=== PATIENT | female | born 1965 | race Caucasian/White ===

== ENCOUNTER 2020-10-11 14:00 | Outpatient (CLI) | payer OTHER, SELFPAY ==
--- NOTE | 2020-10-11 14:35 | ECG_ITS ---
Measurements Intervals [place] Rate: 62 P: 48 DE: 145 QRS: 14 QRSD: 83 T: 34 QT: 381 QTc: 388 Interpretive Statements SINUS RHYTHM NORMAL ECG Electronically Signed On 10-12-2020 7:48:35 SEMICONDUCTOR DEVELOPMENT TECHNICIAN by Rafy Wong D.O.
[2020-10-11 14:42] LABS: Add Urine Microscopic? NO; Appearance Urine Clear (Clear); Basophils Absolute Auto 0.08 K/mm3 (0.00-0.10); Basophils Percent Auto 1.4 % (0.0-1.0); Bilirubin Urine Negative (Negative); Blood Urine Negative (Negative); Color Urine Yellow (Yellow); Eosinophils Absolute Auto 0.09 K/mm3 (0.02-0.50); Eosinophils Percent Auto 1.6 % (1.0-6.0); Glucose Urine UA Negative (Negative); Hematocrit 35.3 % (35.0-49.0); Hemoglobin 11.2 g/dL (12.0-15.0); Immature Granulocyte Absolute 0.02 K/mm3 (0.00-0.00); Immature Granulocyte Percent A 0.4 % (0.0-0.0); Ketones Urine Negative (Negative); Leukocyte Esterase Ur Negative (Negative); Lymphocytes Absolute Auto 1.63 K/mm3 (1.10-4.50); Lymphocytes Percent Auto 28.8 % (18.0-42.0); Mean Corpuscular HGB Conc 31.7 g/dL (32.0-36.0); Mean Corpuscular Hemoglobin 29.6 pg (27.0-31.0); Mean Corpuscular Volume 93.1 fL (78.0-102.0); Mean Platelet Volume 9.9 fl (9.2-11.8); Monocytes Absolute Auto 0.34 K/mm3 (0.10-0.90); Neutrophils Absolute Auto 3.5 K/mm3 (1.7-7.2); Neutrophils Percent Auto 61.8 % (50.0-70.0); Nitrate Urine Negative (Negative); Platelet Count Result 306 K/mm3 (150-420); Protein Urine Negative (Negative); Red Blood Count 3.79 M/mm3 (4.20-5.40); Red Cell Distribution Width 13.7 % (11.6-14.4); Specific Grav Ur 1.025 (1.010-1.020); Urobilinogen Urine 0.2 mg/dL (0.2-1.0); White Blood Count 5.7 K/mm3 (4.8-10.8); pH Urine 6.5 (5.0-8.0)
[2020-10-11 14:45] LABS: Anion Gap 9 mmol/L (8-16); Blood Urea Nitrogen 19 mg/dL (7-18); Calcium 8.9 mg/dL (8.5-10.1); Carbon Dioxide 28 mmol/L (21-32); Chloride 104 mmol/L (98-108); Estimated Glomerular Filt Rate 56; Glucose 115 mg/dL (70-99); Osmolality Calculated 295 mOsm/kg (285-295); Potassium 5.3 mmol/L (3.5-5.1); Sodium 141 mmol/L (136-145)
[2020-10-12 19:34] LABS: SARS-CoV-2 RNA PCR Negative
== END 2020-10-11 14:01 | disposition home or self-care (01) ==
LOC: CHSLAB 14:08
PROVIDERS: PCP Emergency Medicine
DX: Z01.818 Encounter for other preprocedural examination (principal); R35.0 Frequency of micturition; Z20.822 Contact with and (suspected) exposure to COVID-19
CPT/HCPCS: 36415; 80048; 81003; 85025; 87077; 87086; 87088; 93005; C9803; U0003; U0005

== ENCOUNTER 2020-11-03 13:57 | Outpatient (CLI) | payer OTHER, SELFPAY ==
--- NOTE | ~2020-11-03 | CT_ITS ---
EXAMINATION: CT abdomen pelvis w con DATE: 11/03/2020 14:27 INDICATION: Abnormal weight loss of 30 pounds in 1 month. There is esophagus. Incontinence stimulator device present. TECHNIQUE: Computed tomography (CT) of the abdomen and pelvis was performed with 100 cc Omnipaque 350 intravenous contrast. The dose-length product was 316.09 mGy-cm. Automated exposure control and iter ative reconstruction technique were employed. COMPARISON: CT dated 03/03/2017 FINDINGS: Lung bases are unremarkable. Heart size is normal. No significant pleural or pericardial ef fusion. Mild atherosclerosis without aneurysm. No lymphadenopathy. There is hepatomegaly. Nonobstruct seth bowel gas pattern. No free air or free fluid. The spleen, pancreas, adrenal glands and kidneys ar e unremarkable. Gallbladder is present. There is a neurostimulator device implanted in the right flan k extending into the right pelvis. Surgical clips present in the mid abdomen. There is disc narrowing at L5-S1. No acute osseous abnormality. IMPRESSION: 1. No acute abdominal abnormality. No findings to account for weight loss. 2: Hepatomegaly. Reviewed, dictated and finalized at location A. [facility] SPECIALIST
== END 2020-11-03 13:58 | disposition home or self-care (01) ==
PROVIDERS: PCP Emergency Medicine; Visit Provider Internal Medicine Gastroenterology
DX: R63.4 Abnormal weight loss (principal); R16.0 Hepatomegaly, not elsewhere classified
CPT/HCPCS: 74177; Q9967

== ENCOUNTER 2020-12-28 18:29 | Emergency (ER) | payer OTHER, SELFPAY ==
--- NOTE | ~2020-12-28 | XR_ITS ---
EXAMINATION: XR hip LT 2V w AP pelvis DATE: 12/28/2020 19:28 INDICATION: Left hip pain. TECHNIQUE: An anteroposterior view of the pelvis and 2 views of left hip were obtained. COMPARISON: None. FINDINGS: There is a comminuted fractures of left femoral neck. The main distal fracture fragment dem onstrates impaction, 10 mm medial displacement, and 20 degrees valgus angulation. The hip joint space s are normal. There is an electrode in right S3 neural foramen. Surgical clips overlie the pelvis. IMPRESSION: 1. Comminuted fracture of left femoral neck. Reviewed, dictated and finalized at location A.
--- NOTE | 2020-12-28 19:07 | ED.LOWEXIN ---
HPI - Extremity Injury (Lower) General Chief Complaint: Extremity Problem,Nontraumatic Stated Complaint: left hip pain Source: patient and RN notes reviewed Mode of arrival: wheelchair Limitations: no limitations History of Present Illness HPI Narrative: patient has had hip pain for the last 2 weeks. Says that she fell on some rocks 10-14 days ago and is unable to bear weight now. complaint: hip injury Onset (ago): day(s) (10) Type of Injury: blunt Place: home Severity: severe Relieving factors: nothing Exacerbating factors: weight bearing, movement and palpation Context: fall Associated symptoms: unable to bear weight Other symptoms: none Related Data Home Medications Medication Instructions Recorded Confirmed albuterol sulfate 2.5 mg/0.5 mL 2.5 mg INHALATION Q20M PRN 10/04/19 12/28/20 solution for nebulization albuterol sulfate 90 mcg/actuation 1 inhalation INHALATION Q4H PRN 10/04/19 12/28/20 aerosol inhaler alendronate 70 mg tablet 70 mg PO WEEKLY 10/04/19 12/28/20 clonazepam 1 mg tablet 1 mg PO DAILY 10/04/19 12/28/20 ergocalciferol (vitamin D2) 1,250 1,250 mcg PO WEEKLY 10/04/19 12/28/20 mcg (50,000 unit) capsule fluoxetine 40 mg capsule 40 mg PO DAILY 10/04/19 12/28/20 fluticasone 113 mcg-salmeterol 14 1 puff INHALATION BID 10/04/19 12/28/20 mcg/actuation breath activated powdr hydrocodone 10 mg-acetaminophen 1 tablet PO Q8H PRN 10/04/19 12/28/20 325 mg tablet simvastatin 20 mg tablet 20 mg PO DAILY 10/04/19 12/28/20 umeclidinium 62.5 mcg/actuation 1 inhalation INHALATION DAILY 10/04/19 12/28/20 blister powder for inhalation lamotrigine 100 mg PO DAILY 12/28/20 12/28/20 lisinopril 20 mg PO DAILY 12/28/20 12/28/20 Allergies Allergy/AdvReac Type Severity Reaction Status Date / Time aspirin Allergy Mild Unknown Verified 10/29/20 14:57 ciprofloxacin Allergy Unknown Unknown Verified 10/29/20 14:57 BEE STINGS Allergy Intermediate SWELLING Uncoded 10/29/20 14:57 Review of Systems Review of Systems: All systems reviewed & are unremarkable except as noted in HPI and below PMFSH Past Medical History Medical History Anemia Arthritis Asthma CAD in [place] artery Chronic obstructive pulmonary disease Colon polyp Cubital tunnel syndrome on left [place] (dyspnea on exertion) Dyslipidemia Elevated lipids Essential hypertension GERD (gastroesophageal reflux disease) Heart murmur Tobacco abuse Weight loss Surgical History Surgical History History of appendectomy History of foot surgery History of hysterectomy History of knee surgery History of shoulder surgery Family History Family History Father Family history of lung cancer Sibling Family history of mental disorder Mother Hypertension Family history of elevated blood lipids Other Diabetes mellitus Social History Social History Smoking packs per day: 1 Smoking cigarettes per day: 20.0 Years smoked: 30 Smoking pack-years: 30.00 Smoking status: Current every day smoker Tobacco type: cigarettes Alcohol intake: never Substance use: never Substance use type: does not use Gender identity (if verbalized by the patient): Female Spiritual care concerns: No Exam Const: Nutritional Appearance: well nourished and thin Orientation/consciousness: patient oriented x3 HENMT: Head: normal to inspection Ears: external ears normal Face and sinus: normal facial exam Mouth: Yes moist mucous membranes Eyes: General: appearance normal, both eyes and all related structures Conjunctivae: conjunctivae normal Pupils: Equal, round and reactive pupils present EOM: EOMs intact bilaterally Neck: Neck: normal visual inspection Resp: Effort & Inspection: normal respiratory effort Auscultation: clear to auscult
[2020-12-28 19:18] VITALS: BP 106/65; PULSE 74; RESP 20; TEMP 36.9; O2SAT 96
[2020-12-28] MEDS: HYDROmorphone HCL INJ (*CRX) 2 MG/ML VIAL 1 MG IV PUSH ×2 (19:40→20:55)
--- NOTE | 2020-12-28 19:46 | PC.NURSE ---
Call placed to [facility] pt. requests transfer for ortho care and surgery at [place]. Spoke woo Jones supv. will await callback from
[2020-12-28 19:47] LABS: Basophils Absolute Auto 0.07 K/mm3 (0.00-0.10); Basophils Percent Auto 0.9 % (0.0-1.0); Eosinophils Percent Auto 2.7 % (1.0-6.0); Hematocrit 34.4 % (35.0-49.0); Immature Granulocyte Absolute 0.01 K/mm3 (0.00-0.00); Immature Granulocyte Percent A 0.1 % (0.0-0.0); Lymphocytes Absolute Auto 3.47 K/mm3 (1.10-4.50); Lymphocytes Percent Auto 46.1 % (18.0-42.0); Mean Corpuscular Hemoglobin 29.4 pg (27.0-31.0); Mean Platelet Volume 9.4 fl (9.2-11.8); Neutrophils Absolute Auto 3.2 K/mm3 (1.7-7.2); Neutrophils Percent Auto 42.2 % (50.0-70.0); Platelet Count Result 366 K/mm3 (150-420); Red Blood Count 3.74 M/mm3 (4.20-5.40); Red Cell Distribution Width 13.8 % (11.6-14.4); White Blood Count 7.5 K/mm3 (4.8-10.8)
[2020-12-28 20:00] LABS: Partial Thromboplastin Time 28.5 SEC (23.90-30.70); Prothrombin Time 10.4 Seconds (9.50-12.10)
[2020-12-28 20:01] LABS: Alanine Aminotransferase 21 U/L (14-59); Albumin Level 3.8 g/dL (3.4-5.0); Alkaline Phosphatase 111 U/L (46-116); Anion Gap 7 mmol/L (8-16); Aspartate Amino Transferase 14 U/L (15-37); Bilirubin,Total 0.3 mg/dL (0.00-1.00); Blood Urea Nitrogen 20 mg/dL (7-18); Calcium 9.3 mg/dL (8.5-10.1); Carbon Dioxide 29 mmol/L (21-32); Chloride 100 mmol/L (98-108); Estimated CRCL calculation 58 ml/min; Estimated Glomerular Filt Rate > 60; Glucose 75 mg/dL (70-99); Osmolality Calculated 283 mOsm/kg (285-295); Potassium 4.2 mmol/L (3.5-5.1); Sodium 136 mmol/L (136-145); Total Protein 7.4 g/dL (6.4-8.2)
[2020-12-28 21:00] VITALS: BP 117/50; PULSE 68; RESP 18; O2SAT 98
[2020-12-28 21:49] VITALS: BP 120/64; PULSE 68; RESP 20; TEMP 37.2; O2SAT 96
[2020-12-28] MEDS: ALBUTEROL SULFATE (*SP) INHALER 2 PUFF INHALATION (21:59)
== END 2020-12-28 22:25 | disposition short-term general hospital (02) ==
PROVIDERS: Emergency Provider Emergency Medicine; PCP Emergency Medicine
DX: S72.002A Fracture of unspecified part of neck of left femur, initial encounter for closed fracture (principal); W19.XXXA Unspecified fall, initial encounter
CPT/HCPCS: 36415; 73502; 80053; 85025; 85610; 85730; 96374; 96376; 99285; A9270; J1170

== ENCOUNTER 2020-12-28 23:41 | Inpatient (IN) | payer OTHER, SELFPAY ==
--- NOTE | ~2020-12-28 | CT_ITS ---
EXAMINATION: CT hip LT wo con DATE: 12/29/2020 13:23 INDICATION: Left hip fracture. Preoperative evaluation. TECHNIQUE: High resolution computed tomography (CT) of the left hip was performed without intravenous contrast. Additional sagittal and coronal reconstructions were performed. Automated exposure control and iterative reconstruction technique were employed. The dose-length product was 254.38 mGy-cm. COMPARISON: None FINDINGS: Mildly comminuted fractures of the proximal left femur. This includes a subcapital fracture which is impacted with approximately 25 degrees valgus angulation. There is an additional nondisplaced fractur e plane extending caudally along the inferomedial cortex of the femoral neck to the cephalad margin o f the lesser trochanter which is not directly involved by the fracture. No other fractures identified . Left femoral head remains normally centered in the left acetabulum but is rotated as with adduction . Mild left hip osteoarthritis with mild nonuniform joint space narrowing. There is a 1.9 x 1.3 cm re gion of mild subarticular cystic change with underlying linear sclerosis at the anterosuperior aspect of the left femoral head suspicious for osteonecrosis. No left hip joint effusion. Mild left sacroil iac osteoarthritis. Moderate disc height loss at L5-S1. Disc bulges at L4-5 and L5-S1. Mild lower lum bar facet osteoarthritis. There are few sigmoid diverticula without adjacent inflammatory change to s uggest diverticulitis. Visualized bladder is normal. No free fluid in the pelvis. No pathologically e nlarged left pelvic or inguinal lymphadenopathy. IMPRESSION: 1. Mildly comminuted fractures of the left femoral neck with impaction and 25 degrees valgus angulati on at the main subcapital fracture plane. 2. 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 Reviewed, dictated and finalized at location A. IMPRESSION: 1. Mildly comminuted fractures of the left femoral neck with impaction and 25 d egrees valgus angulation at the main subcapital fracture plane. 2. Osteonecrosis underlying a small region of the anterosuperior left femoral h ead.
--- NOTE | ~2020-12-28 | XR_ITS ---
EXAMINATION: XR chest 1V portable INDICATION: Pain after fall TECHNIQUE: Portable AP chest at 0602 hours COMPARISON: 07/08/2017 FINDINGS: The lungs are free of acute opacities. There is no pleural effusion or pneumothorax. The ca rdiomediastinal silhouette is normal. IMPRESSION: 1. No acute cardiopulmonary abnormality. Reviewed, dictated and finalized at location A.
--- NOTE | ~2020-12-28 | XR_ITS ---
EXAMINATION: XR hip LT min 2V DATE: 12/30/2020 18:57 INDICATION: Left hip bipolar hemiarthroplasty. Postop. TECHNIQUE: 2 views of left hip were obtained. COMPARISON: Left hip radiographs 12/28/2020 FINDINGS: There is a bipolar left hip hemiarthroplasty in near-anatomic alignment. There is a cable a round the proximal femur. No acute fracture. An electrode overlies the sacrum. There are skin toan lateral to the left hip. IMPRESSION: 1. Bipolar left hip hemiarthroplasty in near-anatomic alignment. Reviewed, dictated and finalized at location A.
--- NOTE | 2020-12-28 23:17 | ADMGEN ---
This patient, Bessy Zavala, was admitted to Medical Room 247-. Patient/family oriented to hospital policies and general routines including ID bracelet, bed and alarms, visiting hours, pain management, procedures, bathroom and other care routines, personal items, smoking policy, room service/diet, and visiting hours. Information on how to activate the Rapid Response Team has been discussed. Patient/Family are encouraged to report perceived risks to care and to ask questions if they do not understand what they are told or what they should do.
[2020-12-28 23:18] VITALS: BP 107/42; PULSE 87; RESP 18; TEMP 36.9; O2SAT 96
[2020-12-28 23:48] VITALS: BMI 20.4
[2020-12-29] VITALS (8 sets, daily range): BP systolic 105–120; BP diastolic 47–60; PULSE 68–107; RESP 16–20; TEMP 36.2–36.5; O2SAT 94–97
--- NOTE | 2020-12-29 00:28 | ECG_ITS ---
Measurements Intervals [place] Rate: 78 P: 76 ID: 150 QRS: 48 QRSD: 83 T: 70 QT: 360 QTc: 411 Interpretive Statements SINUS RHYTHM BASELINE ARTIFACT- II, III, AVR, AVL, AVF NORMAL ECG Electronically Signed On 12-29-2020 7:14:47 CDT by Rafy Wong D.O.
[2020-12-29] MEDS: SODIUM CHLORIDE 0.9% IV 1,000 ML 100 ML IV CONT ×3 (00:57→23:26)
[2020-12-29] MEDS: MORPHINE SULFATE (*CRX) 2 MG/ML INJ IV PUSH (01:00)
[2020-12-29] MEDS: HYDROmorphone HCL INJ (*CRX) 1 MG/ML SYR IV PUSH ×6 (03:11→21:19)
--- NOTE | 2020-12-29 05:36 | PM.IMHP ---
H&P: HPI History of Present Illness Date/Time: 12/29/20 04:40 Chief Complaint: Left hip pain Narrative: 55-year-old female with past medical history of COPD, chronic tobacco use, hypertension, bipolar disorder, chronic pain and osteoporosis who presented to [facility] via private vehicle due to hip pain. The patient reports that she decided to go outside and try to exercise and get healthy like her doctor had always told her. On the 1st day that she when out to exercise she was walking down the side of the road and slipped on some gravel in fell. She was immediately unable to bear weight due to severe pain. She reports that her pain is a 12/10 at all times. She proceeded to call her son and rosa and they helped her back to the house with them supporting most of her weight. Since that time she has been crawling around the house to gets the bathroom or having her son and rosa pick her up. She reports that the pain is in her left groin. Her pain is worse with any movement of the extremity. She reports that the narcotics that she takes at home were not helping much at all. She reports that she is in pain all the time and she thought that she would just eventually get over this pain like she gets over her regular pain. She reports that she did not have any lightheadedness, dizziness, chest pain or increased shortness of breath from baseline. She is chronically short of breath to to her COPD. She still smokes a pack of cigarettes per day. She is interested in quitting smoking but has failed attempts to quit multiple times. She does not want a nicotine patch at this time. She denies any chest pain, palpitations, lower extremity swelling or orthopnea. Her external records stated that she had a history of coronary artery disease but she adamantly denies this. She has had history of significant weight loss that occurred before August. Her weight has otherwise been stable. She was evaluated by gastroenterology and had a CT scan of the abdomen pelvis as outpatient that demonstrated hepatomegaly. Patient did not follow-up with her recommended EGD and colonoscopy. She denies any history of any alcohol use. Review of Systems Review of Systems: Narrative: 12 systems were reviewed with pertinent positives and negatives per HPI. Except as documented in the HPI, all other systems were reviewed and are negative. [facility] Past Medical History Medical History (Updated 12/29/20 @ 06:00 by Maggie Martinez DO) Anemia Arthritis Chronic obstructive pulmonary disease Cubital tunnel syndrome on left Dyslipidemia Elevated lipids Essential hypertension GERD (gastroesophageal reflux disease) Heart murmur Since Hepatomegaly Tobacco abuse Weight loss The patient was evaluated by Dr. Maguire who recommended the patient have EGD and colonoscopy she has not followed up. Her CT scan performed at that time demonstrated hepatomegaly Surgical History Surgical History (Updated 12/29/20 @ 06:13 by Maggie Martinez DO) History of appendectomy History of carpal tunnel release Left History of colonoscopy with polypectomy (~2013) History of esophagogastroduodenoscopy (EGD) (~2016) History of foot surgery Repair of tendons and ligaments of left ankle after severe laceration History of hysterectomy Without oophorectomy at age 36 performed due to endometriosis and dysfunctional uterine bleeding History of knee surgery Open meniscus repair left knee History of shoulder surgery S/P cubital tunnel release Left S/P implantation of urinary electronic stimulator device (~2016) With battery exchange 2020 Family History Family History (Updated 12/29/20 @ 06:13 by Maggie Martinez DO) Father Lung cancer Sibling Psychiatric illness Mother Hypertension Hyperlipidemia Other Diabetes mellitus Social History Social History (Updated 12/29/20 @ 06:14 by Maggie Martinez DO) Social History: She lives at home with her fiance and her adult so
[2020-12-29] MEDS: clonazePAM (*CRX) 0.5 MG TABLET 1 MG PO (08:37)
[2020-12-29] MEDS: lamoTRIgine 100 MG TABLET PO (08:38)
[2020-12-29] MEDS: UMECLIDINIUM BROMIDE 62.5 MCG ELLIPTA 1 PUFF INHALATION (08:38)
[2020-12-29] MEDS: SIMVASTATIN 20 MG TABLET PO (08:38)
[2020-12-29] MEDS: FLUoxetine HCL 20 MG CAPSULE 40 MG PO (08:38)
--- NOTE | 2020-12-29 11:47 | PM.CNOR ---
Assessment and Plan Assessment and plan (1) Displaced fracture of left femoral neck: Code(s): S72.002A - Fracture of unspecified part of neck of left femur, initial encounter for closed fracture Status: Acute Assessment and Plan: 55-year-old female with a displaced left femoral neck fracture. This is a very subcapital fracture which is not amenable to ORIF. Plan on bipolar hip replacement tomorrow pending medical evaluation. Risks and potential complications were discussed in detail and questions answered. Thank you for the consultation. History of Present Illness HPI Consult date: 12/29/20 Consult reason: fracture Chief complaint: L. Hip Fx. Narrative: 55-year-old female who about a week and half ago had a fall while walking. She had progressive pain in her left hip. She was seen in the emergency room in [place] yesterday where a displaced subcapital femoral neck fracture was identified. She was transferred to [facility] for further evaluation and management of this issue. No other injuries with this occurrence. Review of Systems Constitutional: Constitutional: Denies chills and Denies fever(s) Eyes: Eyes: Reports no additional eye complaints ENT: Reports system reviewed and no additional complaints, except as documented Cardiovascular: Cardiovascular: Denies chest pain and Denies dyspnea on exertion Respiratory: Respiratory: Reports no additional respiratory complaints and Denies dyspnea on exertion Gastrointestinal: Gastrointestinal: Denies abdominal pain and Denies bloating PMFSH Past Medical History Medical History (Updated 12/29/20 @ 11:54 by Albert Oneill MD) Anemia Arthritis Chronic obstructive pulmonary disease Cubital tunnel syndrome on left Displaced fracture of left femoral neck [place] type 4 subcapital femoral neck fracture Dyslipidemia Elevated lipids Essential hypertension GERD (gastroesophageal reflux disease) Heart murmur Since Hepatomegaly Tobacco abuse Weight loss The patient was evaluated by Dr. Maguire who recommended the patient have EGD and colonoscopy she has not followed up. Her CT scan performed at that time demonstrated hepatomegaly Surgical History Surgical History History of appendectomy History of carpal tunnel release Left History of colonoscopy with polypectomy (~2013) History of esophagogastroduodenoscopy (EGD) (~2017) History of foot surgery Repair of tendons and ligaments of left ankle after severe laceration History of hysterectomy Without oophorectomy at age 36 performed due to endometriosis and dysfunctional uterine bleeding History of knee surgery Open meniscus repair left knee History of shoulder surgery S/P cubital tunnel release Left S/P implantation of urinary electronic stimulator device (~2016) With battery exchange 2020 Family History Family History Father Lung cancer Sibling Psychiatric illness Mother Hypertension Hyperlipidemia Other Diabetes mellitus Social History Social History Social History: She lives at home with her fiance and her adult son. She only has the 1 son. She has smoked between 1-2 packs of cigarettes per day since she was in her teens. She continues to smoke 1 pack of cigarettes per day. She denies any alcohol use or illicit substance use. 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 Primary care physician: Dr. Eb Gomez Code status: Full code Smoking packs per day: 1 Smoking cigarettes per day: 20.0 Years smoked: 40 Smoking pack-years: 40.00 Smoking status: Current every day smoker Tobacco type: cigarettes Alcohol intake: never Substance use: never Gender identity (if verbalized by the patient): Female Spiritual care concerns: No
--- NOTE | 2020-12-29 13:21 | PM.IMPN ---
Progress Note: A&P Assessment and Plan (1) Comminuted fracture of hip: Onset Date: ~12/19/20 Qualifiers: Encounter type: initial encounter Fracture type: closed Laterality: left Qualified Code(s): S72.092A - Other fracture of head and neck of left femur, initial encounter for closed fracture Code(s): S72.099A - Other fracture of head and neck of unspecified femur, initial encounter for closed fracture Status: Deleted Assessment and Plan: 12/29/20 13:21 Status post fall and fracture of the left hip and it was getting progressively to bear weight on her left foot patient presented emergency depart is [facility] and x-ray of the left hip showed commuted fracture patient was seen by orthopedic surgeon and evaluate the patient images the patient will require bipolar hip replacement rather than ORIF, will keep the patient NPO tonight and patient have surgery tomorrow and further recommendation to follow. (2) Chronic obstructive pulmonary disease: Qualifiers: COPD type: unspecified COPD Qualified Code(s): J44.9 - Chronic obstructive pulmonary disease, unspecified Code(s): J44.9 - Chronic obstructive pulmonary disease, unspecified Status: Acute Assessment and Plan: Patient is clinically stable will continue home regimen and monitor (3) Tobacco abuse: Code(s): Z72.0 - Tobacco use Status: Acute Assessment and Plan: Dr. Martinez consuled patient regarding quitting smoking Additional Plan Patient has a comminuted fracture of the left femoral neck. Dr. Oneill was consulted from the outside ER. The patient is NPO for anticipated surgery. The patient is moderate risk for pulmonary complications due to her chronic tobacco use and COPD. She is wheezing but currently denies any increased shortness of breath from baseline. She has not had any recent cough or evidence of infection and her chest x-ray only shows chronic changes. The patient's COPD is stable. Will provide pre and post op scheduled nebulizer treatments to optimize lung function and recommend incentive spirometer. A nicotine patch or nicotine gum was offered to the patient but she refused. 5 minutes was spent in smoking cessation education. Subjective Date/time seen: 12/29/20 13:21 Status post fall and fracture of the left hip and it was getting progressively to bear weight on her left foot patient presented emergency depart is [facility] and x-ray of the left hip showed commuted fracture patient was seen by orthopedic surgeon and evaluate the patient images the patient will require bipolar hip replacement rather than ORIF, will keep the patient NPO tonight and patient have surgery tomorrow and further recommendation to follow. Review of Systems Review of Systems: All systems reviewed & are unremarkable except as noted in HPI and below Exam Narrative: Exam Narrative: Patient is comfortable, NAD HEENT: eyes are clear and none icteric LUNGS:CTA HEART: RR S1S2 ABD: BS+, Soft and nontender Lower extremities: Left lower extremity external rotation SKIN: nonjaundiced Neuro: grossly intact. Objective Data Vital Signs Vital Signs: Vital Signs - 24 hr 12/28/20 23:18 12/29/20 04:47 12/29/20 08:44 Temperature 98.4 F 97.3 F L Pulse Rate 87 78 68 Respiratory Rate 18 16 Blood Pressure 107/42 L 117/47 L 105/60 Pulse Oximetry 96 95 94 Intake/Output Intake/Output: Intake & Output 12/26/20 12/27/20 12/28/20 12/29/20 23:59 23:59 23:59 23:59 Intake Total 1120 Output Total 700 Balance 420 Meds/Results Medications: Active Medications Generic Name Dose Route Start Last Admin Trade Name Freq PRN Reason Stop Dose Admin Hydrocodone Bitart/Acetaminophen 1 tab 12/29/20 00:28 Hydrocodone/Acetaminophen (*Crx) 10-325 Mg Tablet PO Q6H PRN Pain 4-6 Albuterol 2.5 mg 12/29/20 00:28 Albuterol Sulfate Neb 2.5 Mg/0.5 Ml Inh INHALATION
[2020-12-29] MEDS: ALBUTEROL SULFATE NEB 2.5 MG/0.5 ML INH 5 MG INHALATION ×2 (14:39→21:46)
[2020-12-29] MEDS: IPRATROPIUM BR 0.02% INH SOLN 0.5 MG/2.5 ML VIAL INHALATION ×2 (14:39→21:46)
--- NOTE | 2020-12-29 16:33 | WPDANESEPP ---
Anes - Eval Pre Procedure Procedure: Operation Date: 12/30/20 15:00 Proposed Procedures p Left Bipolar Hip Replacement - Albert Oneill MD Date/Time: 12/29/20 16:33 Pre Op Diagnosis: L. Hip Fx. Patient Data Age: 55 Gender: F Height: 5 ft 8 in Weight: 61 kg Last Vital Signs Temp 97.2 F L 12/29/20 14:00 Pulse 107 H 12/29/20 14:47 Resp 18 12/29/20 14:47 BP 120/59 L 12/29/20 14:00 Pulse Ox 97 12/29/20 14:00 Allergies Allergy/AdvReac Type Severity Reaction Status Date / Time aspirin Allergy Mild Unknown Verified 12/28/20 23:45 ciprofloxacin Allergy Unknown Unknown Verified 12/28/20 23:45 BEE STINGS Allergy Intermediate SWELLING Uncoded 12/28/20 23:45 Home Medications Medication Instructions Recorded Confirmed Type albuterol sulfate 2.5 mg/0.5 mL 2.5 mg INHALATION Q20M PRN 10/04/19 12/28/20 History solution for nebulization albuterol sulfate 90 mcg/actuation 1 inhalation INHALATION Q4H PRN 10/04/19 12/28/20 History aerosol inhaler alendronate 70 mg tablet 70 mg PO WEEKLY 10/04/19 12/28/20 History clonazepam 1 mg tablet 1 mg PO DAILY 10/04/19 12/28/20 History ergocalciferol (vitamin D2) 1,250 1,250 mcg PO WEEKLY 10/04/19 12/28/20 History mcg (50,000 unit) capsule fluoxetine 40 mg capsule 40 mg PO DAILY 10/04/19 12/28/20 History fluticasone 113 mcg-salmeterol 14 1 puff INHALATION BID 10/04/19 12/28/20 History mcg/actuation breath activated powdr hydrocodone 10 mg-acetaminophen 1 tablet PO Q8H PRN 10/04/19 12/28/20 History 325 mg tablet simvastatin 20 mg tablet 20 mg PO DAILY 10/04/19 12/28/20 History umeclidinium 62.5 mcg/actuation 1 inhalation INHALATION DAILY 10/04/19 12/28/20 History blister powder for inhalation lamotrigine 100 mg PO DAILY 12/28/20 12/28/20 History lisinopril 20 mg PO DAILY 12/28/20 12/28/20 History Patient hx anesthesia problems: none Family hx anesthesia problems: none PMFSH Past Medical History Medical History Anemia Arthritis Chronic obstructive pulmonary disease Cubital tunnel syndrome on left Displaced fracture of left femoral neck Garden type 4 subcapital femoral neck fracture Dyslipidemia Elevated lipids Essential hypertension GERD (gastroesophageal reflux disease) Heart murmur Since Hepatomegaly Tobacco abuse Weight loss The patient was evaluated by Dr. Maguire who recommended the patient have EGD and colonoscopy she has not followed up. Her CT scan performed at that time demonstrated hepatomegaly Surgical History Surgical History History of appendectomy History of carpal tunnel release Left History of colonoscopy with polypectomy (~2013) History of esophagogastroduodenoscopy (EGD) (~2016) History of foot surgery Repair of tendons and ligaments of left ankle after severe laceration History of hysterectomy Without oophorectomy at age 36 performed due to endometriosis and dysfunctional uterine bleeding History of knee surgery Open meniscus repair left knee History of shoulder surgery S/P cubital tunnel release Left S/P implantation of urinary electronic stimulator device (~2016) With battery exchange 2020 Family History Family History Father Lung cancer Sibling Psychiatric illness Mother Hypertension Hyperlipidemia Other Diabetes mellitus Social History Social History Social History: She lives at home with her fiance and her adult son. She only has the 1 son. She has smoked between 1-2 packs of cigarettes per day since she was in her teens. She continues to smoke 1 pack of cigarettes per day. She denies any alcohol use or illicit substance use. 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 Primary care physician: Dr. Lucas
[2020-12-30] VITALS (19 sets, daily range): BP systolic 113–143; BP diastolic 49–83; PULSE 16–100; RESP 10–95; TEMP 36.2–36.7; O2SAT 94–100
[2020-12-30] MEDS: HYDROmorphone HCL INJ (*CRX) 1 MG/ML SYR IV PUSH ×6 (00:23→20:34)
[2020-12-30] MEDS: ALBUTEROL SULFATE NEB 2.5 MG/0.5 ML INH 5 MG INHALATION ×4 (02:47→20:45)
[2020-12-30] MEDS: IPRATROPIUM BR 0.02% INH SOLN 0.5 MG/2.5 ML VIAL INHALATION ×4 (02:47→20:45)
[2020-12-30 05:18] LABS: Hematocrit 30.1 % (37.0-47.0); Hemoglobin 9.8 g/dL (12.0-15.0); Mean Corpuscular HGB Conc 32.6 g/dl (32-36); Mean Corpuscular Hemoglobin 28.9 pg (26-34); Mean Corpuscular Volume 88.8 fl (80-100); Mean Platelet Volume 9.5 fl (7.4-10.4); Platelet Count Result 300 k/mm3 (150-375); Red Blood Count 3.39 M/mm3 (4.2-5.4); Red Cell Distribution Width 13.6 % (11.5-14.5); White Blood Count 7.6 K/mm3 (4.5-10.0)
[2020-12-30 05:45] LABS: Anion Gap 2 mmol/L (8-16); Blood Urea Nitrogen 15 mg/dL (7-17); Calcium 8.8 mg/dL (8.4-10.2); Carbon Dioxide 28 mmol/L (22-30); Chloride 109 mmol/L (98-107); Estimated CRCL calculation 74 ml/min; Estimated Glomerular Filt Rate > 60; Glucose 94 mg/dL (65-105); Potassium 3.9 mmol/L (3.4-5.0); Sodium 139 mmol/L (137-145)
[2020-12-30] MEDS: FLUoxetine HCL 20 MG CAPSULE 40 MG PO (09:25)
[2020-12-30] MEDS: clonazePAM (*CRX) 0.5 MG TABLET 1 MG PO (09:25)
[2020-12-30] MEDS: lamoTRIgine 100 MG TABLET PO (09:25)
[2020-12-30] MEDS: SIMVASTATIN 20 MG TABLET PO (09:25)
[2020-12-30] MEDS: SODIUM CHLORIDE 0.9% IV 1,000 ML 100 ML IV CONT (10:40)
--- NOTE | 2020-12-30 13:40 | PC.NURSE ---
To OR per bed, IV intact. Report given to GEE Cortes.
[2020-12-30] MEDS: LACTATED RINGERS 1,000 ML 30 ML IV CONT ×2 (14:00→18:37)
--- NOTE | 2020-12-30 15:29 | WPDHPUPDATE1 ---
History and Physical Update Update Date/Time: 12/30/20 15:29 History and Physical has been reviewed, including an updated exam of the patient. There are NO changes in the patient's condition. Risks, benefits, and alternatives have been discussed and questions answered. Patient agrees to proceed with procedure.
[2020-12-30] MEDS: ceFAZolin 2 GM/D5W 50 ML 2 GM/50 ML BAG IVPB ×2 (15:34→23:54)
--- NOTE | 2020-12-30 16:19 | WPDANESEFPP ---
Anes - Eval Final PreProcedure Day of Procedure 12/30/20 16:19 Patient weight: normal Heart: regular rate and rhythm Lungs: clear to auscultation and normal air movement Airway: Mallampati scale class II Neurological: alert and oriented Last oral intake: >/= 8 hours ASA classification: III Emergent: no Anesthetic plan: proceed Anesthesia type and monitoring: general ETT and standard monitoring Informed Consent: The patient's anesthetic plan and its attendant risks and benefits were discussed with the patient/family/POA. Questions were solicited and answers provided to the satisfaction of the patient/family/POA.
[2020-12-30] MEDS: TRANEXAMIC ACID 1,000 MG/10 ML AMPUL 1000 MG TOPICAL (16:23)
[2020-12-30] MEDS: BUPIVACAINE/EPINEPHRINE 0.25% 50 ML VIAL 40 ML INFILTRATE (16:24)
[2020-12-30] MEDS: GENTAMICIN BONE CEMENT REFOBACIN 1 EACH TOPICAL (17:32)
--- NOTE | 2020-12-30 17:32 | PM.IMPN ---
Progress Note: A&P Assessment and Plan (1) Displaced fracture of left femoral neck: Code(s): S72.002A - Fracture of unspecified part of neck of left femur, initial encounter for closed fracture Status: Acute (2) Tobacco abuse: Code(s): Z72.0 - Tobacco use Status: Acute Assessment and Plan: Dr. Martinez consuled patient regarding quitting smoking (3) Chronic obstructive pulmonary disease: Qualifiers: COPD type: unspecified COPD Qualified Code(s): J44.9 - Chronic obstructive pulmonary disease, unspecified Code(s): J44.9 - Chronic obstructive pulmonary disease, unspecified Status: Acute Assessment and Plan: Patient is clinically stable will continue home regimen and monitor (4) GERD (gastroesophageal reflux disease): Code(s): K21.9 - Gastro-esophageal reflux disease without esophagitis Status: Acute Additional Plan 12/28/20 Patient has a comminuted fracture of the left femoral neck. Dr. Oneill was consulted from the outside ER. The patient is NPO for anticipated surgery. The patient is moderate risk for pulmonary complications due to her chronic tobacco use and COPD. She is wheezing but currently denies any increased shortness of breath from baseline. She has not had any recent cough or evidence of infection and her chest x-ray only shows chronic changes. The patient's COPD is stable. Will provide pre and post op scheduled nebulizer treatments to optimize lung function and recommend incentive spirometer. A nicotine patch or nicotine gum was offered to the patient but she refused. 5 minutes was spent in smoking cessation education. 12/29/20 Status post fall and fracture of the left hip and it was getting progressively to bear weight on her left foot patient presented emergency depart is [facility] and x-ray of the left hip showed commuted fracture patient was seen by orthopedic surgeon and evaluate the patient images the patient will require bipolar hip replacement rather than ORIF, will keep the patient NPO tonight and patient have surgery tomorrow and further recommendation to follow. 12/30/20 s/p p Left Bipolar Hip Replacement POD 0 seen in pacu doing ok, transfer to med surg, pain managment, post op VTEP per othro. cont current care Time Spent With Patient Time with patient: 15 - 25 minutes Subjective Date/time seen: 12/30/20 17:32 Patient seen in PACU reports that she is in hell, jokingly, she is oriented reports that she feels muscle spasm has been received given Ativan Exam Narrative: Exam Narrative: GEN: NAD HEENT: eyes are clear and none icteric, L periorbital eye lid piercing LUNGS:CTA HEART: S1S2 RRR ABD: BS+, Soft and nontender Lower extremities: LLE w lateral surgical dressing clean and dry SKIN: nonjaundiced Neuro: grossly intact. Objective Data Vital Signs Vital Signs: Vital Signs - 24 hr 12/29/20 21:48 12/29/20 21:56 12/29/20 22:00 Temperature 97.7 F Pulse Rate 101 H 103 H 87 Respiratory Rate 20 18 18 Blood Pressure 110/60 Pulse Oximetry 97 12/30/20 02:48 12/30/20 02:55 12/30/20 06:00 Temperature 97.8 F Pulse Rate 96 100 72 Respiratory Rate 18 18 16 Blood Pressure 126/60 Pulse Oximetry 97 12/30/20 08:53 12/30/20 09:01 12/30/20 13:22 Temperature Pulse Rate 66 69 76 Respiratory Rate 16 18 18 Blood Pressure Pulse Oximetry 12/30/20 13:28 12/30/20 13:59 Temperature 97.5 F L Pulse Rate 79 67 Respiratory Rate 18 20 Blood Pressure 113/49 L Pulse Oximetry 98 Intake/Output Intake/Output: Intake & Output 12/27/20 12/28/20 12/29/20 12/30/20 23:59 23:59 23:59 23:59 Intake Total 2770 1250 Output Total 1550 1200 Balance 1220 50 Meds/Results Medications: Active Medications Generic Name Dose Route Start Last Admin Trade Name Freq PRN Reason Stop Dose Admin Hydrocodone Bitart/Acetaminophen 1 tab 12/29/20 00:28 Hydrocodone/Acetaminophen (*Crx) 10325
[2020-12-30] MEDS: ceFAZolin SODIUM 1 GM VIAL IV PUSH (17:52)
--- NOTE | 2020-12-30 18:34 | PM.PROC ---
Procedure Note - Detailed Date of procedure: 12/30/20 Pre-op diagnosis: L. Hip Fx. Comminuted left femoral neck fracture Post-op diagnosis: same Procedure performed: Cemented bipolar left hip hemiarthroplasty Description of procedure: The patient was identified and proper site identified, then taken back to the operating room and transferred to the OR table. After general anesthetic induction and intubation, the patient was positioned in the right lateral decubitus position in the usual manner for a left hip procedure, and secured with padded hip positioner making sure the torso and extremities were properly padded. The left lower extremity was prepped and draped in the usual sterile fashion. A curvilinear incision was made over the greater trochanter and sharp dissection carried down through the subcutaneous tissue to the gluteus fascia and IT band which were divided in line with the incision. The anterior 1/2 of the abductors were sharply dissected off the greater trochanter developing the interval between the abductors and the capsule. The capsule was divided in an inverted-T fashion exposing the fracture site. A neck cut was made about one fingerbreadth above the level of the lesser trochanter. Head fragment was removed and the acetabulum cleared of debris. The acetabulum was sized to 46 mm. The proximal femur was prepared for the size nine cemented. There was a large piece of the femoral neck in the calcar region that was wedged shaped that had fractured out all the way down to the level of the lesser trochanter. It was provisionally held in place with a slightly tightened arviem [employer] cable. Trial reduction was undertaken and the hip was noted to be stable through range of motion, after which the canal was prepared for cementing. A cement restrictor was placed. The real size seven fracture stem with a 12 mm centralizing tip was then inserted and held in position until the cement had cured. Through trialing it was noted that a 28+ 0 head with 46 cup configuration gave pentecostalism of leg lengths with excellent stability. The neck of the femoral component was cleaned and dried and the real components in those sizes were attached to the femoral stem. After final thorough lavage of the joint, the hip was again reduced. The capsule and laron-incisional tissues were infiltrated with 40 cc of 1% lidocaine and epinephrine solution. 1 g of tranexamic acid was placed deep in the wound. The capsule was repaired with #2 Ethibond suture. The abductors were repaired to the greater trochanter with #5 Ethibond suture passed through a bony bridge. The deep fascia was reapproximated with 0 looped PDS suture. Deeper layers of the subcu reapproximated with []. 2-0 strata fix and toan were used for the skin, and a sterile dressing was applied. Procedure was well tolerated and there were no known intraoperative complications. Anesthesia: GETA Surgeon: Albert Oneill MD Oncology Social Worker: Puma Benton Estimated blood loss (mL): 500 Drains: No Packing: No Pathology: none sent Complications: No immediate complications Condition: stable Disposition: PACU
[2020-12-30] MEDS: HYDROmorphone HCL INJ (*CRX) 1 MG/ML SYR 0.5 MG IV PUSH ×3 (18:46→18:58)
[2020-12-30] MEDS: fentaNYL CITRATE INJ (*CRX) 100 MCG/2 ML VIAL 25 MCG IV PUSH ×9 (19:15→19:47)
[2020-12-30] MEDS: SODIUM CHLORIDE 0.9% IV 1,000 ML 125 ML IV CONT (20:15)
[2020-12-30] MEDS: oxyCODONE HCL (*CRX) 5 MG TAB IR PO (21:11)
--- NOTE | 2020-12-30 21:53 | PC.NURSE ---
pt returned to room 247 at 2008. pt awake and laughing w/ transferring staff.
--- NOTE | 2020-12-30 22:42 | PC.NURSE ---
Dr Oneill notified pt states 06/06 pain w/ no relief from dilaudid or oxycodone. Ordered to maintain current pain management of q4h oxycodone PRN, MICHAEL q6h tylenol, and dilaudid q3h PRN only if not tolerating PO.
[2020-12-30] MEDS: FAMOTIDINE 20 MG TABLET PO (22:50)
[2020-12-30] MEDS: ACETAMINOPHEN 500 MG TABLET 1000 MG PO (22:50)
[2020-12-30] MEDS: oxyCODONE HCL (*CRX) 2.5 MG TAB IR PO (23:52)
[2020-12-31] VITALS (12 sets, daily range): BP systolic 100–136; BP diastolic 45–72; PULSE 72–94; RESP 16–18; TEMP 36.5–37.4; O2SAT 96–100
[2020-12-31] MEDS: oxyCODONE HCL (*CRX) 5 MG TAB IR PO ×5 (01:11→17:22)
[2020-12-31] MEDS: ALBUTEROL SULFATE NEB 2.5 MG/0.5 ML INH 5 MG INHALATION ×3 (02:21→15:04)
[2020-12-31] MEDS: IPRATROPIUM BR 0.02% INH SOLN 0.5 MG/2.5 ML VIAL INHALATION ×3 (02:22→15:04)
[2020-12-31] MEDS: clonazePAM (*CRX) 0.5 MG TABLET 1 MG PO ×4 (03:30→17:23)
[2020-12-31] MEDS: ACETAMINOPHEN 500 MG TABLET 1000 MG PO ×3 (05:12→21:51)
[2020-12-31 05:41] LABS: Hematocrit 28.1 % (37.0-47.0); Hemoglobin 9.3 g/dL (12.0-15.0); Mean Corpuscular HGB Conc 33.1 g/dl (32-36); Mean Corpuscular Hemoglobin 29.8 pg (26-34); Mean Corpuscular Volume 90.1 fl (80-100); Mean Platelet Volume 9.8 fl (7.4-10.4); Platelet Count Result 293 k/mm3 (150-375); Red Blood Count 3.12 M/mm3 (4.2-5.4); Red Cell Distribution Width 13.4 % (11.5-14.5); White Blood Count 13.2 K/mm3 (4.5-10.0)
[2020-12-31 05:54] LABS: Anion Gap 4 mmol/L (8-16); Blood Urea Nitrogen 9 mg/dL (7-17); Calcium 9.3 mg/dL (8.4-10.2); Carbon Dioxide 28 mmol/L (22-30); Chloride 104 mmol/L (98-107); Estimated CRCL calculation 74 ml/min; Estimated Glomerular Filt Rate > 60; Glucose 116 mg/dL (65-105); Potassium 3.8 mmol/L (3.4-5.0); Sodium 136 mmol/L (137-145)
[2020-12-31] MEDS: ceFAZolin 2 GM/D5W 50 ML 2 GM/50 ML BAG IVPB ×2 (07:20→15:06)
--- NOTE | 2020-12-31 07:46 | WPDANESPN ---
Anes - Prog Note Post-Op Date/Time: 12/31/20 07:46 Cardiovascular status: normal Respiratory status: normal Airway patency: baseline Mental status: baseline Post-Op hydration status: normal Vital Signs: Last Vital Signs Temp 36.5 C 12/31/20 05:58 Pulse 87 12/31/20 05:58 Resp 16 12/31/20 05:58 BP 124/51 L 12/31/20 05:58 Pulse Ox 97 12/31/20 05:58 Pain Score (VAS): 0 I/O: Intake & Output 12/30/20 12/30/20 12/31/20 15:59 23:59 07:59 Intake Total 1000 550 850 Output Total 1800 Balance 1000 550 -950 Laboratory Tests 12/31/20 05:17 12/31/20 05:17 12/31/20 12/31/20 12/31/20 03:40 05:17 05:17 WBC 13.2 H RBC 3.12 L Hgb 9.3 L Hct 28.1 L MCV 90.1 MCH 29.8 MCHC 33.1 RDW 13.4 Plt Count 293 MPV 9.8 Sodium 136 L Potassium 3.8 Chloride 104 Carbon Dioxide 28 Anion Gap 4 L BUN 9 D Creatinine 0.70 Estim Creat Clear Calc 74 Estimated GFR > 60 Glucose 116 H Calcium 9.3 SARS-CoV-2 RNA (RT-PCR) Pending Post-procedural complaints: none Patient Feedback: Patient satisfied with anesthetic care.
[2020-12-31] MEDS: FAMOTIDINE 20 MG TABLET PO ×2 (09:09→21:51)
[2020-12-31] MEDS: lisinopriL 20 MG TABLET PO (09:09)
[2020-12-31] MEDS: DOCUSATE SODIUM 100 MG CAPSULE PO ×2 (09:09→17:23)
[2020-12-31] MEDS: FLUoxetine HCL 20 MG CAPSULE 40 MG PO (09:09)
[2020-12-31] MEDS: SIMVASTATIN 20 MG TABLET PO (09:09)
[2020-12-31] MEDS: lamoTRIgine 100 MG TABLET PO (09:09)
[2020-12-31] MEDS: UMECLIDINIUM BROMIDE 62.5 MCG ELLIPTA 1 PUFF INHALATION (09:23)
--- NOTE | 2020-12-31 09:25 | PCRCNOTE ---
Pt refused Neb but took her ellipta
--- NOTE | 2020-12-31 12:18 | PM.PNORT ---
Progress Note: A&P Assessment and Plan (1) Displaced fracture of left femoral neck: Code(s): S72.002A - Fracture of unspecified part of neck of left femur, initial encounter for closed fracture Status: Acute Assessment and Plan: Continue with physical therapy. Will likely need placement. Surgery discussed with the patient in detail. Xarelto for DVT prophylaxis currently. Following. Subjective Subjective Date/Time Seen: 12/31/20 12:18 Interval history: This document created with [id number] technology and is subject to civil drafter irregularities. 55-year-old female who is postop day one from cemented left hip bipolar hemiarthroplasty for comminuted left femoral neck fracture. Pain better controlled this morning. Tolerating being up and starting therapy. Review of Systems Constitutional: Constitutional: Denies chills and Denies fever(s) Eyes: Eyes: Reports no additional eye complaints ENT: Reports system reviewed and no additional complaints, except as documented Cardiovascular: Cardiovascular: Denies chest pain and Denies dyspnea on exertion Respiratory: Respiratory: Reports no additional respiratory complaints and Denies dyspnea on exertion Gastrointestinal: Gastrointestinal: Denies abdominal pain and Denies bloating Exam Const: General: cooperative, no acute distress and alert Orientation/consciousness: patient oriented x3 HENMT: Head: normal to inspection Ears: hearing grossly normal bilaterally Face and sinus: face symmetric Eyes: Alignment and Position: alignment normal and position normal Sclera: sclerae normal Neck: Neck: normal visual inspection and nontender Chest: Chest palpation & inspection: normal inspection of the chest Resp: Effort & Inspection: normal respiratory effort and able to speak in complete sentences GI: Inspection: other (Nondistended) Skin: General skin exam: normal color Rashes: no rashes Neuro: General: patient oriented x3 Cognition (Neuro): normal cognition Speech: normal speech Gait exam (Neuro): Other gait observations present Extrem: General: normal to inspection and other Other: Exam of the left hip wound shows that it is dry. Grossly motor and sensory function is intact left lower extremity. Calves negative. Psych: Appearance: grossly normal Mental Status: mental status grossly normal Objective Data Vital Signs Vital Signs: Vital Signs - 24 hr 12/30/20 13:22 12/30/20 13:28 12/30/20 13:59 Temperature 97.5 F L Pulse Rate 76 79 67 Respiratory Rate 18 18 20 Blood Pressure 113/49 L Pulse Oximetry 98 12/30/20 18:37 12/30/20 18:50 12/30/20 19:00 Temperature 98.1 F Pulse Rate 95 82 83 Respiratory Rate 10 L 12 16 Blood Pressure 131/83 143/75 H 143/65 H Pulse Oximetry 99 100 100 12/30/20 19:15 12/30/20 19:30 12/30/20 19:47 Temperature Pulse Rate 87 83 80 Respiratory Rate 14 16 14 Blood Pressure 137/79 135/63 135/65 Pulse Oximetry 96 97 95 12/30/20 19:55 12/30/20 20:10 12/30/20 20:40 Temperature 97.6 F 97.3 F L 97.1 F L Pulse Rate 100 90 87 Respiratory Rate 16 16 16 Blood Pressure 138/57 L 129/55 L 135/58 L Pulse Oximetry 95 96 94 12/30/20 20:47 12/30/20 21:40 12/31/20 01:40 Temperature 97.6 F 97.7 F Pulse Rate 79 16 L 92 Respiratory Rate 18 95 H 16 Blood Pressure 138/57 L 117/52 L Pulse Oximetry 100 96 12/31/20 02:22 12/31/20 02:30 12/31/20 05:58 Temperature 97.7 F Pulse Rate 79 72 87 Respiratory Rate 18 18 16 Blood Pressure 124/51 L Pulse Oximetry 97 12/31/20 09:26 12/31/20 09:40 12/31/20 10:48 Temperature 99.3 F Pulse Rate 74 75 Respiratory Rate 18 16 Blood Pressure 110/52 L Pulse Oximetry 96 97 Intake/Output Intake/Output: Intake & Output 12/28/20 12/29/20 12/30/20 12/31/20 23:59 23:59 23:59 23:59 Intake Total 2770 / 2770 1750 / 1750 900 / 900 Output Total 1550 / 1550 1200 / 600.0 1800 / 1800 Balance 1220 / 1220 550 / 1150.0 -900 / -900 Meds/R
--- NOTE | 2020-12-31 13:58 | PM.IMPN ---
Progress Note: A&P Assessment and Plan (1) Displaced fracture of left femoral neck: Code(s): S72.002A - Fracture of unspecified part of neck of left femur, initial encounter for closed fracture Status: Acute (2) Tobacco abuse: Code(s): Z72.0 - Tobacco use Status: Acute Assessment and Plan: Dr. Martinez consuled patient regarding quitting smoking (3) Chronic obstructive pulmonary disease: Qualifiers: COPD type: unspecified COPD Qualified Code(s): J44.9 - Chronic obstructive pulmonary disease, unspecified Code(s): J44.9 - Chronic obstructive pulmonary disease, unspecified Status: Acute Assessment and Plan: Patient is clinically stable will continue home regimen and monitor (4) GERD (gastroesophageal reflux disease): Code(s): K21.9 - Gastro-esophageal reflux disease without esophagitis Status: Acute Additional Plan 12/28/20 Patient has a comminuted fracture of the left femoral neck. Dr. Oneill was consulted from the outside ER. The patient is NPO for anticipated surgery. The patient is moderate risk for pulmonary complications due to her chronic tobacco use and COPD. She is wheezing but currently denies any increased shortness of breath from baseline. She has not had any recent cough or evidence of infection and her chest x-ray only shows chronic changes. The patient's COPD is stable. Will provide pre and post op scheduled nebulizer treatments to optimize lung function and recommend incentive spirometer. A nicotine patch or nicotine gum was offered to the patient but she refused. 5 minutes was spent in smoking cessation education. 12/29/20 Status post fall and fracture of the left hip and it was getting progressively to bear weight on her left foot patient presented emergency depart is [facility] and x-ray of the left hip showed commuted fracture patient was seen by orthopedic surgeon and evaluate the patient images the patient will require bipolar hip replacement rather than ORIF, will keep the patient NPO tonight and patient have surgery tomorrow and further recommendation to follow. 12/30/20 s/p Left Bipolar Hip Replacement POD 0 seen in pacu doing ok, transfer to med surg, pain managment, post op VTEP per othro. cont current care 12/31/2020 s/p left bipolar hip replacement pod 1 patient reporting pain disproportionate clinic findings gabapentin and Celebrex added to pain management regimen. Duo nebs p.r.n. for shortness of breath Time Spent With Patient Time with patient: 25 - 35 minutes Subjective Date/time seen: 12/31/20 13:58 Patient sitting up in chair reporting excruciating pain 10/10 more significant than what clinically appears to be present. She is requesting increased narcotic medication dosing. I advised patient will have 2nd and 3rd agent to help control her pain. I have spoken with orthopedist and he agrees with medication adjustment. We will try to avoid escalation of narcotic medications. Patient has no other complaints. Exam Narrative: Exam Narrative: GEN: NAD, AAOx3, cooperative HEENT: NCAT, MMM, EOMI Neck: no JVD Heart: S1S2 RRR Lungs: CTA B/l Ext: moves all, no cyanosis, no clubbing Neuro: A&O x3 cranial nerves intact no focal motor deficits Psych: Mood and affect congruent although labile Objective Data Vital Signs Vital Signs: Vital Signs - 24 hr 12/30/20 13:59 12/30/20 18:37 12/30/20 18:50 Temperature 97.5 F L 98.1 F Pulse Rate 67 95 82 Respiratory Rate 20 10 L 12 Blood Pressure 113/49 L 131/83 143/75 H Pulse Oximetry 98 99 100 12/30/20 19:00 12/30/20 19:15 12/30/20 19:30 Temperature Pulse Rate 83 87 83 Respiratory Rate 16 14 16 Blood Pressure 143/65 H 137/79 135/63 Pulse Oximetry 100 96 97 12/30/20 19:47 12/30/20 19:55 12/30/20 20:10 Temperature 97.6 F 97.3 F L Pulse Rate 80 100 90 Respiratory Rate 14 16 16 Blood Pressure 135/65 138/57 L 129/55 L Pulse Oximetry 95 95 96 05/0
[2020-12-31 16:10] LABS: SARS-CoV-2 RNA PCR Negative
[2020-12-31] MEDS: RIVAROXABAN 10 MG TABLET PO (17:22)
[2020-12-31] MEDS: CELECOXIB 200 MG CAPSULE PO (17:23)
[2020-12-31] MEDS: GABAPENTIN 300 MG CAPSULE PO (17:23)
--- NOTE | 2020-12-31 22:11 | PC.NURSE ---
Pt found to very somnolent and very difficult to awaken, requiring sternal rub to rouse pt. Pt questioned about taking any other medication from home which pt denied. Pt very drowsy and falls asleep immediately after questioning.
[2021-01-01 01:00] VITALS: BP 92/49; PULSE 96; RESP 20; TEMP 36.6; O2SAT 97
[2021-01-01 03:00] VITALS: BP 97/46; PULSE 74; RESP 18; TEMP 36.4; O2SAT 94
[2021-01-01 05:00] VITALS: BP 103/46; PULSE 69; RESP 18; TEMP 36.4; O2SAT 97
[2021-01-01] MEDS: ACETAMINOPHEN 500 MG TABLET 1000 MG PO (05:26)
--- NOTE | 2021-01-01 05:33 | PC.NURSE ---
pt has become less somnolent and easier to rouse, however pt is falling asleep during conversation. pt asked multiple times for oxycodone, pt was educated on dangers of taking narcotics while hypotensive/somnolent and informed she would not receive opioids until her blood pressure and responsiveness improves.
[2021-01-01 05:42] LABS: Hematocrit 25.8 % (37.0-47.0); Hemoglobin 8.6 g/dL (12.0-15.0); Mean Corpuscular HGB Conc 33.3 g/dl (32-36); Mean Corpuscular Hemoglobin 29.5 pg (26-34); Mean Corpuscular Volume 88.4 fl (80-100); Mean Platelet Volume 9.8 fl (7.4-10.4); Platelet Count Result 282 k/mm3 (150-375); Red Blood Count 2.92 M/mm3 (4.2-5.4); Red Cell Distribution Width 13.8 % (11.5-14.5); White Blood Count 12.1 K/mm3 (4.5-10.0)
[2021-01-01 05:58] LABS: Anion Gap 3 mmol/L (8-16); Blood Urea Nitrogen 11 mg/dL (7-17); Calcium 9.1 mg/dL (8.4-10.2); Carbon Dioxide 30 mmol/L (22-30); Chloride 108 mmol/L (98-107); Estimated CRCL calculation 74 ml/min; Estimated Glomerular Filt Rate > 60; Glucose 112 mg/dL (65-105); Magnesium 2.1 mg/dL (1.6-2.3); Potassium 3.4 mmol/L (3.4-5.0); Sodium 141 mmol/L (137-145)
--- NOTE | 2021-01-01 07:12 | PM.PNORT ---
Progress Note: A&P Assessment and Plan (1) Displaced fracture of left femoral neck: Code(s): S72.002A - Fracture of unspecified part of neck of left femur, initial encounter for closed fracture Status: Acute Assessment and Plan: 55-year-old female postop day two left hip bipolar hemiarthroplasty. At this point, the scheduled Tylenol and p.r.n. oxycodone is going to be discontinued. She normally takes [place] 10/325 4 times a day at home so that will be reinstituted. I believe that the addition of the Celebrex which she is tolerating and gabapentin are going to be more than enough to help control her pain and she and I had a lengthy discussion about this. She is in agreement to going to a rehab facility for at least two weeks to make sure that she is getting around safely and her wound can be properly cared for. Because of her aspirin allergy, the plan will be to keep her on Xarelto for a total of six weeks. I will need to see her in two weeks in the office for staple removal and that information was put into the discharge plan/orders. There is going to be no change in her activity level with respect to protected weight-bearing in her left lower extremity for at least the next two weeks until she comes back to see me in the office. Following. Time Spent With Patient Time with patient: 15 - 25 minutes Subjective Subjective Date/Time Seen: 01/01/21 07:12 Interval history: This document created with [id number] technology and is subject to brush loader and handle attacher irregularities. 55-year-old female postop day two cemented left hip bipolar hemiarthroplasty. Pain overall seems to be well-controlled. Per the nursing staff, slept for about 12 hours yesterday and this morning. Was also nodding off during conversations and difficult to arouse in spite of having only a small amount of documented narcotic pain medication. Seems reasonably comfortable this morning. Did drift off during our conversation. Review of Systems Constitutional: Constitutional: Denies chills and Denies fever(s) Cardiovascular: Cardiovascular: Denies chest pain Respiratory: Respiratory: Reports no additional respiratory complaints Gastrointestinal: Gastrointestinal: Denies abdominal pain and Denies bloating Exam Const: General: cooperative, no acute distress and alert Nutritional Appearance: other Orientation/consciousness: patient oriented x3 ( Except for the brief time that she drifted off to sleep) HENMT: Head: normal to inspection Ears: hearing grossly normal bilaterally Face and sinus: face symmetric Mouth: Yes moist mucous membranes Teeth and gingiva: other ( missing teeth) Eyes: Alignment and Position: alignment normal and position normal Sclera: sclerae normal Neck: Neck: normal visual inspection and nontender Chest: Chest palpation & inspection: normal inspection of the chest Resp: Effort & Inspection: normal respiratory effort and able to speak in complete sentences GI: Inspection: other ( nondistended, nontender) Skin: General skin exam: normal color Rashes: no rashes Neuro: Cognition (Neuro): normal cognition ( seems reasonable) Speech: normal speech Sensory Exam: normal sensation Extrem: General: normal to inspection and other Other: Exam of the left hip wound shows that it is well apposed and the dressing is dry. Although there is some bruising about the incision, there is no erythema. Mild swelling noted along the incision. Grossly neurovascular status left lower extremity is intact but exam is limited somewhat secondary to discomfort. Psych: Appearance: grossly normal Mental Status: mental status grossly normal and other ( Aware of hospitalization and rehab plans) Objective Data Vital Signs Vital Signs: Vital Signs - 24 hr 12/31/20 09:26 12/31/20 09:40 12/31/20 10:48 Temperature 99.3 F Pulse Rate 74 75 Respiratory Rate 18 16 Blood Pressure 110/52 L Pulse Oximetry 96 97 12/31/20 13:40 12/31/20 1
--- NOTE | 2021-01-01 07:39 | PM.IMPN ---
Progress Note: A&P Assessment and Plan (1) Displaced fracture of left femoral neck: Code(s): S72.002A - Fracture of unspecified part of neck of left femur, initial encounter for closed fracture Status: Acute (2) Tobacco abuse: Code(s): Z72.0 - Tobacco use Status: Acute Assessment and Plan: Dr. Martinez consuled patient regarding quitting smoking (3) Chronic obstructive pulmonary disease: Qualifiers: COPD type: unspecified COPD Qualified Code(s): J44.9 - Chronic obstructive pulmonary disease, unspecified Code(s): J44.9 - Chronic obstructive pulmonary disease, unspecified Status: Acute Assessment and Plan: Patient is clinically stable will continue home regimen and monitor (4) GERD (gastroesophageal reflux disease): Code(s): K21.9 - Gastro-esophageal reflux disease without esophagitis Status: Acute Additional Plan 12/28/20 Patient has a comminuted fracture of the left femoral neck. Dr. Oneill was consulted from the outside ER. The patient is NPO for anticipated surgery. The patient is moderate risk for pulmonary complications due to her chronic tobacco use and COPD. She is wheezing but currently denies any increased shortness of breath from baseline. She has not had any recent cough or evidence of infection and her chest x-ray only shows chronic changes. The patient's COPD is stable. Will provide pre and post op scheduled nebulizer treatments to optimize lung function and recommend incentive spirometer. A nicotine patch or nicotine gum was offered to the patient but she refused. 5 minutes was spent in smoking cessation education. 12/29/20 Status post fall and fracture of the left hip and it was getting progressively to bear weight on her left foot patient presented emergency depart is [facility] and x-ray of the left hip showed commuted fracture patient was seen by orthopedic surgeon and evaluate the patient images the patient will require bipolar hip replacement rather than ORIF, will keep the patient NPO tonight and patient have surgery tomorrow and further recommendation to follow. 12/30/20 s/p Left Bipolar Hip Replacement POD 0 seen in pacu doing ok, transfer to med surg, pain managment, post op VTEP per othro. cont current care 12/31/2020 s/p left bipolar hip replacement pod 1 patient reporting pain disproportionate clinic findings gabapentin and Celebrex added to pain management regimen. Duo nebs p.r.n. for shortness of breath 01/01/2021 pain well controlled w minimal medications administered. anticipate dc home today. Subjective Date/time seen: 01/01/21 07:39 pt sleeping comfortably without distress Exam Narrative: Exam Narrative: GEN: NAD, cooperative HEENT: NCAT, MMM, EOMI Neck: no JVD Lungs: symmetric chest rise, no use of accessory muscles Neuro: cranial nerves intact no focal motor deficits Psych: unable to assess Objective Data Vital Signs Vital Signs: Vital Signs - 24 hr 12/31/20 09:26 12/31/20 09:40 12/31/20 10:48 Temperature 99.3 F Pulse Rate 74 75 Respiratory Rate 18 16 Blood Pressure 110/52 L Pulse Oximetry 96 97 12/31/20 13:40 12/31/20 15:05 12/31/20 15:14 Temperature 98.4 F Pulse Rate 90 80 88 Respiratory Rate 16 18 18 Blood Pressure 136/72 Pulse Oximetry 100 12/31/20 17:40 12/31/20 21:15 01/01/21 01:00 Temperature 97.8 F 98.4 F 97.8 F Pulse Rate 74 94 96 Respiratory Rate 16 18 20 Blood Pressure 115/54 L 100/45 L 92/49 L Pulse Oximetry 96 96 97 01/01/21 03:00 01/01/21 05:00 Temperature 97.6 F 97.6 F Pulse Rate 74 69 Respiratory Rate 18 18 Blood Pressure 97/46 L 103/46 L Pulse Oximetry 94 97 Intake/Output Intake/Output: Intake & Output 12/29/20 12/30/20 12/31/20 01/01/21 23:59 23:59 23:59 23:59 Intake Total 2770 1750 2330 350 Output Total 1550 1200 2400 500 Balance 1220 550 -70 -150 Meds/Results Medications: Active Medications Generic Name Dose R
[2021-01-01 08:00] VITALS: BP 110/46; PULSE 84; RESP 18; TEMP 36.6; O2SAT 94
--- NOTE | 2021-01-01 08:34 | PM.DS ---
DS: Admitting Diagnosis Admitting Diagnosis Admitting Diagnosis: (1) Comminuted fracture of hip: Onset Date: ~12/19/20 Qualifiers: Encounter type: initial encounter Fracture type: closed Laterality: left Qualified Code(s): S72.092A - Other fracture of head and neck of left femur, initial encounter for closed fracture Code(s): S72.099A - Other fracture of head and neck of unspecified femur, initial encounter for closed fracture Status: Acute (2) Chronic obstructive pulmonary disease: Qualifiers: COPD type: unspecified COPD Qualified Code(s): J44.9 - Chronic obstructive pulmonary disease, unspecified Code(s): J44.9 - Chronic obstructive pulmonary disease, unspecified Status: Acute (3) Tobacco abuse: Code(s): Z72.0 - Tobacco use Status: Acute DS: Discharge Diagnosis Discharge Diagnosis (1) Displaced fracture of left femoral neck: Code(s): S72.002A - Fracture of unspecified part of neck of left femur, initial encounter for closed fracture Status: Acute (2) Tobacco abuse: Code(s): Z72.0 - Tobacco use Status: Acute (3) Chronic obstructive pulmonary disease: Qualifiers: COPD type: unspecified COPD Qualified Code(s): J44.9 - Chronic obstructive pulmonary disease, unspecified Code(s): J44.9 - Chronic obstructive pulmonary disease, unspecified Status: Acute (4) Colon polyp: Code(s): K63.5 - Polyp of colon Status: Acute (5) GERD (gastroesophageal reflux disease): Code(s): K21.9 - Gastro-esophageal reflux disease without esophagitis Status: Acute (6) Weight loss: Code(s): R63.4 - Abnormal weight loss Status: Acute (7) Closed hip fracture requiring operative repair: Code(s): S72.009A - Fracture of unspecified part of neck of unspecified femur, initial encounter for closed fracture Status: Acute DS: Summary Hospital Course Hospital Course: 12/28/20 Patient has a comminuted fracture of the left femoral neck. Dr. Oneill was consulted from the outside ER. The patient is NPO for anticipated surgery. The patient is moderate risk for pulmonary complications due to her chronic tobacco use and COPD. She is wheezing but currently denies any increased shortness of breath from baseline. She has not had any recent cough or evidence of infection and her chest x-ray only shows chronic changes. The patient's COPD is stable. Will provide pre and post op scheduled nebulizer treatments to optimize lung function and recommend incentive spirometer. A nicotine patch or nicotine gum was offered to the patient but she refused. 5 minutes was spent in smoking cessation education. 12/29/20 Status post fall and fracture of the left hip and it was getting progressively to bear weight on her left foot patient presented emergency depart is [facility] and x-ray of the left hip showed commuted fracture patient was seen by orthopedic surgeon and evaluate the patient images the patient will require bipolar hip replacement rather than ORIF, will keep the patient NPO tonight and patient have surgery tomorrow and further recommendation to follow. 12/30/20 s/p Left Bipolar Hip Replacement POD 0 seen in pacu doing ok, transfer to med surg, pain managment, post op VTEP per othro. cont current care 12/31/2020 s/p left bipolar hip replacement pod 1 patient reporting pain disproportionate clinic findings gabapentin and Celebrex added to pain management regimen. Duo nebs p.r.n. for shortness of breath 01/01/2021 pain well controlled w minimal medications administered. pt discharged to SNF in stable condition. Time spent discussing smoking cessation with patient: 3 to 10 minutes Time Spent with Patient Time attestation: Total time spent providing and/or coordinating discharge services: 55min Exam Narrative: Exam Narrative: GEN: NAD, cooperative HEENT: NCAT, MMM, EOMI Neck: no JVD Kenneth
[2021-01-01] MEDS: HYDROcodone/acetaminophen (*CRX) 10-325 MG TABLET 1 TAB PO ×2 (09:26→15:43)
[2021-01-01] MEDS: clonazePAM (*CRX) 0.5 MG TABLET 1 MG PO ×3 (09:26→16:35)
[2021-01-01] MEDS: DOCUSATE SODIUM 100 MG CAPSULE PO ×2 (09:26→16:36)
[2021-01-01] MEDS: FLUoxetine HCL 20 MG CAPSULE 40 MG PO (09:27)
[2021-01-01] MEDS: FAMOTIDINE 20 MG TABLET PO (09:27)
[2021-01-01] MEDS: lamoTRIgine 100 MG TABLET PO (09:27)
[2021-01-01] MEDS: CELECOXIB 200 MG CAPSULE PO ×2 (09:27→16:36)
[2021-01-01] MEDS: SIMVASTATIN 20 MG TABLET PO (09:28)
[2021-01-01] MEDS: GABAPENTIN 300 MG CAPSULE PO ×2 (09:28→16:36)
[2021-01-01 12:00] VITALS: BP 108/47; PULSE 95; RESP 18; TEMP 36.4; O2SAT 98
[2021-01-01] MEDS: RIVAROXABAN 10 MG TABLET PO (16:36)
== END 2021-01-01 17:48 | DRG 301 ==
PROVIDERS: Family Medicine; Orthopaedic Surgery; Admitting Provider Internal Medicine; PCP Emergency Medicine; Visit Provider Hospitalist
PROC: 0SRS0J9 Replacement of Left Hip Joint, Femoral Surface with Synthetic Substitute, Cemented, Open Approach (ICD-10-PCS; CPT 27125; principal; 2020-12-30 15:00)
DX: S72.012A Unspecified intracapsular fracture of left femur, initial encounter for closed fracture (principal); W01.0XXA Fall on same level from slipping, tripping and stumbling without subsequent striking against object, initial encounter; Y93.01 Activity, walking, marching and hiking; J44.9 Chronic obstructive pulmonary disease, unspecified; F17.210 Nicotine dependence, cigarettes, uncomplicated; K21.9 Gastro-esophageal reflux disease without esophagitis; R63.4 Abnormal weight loss; I10 Essential (primary) hypertension; F31.9 Bipolar disorder, unspecified; G89.29 Other chronic pain; M81.0 Age-related osteoporosis without current pathological fracture; E78.5 Hyperlipidemia, unspecified; Z79.899 Other long term (current) drug therapy
CPT/HCPCS: 36415; 71045; 73502; 73700; 80048; 83735; 85027; 93005; 94640; 97110; 97116; 97161; 97165; 97530; 97535; A9270; C1713; C1776; C9803; J0330; J0690; J1100; J1170; J2250; J2270; J2370; J2405; J2704; J3010; J7030; J7120; U0003; U0005

== ENCOUNTER 2021-07-09 14:40 | Outpatient (CLI) | payer OTHER, SELFPAY ==
--- NOTE | ~2021-07-09 | DEXA_ITS ---
Bone Density Report Name: Bessy Zavala Age: 56 Sex: Female Ethnicity: White Date of : 1965 Indication: postmenopausal; height loss; asthma or emphysema; hysterectomy; Referring Provider: FRANKY CASTELLON Study: Bone densitometry was performed. Exam Date: July 09, 2021 Accession number: [id number] Bone Density: Region BMD T-score Z-score Classification AP Spine (L1-L4) 0.768 -2.5 -1.2 Osteoporosis Femoral Neck (Right) 0.548 -2.7 -1.5 Osteoporosis Total Hip (Right) 0.662 -2.3 -1.4 Osteopenia World Health Organization criteria for BMD impression classify patients as: Normal (T-score at or above -1.0), Osteopenia (T-score between -1.0 and -2.5), or Osteoporosis (T-score at or below -2.5). 10-year Fracture Risk: FRAX not reported because: Some T-score for Spine Total or Hip Total or Femoral Neck at or below -2.5 Clinical Information Provided by Patient: Smokes Has used the following medications: Vitamin D, Calcium Has the following medical conditions: Asthma or Emphysema, Hysterectomy Patient maximum height was 68 Menopause Age: 48 No regular weight bearing exercise Onset of menses at age 8 Impression: The patient has osteoporosis, based on the Right Femoral Neck T-score. The patient has risk factors, including: smoking. Discussion: INCREASED RISK OF FRACTURE. BONE DENSITY IS UNDESIRABLY LOW AT ONE OR MORE SKELETAL SITES, CONSISTENT WITH POSTMENOPAUSAL OSTEOPOROSIS. This patient's lowest T-score meets the World Health Organization's (WHO) criteria for osteoporosis at one or more sites (T-score -2.5 or below). In untreated patients, the risk of osteoporotic fracture increases approximately two-fold for each 1.0 SD decrease in T-score. Low bone density is not the only risk factor for fracture; also consider factors such as patient's age, frailty or poor health, risk of falling, risk of injury, previous osteoporotic fracture, family history of osteoporosis, cigarette smoking, low body weight, etc. Not everyone with low bone mineral density has osteoporosis; osteomalacia and other metabolic bone disorders should also be considered. Patients who have osteoporosis should be evaluated for specific diseases and conditions (secondary causes) that may cause or contribute to bone loss. The [place] Association [employer] Clinical Endocrinologists (AACE) and National Osteoporosis Foundation (NOF) recommend pharmacologic intervention for all postmenopausal women whose T-score is in this range. The patient should follow a healthful lifestyle (good nutrition with adequate calcium and vitamin D, and appropriate weight-bearing exercise). Follow-Up: Consider a repeat BMD and Vertebral Fracture Assessment (VFA) exam in 2 years or sooner if medically necessary, to reassess this patient's status. Reported by: JOSÉ MANUEL on 07/09/2021 3:03:00 PM.
[2021-07-09 15:46] LABS: Basophils Absolute Auto 0.1 K/mm3 (0.0-0.1); Basophils Percent Auto 0.7 % (0.2-1.2); Eosinophils Absolute Auto 0.1 K/mm3 (0-0.3); Eosinophils Percent Auto 1.2 % (0-4.4); Immature Granulocyte Absolute 0.03 K/mm3 (0.00-0.031); Immature Granulocyte Percent A 0.4 % (0-0.5); Lymphocytes Absolute Auto 2.65 K/mm3 (0.9-3.2); Lymphocytes Percent Auto 36.6 % (18.3-44.2); Mean Corpuscular HGB Conc 33.3 g/dl (32-36); Mean Corpuscular Hemoglobin 29.4 pg (26-34); Mean Corpuscular Volume 88.2 fl (80-100); Mean Platelet Volume 9.3 fl (7.4-10.4); Monocytes Absolute Auto 0.5 K/mm3 (0.1-0.6); Monocytes Percent Auto 6.9 % (2.6-8.5); Neutrophils Absolute Auto 3.9 K/mm3 (1.3-6.7); Neutrophils Percent Auto 54.2 % (45.5-73.1); Platelet Count Result 240 k/mm3 (150-375); Red Blood Count 3.74 M/mm3 (4.2-5.4); White Blood Count 7.2 K/mm3 (4.5-10.0)
[2021-07-09 16:00] LABS: Alanine Aminotransferase 15 U/L (4-35); Albumin Level 4.6 g/dL (3.5-5.1); Alkaline Phosphatase 66 U/L (38-126); Anion Gap 5 mmol/L (8-16); Aspartate Amino Transferase 25 U/L (14-36); Bilirubin,Total 0.3 mg/dL (0.2-1.3); Blood Urea Nitrogen 16 mg/dL (7-17); Calcium 9.4 mg/dL (8.4-10.2); Carbon Dioxide 28 mmol/L (22-30); Chloride 104 mmol/L (98-107); Cholesterol 131 mg/dL (0-200); Estimated Glomerular Filt Rate > 60; Glucose 84 mg/dL (65-110); HDL Direct 62 mg/dL; Phosphorus 3.6 mg/dL (2.5-4.5); Potassium 4.9 mmol/L (3.4-5.0); Sodium 137 mmol/L (137-145); Triglycerides 42 mg/dL (<150)
[2021-07-09 16:11] LABS: LDL Cholesterol Direct 52 mg/dL
[2021-07-09 16:17] LABS: Add Urine Microscopic? YES; Appearance Urine Clear (Clear); Bilirubin Urine Negative (Negative); Blood Urine Negative (Negative); Color Urine Yellow (Yellow); Glucose Urine UA Negative (Negative); Ketones Urine Negative (Negative); Leukocyte Esterase Ur Negative LEU/UL (Negative); Nitrate Urine Negative (Negative); Protein Urine Negative (Negative); RBC Urine 0-2 /hpf (0-2); Specific Grav Ur 1.014 (1.001-1.035); Squamous Epithelial Cell Urine Rare /hpf (Few); Urobilinogen Urine Negative mg/dL (<2.0); WBC Urine 0-3 /hpf
[2021-07-09 17:05] LABS: Vitamin D 25 Hydroxy 49.9 ng/mL
[2021-07-09 17:06] LABS: Folic Acid 5.9 ng/mL (2.76->20)
[2021-07-09 18:15] LABS: Iron 31 ug/dL (37-170)
[2021-07-09 18:19] LABS: Percent Iron Saturation 8 % (20-50)
[2021-07-09 19:37] LABS: Thyroid Stimulating Hormone Reflex 0.505 uIU/mL (0.465-4.68)
== END 2021-07-09 14:41 | disposition home or self-care (01) ==
PROVIDERS: PCP Emergency Medicine; Visit Provider Emergency Medicine
DX: M81.0 Age-related osteoporosis without current pathological fracture (principal); D64.9 Anemia, unspecified; E53.8 Deficiency of other specified B group vitamins; E78.5 Hyperlipidemia, unspecified; E87.5 Hyperkalemia; F41.1 Generalized anxiety disorder; G47.00 Insomnia, unspecified; N28.9 Disorder of kidney and ureter, unspecified; N39.46 Mixed incontinence; R31.9 Hematuria, unspecified; R63.4 Abnormal weight loss
CPT/HCPCS: 36415; 77080; 80061; 80069; 80076; 81001; 82306; 82607; 82728; 82746; 83540; 83550; 84443; 85025

== ENCOUNTER 2021-09-17 11:28 | Outpatient (CLI) | payer OTHER, SELFPAY ==
--- NOTE | ~2021-09-17 | MM_ITS ---
EXAMINATION: MM screening guero BI w viky HISTORY: Screening TECHNIQUE: Craniocaudal and mediolateral oblique 3-D tomosynthesis images were obtained and synthetic 2-D images were generated. CAD analysis was submitted and interpreted. COMPARISON: Comparison to multiple prior studies sequentially, with oldest reviewed study dated 02/21. BREAST PARENCHYMAL COMPOSITION: There are scattered areas of fibroglandular density. FINDINGS: There is no evidence of suspicious mass, calcification, or architectural distortion to sugg est malignancy in either breast. There has been no suspicious interval change. IMPRESSION: 1. No mammographic evidence of malignancy. 2. Recommend routine screening mammography in one year. BI-RADS Category 1: Negative Reviewed, dictated and finalized at location A. 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
== END 2021-09-17 11:29 | disposition home or self-care (01) ==
LOC: CHSIMG 11:29
PROVIDERS: PCP Emergency Medicine; Visit Provider Emergency Medicine
DX: Z12.31 Encounter for screening mammogram for malignant neoplasm of breast (principal)
CPT/HCPCS: 77063; 77067

== ENCOUNTER 2021-10-01 13:48 | Outpatient (CLI) | payer OTHER, SELFPAY ==
--- NOTE | ~2021-10-01 | CT_ITS ---
EXAMINATION: CT lung screening DATE: 10/01/2021 14:06 INDICATION: Personal history of tobacco dependence. SOB/cough. COPD TECHNIQUE: Computed tomography (CT) of the chest was performed without intravenous contrast. Addition al 3D reconstructions utilizing coronal maximum intensity projection (MIP) were performed. Automated exposure control and iterative reconstruction technique were employed. The dose-length product was 85 .36 mGy-cm. COMPARISON: 08/30/16 FINDINGS: Bilateral calcified pulmonary nodules along with calcified mediastinal and left hilar lymph nodes con sistent with old granulomatous disease. No other suspicious pulmonary nodules, pneumonia, pulmonary e lety or pleural effusion. Heart size is normal. Atherosclerotic coronary artery calcific location. No pericardial effusion. Thoracic aorta is normal in caliber. Visualized upper abdomen is unremarkable. Mild thoracic spondylosis. IMPRESSION: 1. Lung-RADS category 1: Negative. Continue annual screening with noncontrast low-dose chest CT in 12 months. Reviewed, dictated and finalized at location A. [employer] IMPRESSION: 1. Lung-RADS category 1: Negative. Continue annual screening with noncontrast l ow-dose chest CT in 12 months.
== END 2021-10-01 13:49 | disposition home or self-care (01) ==
LOC: CHSIMG 13:50
PROVIDERS: PCP Emergency Medicine; Visit Provider Emergency Medicine
DX: Z12.2 Encounter for screening for malignant neoplasm of respiratory organs (principal); Z87.891 Personal history of nicotine dependence
CPT/HCPCS: 71271

== ENCOUNTER 2021-12-13 00:49 | Day surgery (SDC) | payer OTHER, SELFPAY ==
[2021-11-30 14:51] VITALS: BMI 22.4
[2021-12-13 07:52] VITALS: BP 117/52; PULSE 75; RESP 20; TEMP 36.7; O2SAT 20
--- NOTE | 2021-12-13 07:55 | WPDANESEPPF ---
Anes - Initial Pre Proc Eval Procedure: Operation Date: 12/13/21 08:30 Proposed Procedures p Esophagogastroduodenoscopy & Colonoscopy - Hari Lafleur MD Date/Time: 12/13/21 07:55 Surgeon: Hari Lafleur MD Pre Op Diagnosis: abdom.pain, abnormal weight loss, hx colon polyps Patient Data Age: 56 Gender: F Height: 1.7 m Weight: 65 kg Allergies Allergy/AdvReac Type Severity Reaction Status Date / Time aspirin Allergy Mild Anaphylaxis Verified 12/13/21 07:51 ciprofloxacin Allergy Unknown Anaphylaxis Verified 12/13/21 07:51 BEE STINGS Allergy Intermediate SWELLING Uncoded 12/13/21 07:51 Home Medications Medication Instructions Recorded Confirmed Type albuterol sulfate 2.5 mg/0.5 mL 2.5 mg INHALATION Q20M PRN 10/04/19 11/30/21 History solution for nebulization albuterol sulfate 90 mcg/actuation 1 inhalation INHALATION Q4H PRN 10/04/19 11/30/21 History aerosol inhaler clonazepam 1 mg tablet 1 mg PO TID 10/04/19 11/30/21 History fluoxetine 40 mg capsule 40 mg PO DAILY 10/04/19 11/30/21 History fluticasone 113 mcg-salmeterol 14 1 puff INHALATION BID 10/04/19 11/30/21 History mcg/actuation breath activated powdr simvastatin 20 mg tablet 20 mg PO DAILY 10/04/19 11/30/21 History umeclidinium 62.5 mcg/actuation 1 inhalation INHALATION DAILY 10/04/19 11/30/21 History blister powder for inhalation lamotrigine 100 mg PO DAILY 12/28/20 11/30/21 History lisinopril 20 mg PO DAILY 12/28/20 11/30/21 History hydrocodone-acetaminophen 1 tablet PO Q6H PRN #6 tablet 01/01/21 11/30/21 Rx Patient hx anesthesia problems: none Family hx anesthesia problems: none Results Review: All pre-operative results and documents have been reviewed as part of the pre-operative evaluation. [facility] Past Medical History Medical History Anemia Arthritis Chronic obstructive pulmonary disease Cubital tunnel syndrome on left Dyslipidemia Elevated lipids Essential hypertension GERD (gastroesophageal reflux disease) Heart murmur Since Hepatomegaly Tobacco abuse Weight loss The patient was evaluated by Dr. Maguire who recommended the patient have EGD and colonoscopy she has not followed up. Her CT scan performed at that time demonstrated hepatomegaly Surgical History Surgical History Displaced fracture of left femoral neck Garden type 4 subcapital femoral neck fracture Cemented left bipolar hemiarthroplasty December 30, 2020 History of appendectomy History of carpal tunnel release Left History of colonoscopy with polypectomy (~2013) History of esophagogastroduodenoscopy (EGD) (~2016) History of foot surgery Repair of tendons and ligaments of left ankle after severe laceration History of hysterectomy Without oophorectomy at age 36 performed due to endometriosis and dysfunctional uterine bleeding History of knee surgery Open meniscus repair left knee History of shoulder surgery S/P cubital tunnel release Left S/P implantation of urinary electronic stimulator device (~2016) With battery exchange 2020 Family History Family History Father Lung cancer Sibling Psychiatric illness Mother Hypertension Hyperlipidemia Other Diabetes mellitus Social History Social History Social History: She lives at home with her fiance and her adult son. She only has the 1 son. She has smoked between 1-2 packs of cigarettes per day since she was in her teens. She continues to smoke 1 pack of cigarettes per day. She denies any alcohol use or illicit substance use. 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 Primary care physician: Dr. Eb Gomez Code status: Full code Smoking packs per day: 1 Smoking cigarettes p
[2021-12-13] MEDS: LACTATED RINGERS 1,000 ML 150 ML IV CONT (08:01)
--- NOTE | 2021-12-13 08:16 | PM.HPGS ---
History of Present Illness History of Present Illness Consent: Risks, benefits, and alternatives have been discussed and questions answered. Patient agrees to proceed with procedure. Chief complaint: abdom.pain, abnormal weight loss, hx colon polyps Narrative: Bessy Zavala is a 56 year old female about 1 year ago she came to the office with some weight loss, CT a/p unremarkable. Then had hip fracture that required surgery. No GI changes since and denies any further weight change. Colonoscopy in 2013 with polyp. Review of Systems Constitutional: Constitutional: Denies headache(s) and Denies weakness Eyes: Eyes: Denies blurry vision ENT: Reports Normal hearing present, Denies headache(s) and Denies neck pain Cardiovascular: Cardiovascular: Denies chest pain and Denies dyspnea Respiratory: Respiratory: Denies dyspnea Gastrointestinal: Gastrointestinal: Reports no additional gastrointestinal complaints Genitourinary: Genitourinary: Denies dysuria Musculoskeletal: Musculoskeletal: Denies neck pain Integumentary/Breasts: Skin/Breast: Denies dry skin Neurologic: Reports Normal hearing present, Denies headache(s) and Denies weakness Psychiatric: Psychiatric: Denies anxiety Endocrine: Endocrine: Denies change in body appearance Hematologic/Lymphatic: Hematologic/Lymphatic: Denies easy bleeding Allergic/Immunologic: Allergic/Immunologic: Denies urticaria PMFSH Past Medical History Medical History Anemia Arthritis Chronic obstructive pulmonary disease Cubital tunnel syndrome on left Dyslipidemia Elevated lipids Essential hypertension GERD (gastroesophageal reflux disease) Heart murmur Since Hepatomegaly Tobacco abuse Weight loss The patient was evaluated by Dr. Maguire who recommended the patient have EGD and colonoscopy she has not followed up. Her CT scan performed at that time demonstrated hepatomegaly Surgical History Surgical History Displaced fracture of left femoral neck Garden type 4 subcapital femoral neck fracture Cemented left bipolar hemiarthroplasty December 30, 2020 History of appendectomy History of carpal tunnel release Left History of colonoscopy with polypectomy (~2013) History of esophagogastroduodenoscopy (EGD) (~2017) History of foot surgery Repair of tendons and ligaments of left ankle after severe laceration History of hysterectomy Without oophorectomy at age 36 performed due to endometriosis and dysfunctional uterine bleeding History of knee surgery Open meniscus repair left knee History of shoulder surgery S/P cubital tunnel release Left S/P implantation of urinary electronic stimulator device (~2016) With battery exchange 2020 Family History Family History Father Lung cancer Sibling Psychiatric illness Mother Hypertension Hyperlipidemia Other Diabetes mellitus Social History Social History Social History: She lives at home with her fiance and her adult son. She only has the 1 son. She has smoked between 1-2 packs of cigarettes per day since she was in her teens. She continues to smoke 1 pack of cigarettes per day. She denies any alcohol use or illicit substance use. 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 Primary care physician: Dr. Eb Gomez Code status: Full code Smoking packs per day: 1 Smoking cigarettes per day: 20.0 Years smoked: 30 Smoking pack-years: 30.00 Smoking status: Current every day smoker Tobacco type: cigarettes Alcohol intake: never Substance use: never Substance use type: does not use Living arrangements: with family Gender identity (if verbalized by the patient): Female Spiritual care concerns: No Meds Home M
[2021-12-13 08:49] VITALS: BP 104/56; PULSE 66; RESP 27; O2SAT 100
[2021-12-13 08:59] VITALS: BP 105/64; PULSE 67; RESP 14; O2SAT 97
[2021-12-13 09:09] VITALS: BP 100/57; PULSE 70; RESP 20; O2SAT 100
--- NOTE | 2021-12-13 09:51 | SUR.OPER ---
EGD start 820 end 826, Colonoscopy start 832 end 846.
== END 2021-12-13 09:31 | disposition home or self-care (01) ==
PROVIDERS: PCP Emergency Medicine; Visit Provider Internal Medicine Gastroenterology
PROC: 0DJ08ZZ Inspection of Upper Intestinal Tract, Via Natural or Artificial Opening Endoscopic (ICD-10-PCS; CPT 43235; principal; 2021-12-13 08:30)
DX: R10.9 Unspecified abdominal pain (principal); R63.4 Abnormal weight loss; K57.30 Diverticulosis of large intestine without perforation or abscess without bleeding; Z86.010 Personal history of colon polyps; K22.70 Barrett's esophagus without dysplasia; K29.50 Unspecified chronic gastritis without bleeding; J44.9 Chronic obstructive pulmonary disease, unspecified; E78.5 Hyperlipidemia, unspecified; I10 Essential (primary) hypertension; K21.9 Gastro-esophageal reflux disease without esophagitis; F17.210 Nicotine dependence, cigarettes, uncomplicated; Z79.51 Long term (current) use of inhaled steroids
CPT/HCPCS: 45378; 43239; 88305; J2704; J7120

== ENCOUNTER 2022-01-06 21:55 | Emergency (ER) | payer OTHER, SELFPAY ==
[2022-01-06] VITALS (8 sets, daily range): BP systolic 108–128; BP diastolic 53–75; PULSE 63–68; RESP 18–20; TEMP 37.2; O2SAT 94–99
--- NOTE | ~2022-01-06 | XR_ITS ---
EXAMINATION: XR chest 1V portable DATE: 01/06/2022 22:20 INDICATION: Dyspnea. Cough. TECHNIQUE: A single frontal view of the chest was obtained. COMPARISON: Chest single view 12/29/2020 FINDINGS: The chest demonstrates clear lungs without pneumonia, pleural effusion, or pneumothorax. Th e heart size is normal. IMPRESSION: 1. No acute cardiopulmonary disease. Reviewed, dictated and finalized at location A.
--- NOTE | 2022-01-06 22:16 | ED.SOB ---
HPI - SOB/Dyspnea General Chief Complaint: Shortness of Breath/Dyspnea Stated Complaint: TROUBLE BREATHING Source: patient Mode of arrival: wheelchair History of Present Illness HPI Narrative: this is a 56-year-old female with a history of COPD presents with 6 day history of cough congestion and increasing shortness of breath, has a history of COPD and smoked tobacco abuse, having pain with some coughing coughing up clear mucus with no fever chills no chest pain no nausea or vomiting. Patient states that she has been out of her inhalers and the fail to pepper picker her prescriptions at waiting for her at her pharmacy. MD elicited complaint: shortness of breath and cough Pertinent past history: COPD Onset (ago): week(s) Context: anxiety Timing: intermittent Severity: moderate Exacerbating factors: coughing Relieving factors: bronchodilators Related Data Home Medications Medication Instructions Recorded Confirmed albuterol sulfate 2.5 mg/0.5 mL 2.5 mg INHALATION Q20M PRN 10/04/19 01/06/22 solution for nebulization albuterol sulfate 90 mcg/actuation 1 inhalation INHALATION Q4H PRN 10/04/19 01/06/22 aerosol inhaler clonazepam 1 mg tablet 1 mg PO TID 10/04/19 01/06/22 fluoxetine 40 mg capsule 40 mg PO DAILY 10/04/19 01/06/22 fluticasone 113 mcg-salmeterol 14 1 puff INHALATION BID 10/04/19 01/06/22 mcg/actuation breath activated powdr simvastatin 20 mg tablet 20 mg PO DAILY 10/04/19 01/06/22 umeclidinium 62.5 mcg/actuation 1 inhalation INHALATION DAILY 10/04/19 01/06/22 blister powder for inhalation lamotrigine 100 mg PO DAILY 12/28/20 01/06/22 lisinopril 20 mg PO DAILY 12/28/20 01/06/22 omeprazole 40 mg capsule,delayed 40 mg PO DAILY 12/24/21 01/06/22 release Allergies Allergy/AdvReac Type Severity Reaction Status Date / Time aspirin Allergy Mild Anaphylaxis Verified 01/06/22 22:16 ciprofloxacin Allergy Unknown Anaphylaxis Verified 01/06/22 22:16 BEE STINGS Allergy Intermediate SWELLING Uncoded 01/06/22 22:16 Review of Systems Review of Systems: All systems reviewed & are unremarkable except as noted in HPI and below PMFSH Past Medical History Medical History Anemia Arthritis Chronic obstructive pulmonary disease Cubital tunnel syndrome on left Dyslipidemia Elevated lipids Essential hypertension GERD (gastroesophageal reflux disease) Heart murmur Since Hepatomegaly Tobacco abuse Weight loss The patient was evaluated by Dr. Maguire who recommended the patient have EGD and colonoscopy she has not followed up. Her CT scan performed at that time demonstrated hepatomegaly Surgical History Surgical History Displaced fracture of left femoral neck Garden type 4 subcapital femoral neck fracture Cemented left bipolar hemiarthroplasty December 30, 2020 History of appendectomy History of carpal tunnel release Left History of colonoscopy with polypectomy (~2013) History of esophagogastroduodenoscopy (EGD) (~2016) History of foot surgery Repair of tendons and ligaments of left ankle after severe laceration History of hysterectomy Without oophorectomy at age 36 performed due to endometriosis and dysfunctional uterine bleeding History of knee surgery Open meniscus repair left knee History of shoulder surgery S/P cubital tunnel release Left S/P implantation of urinary electronic stimulator device (~2016) With battery exchange 2020 Family History Family History Father Lung cancer Sibling Psychiatric illness Mother Hypertension Hyperlipidemia Other Diabetes mellitus Social History Social History Social History: She lives at home with her fiance and her adult son. She only has the 1 son. She has smoked between 1-2 packs of cigarettes per day since she was in her teens. She con
[2022-01-06] MEDS: IPRATROPIUM 0.5 MG/ALBUTEROL SULFATE 2.5 MG AMPUL.NEB 3 ML INHALATION (22:23)
[2022-01-06] MEDS: methylPREDNISolone SOD SUCC 125 MG VIAL IV PUSH (22:25)
[2022-01-06] MEDS: KETOROLAC 30 MG/ML VIAL (*BKC) IV PUSH (22:25)
[2022-01-06] MEDS: ALPRAZolam (*CRX) 0.5 MG TABLET PO (22:27)
--- NOTE | 2022-01-06 22:32 | PC.NURSE ---
PT REPORTS I HAVE BEEN COMING HERE FOR YEARS AND THEY NEVER USE TORADOL ON ME BECAUSE IT DOES NOT WORK. ADVISED PT TORADOL WAS ORDERED SHE COULD REFUSE IF SHE WANTED OR SHE COULD ATTEMPT TO SEE IF WOULD HELP WITH HER PAIN WITH HER COUGHING. PT AGREES TO TAKE THE MEDICATION.
[2022-01-06 22:43] LABS: Basophils Absolute Auto 0.07 K/mm3 (0.00-0.10); Basophils Percent Auto 0.6 % (0.0-1.0); Eosinophils Absolute Auto 0.11 K/mm3 (0.02-0.50); Hemoglobin 11.6 g/dL (12.0-15.0); Immature Granulocyte Absolute 0.04 K/mm3 (0.00-0.00); Immature Granulocyte Percent A 0.4 % (0.0-0.0); Lymphocytes Absolute Auto 3.74 K/mm3 (1.10-4.50); Lymphocytes Percent Auto 32.9 % (18.0-42.0); Mean Corpuscular HGB Conc 33.1 g/dL (32.0-36.0); Mean Corpuscular Hemoglobin 29.7 pg (27.0-31.0); Mean Corpuscular Volume 89.7 fL (78.0-102.0); Mean Platelet Volume 9.9 fl (9.2-11.8); Monocytes Absolute Auto 0.79 K/mm3 (0.10-0.90); Monocytes Percent Auto 6.9 % (2.0-11.0); Neutrophils Absolute Auto 6.6 K/mm3 (1.7-7.2); Neutrophils Percent Auto 58.2 % (50.0-70.0); Platelet Count Result 261 K/mm3 (150-420); Red Cell Distribution Width 14.6 % (11.6-14.4); White Blood Count 11.4 K/mm3 (4.8-10.8)
[2022-01-06 23:06] LABS: Alanine Aminotransferase 14 U/L (14-59); Albumin Level 4.1 g/dL (3.4-5.0); Alkaline Phosphatase 80 U/L (46-116); Anion Gap 9 mmol/L (8-16); Aspartate Amino Transferase 15 U/L (15-37); Bilirubin,Total 0.3 mg/dL (0.00-1.00); Blood Urea Nitrogen 20 mg/dL (7-18); Calcium 9.1 mg/dL (8.5-10.1); Carbon Dioxide 27 mmol/L (21-32); Chloride 98 mmol/L (98-108); Estimated CRCL calculation 47 ml/min; Estimated Glomerular Filt Rate 49; Glucose 67 mg/dL (70-99); Osmolality Calculated 278 mOsm/kg (285-295); Potassium 4.2 mmol/L (3.5-5.1); Sodium 134 mmol/L (136-145); Total Protein 7.6 g/dL (6.4-8.2)
[2022-01-06 23:07] LABS: NT Pro B Type Natriuretic Pept 295 pg/mL (0-125)
--- NOTE | 2022-01-06 23:16 | PC.NURSE ---
8 OZ APPLE JUICE PROVIDED AT THIS TIME. PT HAS CALLED FOR TRANSPORT HOME.
--- NOTE | 2022-01-06 23:29 | PC.NURSE ---
FSBS 104 PRIOR TO DC
[2022-01-06 23:30] LABS: Glucose Point of Care 104 mg/dl (65-105)
== END 2022-01-06 23:25 | disposition home or self-care (01) ==
PROVIDERS: Emergency Provider Emergency Medicine
DX: J44.9 Chronic obstructive pulmonary disease, unspecified (principal); Z72.0 Tobacco use
CPT/HCPCS: 36415; 71045; 80053; 82948; 83880; 85025; 87040; 94640; 96365; 96375; 99285; A9270; J0696; J1885; J2930

== ENCOUNTER 2022-02-17 15:09 | Outpatient (CLI) | payer OTHER, SELFPAY ==
--- NOTE | ~2022-02-17 | US_ITS ---
EXAMINATION: US carotid duplex BI DATE: 02/17/2022 15:52 INDICATION: Carotid stenosis with disturbance of skin sensation. TECHNIQUE: Grayscale, color Doppler, and pulsed Doppler images of the cervical carotid arteries were obtained. The degree of vessel stenosis is placed in one of the following categories: normal, <50%, 5 0-69%, >=70% but less than near-occlusion, near-occlusion, or total occlusion. Note that percent sten osis relative to normal distal artery lumen diameter is indirectly measured from velocity measurement s as described by Nirmal, et al. Radiology 2003; 229:340-346. COMPARISON: None. FINDINGS: RIGHT: The right common carotid artery (CCA) peak systolic velocity (PSV) is 125 cm/s. The right internal ca rotid artery (ICA) PSV is 99 cm/s. The right ICA end-diastolic velocity (EDV) is 23 cm/s. The right I CA/CCA PSV ratio is 0.8. Grayscale and color Doppler images yield an estimate of <50% diameter reduct ion from plaque in the ICA. The external carotid artery (ECA) PSV is 123 cm/s. There is antegrade chirag w in the right vertebral artery. LEFT: The left CCA PSV is 128 cm/s. The left ICA PSV is 79 cm/s. The left ICA EDV is 24 cm/s. The left ICA/ CCA PSV ratio is 0.6. Grayscale and color Doppler images yield an estimate of <50% diameter reduction from plaque in the ICA. The ECA PSV is 70 cm/s. There is antegrade flow in the left vertebral artery . IMPRESSION: 1. <50% stenosis in the right internal carotid artery. 2. <50% stenosis in the left internal carotid artery. Reviewed, dictated and finalized at location A.
== END 2022-02-17 15:10 | disposition home or self-care (01) ==
PROVIDERS: PCP Emergency Medicine; Visit Provider Emergency Medicine
DX: I65.23 Occlusion and stenosis of bilateral carotid arteries (principal)
CPT/HCPCS: 93880

== ENCOUNTER 2022-05-06 09:15 | Outpatient (CLI) | payer OTHER, SELFPAY ==
--- NOTE | ~2022-05-06 | NM_ITS ---
EXAMINATION: NM soy stress w perfusion DATE: 05/06/2022 12:28 INDICATION: Dyspnea TECHNIQUE: Rest images were obtained following intravenous administration of 9.3 mCi Tc99m tetrofosmi n (Myoview). The patient was infused intravenously with Lexiscan (Regadenoson). Then, 28 mCi Tc99m te trofosmin (Myoview) was administered intravenously, and stress images were obtained. Data was reconst ructed into short axis and horizontal and vertical long axis SPECT images. Gated SPECT images were al so obtained. COMPARISON: None. FINDINGS: There is no definite reversible or fixed perfusion abnormality to suggest ischemia or infar ction. There is normal left ventricular chamber size, wall motion and ejection fraction. Left ventr icular ejection fraction measures 69%. IMPRESSION: 1. Normal myocardial perfusion at rest and during stress. 2. Left ventricular ejection fraction measuring 69%. Reviewed, dictated and finalized at location A.
--- NOTE | 2022-05-06 09:29 | EST_ITS ---
Patient Info Name: Bessy Zavala Age: 57 years : 1965 Gender: Female Ht: 67 in Wt: 148 lbs BSA: 1.79 m2 Exam Date: 05/06/2022 11:00 AM Exam Location: [facility] Stress Patient Status: Outpatient Admit Date: 05/06/2022 Staff Ordering Physician: Rafy Wong DO Attending Provider: Rafy Wong DO Exercise Technologist: Susan Grimm RDCS Exercise Physician: Rafy Wong DO Exam Type: CA stress soy w NM Study Info Indications R06.09 - Other forms of dyspnea A regadenoson stress test was performed. Summary 1. 1. Negative lexiscan stress test for ischemic ST changes by ECG criteria. 2. 2. Stable hemodynamics throughout the test. 3. 3. Nuclear scan to follow and will be reported separately. Please correlate with it. 4. 4. Patient informed of the above results. Protocol: Lexiscan Stress ECG Details Stage: REST Duration (min): 1 min : 7 sec HR (bpm): 70 SBP (mmHg): 127 DBP (mmHg): 76 Stage: REST Duration (min): 5 min : 54 sec HR (bpm): 65 SBP (mmHg): 127 DBP (mmHg): 76 Stage: STAGE 1 Duration (min): 0 min : 59 sec HR (bpm): 87 SBP (mmHg): 125 DBP (mmHg): 60 Stage: RECOVERY Duration (min): 1 min : 0 sec HR (bpm): 93 SBP (mmHg): 118 DBP (mmHg): 60 Stage: RECOVERY Duration (min): 2 min : 0 sec HR (bpm): 83 SBP (mmHg): 118 DBP (mmHg): 60 Stage: RECOVERY Duration (min): 3 min : 0 sec HR (bpm): 84 SBP (mmHg): 120 DBP (mmHg): 60 Stage: RECOVERY Duration (min): 4 min : 0 sec HR (bpm): 80 SBP (mmHg): 120 DBP (mmHg): 60 Stage: RECOVERY Duration (min): 4 min : 53 sec HR (bpm): 81 SBP (mmHg): 114 DBP (mmHg): 63 Rest HR: 65 bpm Peak HR: 94 bpm Rest Sys BP: 127 mmHg Peak Sys BP: 125 mmHg Max Pred HR: 161 bpm % Max Pred HR: 58 % Target HR: 137 bpm Max RPP: 11,750 bpm*mmHg Termination Reason: Completed protocol Cardiac Symptoms: Shortness of breath Total Time: 1 min : 0 sec Rest Belcher BP: 76 mmHg Peak Belcher BP: 60 mmHg Total Dose: 0.4 mg Resting ECG Sinus rhythm, cannot r/o septal infarct, age indeterminate. Stress ECG No ST changes. Arrhythmias None. Report Signatures
--- NOTE | 2022-05-06 09:37 | ECHO_ITS ---
Patient Info Name: Bessy Zavala Age: 57 years : 1965 Gender: Female Ht: 68 in Wt: 148 lbs BSA: 1.80 m2 HR: 87 bpm BP: 132 / 74 mmHg Heart Rhythm: Sinus Rhythm Technical Quality: Fair Exam Date: 05/06/2022 12:30 PM Exam Location: [facility] Patient Status: Outpatient Admit Date: 05/06/2022 Staff Ordering Physician: Rafy Wong DO Hat [employer] Cap Parts Cutter Hand: Sonya Nayak RDCS Attending Provider: Rafy Wong DO Referring Physician: Marvin MACKENZIE; Exam Type: CA echo doppler color flow Study Info Indications R06.09 - Other forms of dyspnea Complete two-dimensional, color flow and Doppler transthoracic echocardiogram is performed. Summary 1. Complete two-dimensional, color flow and Doppler transthoracic echocardiogram is performed. 2. Left ventricular chamber dimension is normal. 3. Left ventricular systolic function is hyperdynamic, estimated at >70%. 4. The left ventricular diastolic function is grade II diastolic dysfunction. 5. Left atrial chamber dimension is mildly enlarged. 6. There is mild aortic valve sclerosis. 7. There is mild to moderate aortic valve regurgitation. 8. There is trace mitral valve regurgitation. 9. No pulmonary hypertension, estimated pulmonary arterial systolic pressure is 28 mmHg. Left Ventricle Tissue doppler is not performed. Left ventricular chamber dimension is normal. Left ventricular systolic function is hyperdynamic, estimated at >70%. The left ventricular diastolic function is grade II diastolic dysfunction. Right Ventricle Right ventricular systolic function is normal and with normal TAPSE 2.6 cm. Right ventricular chamber dimension is normal. Left Atria Left atrial chamber dimension is mildly enlarged. Right Atria Right atrial chamber dimension is normal. Aortic Valve The aortic valve is trileaflet. There is mild aortic valve sclerosis. There is no aortic valve stenosis. There is mild to moderate aortic valve regurgitation. Pulmonic Valve There is no pulmonic regurgitation. Mitral Valve There is no mitral valve stenosis. There is trace mitral valve regurgitation. Tricuspid Valve There is no tricuspid valve regurgitation. No pulmonary hypertension, estimated pulmonary arterial systolic pressure is 28 mmHg. Pericardium/Pleural There is no pericardial effusion. Inferior Vena Cava Normal inferior vena cava with >50% collapse upon inspiration consistent with normal right atrial pressure, 5 mmHg. Aorta The aortic root size at the sinus of Valsalva is normal. Left Ventricular Outflow Tract Name Value Normal LVOT 2D LVOT Diameter 1.9 cm LVOT Doppler LVOT Peak Gradient 10 mmHg LVOT Mean Gradient 4 mmHg LVOT VTI 30 cm LVOT VTI/AV VTI Ratio 0.6 LVOT Stroke Volume 84 ml LVOT CO 5.5 l/min LVOT CI 3.1 l/min/m2 Pulmonic Valve Name
== END 2022-05-06 09:16 | disposition home or self-care (01) ==
LOC: ANHCARD 09:19
PROVIDERS: PCP Emergency Medicine; Visit Provider Internal Medicine Cardiovascular Disease
DX: R06.09 Other forms of dyspnea (principal); I34.0 Nonrheumatic mitral (valve) insufficiency
CPT/HCPCS: 78452; 93017; 93306; A9502; J2785

== ENCOUNTER 2022-09-08 14:24 | Outpatient (CLI) | payer OTHER, SELFPAY ==
--- NOTE | 2022-09-08 17:29 | WPDSIXMINUTE ---
Six Minute Walk Procedure Procedure Performed Pulmonary Stress Test (6 min walk) Six Minute Walk Six Minute Walk: This is a 6 minute walk test. The test was performed and interpreted in accordance with the 2014 ERS/ATS task force guidelines. Findings: The patient's resting room air oxygen saturation measured by pulse oximetry was 90% and heart rate was 79 bpm. Patient ambulated for 183 meters and oxygen saturation remained 89 to 93%. Heart rate at the end of the study was 102 bpm. The patient did not qualify for supplemental oxygen at rest or with ambulation. There are no prior studies for comparison.
--- NOTE | 2022-09-08 17:31 | WPDPFTINT ---
PFT Procedure Performed PFT Procedure Performed Spirometry with Pre/Post Bronchodilator Plethysmography (Lung Vol) Diffusing Cap (DLCO) Flow Vol Loop PFT Interpretation This is a pulmonary function test with pre and post-bronchodilator spirometry, plethysmography and diffusing capacity. The test was performed and results interpreted in accordance with the 2019 and 2005 ATS/ERS Task Force guidelines respectively using the Global Lung Function Initiative-2012 reference equations. Patient demonstrated good effort and cooperation. Reproducibility criteria were met. The quality of the pre bronchodilator spirometry maneuver was Grade B and post bronchodilator spirometry maneuver was Grade B. Findings: Spirometry: There is decreased maximal expiratory airflow at all lung volumes with concave expiratory flow tracing. The pre bronchodilator FVC is 2.63 L, 71% predicted. The pre bronchodilator FEV1 is 1.43 L, 50% predicted. The pre bronchodilator FEV1: FVC ratio is 54%. The post bronchodilator FVC is 2.62 L, representing 1% decrease. The post bronchodilator FEV1 is 1.59 L, representing an 11% increase. The post bronchodilator FEV1: FVC ratio 61%. Plethysmography: The total lung capacity is 5.99 L, 106% predicted. The functional residual capacity is 3.82 L, 118% predicted. The residual volume is 3.36 L, 154% predicted. Diffusing capacity: The diffusing capacity unadjusted for hemoglobin and carboxyhemoglobin is 12.7, 54% predicted. The diffusing capacity adjusted for alveolar volume is 3.36, 79% predicted. Impression: There is a moderately severe obstructive abnormality without significant improvement after inhaling a single dose of albuterol. The increase in residual volume is consistent with air trapping from an obstructive abnormality. The diffusing capacity unadjusted for hemoglobin and carboxyhemoglobin is moderately decreased and normalizes when adjusted for alveolar volume. There are no prior studies for comparison
== END 2022-09-08 14:25 | disposition home or self-care (01) ==
LOC: ANHPFT 14:24
PROVIDERS: PCP Emergency Medicine; Visit Provider Nurse Practitioner Family
DX: J44.9 Chronic obstructive pulmonary disease, unspecified (principal); R06.09 Other forms of dyspnea
CPT/HCPCS: 94060; 94618; 94726; 94729

== ENCOUNTER 2022-10-11 13:50 | Outpatient (CLI) | payer OTHER, SELFPAY ==
--- NOTE | ~2022-10-11 | CT_ITS ---
EXAMINATION:CT lung screening DATE: 10/11/2022 14:12 INDICATION: Tobacco use. Current smoker with 90 pack year history. TECHNIQUE: Computed tomography (CT) of the chest was performed without intravenous contrast. Automate d exposure control and iterative reconstruction technique were employed. The dose-length product (DLP ) was 74.21 mGy-cm. COMPARISON: Chest CT 10/01/2021 FINDINGS: There is mild emphysema. Calcified bilateral lung nodules and calcified hilar and mediastin al lymph nodes are consistent with old granulomatous disease. There are scattered small groundglass o pacities in the lungs. There is a 3 mm nodule in right upper lobe. There is a 4 mm part solid nodule with 3 mm solid component in right lower lobe. There are 4 mm and 3 mm nodules in left lower lobe. Th elba nodules are new from the prior exam. No pleural effusion. The heart size is normal. No pericardia l effusion. There is moderate thoracic spondylosis. IMPRESSION: 1. Lung-RADS category 3: Probably benign. Further evaluation is recommended with noncontrast low-dose chest CT in 6 months. Reviewed, dictated and finalized at location A. C.O.D. BILLER IMPRESSION: 1. Lung-RADS category 3: Probably benign. Further evaluation is recommended wit h noncontrast low-dose chest CT in 6 months.
== END 2022-10-11 13:51 | disposition home or self-care (01) ==
PROVIDERS: PCP Emergency Medicine; Visit Provider Nurse Practitioner Family
DX: Z12.2 Encounter for screening for malignant neoplasm of respiratory organs (principal); F17.210 Nicotine dependence, cigarettes, uncomplicated; R91.8 Other nonspecific abnormal finding of lung field
CPT/HCPCS: 71271

== ENCOUNTER 2022-11-03 07:14 | Emergency (ER) | payer OTHER, SELFPAY ==
--- NOTE | ~2022-11-03 | XR_ITS ---
XR ribs LT 2V DATE: 11/03/2022 08:02 INDICATION: Left anterior lateral rib pain after fall last night TECHNIQUE: 3 views COMPARISON: None FINDINGS: No rib fracture or bone destruction is detected. Left lung is clear. No large pleural effus ion or pneumothorax. IMPRESSION: No detectable left rib fracture Reviewed, dictated and finalized at location L. GRADER
--- NOTE | ~2022-11-03 | CT_ITS ---
EXAMINATION: CT cervical spine wo con DATE: 11/03/2022 08:01 INDICATION: Head injury. Neck pain. TECHNIQUE: Computed tomography (CT) of the cervical spine was performed without intravenous contrast. Automated exposure control and iterative reconstruction technique were employed. The dose-length pro duct was 191.42 mGy-cm. COMPARISON: None FINDINGS: There is 3 degrees levocurvature of cervical spine. Vertebral body heights are normal. Ther e is mildly decreased disc height at C3-C4, severely decreased disc height at C5-C6, and moderately d ecreased disc height at C6-C7. The following disc levels are specifically discussed: C2-C3: There is mild bilateral uncovertebral joint osteoarthritis. There is severe bilateral facet miguel a int osteoarthritis. There is mild left neural foraminal stenosis. There is no central canal stenosis. C3-C4: There is severe right and mild left uncovertebral joint osteoarthritis. There is severe right and mild left facet joint osteoarthritis. There is mild right neural foraminal stenosis. There is mil d central canal stenosis. C4-C5: There is mild bilateral uncovertebral joint osteoarthritis. There is severe right and mild lef t facet joint osteoarthritis. There is mild bilateral neural foraminal stenosis. There is mild centra l canal stenosis. C5-C6: There is severe bilateral uncovertebral joint osteoarthritis. There is mild bilateral facet miguel a int osteoarthritis. There is mild bilateral neural foraminal stenosis. There is mild central canal st enosis. C6-C7: There is moderate bilateral uncovertebral joint osteoarthritis. There is moderate right and se nelda left facet joint osteoarthritis. There is mild bilateral neural foraminal stenosis. There is mil d central canal stenosis. C7-T1: There is no uncovertebral joint osteoarthritis. There is mild bilateral facet joint osteoarthr itis. There is no neural foraminal stenosis. There is no central canal stenosis. IMPRESSION: 1. No fracture. 2. Severe cervical spondylosis. Reviewed, dictated and finalized at location A. DENTIAL MORTGAGE MANAGER
--- NOTE | ~2022-11-03 | CT_ITS ---
Non-contrast Head CT History: Head injury COMPARISON: 10/07/2015 Technique: Axial non-contrast imaging of the brain was performed. Dose reduction technique was used on this scan by utilizing automated exposure control and iterative reconstruction technique. The dose -length product (DLP) was 681.00 mGy-cm. Findings: There is no evidence of intracranial hemorrhage, mass lesion, or acute infarct. Brain par enchyma appears normal. The ventricles and subarachnoid spaces are normal in size. The calvarium ap pears normal. The visualized paranasal sinuses and mastoid air cells are clear. Impression: No significant abnormality seen. Reviewed, dictated and finalized at [facility]. ET SALES AGENT Impression: No significant abnormality seen.
[2022-11-03 07:27] VITALS: BP 119/70; PULSE 75; RESP 20; TEMP 36.6; O2SAT 95
[2022-11-03 07:43] LABS: Appearance Urine Clear (Clear); Bilirubin Urine Negative (Negative); Blood Urine Negative (Negative); Color Urine Light Yellow (Yellow); Glucose Urine UA Negative (Negative); Ketones Urine Negative (Negative); Leukocyte Esterase Ur Negative LEU/UL (Negative); Nitrate Urine Negative (Negative); Protein Urine Negative (Negative); Specific Grav Ur <= 1.005 (1.010-1.020); Urobilinogen Urine 0.2 mg/dL (0.2-1.0)
[2022-11-03 07:50] LABS: Add Urine Microscopic? NO
[2022-11-03] MEDS: SODIUM CHLORIDE 0.9% IV 1,000 ML 999 ML IV CONT (08:01)
[2022-11-03] MEDS: MORPHINE SULFATE (*CRX) 4 MG/ML INJ IV PUSH (08:02)
[2022-11-03 08:17] LABS: Basophils Absolute Auto 0.07 K/mm3 (0.00-0.10); Eosinophils Absolute Auto 0.19 K/mm3 (0.02-0.50); Eosinophils Percent Auto 2.6 % (1.0-6.0); Immature Granulocyte Absolute 0.02 K/mm3 (0.00-0.00); Immature Granulocyte Percent A 0.3 % (0.0-0.0); Lymphocytes Absolute Auto 2.83 K/mm3 (1.10-4.50); Lymphocytes Percent Auto 39.5 % (18.0-42.0); Mean Corpuscular HGB Conc 33.3 g/dL (32.0-36.0); Mean Corpuscular Hemoglobin 30.2 pg (27.0-31.0); Mean Corpuscular Volume 90.7 fL (78.0-102.0); Mean Platelet Volume 9.7 fl (9.2-11.8); Monocytes Absolute Auto 0.54 K/mm3 (0.10-0.90); Monocytes Percent Auto 7.5 % (2.0-11.0); Neutrophils Absolute Auto 3.5 K/mm3 (1.7-7.2); Neutrophils Percent Auto 49.1 % (50.0-70.0); Platelet Count Result 252 K/mm3 (150-420); Red Blood Count 3.97 M/mm3 (4.20-5.40); White Blood Count 7.2 K/mm3 (4.8-10.8)
--- NOTE | 2022-11-03 08:24 | ECG_ITS ---
Measurements Intervals Edgar Rate: 75 P: 80 SC: 170 QRS: 56 QRSD: 86 T: 55 QT: 373 QTc: 417 Interpretive Statements SINUS RHYTHM BASELINE ARTIFACT- I, III, AVR, AVL, AVF, V1 NORMAL ECG COMPARED TO ECG 12/29/2020 04:50:58 NO SIGNIFICANT CHANGES Electronically Signed On 11-03-2022 11:11:32 SHEAR ASSEMBLER by Rafy Wong D.O.
[2022-11-03 08:32] LABS: Alanine Aminotransferase 23 U/L (14-59); Albumin Level 4.1 g/dL (3.4-5.0); Alkaline Phosphatase 81 U/L (46-116); Anion Gap 8 mmol/L (8-16); Aspartate Amino Transferase 17 U/L (15-37); Bilirubin,Total 0.4 mg/dL (0.00-1.00); Blood Urea Nitrogen 15 mg/dL (7-18); Calcium 9.3 mg/dL (8.5-10.1); Carbon Dioxide 32 mmol/L (21-32); Chloride 102 mmol/L (98-108); Estimated CRCL calculation 58 ml/min; Estimated Glomerular Filt Rate > 60; Glucose 92 mg/dL (70-99); Osmolality Calculated 294 mOsm/kg (285-295); Potassium 3.8 mmol/L (3.5-5.1); Sodium 142 mmol/L (136-145); Total Protein 7.7 g/dL (6.4-8.2)
[2022-11-03 08:37] LABS: Lactic Acid Reflex 1.3 mmol/L (0.4-2.0)
--- NOTE | 2022-11-03 08:38 | ED.FALL ---
HPI - Fall General Chief Complaint: Fall Stated Complaint: fall Time Seen by Provider: 11/03/22 07:27 Source: patient and EMS Mode of arrival: ambulatory Limitations: no limitations History of Present Illness HPI Narrative: patient presents after she fall from a standing position causing pain in the left rib area has been having frequent and currently there is no loss of consciousness no no headache no blurry vision no nausea or vomiting does have some slight neck pain but has good range of motion in all directions has no shortness of breath no chest pain no abdominal pain no dysuria no flank pain hematuria no fever chills. complaint: fall Onset (ago): day(s) Fall from: standing Fall witnessed: yes, by family Place fall occurred: home Loss of consciousness: none Prolonged down time: no Related Data Home Medications Medication Instructions Recorded Confirmed clonazepam 1 mg tablet 1 mg PO TID 10/04/19 11/03/22 simvastatin 20 mg tablet (Zocor) 20 mg PO DAILY 10/04/19 11/03/22 lamotrigine 100 mg tablet 100 mg PO DAILY 12/28/20 11/03/22 lisinopril 20 mg tablet 20 mg PO DAILY 12/28/20 11/03/22 omeprazole 40 mg capsule,delayed 40 mg PO DAILY 12/24/21 11/03/22 release duloxetine 60 mg capsule,delayed 60 mg PO DAILY 04/14/22 11/03/22 release (Cymbalta) ergocalciferol (vitamin D2) 1,250 1,250 mcg PO WEEKLY 11/03/22 11/03/22 mcg (50,000 unit) capsule fluticasone fur. 100 mcg-umeclid 1 inh inhalation DAILY 11/03/22 11/03/22 62.5 mcg-vilant 25 mcg inhalat.powder (Trelegy Ellipta) Allergies Allergy/AdvReac Type Severity Reaction Status Date / Time aspirin Allergy Mild Anaphylaxis Verified 11/03/22 08:14 ciprofloxacin Allergy Unknown Anaphylaxis Verified 11/03/22 08:14 BEE STINGS Allergy Intermediate SWELLING Uncoded 11/03/22 08:14 Review of Systems Review of Systems: All systems reviewed & are unremarkable except as noted in HPI and below PMFSH Past Medical History Medical History Anemia Arthritis Chronic obstructive pulmonary disease Cubital tunnel syndrome on left Dyslipidemia Elevated lipids Essential hypertension GERD (gastroesophageal reflux disease) Heart murmur Since Hepatomegaly Tobacco abuse Weight loss The patient was evaluated by Dr. Maguire who recommended the patient have EGD and colonoscopy she has not followed up. Her CT scan performed at that time demonstrated hepatomegaly Surgical History Surgical History Displaced fracture of left femoral neck Garden type 4 subcapital femoral neck fracture Cemented left bipolar hemiarthroplasty December 30, 2020 History of appendectomy History of carpal tunnel release Left History of colonoscopy with polypectomy (~2013) History of esophagogastroduodenoscopy (EGD) (~2016) History of foot surgery Repair of tendons and ligaments of left ankle after severe laceration History of hysterectomy Without oophorectomy at age 36 performed due to endometriosis and dysfunctional uterine bleeding History of knee surgery Open meniscus repair left knee History of shoulder surgery S/P cubital tunnel release Left S/P implantation of urinary electronic stimulator device (~2016) With battery exchange 2020 Family History Family History Father Lung cancer Sibling Psychiatric illness Mother Hypertension Hyperlipidemia Other Diabetes mellitus Social History Social History Social History: She lives at home with her fiance and her adult son. She only has the 1 son. She has smoked between 1-2 packs of cigarettes per day since she was in her teens. She continues to smoke 1 pack of cigarettes per day. She denies any alcohol use or illicit substance use. 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
[2022-11-03 09:16] VITALS: BP 112/64; PULSE 78; RESP 20; TEMP 36.4; O2SAT 96
--- NOTE | 2022-11-03 09:26 | PC.NURSE ---
On 11/03/22, the student, [zhanna gibbs ], provided care and completed [facility] documentation on this patient. I have reviewed the student's documentation and agree with the findings.
== END 2022-11-03 09:16 | disposition home or self-care (01) ==
PROVIDERS: Emergency Provider Emergency Medicine; PCP Emergency Medicine
DX: S09.11XA Strain of muscle and tendon of head, initial encounter (principal); R07.81 Pleurodynia; J44.9 Chronic obstructive pulmonary disease, unspecified; I10 Essential (primary) hypertension; E78.5 Hyperlipidemia, unspecified; F17.210 Nicotine dependence, cigarettes, uncomplicated; W18.39XA Other fall on same level, initial encounter; Y92.009 Unspecified place in unspecified non-institutional (private) residence as the place of occurrence of the external cause
CPT/HCPCS: 36415; 70450; 71100; 72125; 80053; 81003; 83605; 85025; 93005; 96361; 96374; 99284; J2270; J7030

== ENCOUNTER 2023-01-06 13:05 | Outpatient (CLI) | payer OTHER, SELFPAY ==
--- NOTE | ~2023-01-06 | MM_ITS ---
EXAMINATION: MM screening [facility] BI w viky HISTORY: Screening mammogram TECHNIQUE: Craniocaudal and mediolateral oblique 3-D tomosynthesis images were obtained and synthetic 2-D images were generated. CAD analysis was submitted and interpreted. COMPARISON: 09/17/2021, 07/06/2018, 03/15/2017 BREAST PARENCHYMAL COMPOSITION: There are scattered areas of fibroglandular density. FINDINGS: No suspicious mass, calcification, or architectural distortion are identified in either agatha ast to suggest malignancy. There has been no suspicious interval change. IMPRESSION: 1. No mammographic evidence of malignancy. 2. Recommend routine screening mammography in one year. BI-RADS Category 1: Negative Reviewed, dictated and finalized at location A.
== END 2023-01-06 13:06 | disposition home or self-care (01) ==
LOC: CHSIMG 13:06
PROVIDERS: PCP Emergency Medicine; Visit Provider Emergency Medicine
DX: Z12.31 Encounter for screening mammogram for malignant neoplasm of breast (principal)
CPT/HCPCS: 77063; 77067

== ENCOUNTER 2023-01-06 13:39 | Emergency (ER) | payer OTHER, SELFPAY ==
--- NOTE | ~2023-01-06 | XR_ITS ---
XR wrist RT min 3V 01/06/2023 13:54 Indication: Right wrist pain after recent fall Procedure: 4 views right wrist Comparison: No prior studies for comparison. Findings: There is a comminuted, minimally displaced intra-articular fracture distal aspect of the ra dius. The ulna appears to be intact. No definite carpal fracture is seen. No significant soft tissue abnormality. No foreign body. Impression: 1: Comminuted intra-articular fracture distal aspect of the radius with mild dorsal displacement. Reviewed, dictated and finalized at location B. Impression: 1: Comminuted intra-articular fracture distal aspect of the radius with mild do rsal displacement.
[2023-01-06 13:42] VITALS: BP 111/62; PULSE 88; RESP 18; TEMP 37; O2SAT 98
--- NOTE | 2023-01-06 13:42 | ED.UPPEXIN ---
HPI - Extremity Injury (Upper) General Chief Complaint: Extremity Injury, Upper Stated Complaint: right wrist pain Time Seen by Provider: 01/06/23 13:41 Source: patient and RN notes reviewed Mode of arrival: ambulatory Limitations: no limitations History of Present Illness complaint: injury to: right and wrist Onset (ago): week(s) (1) Other injuries: none Handedness: right Place: outdoors Severity: moderate Relieving factors: rest Exacerbating factors: movement of extremity Context: fall Associated symptoms: denies other symptoms Treatments prior to arrival: other ( Has been taking Calmar at home) Related Data Home Medications Medication Instructions Recorded Confirmed clonazepam 1 mg tablet 1 mg PO TID 10/04/19 01/06/23 simvastatin 20 mg tablet (Zocor) 20 mg PO DAILY 10/04/19 11/03/22 lamotrigine 100 mg tablet 100 mg PO DAILY 12/28/20 11/03/22 lisinopril 20 mg tablet 20 mg PO DAILY 12/28/20 11/03/22 omeprazole 40 mg capsule,delayed 40 mg PO DAILY 12/24/21 11/03/22 release duloxetine 60 mg capsule,delayed 60 mg PO DAILY 04/14/22 11/03/22 release (Cymbalta) ergocalciferol (vitamin D2) 1,250 1,250 mcg PO WEEKLY 11/03/22 11/03/22 mcg (50,000 unit) capsule fluticasone fur. 100 mcg-umeclid 1 inh inhalation DAILY 11/03/22 11/03/22 62.5 mcg-vilant 25 mcg inhalat.powder (Trelegy Ellipta) Allergies Allergy/AdvReac Type Severity Reaction Status Date / Time aspirin Allergy Mild Anaphylaxis Verified 11/03/22 08:14 ciprofloxacin Allergy Unknown Anaphylaxis Verified 11/03/22 08:14 BEE STINGS Allergy Intermediate SWELLING Uncoded 11/03/22 08:14 Review of Systems Review of Systems: All systems reviewed & are unremarkable except as noted in HPI and below PMFSH Past Medical History Medical History Anemia Arthritis Chronic obstructive pulmonary disease Cubital tunnel syndrome on left Dyslipidemia Elevated lipids Essential hypertension GERD (gastroesophageal reflux disease) Heart murmur Since Hepatomegaly Tobacco abuse Weight loss The patient was evaluated by Dr. Maguire who recommended the patient have EGD and colonoscopy she has not followed up. Her CT scan performed at that time demonstrated hepatomegaly Surgical History Surgical History Displaced fracture of left femoral neck Garden type 4 subcapital femoral neck fracture Cemented left bipolar hemiarthroplasty December 30, 2020 History of appendectomy History of carpal tunnel release Left History of colonoscopy with polypectomy (~2013) History of esophagogastroduodenoscopy (EGD) (~2016) History of foot surgery Repair of tendons and ligaments of left ankle after severe laceration History of hysterectomy Without oophorectomy at age 36 performed due to endometriosis and dysfunctional uterine bleeding History of knee surgery Open meniscus repair left knee History of shoulder surgery S/P cubital tunnel release Left S/P implantation of urinary electronic stimulator device (~2016) With battery exchange 2020 Family History Family History Father Lung cancer Sibling Psychiatric illness Mother Hypertension Hyperlipidemia Other Diabetes mellitus Social History Social History Social History: She lives at home with her fiance and her adult son. She only has the 1 son. She has smoked between 1-2 packs of cigarettes per day since she was in her teens. She continues to smoke 1 pack of cigarettes per day. She denies any alcohol use or illicit substance use. 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 Primary care physician: Dr. Eb Gomez Code status: Full code Smoking packs per day: 1 Smoking cigarettes per day: 20.0 Years smoked: 40 Smoking pac
[2023-01-06 14:00] VITALS: BP 111/64; PULSE 75; RESP 18; TEMP 36.8; O2SAT 96
[2023-01-06] MEDS: MORPHINE SULFATE (*CRX) 4 MG/ML INJ 6 MG IM (14:32)
== END 2023-01-06 14:40 | disposition home or self-care (01) ==
PROVIDERS: Emergency Provider Emergency Medicine; PCP Emergency Medicine
DX: S62.101A Fracture of unspecified carpal bone, right wrist, initial encounter for closed fracture (principal); I10 Essential (primary) hypertension; J44.9 Chronic obstructive pulmonary disease, unspecified; F17.210 Nicotine dependence, cigarettes, uncomplicated; X58.XXXA Exposure to other specified factors, initial encounter
CPT/HCPCS: 29125; 73110; 96372; 99284; A4565; J2270

== ENCOUNTER 2023-01-16 09:55 | Outpatient (CLI) | payer OTHER, SELFPAY ==
--- NOTE | ~2023-01-16 | XR_ITS ---
XR wrist RT min 3V 01/16/2023 10:12 Indication: Right wrist pain after fall Procedure: 3 views right wrist Comparison: 01/06/2023 Findings: Stable alignment of comminuted intra-articular fracture of the distal aspect of the radius. There is mild polyarticular osteoarthritis of the wrist. Stable mild dorsal tilt. No other fracture. Impression: 1: Stable alignment of comminuted intra-articular fracture distal aspect of the right radius. Reviewed, dictated and finalized at location B. Impression: 1: Stable alignment of comminuted intra-articular fracture distal aspect of the right radius.
== END 2023-01-16 09:56 | disposition home or self-care (01) ==
LOC: CHSIMG 09:58
PROVIDERS: PCP Emergency Medicine; Visit Provider Orthopaedic Surgery
DX: M25.531 Pain in right wrist (principal)
CPT/HCPCS: 73110

== ENCOUNTER 2023-01-30 09:05 | Outpatient (CLI) | payer OTHER, SELFPAY ==
--- NOTE | ~2023-01-30 | XR_ITS ---
XR wrist RT min 3V DATE: 01/30/2023 09:27 INDICATION: Pain TECHNIQUE: 3 views of right wrist COMPARISON: 01/16/2023) FINDINGS: There is some sclerosis consistent with healing new bone formation at the comminuted intra- articular fracture of the distal radius with dorsal inclination of the distal radial articular surfac e, without significant change in position or alignment since 01/16/2023. Radiocarpal alignment is preserved. Osteoarthritis at the first carpometacarpal joint. IMPRESSION: Healing comminuted intra-articular fracture distal radius, with dorsal inclination of dis omid radial articular surface; no significant change in position or alignment since 01/16 First carpal metacarpal joint osteoarthritis Reviewed, dictated and finalized at location A. IMPRESSION: Healing comminuted intra-articular fracture distal radius, with renetta catia inclination of distal radial articular surface; no significant change in po sition or alignment since 01/16 First carpal metacarpal joint osteoarthritis
== END 2023-01-30 09:06 | disposition home or self-care (01) ==
LOC: CHSIMG 09:07
PROVIDERS: PCP Emergency Medicine; Visit Provider Orthopaedic Surgery
DX: S52.501D Unspecified fracture of the lower end of right radius, subsequent encounter for closed fracture with routine healing (principal); M19.031 Primary osteoarthritis, right wrist
CPT/HCPCS: 73110

== ENCOUNTER 2023-03-13 08:46 | Outpatient (CLI) | payer OTHER, SELFPAY ==
--- NOTE | ~2023-03-13 | XR_ITS ---
Right wrist Technique: PA, oblique, lateral, and ulnar deviation views were obtained. Clinical History: Pain, prior fracture COMPARISON: 01/30/2023 Findings: Prior distal radial/radial styloid fracture is nearly completely healed. No acute fracture or dislocation seen.. Joint spaces are preserved. Soft tissues are unremarkable. Impression: Distal radial/radial styloid fracture is probably nearly completely healed. Reviewed, dictated and finalized at location . Impression: Distal radial/radial styloid fracture is probably nearly completely healed.
== END 2023-03-13 08:47 | disposition home or self-care (01) ==
LOC: CHSIMG 08:49
PROVIDERS: PCP Emergency Medicine; Visit Provider Orthopaedic Surgery
DX: S52.501D Unspecified fracture of the lower end of right radius, subsequent encounter for closed fracture with routine healing (principal)
CPT/HCPCS: 73110

== ENCOUNTER 2023-04-13 12:30 | Outpatient (CLI) | payer OTHER, SELFPAY ==
--- NOTE | ~2023-04-13 | CT_ITS ---
EXAMINATION: CT diagnostic chest wo con DATE: 04/13/2023 13:06 INDICATION: Lung nodules on lung cancer screening CT TECHNIQUE: Computed tomography (CT) of the chest was performed without intravenous contrast. The dose -length product (DLP) was 62.88 mGy-cm. Automated exposure control and iterative reconstruction techn ique were employed. COMPARISON: 10/11/2022, 10/01/2021 FINDINGS: There is mild emphysema. There is a 3 mm nodule of the left lower lobe with slight decrease in size. Other noncalcified pulmonary nodules described on the comparison CT have resolved. Calcifie d pulmonary nodules and calcified hilar and mediastinal lymph nodes are consistent with old granuloma tous disease. No pleural effusion or pneumothorax. There is moderate thoracic spondylosis. IMPRESSION: 1. Lung-RADS category 2: Benign appearance or behavior. Continue annual screening with noncontrast lo w-dose chest CT in 12 months. Reviewed, dictated and finalized at location L. IMPRESSION: 1. Lung-RADS category 2: Benign appearance or behavior. Continue annual screeni ng with noncontrast low-dose chest CT in 12 months.
== END 2023-04-13 12:31 | disposition home or self-care (01) ==
PROVIDERS: PCP Emergency Medicine; Visit Provider Nurse Practitioner Family
DX: R91.8 Other nonspecific abnormal finding of lung field (principal)
CPT/HCPCS: 71250

== ENCOUNTER 2023-05-11 14:21 | Outpatient (CLI) | payer OTHER, SELFPAY ==
[2023-05-11 16:05] LABS: Alanine Aminotransferase 21 U/L (14-59); Albumin Level 4.4 g/dL (3.4-5.0); Alkaline Phosphatase 90 U/L (46-116); Anion Gap 4 mmol/L (8-16); Aspartate Amino Transferase 19 U/L (15-37); Bilirubin,Total 0.4 mg/dL (0.00-1.00); Blood Urea Nitrogen 20 mg/dL (7-18); Calcium 9.8 mg/dL (8.5-10.1); Carbon Dioxide 34 mmol/L (21-32); Chloride 102 mmol/L (98-108); Estimated Glomerular Filt Rate 59; Glucose 56 mg/dL (70-99); Osmolality Calculated 290 mOsm/kg (285-295); Potassium 4.4 mmol/L (3.5-5.1); Sodium 140 mmol/L (136-145); Total Protein 7.2 g/dL (6.4-8.2)
[2023-05-15 10:21] LABS: Vitamin D 25 Hydroxy 89 ng/mL (30-100)
[2023-05-15 16:54] LABS: Albumin 4.6 g/dL (3.8-4.8); Alpha 1 Globulin 0.4 g/dL (0.2-0.3); Alpha 2 Globulin 0.8 g/dL (0.5-0.9); Beta 1 Globulin 0.5 g/dL (0.4-0.6); Gamma Globulin 0.7 g/dL (0.8-1.7); Protein, Total 7.3 g/dL (6.1-8.1)
[2023-05-15 19:22] LABS: Parathyroid Intact 33 pg/mL (14-64)
[2023-05-16 00:05] LABS: Kappa\\Lambda Light Chains 1.35 (0.26-1.65)
[2023-05-16 19:27] LABS: Immunoglobulin A 168 mg/dL (47-310); TTG IGA AB <1.0 U/mL (<15.0)
== END 2023-05-11 14:22 | disposition home or self-care (01) ==
LOC: CHSLAB 14:25
PROVIDERS: PCP Emergency Medicine
DX: M81.0 Age-related osteoporosis without current pathological fracture (principal)
CPT/HCPCS: 36415; 80053; 82306; 82784; 83516; 83883; 83970; 84155; 84165

== ENCOUNTER 2023-07-10 13:58 | Outpatient (CLI) | payer OTHER, SELFPAY ==
--- NOTE | ~2023-07-10 | DEXA_ITS ---
Bone Density Report Name: LUDIN JAY Age: 58 Sex: Female Ethnicity: White Date of : 1965 Indication: postmenopausal; screening for osteoporosis; height loss; prior fracture; asthma or emphysema; hysterectomy; rheumatoid arthritis; Referring Provider: UNKNOWN, UNKNOWN Study: Bone densitometry was performed. Exam Date: July 10, 2023 Accession number: [id number] Bone Density: Region BMD T-score Z-score Classification AP Spine(L1-L4) 0.744 -2.8 -1.3 Osteoporosis Femoral Neck (Right) 0.571 -2.5 -1.2 Osteoporosis Total Hip (Right) 0.616 -2.7 -1.7 Osteoporosis World Health Organization criteria for BMD impression classify patients as: Normal (T-score at or above -1.0), Osteopenia (T-score between -1.0 and -2.5), or Osteoporosis (T-score at or below -2.5). 10-year Fracture Risk: FRAX not reported because: Some T-score for Spine Total or Hip Total or Femoral Neck at or below -2.5 Prior hip or vertebral fracture Clinical Information Provided by Patient: Have had a previous hip or vertebral fracture Has had a low trauma fracture Smokes Has rheumatoid arthritis Has used the following medications: Vitamin D Has the following medical conditions: Asthma or Emphysema, Hysterectomy Patient maximum height was 68 Menopause Age: 50 No regular weight bearing exercise Drinks caffeinated beverages Onset of menses at age 9 Impression: The patient has established osteoporosis, based on the Total Spine T-score and the existence of a prior fracture. The patient has risk factors, including: smoking, previous fracture. Discussion: HIGH RISK OF FRACTURE. BONE DENSITY IS UNDESIRABLY LOW AT ONE OR MORE SKELETAL SITES, CONSISTENT WITH POSTMENOPAUSAL OSTEOPOROSIS. This patient's lowest T-score, in a patient who has previously fractured, meets the World Health Organization's (WHO) criteria for severe osteoporosis. In untreated patients, the risk of osteoporotic fracture increases approximately two-fold for each 1.0 SD decrease in T-score. Low bone density is not the only risk factor for fracture; also consider factors such as patient's age, frailty or poor health, risk of falling, risk of injury, previous osteoporotic fracture, family history of osteoporosis, cigarette smoking, low body weight, etc. Not everyone with low bone mineral density has osteoporosis; osteomalacia and other metabolic bone disorders should also be considered. Patients who have osteoporosis should be evaluated for specific diseases and conditions (secondary causes) that may cause or contribute to bone loss. The [place] Association of Clinical Endocrinologists (AACE) and National Osteoporosis Foundation (NOF) recommend pharmacologic intervention for all postmenopausal women with a previous hip or vertebral fracture and a T-score in this range. The patient should follow a healthful lifesty
== END 2023-07-10 13:59 | disposition home or self-care (01) ==
LOC: CHSIMG 14:00
PROVIDERS: PCP Emergency Medicine
DX: Z78.0 Asymptomatic menopausal state (principal); M81.0 Age-related osteoporosis without current pathological fracture
CPT/HCPCS: 77080

== ENCOUNTER 2023-08-20 02:53 | Emergency (ER) | payer OTHER, SELFPAY ==
--- NOTE | ~2023-08-20 | XR_ITS ---
XR chest 1V portable DATE: 08/20/2023 03:20 INDICATION: Shortness of breath. History of COPD. TECHNIQUE: Portable AP chest on 08/16/2023 at 0323 hours COMPARISON: 04/13/2023 CT chest FINDINGS: Heart size is within normal range. No pulmonary infiltrate or consolidation, pleural effusi on or pulmonary vascular congestion or pneumothorax is evident. IMPRESSION: No active cardiopulmonary disease Reviewed, dictated and finalized at location A. 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
[2023-08-20 02:52] VITALS: BP 112/55; PULSE 122; RESP 18; TEMP 36.3; O2SAT 93
[2023-08-20] MEDS: IPRATROPIUM 0.5 MG/ALBUTEROL SULFATE 2.5 MG AMPUL.NEB 3 ML INHALATION (03:25)
[2023-08-20] MEDS: methylPREDNISolone SOD SUCC 125 MG VIAL IV PUSH (03:30)
[2023-08-20] MEDS: MORPHINE SULFATE (*CRX) 2 MG/ML INJ IV PUSH ×2 (03:30→04:02)
[2023-08-20] MEDS: SODIUM CHLORIDE 0.9% IV 1,000 ML 999 ML IV CONT (03:31)
[2023-08-20 03:40] LABS: Basophils Absolute Auto 0.03 K/mm3 (0.00-0.10); Basophils Percent Auto 0.4 % (0.0-1.0); Eosinophils Absolute Auto 0.06 K/mm3 (0.02-0.50); Eosinophils Percent Auto 0.8 % (1.0-6.0); Hematocrit 37.1 % (35.0-49.0); Hemoglobin 12.3 g/dL (12.0-15.0); Immature Granulocyte Absolute 0.02 K/mm3 (0.00-0.00); Immature Granulocyte Percent A 0.3 % (0.0-0.0); Lymphocytes Absolute Auto 2.99 K/mm3 (1.10-4.50); Lymphocytes Percent Auto 40.3 % (18.0-42.0); Mean Corpuscular HGB Conc 33.2 g/dL (32.0-36.0); Mean Corpuscular Hemoglobin 30.4 pg (27.0-31.0); Mean Corpuscular Volume 91.6 fL (78.0-102.0); Mean Platelet Volume 10.2 fl (9.2-11.8); Monocytes Absolute Auto 0.54 K/mm3 (0.10-0.90); Monocytes Percent Auto 7.3 % (2.0-11.0); Neutrophils Absolute Auto 3.8 K/mm3 (1.7-7.2); Neutrophils Percent Auto 50.9 % (50.0-70.0); Platelet Count Result 221 K/mm3 (150-420); Red Blood Count 4.05 M/mm3 (4.20-5.40); Red Cell Distribution Width 13.2 % (11.6-14.4); White Blood Count 7.4 K/mm3 (4.8-10.8)
[2023-08-20 03:49] LABS: Alanine Aminotransferase 27 U/L (14-59); Albumin Level 4.3 g/dL (3.4-5.0); Alkaline Phosphatase 60 U/L (46-116); Anion Gap 9 mmol/L (8-16); Aspartate Amino Transferase 20 U/L (15-37); Bilirubin,Total 0.3 mg/dL (0.00-1.00); Blood Urea Nitrogen 13 mg/dL (7-18); Calcium 9.1 mg/dL (8.5-10.1); Carbon Dioxide 28 mmol/L (21-32); Chloride 99 mmol/L (98-108); Estimated CRCL calculation 44 ml/min; Estimated Glomerular Filt Rate 50; Glucose 83 mg/dL (70-99); Osmolality Calculated 281 mOsm/kg (285-295); Potassium 3.5 mmol/L (3.5-5.1); Sodium 136 mmol/L (136-145); Total Protein 7.5 g/dL (6.4-8.2)
[2023-08-20 03:52] LABS: Lactic Acid Reflex 3.1 mmol/L (0.4-2.0)
[2023-08-20 03:53] LABS: SARS-CoV-2 RNA PCR Positive (Negative)
[2023-08-20 03:54] LABS: Influenza A QL RT-PCR Negative (Negative); Influenza B QL RT-PCR Negative (Negative); RSV RNA, RT-PCR Negative (Negative)
--- NOTE | 2023-08-20 03:57 | ED.URI ---
HPI - URI/Sore Throat General Chief Complaint: Upper Respiratory Infection Stated Complaint: short of breath Time Seen by Provider: 08/20/23 03:00 Source: patient Mode of arrival: ambulatory Limitations: no limitations History of Present Illness HPI Narrative: this is a 58-year-old female with history of COPD presents with shortness of breath no audible wheezing no fever chills there is no nausea vomiting no chest pain no abdominal. MD elicited complaint: cough and nasal congestion Onset (ago): hour(s) Consistency: constant Severity: moderate Description of mucous: clear Related Data Home Medications Medication Instructions Recorded Confirmed clonazepam 1 mg tablet 1 mg PO TID 10/04/19 08/20/23 simvastatin 20 mg tablet (Zocor) 20 mg PO DAILY 10/04/19 08/20/23 lamotrigine 100 mg tablet 100 mg PO DAILY 12/28/20 08/20/23 lisinopril 20 mg tablet 20 mg PO DAILY 12/28/20 08/20/23 omeprazole 40 mg capsule,delayed 40 mg PO DAILY 12/24/21 08/20/23 release duloxetine 60 mg capsule,delayed 60 mg PO DAILY 04/14/22 08/20/23 release (Cymbalta) ergocalciferol (vitamin D2) 1,250 1,250 mcg PO WEEKLY 11/03/22 08/20/23 mcg (50,000 unit) capsule Allergies Allergy/AdvReac Type Severity Reaction Status Date / Time aspirin Allergy Mild Anaphylaxis Verified 08/20/23 02:59 ciprofloxacin Allergy Unknown Anaphylaxis Verified 08/20/23 02:59 BEE STINGS Allergy Intermediate SWELLING Uncoded 03/13/23 09:23 Review of Systems Review of Systems: All systems reviewed & are unremarkable except as noted in HPI and below PMFSH Past Medical History Medical History Anemia Arthritis Chronic obstructive pulmonary disease Cubital tunnel syndrome on left Dyslipidemia Elevated lipids Essential hypertension Fracture of distal end of right radius GERD (gastroesophageal reflux disease) Heart murmur Since Hepatomegaly Tobacco abuse Weight loss The patient was evaluated by Dr. Maguire who recommended the patient have EGD and colonoscopy she has not followed up. Her CT scan performed at that time demonstrated hepatomegaly Surgical History Surgical History Displaced fracture of left femoral neck Garden type 4 subcapital femoral neck fracture Cemented left bipolar hemiarthroplasty December 30, 2020 History of appendectomy History of carpal tunnel release Left History of colonoscopy with polypectomy (~2013) History of esophagogastroduodenoscopy (EGD) (~2016) History of foot surgery Repair of tendons and ligaments of left ankle after severe laceration History of hysterectomy Without oophorectomy at age 36 performed due to endometriosis and dysfunctional uterine bleeding History of knee surgery Open meniscus repair left knee History of shoulder surgery S/P cubital tunnel release Left S/P implantation of urinary electronic stimulator device (~2016) With battery exchange 2020 Family History Family History Father Lung cancer Sibling Psychiatric illness Mother Hypertension Hyperlipidemia Unknown Asthma Depression Heart disease Lung cancer Arthritis Cerebrovascular accident Other Diabetes mellitus Social History Social History Social History: She lives at home with her fiance and her adult son. She only has the 1 son. She has smoked between 1-2 packs of cigarettes per day since she was in her teens. She continues to smoke 0.5 pack of cigarettes per day. She denies any alcohol use or illicit substance use. 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 Primary care physician: Dr. Eb Gomez Code status: Full code Smoking packs per day: 1 Smoking cigarettes per day: 20.0 Years smoked: 40 Smoking pack-years: 40.00 Janice
[2023-08-20 04:40] VITALS: PULSE 88; RESP 20; O2SAT 97
== END 2023-08-20 04:40 | disposition home or self-care (01) ==
PROVIDERS: Emergency Provider Emergency Medicine; PCP Emergency Medicine
DX: U07.1 COVID-19 (principal); J44.9 Chronic obstructive pulmonary disease, unspecified; E78.5 Hyperlipidemia, unspecified; F17.210 Nicotine dependence, cigarettes, uncomplicated; Z79.899 Other long term (current) drug therapy
CPT/HCPCS: 36415; 71045; 80053; 83605; 85025; 87637; 96361; 96374; 96375; 96376; 99284; J2270; J2930; J7030

== ENCOUNTER 2023-10-03 13:54 | Outpatient (CLI) | payer OTHER, SELFPAY ==
[2023-10-03 14:42] LABS: Anion Gap 5 mmol/L (8-16); Blood Urea Nitrogen 19 mg/dL (7-18); Carbon Dioxide 32 mmol/L (21-32); Chloride 102 mmol/L (98-108); Estimated Glomerular Filt Rate 57; Glucose 94 mg/dL (70-99); Osmolality Calculated 290 mOsm/kg (285-295); Potassium 4.5 mmol/L (3.5-5.1); Sodium 139 mmol/L (136-145)
== END 2023-10-03 13:55 | disposition home or self-care (01) ==
LOC: CHSLAB 13:58
PROVIDERS: PCP Emergency Medicine
DX: M81.0 Age-related osteoporosis without current pathological fracture (principal)
CPT/HCPCS: 36415; 80048

== ENCOUNTER 2024-04-25 13:58 | Outpatient (CLI) | payer OTHER, SELFPAY ==
--- NOTE | ~2024-04-25 | CT_ITS ---
EXAMINATION:CT lung screening DATE: 04/25/2024 14:26 INDICATION: Personal history of nicotine dependence. Current smoker with 90 pack year history. TECHNIQUE: Computed tomography (CT) of the chest was performed without intravenous contrast. Automate d exposure control and iterative reconstruction technique were employed. The dose-length product (DLP ) was 64.46 mGy-cm. COMPARISON: Chest CT 04/13/2023 FINDINGS: There is mild emphysema. There is minimal atelectasis on the left. Calcified bilateral lung nodules and calcified hilar lymph nodes are consistent with old granulomatous disease. No pleural ef fusion. The heart size is normal. There are coronary artery calcifications. No pericardial effusion. There is severe cervical and thoracic spondylosis. IMPRESSION: 1. Lung-RADS category 1: Negative. Continue annual screening with noncontrast low-dose chest CT in 12 months. Reviewed, dictated and finalized at location A. IMPRESSION: 1. Lung-RADS category 1: Negative. Continue annual screening with noncontrast l ow-dose chest CT in 12 months.
== END 2024-04-25 13:59 | disposition home or self-care (01) ==
LOC: CHSIMG 14:01
PROVIDERS: PCP Emergency Medicine; Visit Provider Nurse Practitioner Family
DX: Z12.2 Encounter for screening for malignant neoplasm of respiratory organs (principal); Z87.891 Personal history of nicotine dependence
CPT/HCPCS: 71271

== ENCOUNTER 2024-06-04 12:29 | Outpatient (CLI) | payer OTHER, SELFPAY ==
--- NOTE | ~2024-06-04 | MM_ITS ---
EXAMINATION: MM screening [facility] BI w viky HISTORY: Screening TECHNIQUE: Craniocaudal and mediolateral oblique 3-D tomosynthesis images were obtained and synthetic 2-D images were generated. CAD analysis was submitted and interpreted. COMPARISON: Comparison to multiple prior studies sequentially, with oldest reviewed study dated 04/2015. BREAST PARENCHYMAL COMPOSITION: Not dense: There are scattered areas of fibroglandular density. FINDINGS: There is no evidence of suspicious mass, calcification, or architectural distortion to sugg est malignancy in either breast. There has been no suspicious interval change. IMPRESSION: 1. No mammographic evidence of malignancy. 2. Recommend routine screening mammography in one year. BI-RADS Category 1: Negative Reviewed, dictated and finalized at location B.
== END 2024-06-04 12:30 | disposition home or self-care (01) ==
LOC: CHSIMG 12:32
PROVIDERS: PCP Emergency Medicine; Visit Provider Emergency Medicine
DX: Z12.31 Encounter for screening mammogram for malignant neoplasm of breast (principal)
CPT/HCPCS: 77063; 77067

== ENCOUNTER 2024-10-04 17:28 | Outpatient (CLI) | payer OTHER, SELFPAY ==
--- OUTSIDE RECORDS SUMMARY | 2024-10-04 17:33 | XMS_ITS | Data Portability ---
Author Organization [facility], [address] [place] [address] [place]rology ([place]) Address [address] [address] Care Team Providers Care Dye Padder Operator Name Role Phone FRANKY CASTELLON Primary Care Provider [phone] Assessment Encounter Date Assessment Date Assessment LastModified by Organization Details LastModified Time 09/10/2024 09/10/2024 We do plan on getting urine to get the KUB done today. I then want to have one of our SENIOR SOFTWARE QUALITY ANALYST's interrogate the device and see if it is functioning properly I personally spent a total of 22 minutes on this patient on this date of service going both gxxl-fz-lzcx and trf-rzpt-tx-fac e time Not available 09/12/2024 12:07:42 09/18/2024 09/18/2024 Chief Complaint: follow up History of present illness: The patient is a 59-year-old female who presents today for a follow-up. She has a history of InterStim. This was placed 10/13/2020. She saw Dr. Mchugh 09/10/2024 with complaints of frequency and urgency. She was also complaining of pain when she presses on the InterStim device as well as itching over the skin on top of it. There was no rash, redness or signs of infection at the time. She had a KUB to make sure the wires was not fractured. KUB was normal. The patient was originally presenting today to have the device reset. She states her main complaints is now that she has a rash. This popped up within the last 72 hours. She is having an itching/fiery pain. The rash is located on the right lower flank wrapping around the anterior part of her abdomen. Patient states she has had a recent viral illness, something like the flu a few days ago. She mention she did not get her shingles shot. She has had chickenpox. Review of systems Patient denies nausea, or vomiting, skin or vision changes, shortness of breath, or chest pain. Vitals, medical problems, medications, social histories and allergies are noted below. Physical exam: Patient is alert and oriented. In no acute distress. Skin warm and dry. Linear rash on right flank around to abdomen. Intact, fluid-filled blisters noted. No crusts. Cardiac: Regular rate and rhythm. Respirations deep and regular. No use of accessory muscles. Abdomen is soft without distension. There is no suprapubic or flank tenderness. There is no peripheral edema. Gait is normal and without defect. Assessment & Plan: Shingles - I discussed with the patient today that her symptoms and rash appear to be classic shingles symptoms. Given symptoms started less than 72 hours ago and lesions are not crusted, I will start the patient on valacyclovir 1 g 3 times a day x 10 days. Patient has a follow-up appointment with her primary care doctor on 09/26/2024. He can reevaluate her at that time. Also discussed if symptoms worsened, she should call to be seen sooner. In regards to her InterStim, we discussed that the KUB was unremarkable. Discussed that the pain is likely due to her active shingles infection. I will see her again in 3 months to reevaluate her urinary symptoms before making changes to the InterStim settings. [email or web address] Not available 09/18/2024 17:10:50 Plan of Treatment Reminders Order Date Submit Date Provider Last Modified By Organization Details Last Modified Time Details Appointments Establish ed Patient 15.EST 2024 02:45P Gus Reina Not available Not available Not available Lab BMP, serum or plasma 2023 025 [facility], [address] [place], [address], 09/28/2024 03:16:59 vitamin D, 25-hydrox y, total, serum 2023 025 [facility], [address] [place], [address], 09/28/2024 03:16:59 Referral None recorded. Procedures None recorded. Surgeries None recorded. Imaging bone density [address] (Imaging), [address] [place], [address], 04/15/2024 17:31:48 Medication Orders valacyclo vir 1 gram tablet 2024 025 [facility], [address], [place], [id number], 09/18/2024 15:32:03 Patient TargetsNo targets recorded. Patient Instructions Encounter Date Encounter Id Patient Instructions Last Modified By Organization Details Last Modified Time 04/15/2024 [id number] patient follow up phone call* [email or web address] Not available 10/04/2024 11:33:49 Reason for Referral None Reported. Results Created Date Observation Date Name Description Value Unit Range Abnormal Flag Note LastModifiedBy Organization Detail LastModifiedTime 11/28/19 24 11/28/2023 XR, pelvi s, 1 or 2 view No observ ation record ed. [email or web address] Not Available 2023 10:44:13 09/10/19 25 09/10/2024 XR, abdom en, [address] [address] Teleph one [phone] Name: Bessy Tuttle [id number] am Date: 2024 Age: 59Phys ician: MD Lolita, Xu y : 1964Ex aminat ion: XR ABDOME N/KUB1 VIEW EXAM: XR ABDOME N/KUB 1 VIEW HISTOR Y: Medtro sangeetha placed in Februa ry of 2020, checki ng placem ent. No other abdome n compla ints. FINDIN GS: Urinar y bladde r stimul ator seen. There is a left hip arthro plasty . The bowel gas patter n appear s normal withou t eviden ce of obstru ction IMPRES THEODORA: Normal bowel gas gemma Cook onical ly signed in [place] cribe by: KENDAL Rosales on:08/28 11:53 AM cc: Page PAGE 1 of TARA ES 1 [email or web address] [facility] - [facility] [address] [place] [address], [address], 09/20/2024 17:21:59 Result Notes None recorded. Problems Name Problem SNOMED Code Status Onset Date Resolution Date Notes Provider Name and Address Organization Details Recorded Time Osteoporosis 60207800 Active 2023 Ga Liu her, DIVORCE MEDIATOR, DNP, BANK NOTE DESIGNER [address] [place] [address], [phone], [facility] 5 12:05:38 Dysuria 38626667 Active [address] [facility] 4 09:42:33 Increased frequency of urination 227658565 Active [address] [facility] 4 09:43:07 Blood in urine 45874689 Active [address] [facility] 4 09:43:50 Overactive urinary bladder 948836620 Active 2024 Joel Mchugh MD [address] [place] [address], [phone], [facility] 5 12:07:24 Herpes zoster without complication 972274186 Active 2024 LILA REINA, BANK NOTE DESIGNER [address] [place] [address], [phone], [facility] 5 15:29:28 Urinary incontinence 258032578 Active [address] [facility] 5 12:23:53 Problem Notes None recorded. Procedures Surgical History Date Name Laterality Status Provider Name and Address Organization Details Recorded Time Appendectomy completed Not Available Health Note 11/27/2023 12:25:49 Colonoscopy with biopsy completed Not Available Health Note 11/27/2023 12:25:49 Partial hysterectomy completed Not Available Health Note 11/27/2023 12:25:49 Removal of tonsils completed Not Available Health Note 11/27/2023 12:25:49 Total hip arthroplasty completed Not Available Health Note 11/27/2023 12:25:49 Imaging Results Imaging Date Name Status LastModified by Organiz ation Details LastModified Time 11/28/2023 XR, pelvis, 1 or 2 view completed [email or web address] Information not available 12/13/2023 10:44:13 09/10/2024 XR, abdomen, 1 view completed [email or web address] [facility] Only - [facility] [address] [place] [address], [address], 09/20/2024 17:21:59 Procedure Notes None recorded. Medical Equipment None Reported. Allergies Allergen ID Allergen Name Allergen Category Reaction Reaction Severity Criticality Documentation Date Start Date Code Code System Note Provider Name and Address Organization Details Recorded Time 375104 ciproflox acin hydrochlo ride medicatio n Not available Not available Not available 09/25/20232012 35518 RxNorm Not Available Not Available Not Available 131613 aspirin medicatio n Not available Not available Not available 09/25/20232014 1191 RxNorm Not Available Not Available Not Available Medications Name Sig Start Date Stop Date Status Note LastModified by Organization Details LastModified Time albuterol sulfate 2.5 mg/3 mL (0.083 %) solution for nebulizatio n active Not Available Not Available Not Available benzonatate 200 mg capsule active Not Available Not Available Not Available valacyclovi r 1 gram tablet Take 1 tablet 3 times a day by oral route for 10 days. 2024 active Not Available Not Available Not Avai lable prazosin 1 mg capsule 04/15 completed Not Available Not Available Not Available lisinopril 20 mg tablet active Not Available Not Available Not Available clonazepam 1 mg tablet TAKE 1 TABLET BY MOUTH THREE TIMES DAILY NEEDED active Not Available Not Available No t Available hydrocodone 10 mg-acetamin ophen 325 mg tablet TAKE 1 TABLET BY MOUTH FOUR TIMES DAILY NEEDED 04/15 completed Not Available Not Available Not Available omeprazole 40 mg capsule,del ayed release active Not Available Not Available Not Available prazosin 5 mg capsule active Not Available Not Available N ot Available oxycodone-a cetaminophe n 10 mg-325 mg tablet active Not Available Not Available No t Available simvastatin 20 mg tablet active Not Available Not Available Not Available montelukast 10 mg tablet active Not Available Not Available Not Available ergocalcife rol (vitamin D2) 1,250 mcg (50,000 unit) capsule active Not Available Not Available Not Available methylpredn isolone 4 mg tablets in a dose pack 04/15 completed Not Available Not Available Not Available albuterol sulfate HFA 90 mcg/actuati on aerosol inhaler active Not Available Not Available Not Available lamotrigine 100 mg tablet active Not Available Not Available Not Available prazosin 2 mg capsule 04/15 completed Not Available Not Available Not Available tiotropium bromide 18 mcg capsule with inhalation device 04/15 completed Not Available Not Available Not Available trospium 20 mg tablet Take 1 tablet every day by oral route for 30 days. 04/15 completed Not Available Not Available Not Available duloxetine 60 mg capsule,del ayed release active Not Available Not Available Not Available Symbicort 160 mcg-4.5 mcg/actuati on HFA aerosol inhaler 04/15 completed Not Available Not Available Not Available Reclast 5 mg/100 mL intravenous piggyback Infuse 5mg over 30 minutes IV 2024 active Not Available Not Available Not Avai lable Myrbetriq 50 mg tablet,exte nded release Take 1 tablet every day by oral route as directed for 30 days. 03/01 completed Not Available Not Available Not Available Trelegy Ellipta 100 mcg-62.5 mcg-25 mcg powder for inhalation 04/15 completed Not Available Not Available Not Available Breztri Aerosphere 160 mcg-9mcg-4. 8mcg/actuat ion HFA aerosol inhaler active Not Available Not Available Not Available Paxlovid 300 mg (150 mg x 2)-100 mg tablets in a dose pack TAKE 3 TABLETS BY MOUTH TWICE A DAY FOR 5 DAYS 04/15 completed Not Available Not Available Not Available Vitals Date Recorded Body height Body mass index (BMI) Body weight Body temperature Oxygen saturation Oxygen saturation in Arterial blood by Pulse oximetry Heart rate Systolic blood pressure Diastolic blood pressure Provider Name and Address Organization Details Last Updated DateTime 4 167.64 cm 21.8 kg/m2 73894.9 7 g 99.5 [degF] 95 % 95 % 87 /min 118 mm[Hg] 67 mm[Hg] Agnieszka Dena-L awpaz [facility] 4 11:59:35 Date Recorded Body height Body mass index (BMI) Body weight Heart rate Systolic blood pressure Diastolic blood pressure Provider Name and Address Organization Details Last Updated DateTime 4 167.64 cm 21.6 kg/m2 24761.9 4 g 68 /min 100 mm[Hg] 58 mm[Hg] Carmen BuckMarichuy mix [facility] 4 14:46:31 Date Recorded Body height Provider Name an d Address Organization Details Last Updated DateTime 09/10/2024 167.64 cm Marium Alcocer [facility] 09/10/2024 11:58:09 Date Recorded Body height Body mass index (BMI) Body weight Heart rate Oxygen saturation Oxygen saturation in Arterial blood by Pulse oximetry Provider Name and Address Organization Details Last Updated DateTime 5 167.64 cm 20.7 kg/m2 36628.8 2 g 87 /min 98 % 98 % Nelidaashley Randhawa [facility] 5 14:50:54 Social History Question Answer Notes LastModified by Organizat ion Details LastModified Time Do You Have An Advance Directive? No [email or web address] Information not available 11/27/2023 What Is Your Level Of Alcohol Consumption? None [email or web address] Information not available 11/27/2023 What Is Your Level Of Caffeine Consumption? Moderate [email or web address] Information not available 11/27/2023 Are You Currently Employed? No [email or web address] Information not available 11/27/2023 What Is Your Occupation? None [email or web address] Information not available 11/27/2023 How Many Times Per Week Do You Exercise? 1-2 Times Per Week [email or web address] Information not available 11/27/2023 How Many Packs Per Day (PPD)? 1/2 Pack Per Day [email or web address] Information not available 11/27/2023 How Long Have You Smoked? 40 Years [email or web address] Information not available 11/27/2023 Do You Have A Medical Power Of Associate Sales Manager? No [email or web address] Information not available 11/27/2023 What Was The Date Of Your Most Recent Tobacco Screening? 11/29/2023 [email or web address] Information not available 11/27/2023 What Is Your Relationship Status? Domestic Partner [email or web address] Information not available 11/27/2023 Do You Use Any Illicit Or Recreational Drugs? No [email or web address] Information not available 11/27/2023 Sex: Unknown Functional Status Question Answer Note LastModified by Organizat ion Details LastModified Time What is your exercise level? Occasional [email or web address] Information not available 11/27/2023 Mental Status None recorded. Family History Relationship Description Onset Age of this Age Resolved Age Notes LastModified by Organization Details LastModified Time Unspecified Relation Family history unknown [email or web address] Not available 2023 12:25:48 Medical History Condition Response High Blood Pressure Y COPD Y Depression Y Anxiety Disorder Y Arthritis Y Cancer N Stroke N Fibromyalgia N Kidney Disease N Attention-deficit Hyperactivity Disorder N Thyroid Problems N Anemia N Diabetes N Bleeding Disorder N Hyperlipidemia N Asthma Y Seizures N Heart Disease N Osteoporosis Y Gynecological HistoryNo gynecological history recorded. Obstetrics History GPAL:G 0 P 0 0 0 0 Immunizations Vaccine Type Date Status Note Provider Nam e and Address Organization Details Recorded Time COVID-19, mRNA, LNP-S, PF, 100 mcg/0.5mL dose or 50 mcg/0.25mL dose 06/03/2021 completed Carmen hendrix [facility] 04/15/2024 14:42:09 Influenza, split virus, trivalent, PF 06/23/2015 completed Carmen jimenez [facility] 04/15/2024 14:42:10 Past Encounters Encounter ID Performer Location Encounter Start Date Encounter Closed Date Diagnosis/Indication Diagnosis SNOMED-CT Code Diagnosis ICD10 Code Diagnosis Note [id number] Deanna Rico , DIVORCE MEDIATOR, BANK NOTE DESIGNER [address] [facility] ([place]) [address] [place] [address] 11/29/2023 11:41:35 11/29/2023 12:42:51 [id number] Ga Greenfield er, DIVORCE MEDIATOR, DNP, BANK NOTE DESIGNER [facility]) [address] [place] [address] 04/15/2024 14:27:15 04/15/2024 17:22:56 Osteoporosis 55902761 M81.0 59-year-ol d female with history of osteoporos is currently being treated with Reclast. She received her first Reclast infusion in September 2023. She reports some body aches and chills after the infusion. She is agreeable to proceed with a second dose of Reclast in September 2024. We will plan on her completing a BMP and vitamin D approximat tony 2 weeks prior to the Reclast. She was given lab orders today. She will continue her current supplement s. Will plan for her to complete a bone density scan in June 2025. Will plan to see the patient back in clinic after she completes the bone density scan. [id number] Joel Mchugh MD [address] [place] [address] [place] ([place]) [address] [place] [address], [place] [address] 09/10/2024 11:55:24 09/10/2024 13:59:58 Overactive urinary bladder 575752387 N32.81 [id number] Joel Mchugh MD [address] [place] [address] [place]rology ([place]) [address] [place] [address],[address] [place] [address] 09/18/2024 14:40:57 09/18/2024 16:25:26 Herpes zoster without complication 104014928 B02.9 Health Concerns Section Related Observation LastModified by Organization Detai ls LastModified Time None Recorded Concern Status LastModified by Organization Details LastModified Time None Recorded Advance Directives Directive N: Payers Encounter Date Sequence Insurance Name Policy Number Policy Pepper Covered Member ID Pepper Member ID Guarantor Name 11/29/2023 1 [facility] (MEDICAID HMO) [id number] Bessy Zavala [id number] Bessy Zavala 04/15/2024 1 [facility] (MEDICAID HMO) [id number] Bessy Zavala [id number] Bessy Zavala 09/10/2024 1 [facility] (MEDICAID HMO) [id number] Bessy Zavala [id number] Bessy Zavala 09/18/2024 1 [facility] (MEDICAID HMO) [id number] Bessy Zavala [id number] Bessy Zavala Notes Date Note Type Note Provider Name and Address Organization Details Recorded Time text/html Assessment & Plan:Ongoing urinary incontinence-InterStim device adjusted to program 6 at 1.3. Trial on Myrbetriq 50 mg daily x 6 weeks. Provided 6 weeks of samples. Follow-up in 6 weeks for reevaluationHistory of Present Illness: Patient is a 58-year-old female who presents today for appointment in regards to urinary incontinence and her InterStim device. Patient had her initial InterStim device placed in 2016 and her second 1 placed in September 2020. When I saw her in September, I put her on program 3 at an intensity of 1.6. Patient reports that she adjusted her InterStim device at home several times since I last saw her. She is currently on program 6 which she reports has helped quite a bit with the amount of leaking she has been having. She currently does not wear depends but simply changes her close in the morning and about twice a day due to urinary leaking. I went ahead and increased her intensity from 0.9-1.3 to see if we can get better control of her symptoms. We will also trial her on Myrbetriq 50 mg daily for some concurrent pharmaceutical therapy.Review of systems:The patient denies nausea, vomiting, shortness of breath, and chest pain.Vitals, medical problems, medications, and allergies are noted below.Physical exam:The patient is alert and oriented. In no acute distress. Skin warm and dry.Extraocular movements are intact.Head normocephalicNormal hearingNo speech defectsRespirations are deep and regular.Abdomen is soft. There is no suprapubic or flank tenderness.There is no peripheral edema.Gait is normal and without defect. Deanna Rico, DIVORCE MEDIATOR, BANK NOTE DESIGNER [address] [place] [address], [phone], [facility] 11/29/2023 12:21:25 08/19/202 4 text/html Ms. Zavala is a 59-year-old female who presents for management of osteoporosis. Current osteoporosis treatment: Reclast (at [facility]) on 10/13/23. She does report some body aches and chills for couple days after the infusion. She does continue to report achy bones but it is not clear if it is related to the Reclast treatment. Past osteoporosis treatment: None Most recent DEXA scan: June 2023 Tscore:AP Spine -2.8 Right Femoral Neck -2.5Right Total Hip -2.7 Fracture history: Reports left clavicle fracture after falling against a wall many years ago, Left hip fracture in December 2020 after falling in her kitchen, Right wrist fracture in 2022 after she fell in her kitchen. No history of parathyroid disease No history of thyroid disease No history of celiac disease No history of seizure disorder No cancer history No history of radiation therapy No aromatase inhibitor use Partial hysterectomy No history of kidney stones Gastroesophageal reflux disease Bunch's esophagus Use of PPIs No history of RA History of steroid use for asthma History of bladder stimulator for incontinence Estimated dietary calcium intake: 1800mg/day Supplements: No calcium supplement. Vitamin D2 76929DF weekly [facility], GFR 59Calcium 9.8Intact PTH 33Vitamin D 89Celiac disease panel negativeKappa/lambda serum free light chains 1.35SPEP no abnormalities Exercise: None Falls: Reports 1 fall in the past year Has had all of her teeth extracted in 2015 or 2016. Denies sores in mouth. No plans for implants. Family History: Report both of her grandmothers broke a hip. Social history: Currently smokes less than 1/2PPD, previously smoked over 2 PPD. History of alcohol overuse. No longer consumes alcohol. Ga Newman, DIVORCE MEDIATOR, DNP, BANK NOTE DESIGNER [address] [place] [address], [phone], [facility] 04/15/2024 17:40:03 5 text/html Patient is coming in today for follow-up. She has a history of frequency and urgency. She has an InterStim device in place. So we did sit down and discussed this. She indicates she is feeling like she is having some pain when she presses on the device as well as itching of the skin over the top of it. I did examine the site today. I am not seeing any redness or signs of infection. Not sure exactly what is going on with this. I think we need to do 2 things to take a look at this. I do want to get a KUB to make sure there is no problems with the wire being fractured or broken. I think we also need to maybe trying get it reprogrammed by one of our nurse practitioners to see if maybe it is a programming issue. Also give a chance to interrogate it and make sure that we do not have any impedance problems. So I had a really good discussion with her about all of this and I will get a get moving on this Joel Mchugh MD [address] [facility], [place], [address], [place] [facility] 09/12/2024 12:07:44 OBGyn Episode No OBEpisode recorded.
--- OUTSIDE RECORDS SUMMARY | 2024-10-04 17:33 | XMS_ITS | Referral Summary ---
Author Organization [address] Address [address] [place] [id number] Care Team Providers Care Adventure Therapist Name Role Phone Eb Gomez MD Primary Care Provider + [phone] Allergies Active Allergy Reactions Criticality Noted Date Comments Aspirin Anaphylaxis,Rash High 07/08/2016 Ciprofloxacin Anaphylaxis,Rash High 07/08/2016 Medications albuterol HFA (PROVENTIL HFA,VENTOLIN HFA,PROAIR HFA) 90 mcg/actuation inhaler ProAir HFA 90 mcg/actuation aerosol inhaler 2 Active amitriptyline (ELAVIL) 25 mg tablet Take 1 tablet by mouth daily 1 Active budesonide-for moteroL (SYMBICORT) 160-4.5 mcg/actuation inhaler Inhale 2 puffs 2 (two) times a day Active clonazePAM (KlonoPIN) 1 mg tablet clonazepam 1 mg tablet 2 Active folic acid (FOLVITE) 1 mg tablet Take 400 mcg by mouth daily Active HYDROcodone-ac etaminophen (NORCO) 10-325 mg per tablet hydrocodone 10 mg-acetaminophe n 325 mg tablet 5 Active hyoscyamine (LEVSIN) 0.125 mg tablet Take 125 mcg by mouth every 4 (four) hours as needed 8 Active ketorolac (ACULAR) 0.5 % ophthalmic solution 2 Active lamoTRIgine (LaMICtal) 100 mg tablet Take 1 tablet by mouth daily 2 Active lisinopriL (PRINIVIL,ZEST RIL) 20 mg tablet lisinopril 20 mg tablet 5 Active ofloxacin (OCUFLOX) 0.3 % ophthalmic solution 2 Active polyethylene glycol (MIRALAX) 17 gram/dose powder 8 Active prednisoLONE acetate (PRED FORTE) 1 % ophthalmic suspension 2 Active simvastatin (ZOCOR) 20 mg tablet simvastatin 20 mg tablet 2 Active solifenacin (VESIcare) 5 mg tablet daily Active umeclidinium (INCRUSE ELLIPTA) 62.5 mcg/actuation blister with device 1 Active pen needle, diabetic (Pen Needle) 31 gauge x 5/16 needle Use it to take Forteo injections daily 100 each 3 2 Active cyanocobalamin (Vitamin B-12) 1,000 mcg/mL injection Inject 1 mL into the muscle as instructed every month [address] (CYMBALTA) 60 mg capsule 3 Active ergocalciferol (VITAMIN D) 50,000 unit capsule 3 Active Trelegy Ellipta 100-62.5-25 mcg inhaler 3 Active montelukast (SINGULAIR) 10 mg tablet 3 Active naloxone 0.4 mg/mL syringe Infuse 1 mL into a venous catheter 2 Active nebulizer and compressor device use PRN 2 Active omeprazole (PriLOSEC) 40 mg capsule 3 Active QUEtiapine (SEROquel) 200 mg tablet Take 300 mg by mouth 2 (two) times a day Active albuterol 2.5 mg /3 mL (0.083 %) nebulizer solution 3 Active Advair Diskus 250-50 mcg/dose diskus inhaler 2 Active denosumab (PROLIA) 60 mg/mL syringe Inject 1 mL (60 mg total) under the skin once for 1 dose 1 mL 1 3 Active estradioL (Estring) 2 mg (7.5 mcg /24 hour) vaginal ring Estring 2 mg (7.5 mcg/24 hour) vaginal ring Insert 1 vaginal ring by vaginal route. 11/12/19 22 Discontin ued(Other ) Active Problems Problem Noted Date Diagnosed Date Age-related osteoporosis wit h current pathological fracture with routine healing 11/11/2021 Assessment & Plan (10/18/2022 2:14 PM APPARATUS CLEANER): Patient afraid of considering Forteo Will request Prolia Continue with Ca and vit D . Smoking cessation. Assessment & Plan (11/11/2021 4:01 PM CDT): Daily weight bearing exercise Fall precautions discussed 1200 mg daily elemental calcium intake recommended 800-1000 IU of vid D recommended. Check serum vit D levels. Might recommended Prescription vit D if very low levels are found. I have requested also PTH, 25 hydroxy vitamin-D and 24 hour urine calcium Will start Forteo Smoking cessation also discussed. The patient is probably not ready to quit Vitamin D deficiency 11/11/2021 Assessment & Plan (10/18/2022 2:12 PM APPARATUS CLEANER): Check 25 OH vit D Adjust dose of Ergocalciferol accordingly Assessment & Plan (11/11/2021 4:02 PM CDT): 25 hydroxy vitamin-D levels requested Start replacement as indicated Nicotine dependence with current use 11/11/2021 Assessment & Plan (11/11/2021 4:03 PM CDT): Smoking cessation was discussed One patient is ready would recommend to start Chantix Social History Tobacco Use Types Packs/Day Years Used Date Smoking Tobacco: Heavy Smoker Cigarettes Smokeless Tobacco: Never Personal Safety Answer Date Recorded Getting School Help Needed Not on file 10/22 Comments Unknown Sex and Gender Information Value Date Recorded Sex Assigned at Not on file Legal Sex Female 2:17 PM APPARATUS CLEANER Gender Identity Female 10/18/2022 1:15 PM APPARATUS CLEANER Sexual Orientation Not on file Last Filed Vital Signs Vital Sign Reading Time Taken Comments Blood Pressure 124/60 10/18/2022 1:30 PM APPARATUS CLEANER Pulse 80 10/18/2022 1:30 PM APPARATUS CLEANER Temperature - - Respiratory Rate 16 10/18/2022 1:30 PM APPARATUS CLEANER Oxygen Saturation - - Inhaled Oxygen Concentration - - Weight 68.5 kg (151 lb 0.2 oz) 10/18/2022 1:30 P M APPARATUS CLEANER Height 167.4 cm (5' 5.91 ) 10/18/2022 1:30 PM CS T Body Mass Index 24.44 10/18/2022 1:30 PM APPARATUS CLEANER Plan of Treatment Not on file Insurance [facility] Care Teams Adventure Therapist Relationship Specialty Start Date End Date Eb Gomez MD [address] [facility] [address] PCP - General Family Medicine 09/02/21
--- OUTSIDE RECORDS SUMMARY | 2024-10-04 17:33 | XMS_ITS | Clinical Summary ---
Author Organization [address] Address [address] [place] [id number] Care Team Providers Care Tugboat Pilot Name Role Phone Eb Gomez MD Primary Care Provider + [phone] Allergies Active Allergy Reactions Criticality Noted Date [...] 11/11/2021 Assessment & Plan (10/18/2022 2:14 PM DIRECTOR OF UNDERGRADUATE ADMISSIONS): Patient afraid of considering Forteo Will request [...] 11/11/2021 Assessment & Plan (10/18/2022 2:12 PM DIRECTOR OF UNDERGRADUATE ADMISSIONS): Check 25 OH vit D Adjust dose of Ergocalciferol accordingly Assessment & Plan (11/11/2021 4:02 PM CDT): 25 hydroxy vitamin-D levels requested Start replacement as indicated Nicotine dependence with current use 11/11/2021 Assessment & Plan (11/11/2021 4:03 PM CDT): Smoking cessation was discussed One patient is ready would recommend to start Chantix Surgical History Surgery Date Site/Laterality Comments TOTAL HIP ARTHROPLASTY Left ULNAR NERVE REPAIR Left APPENDECTOMY HYSTERECTOMY SHOULDER SURGERY Left ELBOW SURGERY Left KNEE SURGERY Left FOOT SURGERY Left Medical History Medical History Date Comments Anxiety Depression Hypertension Hyperlipidemia Bunch esophagus Gastroparesis COPD (chronic obstructive pulmonary disease) (HC C) Asthma Emphysema, interstitial (HCC) OCD (obsessive compulsive disorder) PTSD (post-traumatic stress disorder) Agoraphobia Bipolar disorder (HCC) Brittle bone disease Bulging lumbar disc Family History Medical History Relation Name Comments Brain Aneurysm Father Diabetes Maternal Grandmother Hypertension Maternal Grandmother Hypertension Mother Osteoporosis Mother Emphysema Paternal Grandmother Relation Name Status Comments Father Maternal Grandmother Mother Paternal Grandmother Social History Tobacco Use Types Packs/Day Years Used Date Smoking Tobacco: Heavy Smoker Cigarettes Smokeless Tobacco: Never Personal Safety Answer Date Recorded Getting School Help Needed Not on file 10/22 Comments Unknown Sex and Gender Information Value Date Recorded Sex Assigned at Not on file Legal Sex Female 2:17 PM DIRECTOR OF UNDERGRADUATE ADMISSIONS Gender Identity Female 10/18/2022 1:15 PM DIRECTOR OF UNDERGRADUATE ADMISSIONS Sexual Orientation Not on file Obstetrics History Last Filed Vital Signs Vital Sign Reading Time Taken Comments Blood Pressure 124/60 10/18/2022 1:30 PM DIRECTOR OF UNDERGRADUATE ADMISSIONS Pulse 80 10/18/2022 1:30 PM DIRECTOR OF UNDERGRADUATE ADMISSIONS Temperature - - Respiratory Rate 16 10/18/2022 1:30 PM DIRECTOR OF UNDERGRADUATE ADMISSIONS Oxygen Saturation - - Inhaled Oxygen Concentration - - Weight 68.5 kg (151 lb 0.2 oz) 10/18/2022 1:30 P M DIRECTOR OF UNDERGRADUATE ADMISSIONS Height 167.4 cm (5' 5.91 ) 10/18/2022 1:30 PM CS T Body Mass Index 24.44 10/18/2022 1:30 PM DIRECTOR OF UNDERGRADUATE ADMISSIONS Plan of Treatment Health Maintenance Due Date Last Done Comments Breast Cancer Screening-Mammogram 1965 Colon Cancer Screening-Colonoscopy 1963 Depression Screening 1963 Hepatitis C Screening 1963 Pneumococcal vaccine <65 (1 of 2 - PCV) 1969 DTaP/Tdap/Td Vaccine (1 - Tdap) 1974 Hepatitis B Screening 1981 Regular Well Visit/Exam 18-64 1981 Zoster Vaccine (1 of 2) 2013 Covid-19 Vaccine (2 - season) 04/28/202402/2021 Influenza Vaccine (#1) 2024 06/23/2015 Insurance [facility] Care Teams Tugboat Pilot Relationship Specialty Start Date End Date Eb Gomez MD [address] [place] [address] PCP - General Family Medicine 09/02/21
--- OUTSIDE RECORDS SUMMARY | 2024-10-04 17:33 | XMS_ITS | Clinical Summary ---
Author Organization [facility] Address [address] [address] [address] Phone Care Team Providers Care Job Spotter Name Role Phone Eb Gomez Primary Care Provider [phone] Allergies Active Allergy Reactions Criticality Noted Date Comments Aspirin Anaphylaxis 07/08/2016 Ciprofloxacin Anaphylaxis 07/08/2016 Medications budesonide-form oterol fumarate (SYMBICORT) 160-4.5 MCG/ACT Aerosol take 2 Puffs by inhalation 2 times daily. Active Ipratropium-Alb uterol (COMBIVENT RESPIMAT) 20-100 MCG/ACT Aerosol Solution take 1 Puff by inhalation 4 times daily. Active albuterol (PROAIR HFA) 108 (90 Base) MCG/ACT Aerosol Solution take 2 Puffs by inhalation every 4 hours as needed for Wheezing. Active FLUoxetine (PROZAC) 20 MG Capsule Take 20 mg by mouth daily. Active lisinopril (PRINIVIL, ZESTRIL) 20 MG Tablet Take 20 mg by mouth daily. Active simvastatin (ZOCOR) 20 MG Tablet Take 20 mg by mouth every evening. Active QUEtiapine (SEROQUEL) 200 MG Tablet Take 300 mg by mouth 2 times daily. Active HYDROcodone-jody taminophen (NORCO) 10-325 MG Tablet Take 1 Tab by mouth every 6 hours as needed for Pain. Active clonazePAM (KLONOPIN) 1 MG Tablet Take 1 mg by mouth 3 times daily. Active umeclidinium (INCRUSE ELLIPTA) 62.5 MCG/INH AEROSOL POWDER, BREATH ACTIVATED take 1 Puff by inhalation daily. Active fluticasone-catia meterol (ADVAIR) 250-50 MCG/DOSE AEROSOL POWDER, BREATH ACTIVATED take 1 Puff by inhalation 2 times daily. Active hyoscyamine (LEVSIN) 0.125 MG Tablet Take 1 Tab by mouth every 4 hours as needed for Cramping or Diarrhea. 120 Tab 3 8 Active polyethylene glycol (MIRALAX) Powder Mix the entire bottle with 64 oz of a clear liquid. Use as directed by the office for colonoscopy prep. 255 g 8 Active Family History Medical History Relation Name Comments Liver Disease Brother Cerebral Anuerysm Father Lung Cancer Father Hypertension Mother Thyroid Disease Sister Relation Name Status Comments Brother Father Mother Sister Social History Tobacco Use Types Packs/Day Years Used Date Smoking Tobacco: Every Day Cigarettes 1 35 Smokeless Tobacco: Never Tobacco Cessation:Ready to Q uit: Yes; Counseling Given: Yes Alcohol Use Standard Drinks/Week Comments No 0 (1 standard drink = 0.6 oz pur e alcohol) Comments No Sex and Gender Information Value Date Recorded Sex Assigned at Not on file Legal Sex Female 10:02 PM CDT Gender Identity Not on file Sexual Orientation Not on file Occupation Industry Job Start Date Job End Date disabled Not on file Not on file Not on file Last Filed Vital Signs Vital Sign Reading Time Taken Comments Blood Pressure 111/64 02/21/2020 11:20 PM CDT Pulse 64 02/21/2020 11:20 PM CDT Temperature 37.4 C (99.3 F) 02/21/2020 8:49 PM CDT Respiratory Rate 17 02/21/2020 11:20 PM CDT Oxygen Saturation 98% 02/21/2020 11:20 PM CDT Inhaled Oxygen Concentration - - Weight 70.3 kg (155 lb) 02/21/2020 8:49 PM CDT Height 172.7 cm (5' 8 ) 02/21/2020 8:49 PM CDT Body Mass Index 23.57 02/21/2020 8:49 PM CDT Plan of Treatment Health Maintenance Due Date Last Done Comments Hepatitis C Virus (HCV) Screening 1965 TdaP Immunization 1963 Cologuard 2013 Immunochemical Fecal Occult Blood 2013 Mammogram 2013 Pneumococcal Immunization (5 0+ years) (1 of 1 - PCV) 2013 Zoster Immunization (1 of 2) 2013 Colonoscopy 04/06/2023 04/06/2018 Colorectal Cancer Screening 04/06/2023 Influenza Immunization (#1) 2024 06/23/2015 SARS-COV-2 Immunization ( season) 2024 06/03/2021 Respiratory Syncytial Virus (RSV) Immunization (Adult) (1 - 1-dose 75+ series) 2038 04/06/2018 Hepatitis B Immunization Aged Out No longer eligible based on patient's age to complete this topic Meningococcal Immunization (ACWY) Aged Out No longer eligible based on patient's age to complete this topic Pneumococcal Immunization Combined Aged Out No longer eligible based on patient's age to complete this topic Rotavirus Immunization Aged Out No lo nger eligible based on patient's age to complete this topic Medical Devices Implanted Type Area Developmental Mathematics Instructor Device Identifier Shelf Expiration Date Model / Serial / Lot Clip 360 Resolution 235cm - [id number] Implanted:Qty: 3 on 04/06/2018 by Puma Medina DO at [facility] IMPLANT [address] 12/24/2020 [id number] / [id number] / [id number] Description:ASCENDING COLON POLYPECTOMY SITE Insurance MEDICAID [employer] Care Teams Job Spotter Relationship Specialty Start Date End Date Eb Gomez [address] [place] [address] PCP - General Family Medicine 07/09/16
--- OUTSIDE RECORDS SUMMARY | 2024-10-04 17:33 | XMS_ITS | Continuity of Care Document ---
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 Name Role Phone Eb Gomez MD Unavailable Unavailable Allergies, Adverse Reactions, Alerts Substance Reaction Status Criticality aspirin Active No Information CIPROFLOXACIN HCL Active No Informa tion ciprofloxacin Active No Information Medications Medication Instructions Dosage Effective Dates (start - stop) Status Comments prednisone 20 mg tablet take 3 Tablet by oral route every day 60 MG - Active Percocet 10 mg-325 mg tablet take 1 tablet by oral route 4 times every day as needed as needed 1 tablet - Active PRN for pain, avoid driving or operate machines Klonopin 1 mg tablet take 1 tablet by oral route 3 times every day as needed 1 MG - Active avoid drivin g or operate machines, PRN for anxiety, Lamictal 150 mg tablet take 1 tablet by oral route every day 150 MG - Active Zocor 20 mg tablet take 1 tablet by oral route every day in the evening 20 MG - Active lisinopril 20 mg tablet take 1 tablet by oral route every day 20 MG - Active Vitamin D2 1,250 mcg (50,000 unit) capsule take 1 capsule by oral route every week - Active Lamictal 100 mg tablet take 1 tablet by oral route every day 100 MG - Active omeprazole 40 mg capsule,delayed release take 1 capsule by oral route every day before a meal 40 MG - Active Cymbalta 60 mg capsule,delayed release take 1 capsule by oral route every day 60 MG - Active prazosin 5 mg capsule take 1 capsule by oral route qhs - Active avoid driving or operate machines Breztri Aerosphere 160 mcg-9mcg-4.8mcg/act uation HFA aerosol inhaler inhale 2 puff by inhalation route 2 times every day in the morning and evening 2.00 puff - Active albuterol sulfate HFA 90 mcg/actuation aerosol inhaler inhale 1 puff by inhalation route every 4 - 6 hours as needed as needed 1 puff - Active PRN for sob ProAir HFA 90 mcg/actuation aerosol inhaler inhale 2 puff by inhalation route every 4 - 6 hours as needed as needed - Active PRN for sob albuterol sulfate 2.5 mg/3 mL (0.083 %) solution for nebulization inhale 3 milliliter by nebulization route every 6 hours as needed 2.5 MG - Active COPD, PRN for sob nebulizer and compressor use PRN - Active use PRN for sob naloxone 0.4 mg/mL injection syringe inject 1 milliliter by intravenous route over once, may repeat at 2 to 3 minute intervals as needed - Active PRN for OD Procedures Procedure Date OFFICE/OUTPATIENT VISIT, EST OFFICE/OUTPATIENT VISIT, EST OFFICE/OUTPATIENT VISIT, EST OFFICE/OUTPATIENT VISIT, EST OFFICE/OUTPATIENT VISIT, EST OFFICE/OUTPATIENT VISIT, EST OFFICE/OUTPATIENT VISIT, EST OFFICE/OUTPATIENT VISIT, EST OFFICE/OUTPATIENT VISIT, EST OFFICE/OUTPATIENT VISIT, EST PREV VISIT, EST, AGE 40-64 OFFICE/OUTPATIENT VISIT, EST OFFICE/OUTPATIENT VISIT, EST OFFICE/OUTPATIENT VISIT, EST OFFICE/OUTPATIENT VISIT, EST OFFICE/OUTPATIENT VISIT, EST OFFICE/OUTPATIENT VISIT, EST OFFICE/OUTPATIENT VISIT, EST OFFICE/OUTPATIENT VISIT, EST OFFICE/OUTPATIENT VISIT, EST OFFICE/OUTPATIENT VISIT, EST OFFICE/OUTPATIENT VISIT, EST OFFICE/OUTPATIENT VISIT, EST OFFICE/OUTPATIENT VISIT, EST OFFICE/OUTPATIENT VISIT, EST OFFICE/OUTPATIENT VISIT, EST PREV VISIT, EST, AGE 40-64 Aug- OFFICE/OUTPATIENT VISIT, EST OFFICE/OUTPATIENT VISIT, EST OFFICE/OUTPATIENT VISIT, EST OFFICE/OUTPATIENT VISIT, EST OFFICE/OUTPATIENT VISIT, EST OFFICE/OUTPATIENT VISIT, EST OFFICE/OUTPATIENT VISIT, EST OFFICE/OUTPATIENT VISIT, EST OFFICE/OUTPATIENT VISIT, EST OFFICE/OUTPATIENT VISIT, EST OFFICE/OUTPATIENT VISIT, EST OFFICE/OUTPATIENT VISIT, EST -2021 OFFICE/OUTPATIENT VISIT, EST -2021 PREV VISIT, EST, AGE 40-64 Jul- OFFICE/OUTPATIENT VISIT, EST OFFICE/OUTPATIENT VISIT, EST OFFICE/OUTPATIENT VISIT, EST OFFICE/OUTPATIENT VISIT, EST OFFICE/OUTPATIENT VISIT, EST OFFICE/OUTPATIENT VISIT, EST OFFICE/OUTPATIENT VISIT, EST OFFICE/OUTPATIENT VISIT, EST OFFICE/OUTPATIENT VISIT, EST OFFICE/OUTPATIENT VISIT, EST OFFICE/OUTPATIENT VISIT, EST OFFICE/OUTPATIENT VISIT, EST -2019 OFFICE/OUTPATIENT VISIT, EST OFFICE/OUTPATIENT VISIT, EST OFFICE/OUTPATIENT VISIT, EST OFFICE/OUTPATIENT VISIT, EST OFFICE/OUTPATIENT VISIT, EST OFFICE/OUTPATIENT VISIT, EST OFFICE/OUTPATIENT VISIT, EST OFFICE/OUTPATIENT VISIT, EST OFFICE/OUTPATIENT VISIT, EST OFFICE/OUTPATIENT VISIT, EST PREV VISIT, EST, AGE 40-64 OFFICE/OUTPATIENT VISIT, EST OFFICE/OUTPATIENT VISIT, EST OFFICE/OUTPATIENT VISIT, EST OFFICE/OUTPATIENT VISIT, EST PREV VISIT, EST, AGE 40-64 OFFICE/OUTPATIENT VISIT, EST OFFICE/OUTPATIENT VISIT, EST OFFICE/OUTPATIENT VISIT, EST OFFICE/OUTPATIENT VISIT, EST OFFICE/OUTPATIENT VISIT, EST OFFICE/OUTPATIENT VISIT, EST OFFICE/OUTPATIENT VISIT, EST OFFICE/OUTPATIENT VISIT, EST OFFICE/OUTPATIENT VISIT, EST OFFICE/OUTPATIENT VISIT, EST OFFICE/OUTPATIENT VISIT, EST OFFICE/OUTPATIENT VISIT, EST PREV VISIT, EST, AGE 40-64 OFFICE/OUTPATIENT VISIT, EST OFFICE/OUTPATIENT VISIT, EST OFFICE/OUTPATIENT VISIT, EST OFFICE/OUTPATIENT VISIT, EST OFFICE/OUTPATIENT VISIT, EST OFFICE/OUTPATIENT VISIT, EST OFFICE/OUTPATIENT VISIT, EST OFFICE/OUTPATIENT VISIT, EST OFFICE/OUTPATIENT VISIT, EST OFFICE/OUTPATIENT VISIT, EST OFFICE/OUTPATIENT VISIT, EST OFFICE/OUTPATIENT VISIT, EST OFFICE/OUTPATIENT VISIT, EST PREV VISIT, EST, AGE 40-64 OFFICE/OUTPATIENT VISIT, EST OFFICE/OUTPATIENT VISIT, EST OFFICE/OUTPATIENT VISIT, EST OFFICE/OUTPATIENT VISIT, EST OFFICE/OUTPATIENT VISIT, EST OFFICE/OUTPATIENT VISIT, EST OFFICE/OUTPATIENT VISIT, EST OFFICE/OUTPATIENT VISIT, EST OFFICE/OUTPATIENT VISIT, EST OFFICE/OUTPATIENT VISIT, EST OFFICE/OUTPATIENT VISIT, EST OFFICE/OUTPATIENT VISIT, EST PREV VISIT, EST, AGE 40-64 OFFICE/OUTPATIENT VISIT, EST OFFICE/OUTPATIENT VISIT, EST OFFICE/OUTPATIENT VISIT, EST OFFICE/OUTPATIENT VISIT, EST OFFICE/OUTPATIENT VISIT, EST OFFICE/OUTPATIENT VISIT, EST OFFICE/OUTPATIENT VISIT, EST OFFICE/OUTPATIENT VISIT, EST OFFICE/OUTPATIENT VISIT, EST OFFICE/OUTPATIENT VISIT, EST OFFICE/OUTPATIENT VISIT, EST PREV VISIT, EST, AGE 40-64 OFFICE/OUTPATIENT VISIT, EST OFFICE/OUTPATIENT VISIT, EST OFFICE/OUTPATIENT VISIT, EST OFFICE/OUTPATIENT VISIT, EST OFFICE/OUTPATIENT VISIT, EST OFFICE/OUTPATIENT VISIT, EST OFFICE/OUTPATIENT VISIT, EST OFFICE/OUTPATIENT VISIT, EST OFFICE/OUTPATIENT VISIT, EST OFFICE/OUTPATIENT VISIT, EST OFFICE/OUTPATIENT VISIT, EST OFFICE/OUTPATIENT VISIT, EST PREV VISIT, NEW, AGE 40-64 Advance Directives Directive Yes / No Effective Date File Name No Information Encounters Encounter Description Practice Location Reason(s) For Visit Diagnoses Date Provider Providers Copied on Encounter OFFICE/OUTPA TIENT VISIT, EST [facility], [address] [place], [place], [address], tel:[phone] [facility] pain (chief complaint)anx iety1 (chief complaint)douglas ngle1 (chief complaint) Other postherpetic nervous system involvementChron ic pain syndromeGenerali zed Anxiety Disorder 0202 5 Jason Parson. [address] [place], [address] , [place]. tel:[phone] OFFICE/OUTPA TIENT VISIT, [facility], [address], [place], [address], tel:[phone] [facility] pain (chief complaint)anx iety1 (chief complaint)HLP (chief complaint) Chronic pain syndromeGenerali zed Anxiety DisorderMixed hyperlipidemia 5 Jason Parson. [address], [place], [place], [address] , [place]. tel:[phone] OFFICE/OUTPA TIENT VISIT, [facility], [address], [place], [address], [place] tel:[phone] [facility] pain (chief complaint)anx ity1 (chief complaint) Chronic pain syndromeGenerali zed Anxiety Disorder 4 Jason Parson. [address], [place], [place], [address] , [place]. tel:[phone] OFFICE/OUTPA TIENT VISIT, [facility], [address] [place], [address], [place] tel:[phone] [facility] pain (chief complaint)anx iety (chief complaint)HTN (chief complaint) Chronic pain syndromeGenerali zed Anxiety DisorderEssentia l (primary) hypertensionEnco unter for oth screening for malignant neoplasm of breast 4 Jason Parson. [address], [place], [place], [address] , [place]. tel:[phone] OFFICE/OUTPA TIENT VISIT, [facility], [address] [place], [address], [place] tel:[phone] [facility] pain (chief complaint)anx iety1 (chief complaint)ost eoporosis1 (chief complaint)EN D1 (chief complaint) OsteoporosisGene ralized Anxiety DisorderChronic pain syndromeGERD w/o esophagitis 4 Jason Parson. [address], [place], [place], [address] , [place]. tel:[phone] [facility], [address] [place], [place], [address], [place] tel:[phone] [facility] No Information 4 Jason Parson. [address], [place], [place], [address] , [place]. tel:[phone] OFFICE/OUTPA TIENT VISIT, [facility], [address] [place], [address], [place] tel:[phone] [facility] osteoporosis1 (chief complaint)leslie n (chief complaint)anx iety1 (chief complaint)federico g (chief complaint) OsteoporosisChro sangeetha pain syndromeGenerali zed Anxiety DisorderSolitary lung nodule 4 Jason Parson. [address], [address] , [place]. tel:[phone] OFFICE/OUTPA TIENT VISIT, [facility], [address] [place], [address], [place] tel:[phone] [facility] pain (chief complaint)anx iety1 (chief complaint)nig htmares1 (chief complaint) Chronic pain syndromeGenerali zed Anxiety DisorderNightmar e disorderTobacco use 4 Jason Parson. [address], [address] , [place]. tel:[phone] OFFICE/OUTPA TIENT VISIT, [facility], [address] [place], [address], [place] tel:[phone] [facility] pain (chief complaint)anx iety1 (chief complaint)PTS D (chief complaint) Chronic pain syndromeGenerali zed Anxiety DisorderNightmar e disorder 4 Jason Parson. [address], [place], [place], [address] , [place]. tel:[phone] OFFICE/OUTPA TIENT VISIT, [facility], [address] [place], [address], [place] tel:[phone] [facility] pain (chief complaint)ANX IETY1 (chief complaint)GLU COSE1 (chief complaint)HLP (chief complaint)ost eoprosis1 (chief complaint) Chronic pain syndromeGenerali zed Anxiety DisorderMixed hyperlipidemiaOs teoporosisHyperg lycemia 4 Jason Parson. [address], [place], [place], [address] , [place]. 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 [address], [place], [place], [address] , [place]. tel:[phone] PREV VISIT, EST, AGE 40-64 [facility], [address], [place], [place], [address], [place] tel:[phone] [facility] physical (chief complaint) Encounter for general adult medical examination without abnormal findings 4 Jason Parson. [address], [place], [place], [address] , [place]. tel:[phone] OFFICE/OUTPA TIENT VISIT, EST [facility], [address], [place], [place], [address], [place] tel:[phone] [facility] pain (chief complaint)anx iety1 (chief complaint)EN D1 (chief complaint) Chronic pain syndromeGenerali zed Anxiety DisorderBarrett' s esophagus 4 Jason Parson. [address], [place], [place], [address] , [place]. tel:[phone] OFFICE/OUTPA TIENT VISIT, EST [facility], [address], [place], [place], [address], [place] tel:[phone] [facility] pain (chief complaint)anx iety1 (chief complaint)HLP (chief complaint)ost eoporosis1 (chief complaint) Chronic pain syndromeGenerali zed Anxiety DisorderOsteopor osisMixed hyperlipidemia 4 Jason Parson. [address] [facility] [address], [place], [place], [address] , [place]. tel:[phone] OFFICE/OUTPA TIENT VISIT, [facility], [address] [place], [address], [place] tel:[phone] [facility] anxiety1 (chief complaint)leslie n (chief complaint)HTN (chief complaint)ost eoprosis1 (chief complaint) Chronic pain syndromeGenerali zed Anxiety DisorderOsteopor osisEssential (primary) hypertension 4 Jason Parson. [address] [place], [address] , [place]. tel:[phone] OFFICE/OUTPA TIENT VISIT, [facility], [address] [place], [address], [place] tel:[phone] [facility] anxiety1 (chief complaint)leslie n (chief complaint)ost eoporosis1 (chief complaint)nig htmares1 (chief complaint)emp hysema1 (chief complaint) OsteoporosisGene ralized Anxiety DisorderChronic pain syndromeNightmar e disorderCentrilo bular emphysema 4 Gomez Eb. [address] [facility] [place], [address] , [place]. tel:[phone] OFFICE/OUTPA TIENT VISIT, [facility], [address] [place], [address], [place] tel:[phone] [facility] anxiety1 (chief complaint)leslie n (chief complaint)nig htmares1 (chief complaint)ost eoporosis1 (chief complaint) Chronic pain syndromeGenerali zed Anxiety DisorderOsteopor osisNightmare disorder 3 Jason Parson. [address], [place], [place], [address] , [place]. tel:[phone] OFFICE/OUTPA TIENT VISIT, [facility], [address], [place], [place], [address], [place] tel:[phone] [facility] anxiety1 (chief complaint)leslie n (chief complaint)bar rett1 (chief complaint)ost eoporosis1 (chief complaint) OsteoporosisGene ralized Anxiety DisorderChronic pain syndromeBarrett' s esophagusNightma re disorder 3 Jason Parson. [address], [place], [place], [address] , [place]. tel:[phone] OFFICE/OUTPA TIENT VISIT, [facility], [address], [place], [place], [address], [place] tel:[phone] [facility] anxiety1 (chief complaint)leslie n (chief complaint)ost eoporosis1 (chief complaint) Chronic pain syndromeGenerali zed Anxiety DisorderOsteopor osis 3 Jason Parson. [address], [place], [place], [address] , [place]. tel:[phone] OFFICE/OUTPA TIENT VISIT, [facility], [address], [place], [place], [address], [place] tel:[phone] [facility] osteoporosis1 (chief complaint)anx iety1 (chief complaint)leslie n (chief complaint)bar rett1 (chief complaint)federico g nodule1 (chief complaint) OsteoporosisGene ralized Anxiety DisorderChronic pain syndromeSolitary lung noduleBarrett's esophagus 3 Jason Parson. [address], [place], [place], [address] , [place]. tel:[phone] OFFICE/OUTPA TIENT VISIT, [facility], [address], [place], [place], [address], [place] tel:[phone] [facility] pain (chief complaint)anx iety1 (chief complaint)Bar rett1 (chief complaint)federico g nodule1 (chief complaint) Chronic pain syndromeGenerali zed Anxiety DisorderOsteopor osisBarrett's esophagusSolitar y lung nodule 3 Jason Juarez [address], [place], [place], [address] , [place]. tel:[phone] OFFICE/OUTPA TIENT VISIT, [facility], [address], [place], [address], [place] tel:[phone] [facility] pain (chief complaint)anx iety1 (chief complaint) Generalized Anxiety DisorderChronic pain syndrome 3 Jason Juarez [address], [place], [place], [address] , [place]. tel:[phone] OFFICE/OUTPA TIENT VISIT, [facility], [address], [place], [place], [address], [place] tel:[phone] [facility] pain (chief complaint)anx iety1 (chief complaint)ost eoporosis1 (chief complaint) OsteoporosisChro sangeetha pain syndromeGenerali zed Anxiety Disorder 3 Jason Juarez [address], [place], [place], [address] , [place]. tel:[phone] OFFICE/OUTPA TIENT VISIT, [facility], [address], [place], [place], [address], [place] tel:[phone] [facility] wrist fx (chief complaint)leslie n (chief complaint)anx iety1 (chief complaint) Chronic pain syndromeGenerali zed Anxiety DisorderOsteopor osisPain in right wrist 3 Jason Juarez [address], [place], [place], [address] , [place]. tel:[phone] OFFICE/OUTPA TIENT VISIT, [facility], [address], [place], [place], [address], [place] tel:[phone] [facility] pain (chief complaint)anx iety1 (chief complaint)HLP (chief complaint)ane mia1 (chief complaint) Chronic pain syndromeGenerali zed Anxiety DisorderMixed hyperlipidemiaIr on deficiency anemiaOsteoporos is 3 Jason Juarez [address], [place], [place], [address] , [place]. tel:[phone] OFFICE/OUTPA TIENT VISIT, EST [facility], [address], [place], [place], [address], [place] tel:[phone] [facility] pain (chief complaint)anx iety1 (chief complaint) Chronic pain syndromeGenerali zed Anxiety Disorder Oct- 3 Jason Juarez [address], [place], [place], [address] , [place]. tel:[phone] OFFICE/OUTPA TIENT VISIT, EST [facility], [address], [place], [place], [address], [place] tel:[phone] [facility] pain (chief complaint)anx iety1 (chief complaint)federico g nodule1 (chief complaint)ost eoporosis1 (chief complaint)Bar rett (chief complaint) Centrilobular emphysemaChronic pain syndromeGenerali zed Anxiety DisorderOsteopor osisBarrett's esophagus 3 Jason Juarez [address], [place], [place], [address] , [place]. tel:[phone] PREV VISIT, EST, AGE 40-64 [facility], [address], [address], [place] tel:[phone] [facility] physical (chief complaint) Encounter for general adult medical examination without abnormal findings 3 Jason Juarez [address], [place], [place], [address] , [place]. tel:[phone] OFFICE/OUTPA TIENT VISIT, EST [facility], [address] [place], [address], [place] tel:[phone] [facility] COPD1 (chief complaint)leslie n (chief complaint)anx iety1 (chief complaint)HTN (chief complaint) Centrilobular emphysemaChronic pain syndromeEssentia l (primary) hypertensionOste oporosisGenerali zed Anxiety Disorder 2 Jason Parson. [address], [place], [place], [address] , [place]. tel:[phone] OFFICE/OUTPA TIENT VISIT, [facility], [address], [place], [address], [place] tel:[phone] [facility] pain (chief complaint)anx iety1 (chief complaint)HTN (chief complaint)ost eoporosis1 (chief complaint)ost eoporosis1 (chief complaint) Chronic pain syndromeGenerali zed Anxiety DisorderOsteopor osisEssential (primary) hypertensionCent rilobular emphysema 2 Jason Parson. [address], [place], [place], [address] , [place]. tel:[phone] OFFICE/OUTPA TIENT VISIT, [facility], [address], [place], [place], [address], [place] [phone] [facility] emphysema1 (chief complaint)leslie n (chief complaint)anx iety1 (chief complaint) COPD w/ acute exacerbationChro sangeetha pain syndromeGenerali zed Anxiety Disorder 2 Jason Parson. [address], [place], [place], [address] , [place]. tel:[phone] OFFICE/OUTPA TIENT VISIT, [facility], [address], [address], [place] [phone] [facility] palpitation1 (chief complaint)MULTIFOCAL LENS INSPECTOR D1 (chief complaint)leslie n (chief complaint)anx iety1 (chief complaint) Chronic pain syndromeGenerali zed Anxiety DisorderCentrilo bular emphysemaPalpita tions 2 Jason Parson. [address], [place], [place], [address] , [place]. tel:[phone] OFFICE/OUTPA TIENT VISIT, [facility], [address], [place], [place], [address], tel:[phone] [facility] anxiety1 (chief complaint)leslie n (chief complaint)MULTIFOCAL LENS INSPECTOR D1 (chief complaint)ins omnia1 (chief complaint) COPD w/ acute exacerbationGene ralized Anxiety DisorderChronic pain syndromePrimary insomnia 2 Jason Parson. [address], [place], [place], [address] , [place]. tel:[phone] OFFICE/OUTPA TIENT VISIT, [facility], [address], [place], [place], [address], tel:[phone] [facility] anxiety1 (chief complaint)leslie n (chief complaint)Bar rett1 (chief complaint)MULTIFOCAL LENS INSPECTOR D1 (chief complaint) Centrilobular emphysemaGeneral ized Anxiety DisorderChronic pain syndromeBarrett' s esophagus 2 Jason Juarez [address], [place], [place], [address] , [place]. tel:[phone] OFFICE/OUTPA TIENT VISIT, [facility], [address] [place], [address], [place] tel:[phone] [facility] pain (chief complaint)anx iety1 (chief complaint)MULTIFOCAL LENS INSPECTOR D1 (chief complaint) Chronic pain syndromeGenerali zed Anxiety DisorderStenosis of carotid arteryEmphysema 2 Jason Juarez [address], [place], [place], [address] , [place]. tel:[phone] OFFICE/OUTPA TIENT VISIT, [facility], [address] [place], [address], [place] tel:[phone] [facility] pain (chief complaint)anx iety1 (chief complaint)tin nitus1 (chief complaint)dominik se1 (chief complaint) Chronic pain syndromeGenerali zed Anxiety DisorderImpacted cerumen, bilateralNeuropa thyStenosis of carotid artery 2 Jason Parson. [address], [place], [place], [address] , [place]. tel:[phone] OFFICE/OUTPA TIENT VISIT, [facility], [address], [place], [place], [address], [place] tel:[phone] [facility] pain (chief complaint)anx iety1 (chief complaint)MULTIFOCAL LENS INSPECTOR D1 (chief complaint)ost eoprosis1 (chief complaint)bar rett1 (chief complaint) EmphysemaOsteopo rosisChronic pain syndromeGenerali zed Anxiety DisorderBarrett' s esophagus without dysplasia 2 Jason Parson. [address], [place], [place], [address] , [place]. tel:[phone] OFFICE/OUTPA TIENT VISIT, [facility], [address], [place], [place], [address], [place] tel:[phone] [facility] pain (chief complaint)anx iety (chief complaint)bar rett1 (chief complaint) Chronic pain syndromeGenerali zed Anxiety DisorderBarrett' s esophagus without dysplasiaPolyp of colon Nov- 2 Jason Parson. [address], [place], [place], [address] , [place]. tel:[phone] OFFICE/OUTPA TIENT VISIT, [facility], [address] [place], [address], [place] tel:[phone] [facility] pain (chief complaint)anx iety1 (chief complaint)ost eoporosis1 (chief complaint) Chronic pain syndromeGenerali zed Anxiety DisorderOsteopor osis Oct- 2 Jason Parson. [address], [place], [place], [address] , [place]. tel:[phone] OFFICE/OUTPA TIENT VISIT, [facility], [address], [place], [place], [address], [place] tel:[phone] [facility] pain (chief complaint)anx iety1 (chief complaint)ost eoporosis1 (chief complaint)tob acco1 (chief complaint) Tobacco useOsteoporosisG eneralized Anxiety DisorderChronic pain syndromeIron deficiency anemia Fe 2 Jason Juarez [address], [place], [place], [address] , [place]. tel:[phone] OFFICE/OUTPA TIENT VISIT, EST [facility], [address] [place], [address], [place] tel:[phone] [facility] anemia1 (chief complaint)anx iety1 (chief complaint)leslie n (chief complaint)HLP (chief complaint)ost eoporosis1 (chief complaint)cou gh1 (chief complaint) Chronic pain syndromeGenerali zed Anxiety DisorderOsteopor osisHyperlipidem iaIron deficiency anemiaTobacco useAcute cough 2 Jason Juarez [address], [place], [place], [address] , [place]. tel:[phone] PREV VISIT, EST, AGE 40-64 [facility], [address], [place], [place], [address], [place] tel:[phone] [facility] Physical (chief complaint) Encounter for general adult medical examination without abnormal findings 1 Jason Juarez [address], [place], [place], [address] , [place]. tel:[phone] OFFICE/OUTPA TIENT VISIT, EST [facility], [address] [place], [address], [place] tel:[phone] [facility] anxiety1 (chief complaint)leslie n (chief complaint)ost eoporosis1 (chief complaint) OsteoporosisGene ralized Anxiety DisorderChronic pain syndromeEncounte r for oth screening for malignant neoplasm of breast 1 Jason Juarez [address], [place], [place], [address] , [place]. tel:[phone] OFFICE/OUTPA TIENT VISIT, EST [facility], [address] [place], [place], [address], [place] tel:[phone] [facility] anxiety1 (chief complaint)leslie n (chief complaint)b12 (chief complaint)tob acco1 (chief complaint) Chronic pain syndromeGenerali zed Anxiety DisorderTobacco useDeficiency of other specified B group vitamins 1 Jason Juarez [address], [place], [place], [address] , [place]. [phone] OFFICE/OUTPA TIENT VISIT, [facility], [address] [place], [place], [address], [place] tel:[phone] [facility] anxiety1 (chief complaint)leslie n (chief complaint)HLP (chief complaint)HTN (chief complaint)MULTIFOCAL LENS INSPECTOR D1 (chief complaint) Chronic pain syndromeGenerali zed Anxiety DisorderEmphysem aHyperlipidemiaE ssential (primary) hypertension 1 Jason [facility] [place], [place], [address] , [place]. [phone] OFFICE/OUTPA TIENT VISIT, [facility], [address] [place], [address], [place] tel:[phone] [facility] anxiety1 (chief complaint)leslie n (chief complaint)b12 (chief complaint)ost eoporosis1 (chief complaint) Chronic pain syndromeGenerali zed Anxiety DisorderOsteopor osisVitamin B deficiencyTobacc o use 1 Jason Juarez [address] [facility] [address], [place], [place], [address] , [place]. [phone] OFFICE/OUTPA TIENT VISIT, [facility], [address] [place], [address], [place] tel:[phone] [facility] anxiety1 (chief complaint)leslie n (chief complaint)MULTIFOCAL LENS INSPECTOR D1 (chief complaint)ins omnia1 (chief complaint)ost eoporosis1 (chief complaint) Chronic pain syndromeOsteopor osisGeneralized Anxiety DisorderEmphysem aInsomnia 1 Jason Juarez [address], [place], [place], [address] , [place]. [phone] OFFICE/OUTPA TIENT VISIT, [facility], [address] [place], [address], [place] [phone] [facility] hip fx1 (chief complaint)anx iety1 (chief complaint)HLP (chief complaint)HTN (chief complaint)ost eoporosis1 (chief complaint) Abnormal weight lossChronic pain syndromeGenerali zed Anxiety DisorderOsteopor osisEssential (primary) hypertensionHype rlipidemiaPresen ce of left artificial hip joint 1 Jason Juarez [address], [place], [place], [address] , [place]. tel:[phone] OFFICE/OUTPA TIENT VISIT, [facility], [address] [place], [address], [place] tel:[phone] [facility] anxiety1 (chief complaint)leslie n (chief complaint)ins omnia1 (chief complaint)rachna ght loss1 (chief complaint) Abnormal weight lossChronic pain syndromeGenerali zed Anxiety DisorderInsomnia Vitamin B deficiency Nov-0 1 Jason Juarez [address], [place], [place], [address] , [place]. [phone] OFFICE/OUTPA TIENT VISIT, [facility], [address] [place], [place], [address], [place] tel:[phone] [facility] anxiety1 (chief complaint)leslie n (chief complaint)Ane mia1 (chief complaint)mejia al (chief complaint) AnemiaChronic pain syndromeGenerali zed Anxiety DisorderRenal diseaseHyperkale miaAbnormal weight loss Oct-0 1 Jason Juarez [address], [place], [place], [address] , [place]. [phone] OFFICE/OUTPA TIENT VISIT, [facility], [address] [place], [address], [place] tel:[phone] [facility] overactive bladder1 (chief complaint) Overactive bladderMixed incontinence 1 Jason Juarez [address], [place], [place], [address] , [place]. [phone] OFFICE/OUTPA TIENT VISIT, [facility], [address] [place], [address], [place] [phone] [facility] anxiety1 (chief complaint)leslie n (chief complaint)ane mia1 (chief complaint)ost eoporosis1 (chief complaint) Chronic pain syndromeGenerali zed Anxiety DisorderAbnormal weight lossAnemiaOsteop orosis 1 Jason Juarez [address], [place], [place], [address] , [place]. tel:[phone] OFFICE/OUTPA TIENT VISIT, [facility], [address] [place], [address], [place] tel:[phone] [facility] anxiety1 (chief complaint)leslie n (chief complaint)hem aturia1 (chief complaint)MULTIFOCAL LENS INSPECTOR D1 (chief complaint) Abnormal weight lossChronic pain syndromeGenerali zed Anxiety DisorderHematuri aEmphysemaTobacc o use 1 Jason Juarez [address], [place], [place], [address] , [place]. tel: [phone] OFFICE/OUTPA TIENT VISIT, [facility], [address] [place], [address], [place] tel:[phone] [facility] anxity1 (chief complaint)leslie n (chief complaint)hem aturia1 (chief complaint)rachna ght loss1 (chief complaint) Abnormal weight lossHematuriaChr onic pain syndromeGenerali zed Anxiety Disorder 0 Jason Juarez [address], [place], [place], [address] , [place]. tel:[phone] OFFICE/OUTPA TIENT VISIT, [facility], [address] [place], [place], [address], tel:[phone] [facility] anxiety1 (chief complaint)leslie n1 (chief complaint)mejia al (chief complaint)b12 (chief complaint)ane mia1 (chief complaint)rachna ght loss1 (chief complaint) HematuriaFolate deficiencyAnemia Renal diseaseAbnormal weight lossGeneralized Anxiety DisorderChronic pain syndrome Nov-0 6-202 0 Jason Parson. [address], [place], [place], [address] , [place]. [phone] OFFICE/OUTPA TIENT VISIT, [facility], [address] [place], [address], tel:[phone] [facility] anxiety1 (chief complaint)leslie n (chief complaint)MULTIFOCAL LENS INSPECTOR D1 (chief complaint)hem aturia1 (chief complaint) Chronic pain syndromeGenerali zed Anxiety DisorderHematuri aVitamin B deficiencyTobacc o useEmphysema May-0 8-202 0 Jason Parson. [address], [place], [place], [address] , [place]. [phone] OFFICE/OUTPA TIENT VISIT, [facility], [address] [place], [address], tel:[phone] [facility] anxiety1 (chief complaint)leslie n (chief complaint)hem aturia1 (chief complaint)LDC T (chief complaint) Generalized Anxiety DisorderHematuri aChronic pain syndromeTobacco use Sep-0 9-202 0 Jason Parson. [address], [place], [place], [address] , [place]. tel:[phone] OFFICE/OUTPA TIENT VISIT, EST [facility], [address] [place], [place], [address], tel:[phone] [facility] anxiety1 (chief complaint)leslie n1 (chief complaint)MULTIFOCAL LENS INSPECTOR D1 (chief complaint)hem aturia1 (chief complaint) Generalized Anxiety DisorderChronic pain syndromeEmphysem aHematuria Aug-1 0-202 0 Jason Parson. [address], [place], [place], [address] , . tel:[phone] OFFICE/OUTPA TIENT VISIT, [facility], [address] [place], [place], [address], tel:[phone] [facility] anxiety1 (chief complaint)leslie n (chief complaint)tob acco (chief complaint) Chronic pain syndromeGenerali zed Anxiety DisorderTobacco useHematuria 0 Gomez Eb. [address], [place], [place], [address] , [place]. tel:[phone] OFFICE/OUTPA TIENT VISIT, [facility], [address] [place], [place], [address], tel:[phone] [facility] anxiety1 (chief complaint)leslie n (chief complaint)ane mia1 (chief complaint)MULTIFOCAL LENS INSPECTOR D1 (chief complaint)b12 (chief complaint) Generalized Anxiety DisorderAnemiaVi tamin B deficiencyChroni c pain syndromeEmphysem a 0 Gomez Eb. [address], [place], [place], [address] , [place]. tel:[phone] OFFICE/OUTPA TIENT VISIT, [facility], [address] [place], [address], tel:[phone] [facility] anxiety1 (chief complaint)leslie n1 (chief complaint)ost eoporosis1 (chief complaint)hem aturia1 (chief complaint)ins omnia1 (chief complaint) HematuriaAnemiaG eneralized Anxiety DisorderChronic pain syndromeInsomnia OsteoporosisEsse ntial (primary) hypertension 0 Gomez Eb. [address], [place], [place], [address] , [place]. tel:[phone] OFFICE/OUTPA TIENT VISIT, [facility], [address] [place], [place], [address], [place] tel:[phone] [facility] pain (chief complaint)ins omnia1 (chief complaint)anx iety1 (chief complaint)HLP (chief complaint)MULTIFOCAL LENS INSPECTOR D1 (chief complaint) Chronic pain syndromeGenerali zed Anxiety DisorderEmphysem aInsomniaVitamin B deficiencyHyperl ipidemia 0 Jason Parson. [address], [place], [place], [address] , [place]. tel:[phone] OFFICE/OUTPA TIENT VISIT, [facility], [address], [place], [place], [address], [place] tel:[phone] [facility] pain (chief complaint) Chronic pain syndromeGenerali zed Anxiety Disorder 0 Jason Parson. [address], [place], [place], [address] , [place]. tel:[phone] Referring Provider: Kristen Fernandez [address], [place], [place], [address]. tel:[phone] OFFICE/OUTPA TIENT VISIT, [facility], [address], [place], [place], [address], [place] tel:[phone] [facility] pain (chief complaint)anx iety1 (chief complaint)b12 (chief complaint)ins omnia1 (chief complaint) Generalized Anxiety DisorderInsomnia AnemiaChronic pain syndromeVitamin B deficiency 0 Jason Parson. [address], [place], [place], [address] , [place]. tel:[phone] Referring Provider: Kristen Fernandez [address], [place], [place], [address]. tel:[phone] PREV VISIT, EST, AGE 40-64 [facility], [address], [place], [place], [address], [place] tel:[phone] [facility] physical (chief complaint) Encntr for general adult medical exam w/o abnormal findings 0 Jason Parson. [address], [place], [place], [address] , [place]. [phone] Referring Provider: Kristen Fernandez [address], [place], [place], [address]. tel:[phone] OFFICE/OUTPA TIENT VISIT, [facility], [address] [place], [place], [address], tel:[phone] [facility] insomnia1 (chief complaint)leslie n1 (chief complaint)anx iety1 (chief complaint)hem aturia1 (chief complaint) Chronic pain syndromeGenerali zed Anxiety DisorderInsomnia Hematuria 0 Jason Parson. [address] [facility] [place], [address] , [place]. tel:[phone] Referring Provider: Eb Gomez [address] [place] [address], [address]. tel:[phone] OFFICE/OUTPA TIENT VISIT, [facility], [address] [facility] [place], [address], tel:[phone] [facility] osteoprosis1 (chief complaint)ins omani1 (chief complaint)anx iety1 (chief complaint)chr onic pain1 (chief complaint)con fusion1 (chief complaint) Generalized Anxiety DisorderChronic pain syndromeInsomnia OsteoporosisAbno rmal involuntary movementHematuri aDeficiency of other specified B group vitamins 0 9 Jason Parson. [address] [facility] [place], [place], [address] , . tel:[phone] Referring Provider: Kristen Fernandez [place], [address]. tel:[phone] OFFICE/OUTPA TIENT VISIT, [facility], [address] [facility] [place], [address], [place] tel:[phone] [facility] anemia1 (chief complaint)mejia al1 (chief complaint)chr onic pain (chief complaint)anx iety1 (chief complaint) AnemiaRenal diseaseHematuria Chronic pain syndromeGenerali zed Anxiety DisorderAbnormal involuntary movement 5201 9 Jason Juarez [address] [facility] [place], [place], [address] , [place]. tel:[phone] OFFICE/OUTPA TIENT VISIT, EST [facility], [address], [place], [place], [address], [place] tel:[phone] [facility] chronic pain1 (chief complaint)anx iety1 (chief complaint)bod y movement1 (chief complaint)MULTIFOCAL LENS INSPECTOR D1 (chief complaint) Generalized Anxiety DisorderChronic pain syndromeAbnormal involuntary movementEmphysem a 9 Jason Parson. [address], [place], [place], [address] , [place]. [phone] Referring Provider: Eb Gomez [address], [place], [place], [address]. tel:[phone] PREV VISIT, EST, AGE 40-64 [facility], [address], [place], [place], [address], [place] [phone] [facility] anxieyt1 (chief complaint)chr oinc pain1 (chief complaint)PHy sical (chief complaint) Encntr for general adult medical exam w/o abnormal findings 9 Jason Parson. [address], [place], [place], [address] , [place]. [phone] Referring Provider: Kristen Fernandez [address], [place], [place], [address]. tel:[phone] OFFICE/OUTPA TIENT VISIT, EST [facility], [address], [place], [place], [address], [place] tel:[phone] [facility] COPD1 (chief complaint)chr onic pain (chief complaint)CAD (chief complaint)anx iety1 (chief complaint) Coronary artery disease of [place] coronary artery without angina pectorisEmphysem aChronic pain syndromeGenerali zed Anxiety Disorder 9 Jason Parson. [address], [place], [place], [address] , [place]. tel:[phone] OFFICE/OUTPA TIENT VISIT, EST [facility], [address], [place], [place], [address], [place] tel:[phone] [facility] COPD1 (chief complaint)CAD (chief complaint)anx iety1 (chief complaint)chr onic pain1 (chief complaint) Solitary lung noduleEmphysemaG eneralized Anxiety DisorderChronic pain syndromeCoronary artery disease of [place] coronary artery without angina pectoris 9 Jason Parson. [address], [place], [place], [address] , [place]. tel:[phone] Referring Provider: Eb Gomez, [address], [place], [place], [address]. tel:[phone] OFFICE/OUTPA TIENT VISIT, [facility], [address], [place], [place], [address], [place] tel:[phone] [facility] anxiety1 (chief complaint)chr onic pain1 (chief complaint)tob acco1 (chief complaint) Chronic pain syndromeGenerali zed Anxiety DisorderSolitary lung noduleTobacco use 9 Jason Parson. [address], [place], [place], [address] , [place]. tel:[phone] Referring Provider: Kristen Fernandez [address], [place], [place], [address]. tel:[phone] OFFICE/OUTPA TIENT VISIT, [facility], [address] [place], [address], [place] tel:[phone] [facility] osteoporosis1 (chief complaint)anx iety1 (chief complaint)MULTIFOCAL LENS INSPECTOR D1 (chief complaint)chr onic pain1 (chief complaint) Generalized Anxiety DisorderChronic pain syndromeEmphysem aOsteoporosis 9 Jason Parson. [address], [place], [place], [address] , [place]. tel:[phone] OFFICE/OUTPA TIENT VISIT, [facility], [address], [place], [place], [address], [place] tel:[phone] [facility] COPD1 (chief complaint)HTN (chief complaint)chr onic pain1 (chief complaint)anx iety1 (chief complaint) Chronic pain syndromeGenerali zed Anxiety DisorderEssentia l (primary) hypertensionEmph ysema 9 Jason Juarez [address], [place], [place], [address] , [place]. tel:[phone] Referring Provider: Kristen Fernandez [address], [place], [place], [address]. tel:[phone] OFFICE/OUTPA TIENT VISIT, [facility], [address], [place], [place], [address], [place] tel:[phone] [facility] anemia1 (chief complaint)anx iety1 (chief complaint)brenda k pain1 (chief complaint) Generalized Anxiety DisorderChronic pain syndromeAnemia 9 Jason Juarez [address], [place], [place], [address] , [place]. tel:[phone] OFFICE/OUTPA TIENT VISIT, [facility], [address], [place], [place], [address], [place] tel:[phone] [facility] hlP (chief complaint)chr onic pain (chief complaint)anx iety1 (chief complaint)ane mia1 (chief complaint) AnemiaGeneralize d Anxiety DisorderChronic pain syndromeHyperlip idemiaFolic acid deficiency 9 Jason Juarez [address], [place], [place], [address] , [place]. tel:[phone] Referring Provider: Kristen Fernandez [address], [place], [place], [address]. tel:[phone] OFFICE/OUTPA TIENT VISIT, [facility], [address] [place], [place], [address], [place] tel:[phone] [facility] chronic pain1 (chief complaint)anx iety1 (chief complaint) Chronic pain syndromeGenerali zed Anxiety Disorder 9 Jason Juarez [address], [place], [place], [address] , [place]. [phone] OFFICE/OUTPA TIENT VISIT, [facility], [address], [place], [place], [address], [place] tel:[phone] [facility] chronic pain (chief complaint)anx iety1 (chief complaint)MULTIFOCAL LENS INSPECTOR D1 (chief complaint)ost eoporosis1 (chief complaint)ane mia1 (chief complaint) AnemiaChronic pain syndromeOsteopor osisGeneralized Anxiety DisorderEmphysem a 8 Jason Parson. [address], [place], [place], [address] , [place]. [phone] Referring Provider: Eb Gomez [address], [place], [place], [address]. tel:[phone] OFFICE/OUTPA TIENT VISIT, [facility], [address], [place], [place], [address], [place] tel:[phone] [facility] anemia1 (chief complaint)ost eoporosis1 (chief complaint)chr onic pain (chief complaint)anx iety1 (chief complaint)b12 (chief complaint) OsteoporosisAnem iaChronic pain syndromeGenerali zed Anxiety DisorderFolic acid deficiency 8 Jason Parson. [address], [place], [place], [address] , [place]. [phone] Referring Provider: Eb Gomez [address], [place], [place], [address]. tel:[phone] OFFICE/OUTPA TIENT VISIT, [facility], [address], [place], [place], [address], [place] tel:[phone] [facility] chronic pain (chief complaint)anx iety1 (chief complaint) Chronic pain syndromeGenerali zed Anxiety Disorder 8 Jason Parson. [address], [place], [place], [address] , [place]. [phone] Referring Provider: Eb Gomez [address], [place], [place], [address]. tel:[phone] OFFICE/OUTPA TIENT VISIT, EST [facility], [address], [place], [place], [address], [place] tel:[phone] [facility] chronic pain1 (chief complaint)anx iety1 (chief complaint)HTN (chief complaint)col on polyp1 (chief complaint) Chronic pain syndromeGenerali zed Anxiety DisorderPolyp of colonEssential (primary) hypertension 8 Jason Parson. [address], [place], [place], [address] , [place]. tel:[phone] Referring Provider: Kristen Fernandez [facility], [place], [place], [address]. tel:[phone] PREV VISIT, EST, AGE 40-64 [facility], [address], [place], [place], [address], [place] tel:[phone] [facility] Physical (chief complaint) Encounter for general adult medical exam w abnormal findingsPolyp of colonChronic pain syndromeGenerali zed Anxiety DisorderOsteopor osis 8 Jason Parson. [address], [place], [place], [address] , [place]. tel:[phone] Referring Provider: Kristen Fernandez [address], [place], [place], [address]. tel:[phone] OFFICE/OUTPA TIENT VISIT, [facility], [address], [place], [place], [address], [place] tel:[phone] [facility] lung nodule1 (chief complaint)Chr onic pain1 (chief complaint)anx iety1 (chief complaint)kcl (chief complaint) Solitary lung noduleChronic pain syndromeGenerali zed Anxiety DisorderHyperkal emiaEmphysema 8 Jason Parson. [address], [place], [place], [address] , [place]. tel:[phone] Referring Provider: Kristen Fernandez [address], [place], [place], [address]. tel:[phone] OFFICE/OUTPA TIENT VISIT, [facility], [address], [place], [place], [address], [place] tel:[phone] [facility] anxiety1 (chief complaint)chr onic pain1 (chief complaint)MULTIFOCAL LENS INSPECTOR D1 (chief complaint)col on polyp (chief complaint) Polyp of colonGeneralized Anxiety DisorderChronic pain syndromeEmphysem a 8 Jason Parson. [address], [place], [place], [address] , [place]. [phone] Referring Provider: Kristen Fernandez [facility], [place], [place], [address]. tel:[phone] OFFICE/OUTPA TIENT VISIT, [facility], [address], [place], [place], [address], [place] tel:[phone] [facility] chronic pain (chief complaint)anx iety1 (chief complaint)pne umonia1 (chief complaint) COPD w/ acute exacerbationChro sangeetha pain syndromeGenerali zed Anxiety DisorderPneumoni aEssential (primary) hypertension 8 Jason Parson. [address], [place], [place], [address] , [place]. [phone] Referring Provider: Kristen Fernandez [address], [place], [place], [address]. tel:[phone] OFFICE/OUTPA TIENT VISIT, [facility], [address] [place], [address], [place] tel:[phone] [facility] HLp (chief complaint)axi ety1 (chief complaint)MULTIFOCAL LENS INSPECTOR D1 (chief complaint)chr onic pain1 (chief complaint) EmphysemaHyperli pidemiaGERD without esophagitisChron ic pain syndromeGenerali zed Anxiety Disorder 8 Jason Juarez [address], [place], [place], [address] , [place]. tel:[phone] Referring Provider: Kristen Fernandez [address], [place], [place], [address]. tel:[phone] OFFICE/OUTPA TIENT VISIT, [facility], [address], [place], [place], [address], [place] tel:[phone] [facility] HLP (chief complaint)KCL (chief complaint)b12 1 (chief complaint)EN d1 (chief complaint)anx iety1 (chief complaint) GERD without esophagitisHyper lipidemiaHyperka lemiaInsomnia 8 Jason Parson. [address], [place], [place], [address] , [place]. tel:[phone] Referring Provider: Kristen Fernandez [address] [facility], [place], [place], [address]. tel:[phone] OFFICE/OUTPA TIENT VISIT, [facility], [address], [place], [place], [address], [place] tel:[phone] [facility] chronc pain (chief complaint)anx iety1 (chief complaint)tob acoc1 (chief complaint)EN D1 (chief complaint) GERD without esophagitisGener alized Anxiety DisorderChronic pain syndromeScreenin g for lung ca 8 Jason Juarez [address], [place], [place], [address] , [place]. tel:[phone] Referring Provider: Kristen Fernandez [address], [place], [place], [address]. tel:[phone] OFFICE/OUTPA TIENT VISIT, [facility], [address], [place], [place], [address], [place] tel:[phone] [facility] chronic pain (chief complaint)anx iety1 (chief complaint)HLP (chief complaint)HTN (chief complaint) Chronic pain syndromeGenerali zed Anxiety DisorderHyperlip idemiaEssential (primary) hypertension 8 Jason Juarez [address], [place], [place], [address] , [place]. tel:[phone] OFFICE/OUTPA TIENT VISIT, [facility], [address], [place], [place], [address], [place] tel:[phone] [facility] COPD1 (chief complaint)chr onic pain1 (chief complaint)anx iety1 (chief complaint) EmphysemaGeneral ized Anxiety DisorderChronic pain syndrome 0 7 Jason Parson. [address], [place], [place], [address] , [place]. tel:[phone] Referring Provider: Eb Gomez, [address], [place], [place], [address]. tel:[phone] OFFICE/OUTPA TIENT VISIT, [facility], [address], [place], [id number], [place] tel:[phone] [facility] chronic pain (chief complaint)anx iety1 (chief complaint) Generalized Anxiety DisorderChronic pain syndrome 7 Jason Parson. [address], [place], [place], [address] , [place]. tel:[phone] Referring Provider: Kristen Fernandez [address], [place], [place], [address]. tel:[phone] OFFICE/OUTPA TIENT VISIT, [facility], [address], [place], [place], [address], [place] tel:[phone] [facility] Cough1 (chief complaint)chr onic pain1 (chief complaint)anx iety1 (chief complaint)EN D1 (chief complaint) COPD w/ acute exacerbationChro sangeetha pain syndromeGenerali zed Anxiety DisorderGERD without esophagitis 0201 7 Jason Parson. [address], [place], [place], [address] , [place]. tel:[phone] Referring Provider: Kristen Fernandez [address], [place], [place], [address]. tel:[phone] OFFICE/OUTPA TIENT VISIT, [facility], [address], [place], [place], [address], [place] tel:[phone] [facility] chronic pain (chief complaint)anx iety1 (chief complaint)HTN (chief complaint)HLP (chief complaint) Chronic pain syndromeGenerali zed Anxiety DisorderHyperlip idemiaEssential (primary) hypertension 7 Jason Parson. [address], [place], [place], [address] , [place]. [phone] Referring Provider: Kristen Fernandez [address], [place], [place], [address]. tel:[phone] OFFICE/OUTPA TIENT VISIT, [facility], [address], [place], [place], [address], [place] tel:[phone] [facility] chronic pain (chief complaint)anx iety1 (chief complaint)EN D1 (chief complaint)MULTIFOCAL LENS INSPECTOR D1 (chief complaint) Chronic pain syndromeGenerali zed Anxiety DisorderCOPDGERD without esophagitis 7 Jason Parson. [address], [place], [place], [address] , [place]. tel:[phone] Referring Provider: Kristen Fernandez [address], [place], [place], [address]. tel:[phone] PREV VISIT, EST, AGE 40-64 [facility], [address], [place], [place], [address], [place] tel:[phone] [facility] PHysical (chief complaint) Encntr for general adult medical exam w/o abnormal findings 7 Jason Parson. [address], [place], [place], [address] , [place]. tel:[phone] Referring Provider: Eb Gomez [address], [place], [place], [address]. tel:[phone] OFFICE/OUTPA TIENT VISIT, [facility], [address], [place], [place], [address], [place] tel:[phone] [facility] HTN (chief complaint)chr onic pain1 (chief complaint)anx iety1 (chief complaint) Essential (primary) hypertensionGene ralized Anxiety DisorderChronic pain syndromeEncounte r for oth screening for malignant neoplasm of breast 7 Jason Parson. [address], [place], [place], [address] , [place]. tel:[phone] Referring Provider: Kristen Fernandez [address] [facility], [place], [place], [address]. tel:[phone] OFFICE/OUTPA TIENT VISIT, [facility], [address], [address], [place] tel:[phone] [facility] chronic pain (chief complaint)anx iety1 (chief complaint)MULTIFOCAL LENS INSPECTOR D1 (chief complaint)rachna ght loss1 (chief complaint) Abnormal weight lossGeneralized Anxiety DisorderChronic pain syndromeCOPD 7 Jason Parson. [address], [place], [place], [address] , [place]. tel:[phone] Referring Provider: Kristen Fernandez [facility], [place], [place], [address]. tel:[phone] OFFICE/OUTPA TIENT VISIT, [facility], [address] [place], [address], [place] tel:[phone] [facility] anxiety1 (chief complaint)chr onic pain (chief complaint)HLP (chief complaint)EN D1 (chief complaint)hep C (chief complaint) HyperlipidemiaGe neralized Anxiety DisorderChronic pain syndromeHepatiti s C 7 Jason Parson. [address], [place], [place], [address] , [place]. tel:[phone] Referring Provider: Kristen Fernandez [facility], [place], [place], [address]. tel:[phone] OFFICE/OUTPA TIENT VISIT, [facility], [address], [place], [place], [address], [place] tel:[phone] [facility] OAB1 (chief complaint)chr onic pain (chief complaint)anx iety1 (chief complaint)hep C (chief complaint) Chronic pain syndromeGenerali zed Anxiety DisorderOveracti ve bladderEncounter for screening for other viral diseases 7 Jason Parson. [address], [place], [place], [address] , [place]. [phone] Referring Provider: Kristen Fernandez [address], [place], [place], [address]. tel:[phone] OFFICE/OUTPA TIENT VISIT, [facility], [address], [place], [place], [address], [place] tel:[phone] [facility] chronic pain1 (chief complaint)anx iety1 (chief complaint)uri nary (chief complaint)EN D1 (chief complaint) GERD with esophagitisInsom niaGeneralized Anxiety DisorderOveracti ve bladder 7 Jason Parson. [address], [place], [place], [address] , [place]. tel:[phone] Referring Provider: Kristen Fernandez [address], [place], [place], [address]. tel:[phone] OFFICE/OUTPA TIENT VISIT, [facility], [address], [place], [place], [address], [place] tel:[phone] [facility] HLP (chief complaint)chr onic pain (chief complaint)anx iety1 (chief complaint)uri nary urgency1 (chief complaint)Bar rett (chief complaint) Lawrence's esophagusChronic pain syndromeGenerali zed Anxiety DisorderOveracti ve bladder 7 Jason Parson. [address], [place], [place], [address] , [place]. tel:[phone] Referring Provider: Kristen Fernandez [address], [place], [place], [address]. tel:[phone] OFFICE/OUTPA TIENT VISIT, [facility], [address], [place], [place], [address], [place] tel:[phone] [facility] COPD1 (chief complaint)brenda k pain1 (chief complaint)anx iety1 (chief complaint)tob acco (chief complaint) Chronic obstructive pulmonary disease, unspecifiedGener alized Anxiety DisorderChronic pain syndromeTobacco use 6 Jason Parson. [address], [place], [place], [address] , [place]. tel:[phone] Referring Provider: Kristen Fenrandez [address], [place], [place], [address]. tel:[phone] OFFICE/OUTPA TIENT VISIT, [facility], [address], [place], [place], [address], [place] tel:[phone] [facility] COPD1 (chief complaint)chr onic pain1 (chief complaint)anx iety1 (chief complaint) Chronic obstructive pulmonary disease, unspecifiedGener alized Anxiety DisorderChronic pain syndrome 6 Jason Parson. [address], [place], [place], [address] , [place]. tel:[phone] Referring Provider: Kristen Fernandez [address], [place], [place], [address]. tel:[phone] OFFICE/OUTPA TIENT VISIT, [facility], [address], [place], [place], [address], [place] tel:[phone] [facility] HLP (chief complaint)anx iety1 (chief complaint)chr onic pain (chief complaint)uri nary frequency1 (chief complaint) Urinary frequencyChronic pain syndromeGenerali zed Anxiety DisorderHyperlip idemia 6 Jason Parson. [address], [place], [place], [address] , [place]. tel:[phone] Referring Provider: Kristen Fernandez [address], [place], [place], [address]. 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 [address], [place], [place], [address] , [place]. tel:[phone] Referring Provider: Kristen Fernandez [address], [place], [place], [address]. tel:[phone] OFFICE/OUTPA TIENT VISIT, EST [facility], [address], [place], [place], [address], [place] tel:[phone] [facility] HTN (chief complaint)chr onic pain (chief complaint)anx iety1 (chief complaint)rachna ght gain (chief complaint) Abnormal weight lossGeneralized Anxiety DisorderChronic pain syndromeEssentia l (primary) hypertension 6 Jason Juarez [address], [place], [place], [address] , [place]. [phone] Referring Provider: Kristen Fernandez [address], [place], [place], [address]. tel:[phone] OFFICE/OUTPA TIENT VISIT, EST [facility], [address], [place], [place], [address], [place] tel:[phone] [facility] anxiety1 (chief complaint)cho rnic pain1 (chief complaint)ost eoporosis1 (chief complaint) Chronic pain syndromeGenerali zed Anxiety DisorderOsteopor osis 6 Jason Juarez [address], [place], [place], [address] , [place]. tel:[phone] Referring Provider: Kristen Fernandez [address], [place], [place], [address]. tel:[phone] PREV VISIT, EST, AGE 40-64 [facility], [address], [place], [place], [address], [place] tel:[phone] [facility] PHysical (chief complaint) Encntr for general adult medical exam w/o abnormal findings 6 Jason Parson. [address], [place], [place], [address] , [place]. tel:[phone] Referring Provider: Kristen Fernandez [address], [place], [place], [address]. tel:[phone] OFFICE/OUTPA TIENT VISIT, [facility], [address], [place], [place], [address], [place] tel:[phone] [facility] osteoporosis (chief complaint)anx itey1 (chief complaint)chr onic pain (chief complaint)bar ret (chief complaint) OsteoporosisGene ralized anxiety disorderChronic pain syndromeBarrett' s esophagus 6 Jason Parson. [address], [place], [place], [address] , [place]. tel:[phone] Referring Provider: Kristen Fernandez [facility], [place], [place], [address]. tel:[phone] OFFICE/OUTPA TIENT VISIT, [facility], [address] [place], [address], [place] tel:[phone] [facility] chronic pain (chief complaint)anx iety1 (chief complaint)car pal tunnel (chief complaint)HLP (chief complaint) Chronic pain syndromeHyperlip idemiaInsomniaEn counter for screening for osteoporosis 6 Jason Parson. [address], [facility], [place], [place], [address] , [place]. tel:[phone] Referring Provider: Kristen Fernandez [facility], [place], [place], [address]. tel:[phone] OFFICE/OUTPA TIENT VISIT, [facility], [address], [address], [place] tel:[phone] [facility] dizziness (chief complaint)anx iety1 (chief complaint)car pal tunnel (chief complaint)chr onic pain (chief complaint) Carpal tunnel syndrome of left armChronic pain syndromeGenerali zed Anxiety DisorderSyncope and collapse 6 Jason Parson. [address], [place], [place], [address] , [place]. tel:[phone] Referring Provider: Eb Gomez, [address], [place], [place], [address]. tel:[phone] OFFICE/OUTPA TIENT VISIT, [facility], [address], [place], [place], [address], [place] tel:[phone] [facility] carpal tunnel (chief complaint)cho rnic pain1 (chief complaint)anx iety1 (chief complaint)diz ziness1 (chief complaint) DizzinessGeneral ized anxiety disorderLow back painCarpal tunnel syndrome, left upper limb 6 Jason Parson. [address], [place], [place], [address] , [place]. tel:[phone] Referring Provider: Kristen Fernandez [facility], [place], [place], [address]. tel:[phone] OFFICE/OUTPA TIENT VISIT, [facility], [address], [place], [address], [place] tel:[phone] [facility] chornic pain1 (chief complaint)Anx iety1 (chief complaint)HLP 1 (chief complaint) Chronic pain syndromeGenerali zed anxiety disorderMixed hyperlipidemiaGE RD with esophagitis 5 Jason Parson. [address], [place], [place], [address] , [place]. tel:[phone] Referring Provider: Kristen Fernandez [address], [place], [place], [address]. tel:[phone] OFFICE/OUTPA TIENT VISIT, [facility], [address], [place], [place], [address], [place] tel:[phone] [facility] anxiety1 (chief complaint)nec k pain1 (chief complaint)arm numbness1 (chief complaint)PAD 1 (chief complaint) Lawrence's esophagusOther spondylosis, lumbar regionParesthesi a of skinGeneralized Anxiety Disorder 5 Jason Juarez [address], [place], [place], [address] , [place]. tel:[phone] Referring Provider: Kristen Fernandez [address], [place], [place], [address]. tel:[phone] OFFICE/OUTPA TIENT VISIT, [facility], [address], [place], [place], [address], [place] tel:[phone] [facility] anxiety1 (chief complaint)EN D1 (chief complaint)brenda k pain1 (chief complaint) Generalized anxiety disorderOther spondylosis, cervical regionGERD without esophagitisPares thesia of skin 5 Jason Juarez [address], [place], [place], [address] , [place]. tel:[phone] Referring Provider: Kristen Fern[address], [place], [place], [address]. tel:[phone] OFFICE/OUTPA TIENT VISIT, [facility], [address], [place], [place], [address], [place] tel:[phone] [facility] neck pain (chief complaint)anx iety (chief complaint)HTN (chief complaint) Unspecified essential hypertensionGene ralized anxiety disorderNeck pain Sep-3 0 5 Jason [address], [place], [place], [address] , [place]. tel:[phone] Referring Provider: Kristen [address], [place], [place], [address]. 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 [address], [place], [place], [address] , [place]. tel:[phone] Referring Provider: Kristen Fernandez [address], [place], [place], [address]. tel:[phone] OFFICE/OUTPA TIENT VISIT, EST [facility], [address], [place], [place], [address], [place] tel:[phone] [facility] back pain (chief complaint)anx iety (chief complaint)vit owen D (chief complaint) LumbagoGeneraliz ed anxiety disorderBarrett' s esophagus 5 Jason Parson. [address], [place], [place], [address] , [place]. tel:[phone] Referring Provider: Kristen [address], [place], [place], [address]. tel:[phone] OFFICE/OUTPA TIENT VISIT, [facility], [address], [place], [place], [address], [place] tel:[phone] [facility] GERD (chief complaint)lum bago (chief complaint)HLP (chief complaint) LumbagoLoss of weightGeneralize d anxiety disorderDyslipid aemia 5 Jason Parson. [address], [place], [place], [address] , [place]. tel:[phone] Referring Provider: Eb Gomez, [address], [place], [place], [address]. tel:[phone] PREV VISIT, EST, AGE 40-64 [facility], [address], [place], [place], [address], [place] tel:[phone] [facility] physical (chief complaint) Routine medical exam 5 Jason Parson. [address], [place], [place], [address] , [place]. tel:[phone] Referring Provider: Kristen Fern[address], [place], [place], [address]. tel:[phone] OFFICE/OUTPA TIENT VISIT, [facility], [address], [place], [place], [address], [place] [phone] [facility] COPD (chief complaint)brenda k pain (chief complaint)anx iety (chief complaint)bar ett (chief complaint) COPDLumbagoBARRE TT'S ESOPHAGUSGeneral ized anxiety disorder Apr-2 5 Jason Juarez [address], [place], [place], [address] , [place]. tel:[phone] Referring Provider: Eb Gomez [address], [place], [place], [address]. tel:[phone] OFFICE/OUTPA TIENT VISIT, [facility], [address], [place], [place], [address], [place] [phone] [facility] COPD (chief complaint)brenda k pain (chief complaint)anx iety (chief complaint) COPDGeneralized anxiety disorderLumbagoS edative, hypnotic or anxiolytic dependence, unspecified Apr-0 5 Jason Parson. [address], [place], [place], [address] , [place]. [phone] Referring Provider: Kristen Fernandez [address], [place], [place], [address]. tel:[phone] OFFICE/OUTPA TIENT VISIT, [facility], [address], [place], [address], [place] tel:[phone] [facility] back pain (chief complaint)anx iety (chief complaint)MULTIFOCAL LENS INSPECTOR D (chief complaint)abd pain (chief complaint) COPDLumbagoGener alized anxiety disorderOpioid type dependence, unspecified use Mar-0 5 Jason Juarez [address], [place], [place], [address] , [place]. [phone] Referring Provider: Kristen Fernandez [address], [place], [place], [address]. tel:[phone] OFFICE/OUTPA TIENT VISIT, [facility], [address], [place], [place], [address], [place] tel:[phone] [facility] COPD (chief complaint)vann d nodule (chief complaint)brenda k pain (chief complaint)anx iety (chief complaint) LumbagoGeneraliz ed anxiety disorderOther tenosynovitis of hand and wristCOPD 5 Jason Parson. [address], [place], [place], [address] , [place]. [phone] Referring Provider: Kristen Fernandez [address], [place], [place], [address]. tel:[phone] OFFICE/OUTPA TIENT VISIT, [facility], [address], [place], [place], [address], [place] tel:[phone] [facility] duodenal ulcer (chief complaint)brenda k pain (chief complaint)anx iety (chief complaint)MULTIFOCAL LENS INSPECTOR D (chief complaint) Acute gastric ulcer without mention of hemorrhage or perforation, with obstructionLumba goGeneralized anxiety disorderCOPD 4 Jason Parson. [address], [place], [place], [address] , [place]. [phone] Referring Provider: Kristen Fernandez [address], [place], [place], [address]. tel:[phone] OFFICE/OUTPA TIENT VISIT, [facility], [address], [place], [place], [address], [place] tel:[phone] [facility] gastric ulcer (chief complaint)brenda k pain (chief complaint)anx iety (chief complaint) Acute gastric ulcer without mention of hemorrhage or perforation, with obstructionLumba goDepression 4 Jason Parson. [address], [place], [place], [address] , [place]. tel:[phone] Referring Provider: Kristen Fernandez [address], [place], [place], [address]. tel:[phone] OFFICE/OUTPA TIENT VISIT, [facility], [address], [place], [place], [address], [place] tel:[phone] [facility] anxiety (chief complaint)brenda k pain (chief complaint)abd ominal pain (chief complaint) LumbagoAbdominal PainDepressionGa stroparesis Oct-3 0201 4 Jason Parson. [address], [place], [place], [address] , [place]. tel:[phone] Referring Provider: Kristen Fernandez [address], [place], [place], [address]. tel:[phone] OFFICE/OUTPA TIENT VISIT, [facility], [address], [place], [place], [address], [place] tel:[phone] [facility] back pain (chief complaint)anx iety (chief complaint)abd ominal pain (chief complaint)MULTIFOCAL LENS INSPECTOR D (chief complaint) DepressionLumbag oHypertension, Unspecified Sep-2 4 Jason Parson. [address], [place], [place], [address] , [place]. tel:[phone] Referring Provider: Kristen Fern[address], [place], [place], [address]. tel:[phone] OFFICE/OUTPA TIENT VISIT, [facility], [address], [place], [place], [address], [place] tel:[phone] [facility] abdominal pain (chief complaint)brenda k pain (chief complaint)anx iety (chief complaint) Dietary surveillance and counselingAbdomi nal PainLumbagoGener alized anxiety disorder Sep-0 4 Jason Parson. [address], [place], [place], [address] , [place]. tel:[phone] Referring Provider: Kristen Fernandez [address], [place], [place], [address]. tel:[phone] OFFICE/OUTPA TIENT VISIT, [facility], [address], [place], [place], [address], [place] tel:[phone] [facility] back pain (chief complaint)anx iety (chief complaint)abd ominal pain (chief complaint) Dietary surveillance and counselingLumbag oGeneralized anxiety disorderAbdomina l Pain 4 Jaosn Juarez [address], [place], [place], [address] , [place]. [phone] Referring Provider: Kristen Fernandez [address], [place], [place], [address]. tel:[phone] OFFICE/OUTPA TIENT VISIT, [facility], [address], [place], [place], [address], [place] [phone] [facility] back pain (chief complaint)anx iety (chief complaint)HLP (chief complaint)Vit owen D (chief complaint) Dietary surveillance and counselingLumbag oGeneralized anxiety disorderHyperten brionna, UnspecifiedOther and unspecified hyperlipidemia 4 Jason Juarez [address], [place], [place], [address] , [place]. [phone] Referring Provider: Kristen Fernandez [address], [place], [place], [address]. tel:[phone] OFFICE/OUTPA TIENT VISIT, [facility], [address], [place], [place], [address], [place] tel:[phone] [facility] back pain (chief complaint)anx iety (chief complaint)HTN (chief complaint) Dietary surveillance and counselingHypert ension, UnspecifiedLumba goGeneralized anxiety disorderDepressi on 4 Jason Juarez [address], [place], [place], [address] , [place]. [phone] Referring Provider: Kristen Fernandez [address], [place], [place], [address]. tel:[phone] PREV VISIT, NEW, AGE 40-64 [facility], [address], [place], [place], [address], [place] tel:[phone] [facility] PHysical (chief complaint) Dietary surveillance and counselingAria guerra Medical ExamRoutine Medical Exam 4 Jason Parson. [address], [place], [place], [address] , [place]. tel:[phone] Family History Family Member Type Diagnosis Age At Onset Father Problem (finding) Cancer, lung Mother Problem (finding) Hyperlipidemia Brother Problem (finding) Anxiety Mother Problem (finding) Hypertension Payers Payer name Insurance type Covered democrat ID David lymna(s) [facility] [id number] Social History Type Description Quantity Date Captured Comments Alcohol Use Details No Caffeine Use Details Unknown Tobacco Use Status Heavy cigarette smok er (20-39 cigs/day) Smoking Status Heavy tobacco smoker Sex Female Vital Signs Date / Time: Height Weight BMI Pulse Rate Blood Pressure Temperature Respiratory Rate Body Surface Area Head Circumference BMI percentile Pulse Ox Inhaled Ox 12:20 PM 68.00 in 127.00 lbs 19.3 1 kg/m eter (2) 87 /min 130/64 mm[Hg] 98.0 F 16 /min Chief Complaint And Reason For Visit From encounter dated '09/26/2024 12:15'. pain (chief complaint). Description: Pt has chronic back and neck pain Pt denies any worsening pain. pt denies any loss of bladder control. pt failed NSAID and ultram. Pt takes percocet for pain PRNand doing ok anxiety1 (chief complaint). Description: Pt has chronic anxiety and depression ,Pt takes cymbalta and klonopin and lamictal and she feels more mood swing lately Pt denies any suicidal or homicidal thought Pt denies any crying spells shingle1 (chief complaint). Description: Pt recently was diagnosed and shingle right abdominal and hip area and she was treated with valtrex and some topical cream Pt notices acute onset of itching and painful rash and blisters two weeks ago and she was started on valtrex then. Pt still has persistent pain and itching and skin irritation around the area . Plan Of Treatment Date Type Action Status Goal Tobacco cessation counseling completed Goal Tobacco cessation counseling completed Goal Tobacco cessation counseling completed Goal Tobacco cessation counseling completed Goal Special diet education compl eted Goal Tobacco cessation counseling completed Goal Tobacco cessation counseling completed Goal Special diet education compl eted Goal Tobacco cessation counseling completed Goal Special diet education compl eted Goal Tobacco cessation counseling completed Goal Tobacco cessation counseling completed Goal Tobacco cessation counseling completed Goal Tobacco cessation counseling completed Goal Tobacco cessation counseling completed Goal Tobacco cessation counseling completed Goal Tobacco cessation counseling completed Goal Tobacco cessation counseling completed Goal Tobacco cessation counseling completed Goal Tobacco cessation counseling completed Goal Tobacco cessation counseling completed Goal Tobacco cessation counseling completed Goal Tobacco cessation counseling completed Goal Tobacco cessation counseling completed Goal Tobacco cessation counseling completed Goal Tobacco cessation counseling completed Goal Tobacco cessation counseling completed Goal Tobacco cessation counseling completed Goal Tobacco cessation counseling completed Goal Tobacco cessation counseling completed Referral Ordered: HOLLY WILLOUGHBY -[facility] Physicians : Internal Medicine : Endocrinology, Diabetes & Metabolism (related to Osteoporosis) ordered Referral Referred To: HOLLY WILLOUGHBY [address] [place] [address], [phone] Ordered: Referrals: Allopathic & Osteopathic Physicians : Internal Medicine : Endocrinology, Diabetes & Metabolism. HOLLY WILLOUGHBY. Evaluate and treat ordered Referral Referred To: Dennise SALEEM, Guera Beal [id number] [place] [address]
[address] [place] [address], [phone] Ordered: Referrals: Guera Bowden MD. Evaluate and treat ordered Referral Ordered: US CAROTID ordered Referral Ordered: Jean Pierre Venegas -[facility] Physicians : Internal Medicine : Endocrinology, Diabetes & Metabolism (related to Osteoporosis) ordered Referral Referred To: Jean Pierre Venegas [address] [facility]
[address] [place], [place] [id number] Ordered: Referrals: [facility]opathic [facility]opathic Physicians : Internal Medicine : Endocrinology, Diabetes & Metabolism. Jean Pierre Venegas. Evaluate and treat ordered Referral Ordered: US EXAM, ABDOM, COMPLETE ordered Referral Ordered: Urology (related to Hematuria) ordered Referral Ordered: Urology (related to Anemia) ordered Referral Ordered: Matias Reid -[facility] : Urology (related to Hematuria) ordered Referral Referred To: Matias Reid [address] [facility]
[address] [place], [place], [phone] Ordered: Referrals: [facility]opathic [facility]opathic Physicians : Urology. Matias Reid. Evaluate and treat ordered Referral Ordered: US KIDNEY ordered Referral Ordered: Pulmonology (related to Emphysema) ordered Referral Ordered: Referrals: Pulmonology. Evaluate and treat ordered Referral Ordered: Rafy Wong -[facility] : Internal Medicine : Cardiovascular Disease (related to Coronary artery disease of [place] coronary artery without angina pectoris) ordered Referral Referred To: Rafy Wong [address] [place], [place] [phone] Ordered: Referrals: [facility]opathic [facility] Osteopathic Physicians : Internal Medicine : Cardiovascular Disease. Rafy Wong. Evaluate and treat ordered Referral Ordered: CT THORAX W/DYE ordered Referral Ordered: Urology (related to Overactive bladder) ordered Referral Ordered: Referrals: Urology. Evaluate and treat ordered Referral Ordered: CT THORAX W/O DYE ordered Referral Ordered: DXA BONE DENSITY, AXIAL ordered Referral Ordered: Roge Arevalo (related to Carpal tunnel syndrome of left arm) ordered Referral Referred To: Roge Arevalo [address] [place], [phone] Ordered: Referrals: Roge Arevalo. Evaluate and treat ordered Referral Ordered: CT ANGIOGRAPHY, NECK ordered Referral Ordered: CT ANGIOGRAPHY, HEAD ordered Referral Ordered: SENSE NERVE CONDUCTION TEST ordered Referral Ordered: MRI NECK SPINE W/O DYE ordered Referral Ordered: CERVICAL SPINE XRAY 2 OR 3 VIEWS ordered Referral Ordered: DOPPLER ECHO EXAM, HEART ordered Referral Ordered: Referral: Pulmonary Diseases. ordered Referral Ordered: NUC MED HIDA (HEPATOBILIARY) SCAN ordered Referral Ordered: UPPER GI W/ KUB ordered Referral Ordered: CHEST X-RAY PA/LAT TWO-VIEWS ordered Referral Ordered: CT ABD & PELVIS W/O CONTRAST ordered Referral Ordered: Physical Therapy ordered Referral Ordered: COLONOSCOPY AND BIOPSY ordered Referral Referred To: Physical Therapy Ordered: Referral: Physical Therapy. ordered Referral Ordered: MAMMOGRAM, SCREENING ordered Appointment Bessy Zavala BOOKED History Of Present Illness Encounter Date Complaint History Of Prese nt Illness pain Pt has chronic b ack and neck pain Pt denies any worsening pain . pt denies any loss of bladder control. pt failed NSAID and ultram. Pt takes percocet for pain PRN and doing ok anxiety1 Pt has chronic a nxiety and depression ,Pt takes cymbalta and klonopin and lamictal and she feels more mood swing lately Pt denies any suicidal or homicidal thought Pt denies any crying spells shingle1 Pt recently was diagnosed and shingle right abdominal and hip area and she was treated with valtrex and some topical cream Pt notices acute onset of itching and painful rash and blisters two weeks ago and she was started on valtrex then. Pt still has persistent pain and itching and skin irritation around the area . pain Pt has chronic b ack and neck pain Pt denies any worsening pain . pt denies any loss of bladder control. pt failed NSAID and ultram. Pt takes percocet for pain PRN and doing ok anxiety1 Pt has chronic a nxiety and depression ,Pt takes cymbalta and klonopin and lamictal and she feels more mood swing lately Pt denies any suicidal or homicidal thought Pt denies any crying spells HLP Pt has HLP Pt ta kes zocor Pt denies any myalgia pain Pt has chronic b ack and neck pain Pt denies any worsening pain . pt denies any loss of bladder control. pt failed NSAID and ultram. Pt takes percocet for pain PRN and doing ok anxity1 Pt has chronic a nxiety and depression ,Pt takes cymbalta and klonopin and lamictal and doing ok Pt denies any suicidal or homicidal thought Pt denies any crying spells HTN Pt has HTN Pt aime vera lisinopril and her bp is ok. pain Pt has chronic b ack and neck pain Pt denies any worsening pain . pt denies any loss of bladder control. pt failed NSAID and ultram. Pt takes percocet for pain PRN and doing ok anxiety The patient pres ents with anxious/fearful thoughts but denies fatigue. The patient denies any nausea, vomiting and weight gain. Additional information: Pt has chronic anxiety and depression ,Pt takes cymbalta and klonopin and lamictal and doing ok Pt denies any suicidal or homicidal thought Pt denies any crying spells. GERD1 Pt has chronic G ERD Pt takes omeprazole and doing ok. Pt needs omeprazole refilled osteoporosis1 Pt has osteoporo sis Pt takes calcium and vitamin D and reclast Pt needs vitamin D refilled . anxiety1 Pt has chronic a nxiety and depression ,Pt takes cymbalta and klonopin and lamictal and doing ok Pt denies any suicidal or homicidal thought Pt denies any crying spells pain Pt has chronic b ack and neck pain Pt denies any worsening pain . pt denies any loss of bladder control. pt failed NSAID and ultram. Pt takes percocet for pain PRN and doing ok osteoporosis1 Pt has osteoporo sis and she received reclast 6 months ago Pt just saw bone specialist and she will do lab work and repeat bone density next year .Pt tolerating reclast ok pain Pt has chronic b ack and neck pain Pt denies any worsening pain . pt denies any loss of bladder control. pt failed NSAID and ultram. Pt takes percocet for pain PRN and doing ok anxiety1 Pt has chronic a nxiety and depression ,Pt takes cymbalta and klonopin and lamictal and doing ok Pt denies any suicidal or homicidal thought Pt denies any crying spells lung Pt has history o f lung nodule and she is chronically smoker. She just had repeat chest CT done which was normal nightmares1 Pt has PTSD with nightmares Pt is on prazosin which does help but she has been having more nightmares lately. Pt started 5 mg prazosin last month and her symptoms are much better now pain Pt has chronic b ack and neck pain Pt denies any worsening pain . pt denies any loss of bladder control. pt failed NSAID and ultram. Pt takes percocet for pain PRN and doing ok anxiety1 Pt has chronic a nxiety and depression ,Pt takes cymbalta and klonopin and lamictal and doing ok Pt denies any suicidal or homicidal thought Pt denies any crying spells pain Pt has chronic b ack and neck pain Pt denies any worsening pain . pt denies any loss of bladder control. pt failed NSAID and ultram. Pt takes percocet for pain PRN and doing ok anxiety1 Pt has chronic a nxiety and depression ,Pt takes cymbalta and klonopin and lamictal and doing ok Pt denies any suicidal or homicidal thought Pt denies any crying spells PTSD Pt has PTSD with nightmares Pt is on prazosin which does help but she has been having more nightmares lately. ANXIETY1 Pt has chronic a nxiety and depression ,Pt takes cymbalta and klonopin and lamictal and doing ok Pt denies any suicidal or homicidal thought Pt denies any crying spells pain Pt has chronic b ack and neck pain Pt denies any worsening pain . pt denies any loss of bladder control. pt failed NSAID and ultram. Pt takes percocet TID for pain and she wants to increase to QID for pain. She states that the TID dosing is too far apart for her pain control. Pt denies any saddle area paresthesia. GLUCOSE1 Pt has mildly hi gh glucose Pt denies any polyuria, polydipsia. Pt did not do lab fasting HLP Pt has HLP Pt ta kes zocor Pt denies any myalgia. Her lipid profile is ok osteoprosis1 Pt has osteoporo sis Pt received reclast infusion 3 months ago Pt tolerating it ok anxiety1 Pt has chronic a nxiety and depression ,Pt takes cymbalta and klonopin and lamictal and doing ok Pt denies any suicidal or homicidal thought Pt denies any crying spells COPD1 Pt has COPD pt s aw pulmonary recently and she is off symbicort and spiriva and she is on Breztri now and she is breathing much better. Pt denies any hemoptysis pain Pt has chronic b ack and neck pain Pt denies any worsening pain . pt denies any loss of bladder control. pt failed NSAID and ultram. Pt takes percocet TID for pain and she wants to increase to QID for pain. She states that the TID dosing is too far apart for her pain control. Pt denies any saddle area paresthesia. physical Pt needs annual physical Pt has severe COPD Pt is on Symbicort and spiriva and she sees pulmonary. Pt still smokes. Pt uses albuterol pRN Pt has chronic neck and back pain. Pt takes norco for pain but not working anymore Pt wants to try percocet. Pt has anxiety and depression Pt takes cymbalta, lamictal and klonopin PRN and doing ok pt denies any suicidal or homicidal thought Pt denies any crying spells. Pt has HTN Pt takes lisinopril and her bp is ok pt has Lawrence and she takes omeprazole and doing ok. Pt has osteoporosis .Pt takes calcium and D and she is on reclast now. pt has HLP Pt takes zocor. Pt denies any new complaints pain Pt has chronic b ack and neck pain Pt denies any worsening pain . pt denies any loss of bladder control. pt failed NSAID and ultram. Pt takes norco PRN for pain and doing ok. Pt denies any saddle area paresthesia. anxiety1 Pt has chronic a nxiety and depression ,Pt takes cymbalta and klonopin and lamictal and doing ok Pt denies any suicidal or homicidal thought Pt denies any crying spells GERD1 Pt has chronic G ERD Pt takes omeprazole and doing ok pt failed pepcid Pt has daily GERD without omeprazole. Pt does have lawrence HLP Pt has HLP Pt ta kes zocor Pt denies any myalgia pt needs zocor refilled. osteoporosis1 Pt takes calcium and D and she just received reclast infusion last week Pt doing ok. anxiety1 Pt has chronic a nxiety and depression ,Pt takes cymbalta and klonopin and lamictal and doing ok Pt denies any suicidal or homicidal thought Pt denies any crying spells pain Pt has chronic b ack and neck pain Pt denies any worsening pain . pt denies any loss of bladder control. pt failed NSAID and ultram. Pt takes norco PRN for pain and doing ok. Pt denies any saddle area paresthesia. osteoprosis1 Pt is seeing end o and she got reclast approved and will start soon anxiety1 Pt has chronic a nxiety and depression ,Pt takes cymbalta and klonopin and lamictal and doing ok Pt denies any suicidal or homicidal thought Pt denies any crying spells pain Pt has chronic b ack and neck pain Pt denies any worsening pain . pt denies any loss of bladder control. pt failed NSAID and ultram. Pt takes norco PRN for pain and doing ok. Pt denies any saddle area paresthesia. HTN Pt has HTN Pt ta kes lisinopril and her bp is ok. Pt needs refill pain Pt has chronic b ack and neck pain Pt denies any worsening pain . pt denies any loss of bladder control. pt failed NSAID and ultram. Pt takes norco PRN for pain and doing ok. Pt denies any saddle area paresthesia. osteoporosis1 Pt has osteoporo sis Pt takes calcium and D and reclast is denied by insurance and she is working with endo to find something that will be covered by insurance. anxiety1 Pt has chronic a nxiety and depression ,Pt takes cymbalta and klonopin and lamictal and doing ok Pt denies any suicidal or homicidal thought Pt denies any crying spells nightmares1 Pt has nightmare s due to PTSD. Pt doing better with prazosin 2 mg qhs emphysema1 Pt is on symbico rt and spiriva now from pulmonary and she is doing ok Pt denies any worsening sob. Pt denies any cough or hemoptysis anxiety1 Pt has chronic a nxiety and depression ,Pt takes cymbalta and klonopin and lamictal and doing ok Pt denies any suicidal or homicidal thought Pt denies any crying spells nightmares1 Pt has nightmare s due to PTSD. Pt is on prazosin qhs which helped about 50 %. Pt denies any side effects from prazosin osteoporosis1 Pt has osteoporo sis Pt just had bone density done which showed deterioration of her bone density. PIt is on calcium and D and she is doing weight bearing exercise Pt is seeing endo and she is waiting for reclast approval pain Pt has chronic b ack and neck pain Pt denies any worsening pain . pt denies any loss of bladder control. pt failed NSAID and ultram. Pt takes norco PRN for pain and doing ok. Pt denies any saddle area paresthesia. Pt wants to go higher dose on norco due to pain pain Pt has chronic b ack and neck pain Pt denies any worsening pain . pt denies any loss of bladder control. pt failed NSAID and ultram. Pt takes norco PRN for pain and doing ok. Pt denies any saddle area paresthesia. pt has PTSD and she has nightmares frequently. anxiety1 Pt has chronic a nxiety and depression ,Pt takes cymbalta and klonopin and lamictal and doing ok Pt denies any suicidal or homicidal thought Pt denies any crying spells barrett1 pt has lawrence P t had EGD last year and she is on omeprazole Pt does not need EGD until 2024 Pt doing ok with omeprazole osteoporosis Pt has osteoporo sis. Pt is on calcium and D and she is waiting for reclast approval from insurance now anxiety1 Pt has chronic a nxiety and depression ,Pt takes cymbalta and klonopin and lamictal and doing ok Pt denies any suicidal or homicidal thought Pt denies any crying spells pain Pt has chronic b ack and neck pain Pt denies any worsening pain . pt denies any loss of bladder control. pt failed NSAID and ultram. Pt takes norco PRN for pain and doing ok. Pt denies any saddle area paresthesia. Pt c/o bilateral hand and feet numbness and tingling for several months. Pt failed neurontin osteoporosis Pt has osteoporo sis Pt is in the process of setting up reclast infusion Pt takes calcium and D and she is working on weight bearing exercise. osteoporosis1 Pt has osteoporo sis. Pt takes calcium and D Pt failed fosamax Pt saw endo and she will start reclast soon anxiety1 Pt has chronic a nxiety and depression ,Pt takes cymbalta and klonopin and lamictal and doing ok Pt denies any suicidal or homicidal thought Pt denies any crying spells pain Pt has chronic b ack and neck pain Pt denies any worsening pain . pt denies any loss of bladder control. pt failed NSAID and ultram. Pt takes norco PRN for pain and doing ok. Pt denies any saddle area paresthesia. Pt c/o bilateral hand and feet numbness and tingling for several months. Pt failed neurontin barrett1 Pt has lawrence P t takes omeprazole daily Pt denies any abd pain Pt lung nodule1 Pt has lung nodu le. pt had chest CT done recently which was benign anxiety1 Pt has chronic a nxiety and depression ,Pt takes cymbalta and klonopin and lamictal and doing ok Pt denies any suicidal or homicidal thought Pt denies any crying spells Barrett Pt has lawrence. Pt takes omeprazole. Pt denies any GERD or abd pain lung nodule1 Pt has lung nodu le. Pt sees pulmonary Pt will do chest CT next week pain Pt has chronic b ack and neck pain Pt denies any worsening pain . pt denies any loss of bladder control. pt failed NSAID and ultram. Pt takes norco PRN for pain and doing ok. Pt denies any saddle area paresthesia. Pt c/o bilateral hand and feet numbness and tingling for several months. Pt failed neurontin pain Pt has chronic b ack and neck pain Pt denies any worsening pain . pt denies any loss of bladder control. pt failed NSAID and ultram. Pt takes norco PRN for pain and doing ok. Pt denies any saddle area paresthesia. Pt c/o bilateral hand and feet numbness and tingling for several months. Pt failed neurontin anxiety1 Pt has chronic a nxiety and depression ,Pt takes cymbalta and klonopin and lamictal and doing ok Pt denies any suicidal or homicidal thought Pt denies any crying spells pain Pt has chronic b ack and neck pain Pt denies any worsening pain . pt denies any loss of bladder control. pt failed NSAID and ultram. Pt takes norco PRN for pain and doing ok. Pt denies any saddle area paresthesia. Pt c/o bilateral hand and feet numbness and tingling for several months. Pt failed neurontin Laith-15-2023 osteoporosis1 Pt has osteoporo sis. Pt has not been getting treatment Pt did not get along with her previous endo and we tried to refer her to [facility] but is having some issues with the referral Pt was told by s [facility] that she needs a transfer of care and records. anxiety1 Pt has chronic a nxiety and depression ,Pt takes cymbalta and klonopin and lamictal and doing ok Pt denies any suicidal or homicidal thought Pt denies any crying spells anxiety1 Pt has chronic a nxiety and depression ,Pt takes cymbalta and klonopin and lamictal and doing ok Pt denies any suicidal or homicidal thought Pt denies any crying spells pain Pt has chronic b ack and neck pain Pt denies any worsening pain . pt denies any loss of bladder control. pt failed NSAID and ultram. Pt takes norco PRN for pain and doing ok. Pt denies any saddle area paresthesia. Pt c/o bilateral hand and feet numbness and tingling for several months. Pt failed neurontin wrist fx pt fell after fe eling weakness 6 days ago and she broke her right wrist. Pt denies any head injury or syncope Pt went to [facility] and she had right wrist x ray which showed comminuted intra-articular fracture distal aspect of the radius wild dorsal displacement. Pt currently has splint on and she has indira with ortho next monday pt is able to move her fingers. HLP Pt has HLP Pt aime amaro Pt denies any myalgia. Her lipid profile is ok anemia1 Pt has history o f iron deficiency anemia, Pt had lab done which was normal Pt denies any bleeding. pain Pt has chronic b ack and neck pain Pt denies any worsening pain . pt denies any loss of bladder control. pt failed NSAID and ultram. Pt takes norco PRN for pain and doing ok. Pt denies any saddle area paresthesia. Pt c/o bilateral hand and feet numbness and tingling for several months. Pt failed neuropathy. anxiety1 Pt has chronic a nxiety and depression ,Pt takes cymbalta and klonopin and lamictal and doing ok Pt denies any suicidal or homicidal thought Pt denies any crying spells anxiety1 Pt has chronic a nxiety and depression ,Pt takes cymbalta and klonopin and lamictal and doing ok Pt denies any suicidal or homicidal thought Pt denies any crying spells pain Pt has chronic b ack and neck pain Pt denies any worsening pain . pt denies any loss of bladder control. pt failed NSAID and ultram. Pt takes norco PRN for pain and doing ok. Pt denies any saddle area paresthesia. Pt c/o bilateral hand and feet numbness and tingling for several months. Pt failed neuropathy. Pt states that cymbalta is helping her neuropathy Lawrence Pt has lawrence P t is on omeprazole and doing ok. Pt had EGD done 2021 and needs to repeat 2024 osteoporosis1 Pt has osteoporo sis. Pt saw endo and she got another injection med but not covered by insurance again. Pt is working with her endo regarding above. lung nodule1 Pt has lung nodu le on recent chest Ct pt sees pulmonary. Pt is on trelegy and singulair now and she uses albuterol PRN Pt denies any hemoptysis anxiety1 Pt has chronic a nxiety and depression ,Pt takes cymbalta and klonopin and lamictal and doing ok Pt denies any suicidal or homicidal thought Pt denies any crying spells pain Pt has chronic b ack and neck pain Pt denies any worsening pain . pt denies any loss of bladder control. pt failed NSAID and ultram. Pt takes norco PRN for pain and doing ok. Pt denies any saddle area paresthesia. Pt c/o bilateral hand and feet numbness and tingling for several months. Pt failed neuropathy. Pt states that cymbalta is helping her neuropathy physical Pt needs annual physical Pt has severe COPD P tis on trelegy Pt uses albuterol daily. Pt has chronic neck and back pain. Pt takes norco for pain Pt has anxiety and depression Pt takes cymbalta, lamictal and klonopin PRN and doing ok pt denies any suicidal or homicidal thought Pt denies any crying spells. Pt has HTN Pt takes lisinopril and her bp is ok pt has chronic GERD Pt takes omeprazole. Pt has osteoporosis .Pt takes calcium and D. pt has HLP Pt takes zocor Pt has lawrence. pt takes omeprazole and she is doing ok anxiety1 Pt has chronic a nxiety and depression ,Pt takes cymbalta and klonopin and lamictal and doing ok Pt denies any suicidal or homicidal thought Pt denies any crying spells COPD1 Pt has emphysema pt saw pulmonary and was started on Trelegy. Pt is off advair and incruse. Pt will do PFT soon Pt states that her breathing is better pain Pt has chronic b ack and neck pain Pt denies any worsening pain . pt denies any loss of bladder control. pt failed NSAID and ultram. Pt takes norco PRN for pain and doing ok. Pt denies any saddle area paresthesia. Pt c/o bilateral hand and feet numbness and tingling for several months. Pt failed neuropathy. Pt states that cymbalta is helping her neuropathy HTN Pt has borderlin e HTN. Pt is on lisinopril anxiety1 Pt has chronic a nxiety and depression ,Pt takes cymbalta and klonopin and lamictal and doing ok Pt denies any suicidal or homicidal thought Pt denies any crying spells osteoporosis1 Pt has osteoporo sis Pt takes calcium and D and she has not done anything for it yet . pt is seeing endo and she supposes to do some type of study which she could not get it done so she has not seen the endo yet for any follow up. HTN Pt has HTN Pt ta kes lisinopril and her bp is borderline. pt denies any chest pain or headache pain Pt has chronic b ack and neck pain Pt denies any worsening pain . pt denies any loss of bladder control. pt failed NSAID and ultram. Pt takes norco PRN for pain and doing ok. Pt denies any saddle area paresthesia. Pt c/o bilateral hand and feet numbness and tingling for several months. Pt failed neuropathy. Pt states that cymbalta is helping her neuropathy osteoporosis1 Pt has osteoporo sis Pt failed fosamax Pt has indira with endo in September. Pt has ot had forteo shot yet pain Pt has chronic b ack and neck pain Pt denies any worsening pain . pt denies any loss of bladder control. pt failed NSAID and ultram. Pt takes norco PRN for pain and doing ok. Pt denies any saddle area paresthesia. Pt c/o bilateral hand and feet numbness and tingling for several months. Pt failed neuropathy. Pt states that cymbalta is helping her neuropathy emphysema1 Pt has COPD. Pt is on advair and incruse and she still feels sob pt denies any hemoptysis. t has indira with pulmonary in 3 weeks. Pt feels sob all the time with any type of activity. Pt has been having persistent dry cough. Pt still smoking. Pt has been out of inhalers. Pt denies any fever or chest pain anxiety1 Pt has chronic a nxiety and depression ,Pt takes cymbalta and klonopin and lamictal and doing ok Pt denies any suicidal or homicidal thought Pt denies any crying spells COPD1 Pt has COPD. Pt is on advair and incruse and she still feels sob pt denies any hemoptysis, cough. Pt states that she is waiting for indira from pulmonary but she still has not heard from pulmonary yet. Pt states that she did speak with pulmonary and was told that she will get a letter but she has not got it yet after 4 weeks Pt denies any worsening sob pain Pt has chronic b ack and neck pain Pt denies any worsening pain . pt denies any loss of bladder control. pt failed NSAID and ultram. Pt takes norco PRN for pain and doing ok. Pt denies any saddle area paresthesia. Pt c/o bilateral hand and feet numbness and tingling for several months. Pt failed neuropathy. Pt states that cymbalta is helping her neuropathy anxiety1 Pt has chronic a nxiety and depression ,Pt takes cymbalta and klonopin and lamictal and doing ok Pt denies any suicidal or homicidal thought Pt denies any crying spells palpitation1 Pt has intermitt ent palpitation Pt denies any chest pain .Pt saw cardiology and she had negative holter monitor, cardiac echo and also stress test. COPD1 Pt has CPOD. pt uses advair and incruse and she still feels out or breath a lot. Pt does have chronic cough. Pt is long time smoker. Pt has been using proair multiple times per day. Pt denies any hemoptysis insomnia1 Pt has insomnia Pt used to take amitriptyline but she did not like it and she stopped taking it several months ago. Pt doing ok regarding insomnia pain Pt has chronic b ack and neck pain Pt denies any worsening pain . pt denies any loss of bladder control. pt failed NSAID and ultram. Pt takes norco PRN for pain and doing ok. Pt denies any saddle area paresthesia. Pt c/o bilateral hand and feet numbness and tingling for several months. Pt failed neuropathy. Pt states that cymbalta is helping her neuropathy anxiety1 Pt has chronic a nxiety and depression ,Pt takes cymbalta and klonopin and lamictal and doing ok Pt denies any suicidal or homicidal thought Pt denies any crying spells anxiety1 Pt has chronic a nxiety and depression ,Pt takes cymbalta and klonopin and lamictal and doing ok Pt denies any suicidal or homicidal thought Pt denies any crying spells pain Pt has chronic b ack and neck pain Pt denies any worsening pain . pt denies any loss of bladder control. pt failed NSAID and ultram. Pt takes norco PRN for pain and doing ok. Pt denies any saddle area paresthesia. Pt c/o bilateral hand and feet numbness and tingling for several months. Pt failed neuropathy. Pt states that cymbalta is helping her neuropathy Barrett1 Pt has lawrence P t takes omeprazole and she needs refill. Pt denies any abd pain COPD1 pt has emphysema Pt uses incruse and advair and she still uses albuterol frequently. Pt denies any hemoptysis COPD Pt has COPD. Pt doing ok with advair and incruse. Pt needs refill. Pt uses albuterol 2-3 per week Pt denies any hemoptysis, worsening sob or cough anxiety1 Pt has chronic a nxiety and depression. Pt takes cymbalta klonopin and lamictal and doing ok Pt denies any suicidal or homicidal thought Pt denies any crying spells. Pt states that cymbalta helps her mood much better than prozac pain Pt has chronic b ack and neck pain Pt denies any worsening pain . pt denies any loss of bladder control. pt failed NSAID and ultram. Pt takes norco PRN for pain and doing ok. Pt denies any saddle area paresthesia. Pt c/o bilateral hand and feet numbness and tingling for several months. Pt failed neuropathy. Pt states that cymbalta is helping her neuropathy pain Pt has chronic b ack and neck pain Pt denies any worsening pain . pt denies any loss of bladder control. pt failed NSAID and ultram. Pt takes norco PRN for pain and doing ok. Pt denies any saddle area paresthesia. Pt c/o bilateral hand and feet numbness and tingling for several months. tinnitus1 Pt c/o ? tinnitu s and some hearing loss both ear for long time Pt denies any ear pain or drainage noise1 Pt states that s he can hear some whooshing noise both side of neck for several months Pt denies any chest pain anxiety1 Pt has chronic a nxiety and depression. Pt takes prozac, klonopin and lamictal and doing ok Pt denies any suicidal or homicidal thought Pt denies any crying spells COPD1 Pt has COPD Pt s till smoking Pt uses airduo and incruse and she has been feeling sob almost daily Pt actually went to [facility] last week for COPD exacerbation and she got some oral steroid and Zpak Pt doing better now Pt does have chronic cough. Pt feels much better now. osteoprosis1 Pt takes calcium and d and she still has not started the Fort[place] yet barrett1 Pt doing ok with omeprazole Pt has lawrence Pt denies any GERD or abd pain pain Pt has chronic b ack and neck pain Pt denies any worsening pain . pt denies any loss of bladder control. pt failed NSAID and ultram. Pt takes norco PRN for pain and doing ok. Pt denies any saddle area paresthesia. anxiety Pt has chronic a nxiety and depression. Pt takes prozac, klonopin and lamictal and doing ok Pt denies any suicidal or homicidal thought Pt denies any crying spells pain Pt has chronic b ack and neck pain Pt denies any worsening pain . pt denies any loss of bladder control. pt failed NSAID and ultram. Pt takes norco PRN for pain and doing ok. Pt denies any saddle area paresthesia. anxiety Additional infor mation: Pt has chronic anxiety and depression. Pt takes prozac, klonopin and lamictal and doing ok Pt denies any suicidal or homicidal thought Pt denies any crying spells. barrett Pt had EGD done which showed Lawrence esophagus. her colonoscopy was ok. Pt denies any kierra GERD anxiety Pt has chronic a nxiety and depression. Pt takes prozac, klonopin and lamictal and doing ok Pt denies any suicidal or homicidal thought Pt denies any crying spells pain Pt has chronic b ack and neck pain Pt denies any worsening pain . pt denies any loss of bladder control. pt failed NSAID and ultram. Pt takes norco PRN for pain and doing ok. Pt denies any saddle area paresthesia. osteoporosis1 Pt has osteoporo sis. Pt is seeing endo and she will start forteo soon pain Pt has chronic b ack and neck pain Pt denies any worsening pain . pt denies any loss of bladder control. pt failed NSAID and ultram. Pt takes norco PRN for pain and doing ok. Pt denies any saddle area paresthesia. anxiety1 Pt has chronic a nxiety and depression. Pt takes prozac, klonopin and lamictal and doing ok Pt denies any suicidal or homicidal thought Pt denies any crying spells osteoporosis1 Pt has osteoporo sis. Pt takes calcium and D and fosamax. She has not had any improvement in her bone density despite above Pt has indira with bone specialist in several weeks. tobacco1 Pt has 40 pack y ear tobacco. Pt denies any hemoptysis, worsening sob, Pt had negative LDCT anemia1 Pt has iron defi ciency anemia. Pt denies any bleeding pt still has not set up EGD and colonoscopy yet. anxiety1 Pt has chronic a nxiety and depression. Pt takes prozac, klonopin and lamictal and doing ok Pt denies any suicidal or homicidal thought Pt denies any crying spells pain Pt has chronic b ack and neck pain Pt denies any worsening pain . pt denies any loss of bladder control. pt failed NSAID and ultram. Pt takes norco PRN for pain and doing ok. HLP Pt has HLP Pt ta kes zocor and her lipid is ok. Pt denies any myalgia osteoporosis1 Pt has osteoporo sis .Pt has indira with endo on 09/30/21 .Pt takes calcium and D and fosamax . cough1 Pt c/o worsening cough lately pt denies any fever or worsening sob .Pt c/o dry cough Pt denies any other viral symptoms Pt is fully vaccinated for COVID Physical Pt needs annual physical, Pt has lab done recently which showed mild anemia with low iron. Pt denies any blood loss. Pt has chronic anxiety and depression Pt takes prozac, lamictal and klonopin PRN and doing ok Pt has chronic back pain. Pt takes norco and doing ok Pt has HLP ,Pt takes zocor and her lipid profile is ok ,Pt has osteoporosis. Pt is on fosamax and calcium and D and she still has osteoporosis Pt has not heard form [facility] yet. Her b12 is ok now. Pt has COPD Pt uses airduo and incruse and albuterol PRn Pt needs albuterol refilled pt in general uses albuterol 1-2 per week, Pt has not done mammo, endoscopy or chest CT yet. anxiety Pt has chronic a nxiety and depression. Pt takes prozac, klonopin and lamictal and doing ok Pt denies any suicidal or homicidal thought Pt denies any crying spells pain Pt has chronic b ack and neck pain Pt denies any worsening pain . pt denies any loss of bladder control. pt failed NSAID and ultram. Pt takes norco PRN for pain and doing ok. Pt also is s/p left hip fracture with left hip replacement and she has been doing home PT. .Pt is ambulating ok. Pt denies any hip redness or warmth or swelling Pt denies any fever. Pt needs norco refilled osteoporosis1 Pt has persisten t osteoporosis. Pt takes fosamax, calcium and D and her bone density has not improved. Pt recently suffered hip fx. Pt has been taking fosamax for almost 3 years. tobacco1 Pt is long time smoker pt has COPD Pt uses inhaler .pt needs LDCT for lung CA screening b12 Pt still has not done lab yet. Pt states that she is out of b12. Pt states that she only has 1 cc vial and she is out. Pt is noncompliant with lab work and mammo pain Pt has chronic b ack and neck pain Pt denies any worsening pain . pt denies any loss of bladder control. pt failed NSAID and ultram. Pt takes norco PRN for pain and doing ok. Pt also is s/p left hip fracture with left hip replacement and she has been doing home PT. .Pt is ambulating ok. Pt denies any hip redness or warmth or swelling Pt denies any fever anxiety Pt has chronic a nxiety and depression. Pt takes prozac, klonopin and lamictal and doing ok Pt denies any suicidal or homicidal thought Pt denies any crying spells HTN Pt has HTN Pt aime khaneleanor lisinopril and her bp is ok at home .pt denies any chest pain or headache HLP Pt has HLP pt aime vera zocor pt denies any myalgia COPD Pt has COPD Pt t endy john, incruse and she uses ventolin 1-2 per week Pt denies any hemoptysis, worsening sob or any cough anxiety Pt has chronic a nxiety and depression. Pt takes prozac, klonopin and lamictal and doing ok Pt denies any suicidal or homicidal thought Pt denies any crying spells pain Pt has chronic b ack and neck pain Pt denies any worsening pain . pt denies any loss of bladder control. pt failed NSAID and ultram. Pt takes norco PRN for pain and doing ok. Pt also is s/p left hip fracture with left hip replacement and she has been doing home PT. .Pt is ambulating ok. Pt denies any hip redness or warmth or swelling Pt denies any fever anxiety Pt has chronic a nxiety and depression. Pt takes prozac, klonopin and lamictal and doing ok Pt denies any suicidal or homicidal thought Pt denies any crying spells pain Pt has chronic b ack and neck pain Pt denies any worsening pain . pt denies any loss of bladder control. pt failed NSAID and ultram. Pt takes norco PRN for pain and doing ok. Pt also is s/p left hip fracture with left hip replacement and she has been doing home PT. .Pt is ambulating ok. Pt denies any hip redness or warmth or swelling Pt denies any fever b12 Pt has low b12 a nd she is noncompliant with b12 injections pt has not done b12 injections for several months Pt does feel generalized fatigue osteoporosis1 Pt has osteoporo sis. Pt takes fosamax and calcium and D. Pt recently suffered hip fracture. Pt has not done bone density yet. pain Pt has chronic b ack and neck pain Pt denies any worsening pain . pt denies any loss of bladder control. pt failed NSAID and ultram. Pt takes norco PRN for pain and doing ok. Pt also is s/p left hip fracture with left hip replacement pt just was released from rehab .Pt is ambulating ok. Pt denies any hip redness or warmth or swelling Pt denies any fever insomnia1 Pt has chronic i nsomnia and she is doing well with amitriptyline Pt needs refill. Pt denies any dry mouth, daytime fatigue osteoporosis1 Pt has osteoporo sis. Pt take calcium and D and try weight bearing exercise anxiety1 Pt has chronic a nxiety and depression. Pt takes prozac, klonopin and lamictal and doing ok Pt denies any suicidal or homicidal thought Pt denies any crying spells COPD1 Pt has COPD Pt u ses airduo, incruse and proair PRn Pt on average uses proair once per day .Pt denies any cough ,worsening sob or any hemoptysis. Pt still smoking hip fx1 Pt is s/p left h ip replacement POD #3 after accidental fall with left femoral neck fracture. Pt currently doing ok. Pt denies any left hip redness, warmth, or dehiscence or any drainage. Pt is currently on a wheel chair with non weight bearing yet. Pt wants refill or pain medication anxiety1 Pt has chronic a nxiety and depression. Pt takes prozac, klonopin and lamictal and doing ok Pt denies any suicidal or homicidal thought Pt denies any crying spells HLP Pt has HLP. Pt t endy zocor. Pt denies any myalgia HTN Pt has HTN. Pt t akes lisinopril Pt needs refill. Her bp is around 120/60 at home per pt. osteoporosis Pt has osteoporo sis. Pt takes calcium and D and fosamax and she has not done bone density yet. anxiety1 Pt has anxiety a nd depression Pt has severe mood swings Pt takes prozac, klonopin and Lamictal for her mood swings and she is doing ok Pt denies any suicidal or homicidal thought. Pt denies any crying spells pain Pt has chronic b ack and neck pain Pt denies any worsening pain . pt denies any loss of bladder control. pt failed NSAID and ultram. Pt takes norco PRN for pain and doing ok insomnia1 Pt has chronic i nsomnia Pt states that she stays up for 3-4 hours at night in order to fall asleep .Pt denies any napping during the day .Pt failed trazodone, seroquel already. Pt wants to try ambien. weight loss1 her weight has b een stable. Pt had Ct done by GI which was ok Pt missed her GI appointment for EGD and colonoscopy anxiety1 Pt has anxiety a nd depression Pt has severe mood swings Pt takes prozac, klonopin and Lamictal for her mood swings and she is doing ok Pt denies any suicidal or homicidal thought. Pt denies any crying spells pain Pt has chronic b ack and neck pain Pt denies any worsening pain . pt denies any loss of bladder control. pt failed NSAID and ultram. Pt takes norco PRN for pain and doing ok Anemia1 Pt has borderlin e mild anemia Pt will do EGD and colonoscopy with Dr. rucker on 11/16/20 Pt denies any blood loss. Pt denies any gerd or abd pain renal Pt has borderlin e and stable renal function Pt has borderline high KCL Pt denies any chest pain or palpitation. overactive bladder1 Pt has overa ctive bladder with incontinence. Pt has interstim implant placed 2017 which really helps her symptoms Pt is seeing new urologist and she will undergo battery change for the interstim implant under general anesthesia. ,Pt needs clearance from me for the procedure. Pt denies any history of adverse reaction to anesthesia and also surgery. pt denies any chest pain or sob. anxiety1 Pt has anxiety a nd depression Pt has severe mood swings Pt takes prozac, klonopin and Lamictal for her mood swings and she is doing ok Pt denies any suicidal or homicidal thought. Pt denies any crying spells pain Pt has chronic b ack and neck pain Pt denies any worsening pain . pt denies any loss of bladder control. pt failed NSAID and ultram. Pt takes norco PRN for pain and doing ok osteoporosis1 Pt takes calcium and D and she takes fosamax for the past two years. Pt needs bone density repeated anemia1 Pt has iron defi ciency anemia. Pt had negative cystoscopy with biopsy by urology and she still has not done endoscopy yet. Pt actually will do lab work by GI and she will do EGD and colonoscopy in 3 weeks Pt denies any GERD or abd pain. her weight is stable Pt denies any blood loss. anxiety1 Pt has anxiety a nd depression Pt has severe mood swings Pt takes prozac, klonopin and Lamictal for her mood swings and she is doing ok Pt denies any suicidal or homicidal thought. Pt denies any crying spells pain Pt has chronic b ack and neck pain Pt denies any worsening pain . pt denies any loss of bladder control. pt failed NSAID and ultram. Pt takes norco PRN for pain and doing ok hematuria1 Pt has hematuria . Pt just had cysto with biopsy done and she does not know the results as of now. pt denies any flank pain or any urinary symptoms COPD Pt has COPD. Pt takes incruse and airduo and she uses proair 1-2 per week Pt denies any acute sob. Her LDCT is k weight loss1 Pt denies any ap petite loss .Pt has mild abd pain. Pt is seeing GI and will do EGD and colonoscopy soon .Pt had normal chest , abd and pelvis Ct .Pt states that her abd pain is vague and random Pt has sharp pain around midepigastric area. hematuria1 Pt has chronic h ematuria .Pt had cysto which showed unusably spot and she will get biopsy and needs surgical clearance. pain Pt has anxiety a nd depression Pt has severe mood swings Pt takes prozac, klonopin and Lamictal for her mood swings and she is doing ok Pt denies any suicidal or homicidal thought. Pt denies any crying spells anxity1 Pt has anxiety a nd depression Pt has severe mood swings Pt takes prozac, klonopin and Lamictal for her mood swings and she is doing ok Pt denies any suicidal or homicidal thought. Pt denies any crying spells pain1 Pt has chronic b ack and neck pain Pt denies any worsening pain . pt denies any loss of bladder control. pt failed NSAID and ultram. Pt takes norco PRN for pain and doing ok anxiety1 Pt has anxiety a nd depression Pt has severe mood swings Pt takes prozac, klonopin and Lamictal for her mood swings and she is doing ok Pt denies any suicidal or homicidal thought. Pt denies any crying spells renal Pt has low renal , which is stable. Pt has normal UO. b12 Pt has low b12 a nd folate. Pt has not been getting b12 shot. anemia1 Pt has borderlin e anemia. Her ferritin is ok. Her iron is borderline low. weight loss1 Pt has been losi ng weight. Pt states that she checked her weight recently and was 130s. Pt has been losing weight gradually Pt denies any GERD pt states that she has diffuse abdominal pain for several months. anxiety1 Pt has anxiety a nd depression Pt has severe mood swings Pt takes prozac, klonopin and Lamictal for her mood swings and she is doing ok Pt denies any suicidal or homicidal thought. Pt denies any crying spells pain Pt has chronic b ack and neck pain Pt denies any worsening pain . pt denies any loss of bladder control. pt failed NSAID and ultram. Pt takes norco PRN for pain and doing ok COPD1 Pt has COPD. Pt takes airduo and incruse and she uses albuterol 2-3 per week .Pt needs refill of albuterol .Pt denies any hemoptysis hematuria1 Pt has hematuria . pt has indira with urology ann in 3 weeks pt denies any UTI symptoms anxiety1 Pt has anxiety a nd depression Pt has severe mood swings Pt takes prozac, klonopin and Lamictal for her mood swings and she is doing ok Pt denies any suicidal or homicidal thought pain Pt has chronic b ack and neck pain Pt denies any worsening pain . pt denies any loss of bladder control. pt failed NSAID and ultram. Pt takes norco PRN for pain and doing ok hematuria1 Pt has hematuria and mild anemia with abnormal renal ultrasound Pt told me she made indira with [facility] and she needs a referral send over LDCT Pt had LDCT done but not mammogram or lab work COPD1 Pt has COPD. Pt takes incruse and airduo pt uses ventolin 1-2 per week Pt denies any hemoptysis, worsening sob or cough hematuria1 Pt denies any UT I symptoms or flank pain ,Pt still has not done seen urology yet anxiety1 Pt has anxiety a nd depression Pt has severe mood swings Pt takes prozac, klonopin and Lamictal for her mood swings and she is doing ok Pt denies any suicidal or homicidal thought pain1 Pt has chronic b ack and neck pain Pt denies any worsening pain . pt denies any loss of bladder control. pt failed NSAID and ultram. Pt takes norco PRN for pain and doing ok tobacco Pt needs LDCT fo r lung CA screening. Pt denies any hemoptysis, worsening sob or any cough anxiety1 Pt has anxiety a nd depression Pt has severe mood swings Pt takes prozac, klonopin and Lamictal for her mood swings and she is doing ok Pt denies any suicidal or homicidal thought pain Pt has chronic b ack and neck pain Pt denies any worsening pain . pt denies any loss of bladder control. pt failed NSAID and ultram. Pt takes norco PRN for pain and doing ok pain Pt has chronic b ack and neck pain Pt denies any worsening pain . pt denies any loss of bladder control. pt failed NSAID and ultram. Pt takes norco PRN for pain and doing ok anemia1 Pt has anemia an d also hematuria. Pt does not want to go to [facility], which is too far for her. Pt denies any UTI symptoms COPD1 Pt has COPD pt t aksharlene incruse and airduo pt uses albuterol 1-2 per week Pt denies any acute sob ,Pt denies any hemoptysis b12 Pt has low b12 P t started b12 injection last month ,Pt denies any noticeable difference yet anxiety1 Pt has anxiety a nd depression Pt has severe mood swings Pt takes prozac, klonopin and Lamictal for her mood swings and she is doing ok Pt denies any suicidal or homicidal thought osteoporosis1 Pt has osteoporo sis pt takes fosamax, calcium and vitamin D and she does weight bearing exercise. hematuria1 pt has hematuria and mild anemia and low renal and low b12 and low iron. pt still has not started b12 injection yet Pt denies any UTI symptoms or flank pain insomnia1 Pt states that t razodone does not help her insomnia anxiety1 Pt has anxiety a nd depression Pt has severe mood swings Pt takes prozac, klonopin and Lamictal for her mood swings and she is doing ok Pt denies any suicidal or homicidal thought pain1 Pt has chronic b ack and neck pain Pt denies any worsening pain . pt denies any loss of bladder control. pt failed NSAID and ultram. Pt takes norco PRN for pain pain Pt has chronic b ack and neck pain Pt denies any worsening pain . pt denies any loss of bladder control. pt failed NSAID and ultram. Pt takes norco PRN for pain insomnia1 Pt has chronic i nsomnia pt denies an snoring Pt states that trazodone works well. Pt stopped vistaril last month since it did not help. Pt states that both her brother and mom recently and she is having more anxiety and current dose of trazodone does not work as good as last month HLP Pt has HLP ,Pt t aksharlene zocor Pt needs refill Pt denies any myalgia COPD1 Pt has COPD. Pt takes airduo and incruse and she uses ventolin 1-2 per day ,Pt still smoking anxiety1 Pt has anxiety a nd depression Pt has severe mood swings Pt takes prozac, klonopin and Lamictal for her mood swings. Pt was confused and she states that lamictal actually does help her mood and she has been taking it daily. Pt denies any suicidal or homicidal thought. Pt wants higher dose of klonopin due to worsening anxiety due to brother and mom passing. pain Pt has chronic b ack and neck pain Pt denies any worsening pain . pt denies any loss of bladder control. pt failed NSAID and ultram. Pt takes norco PRN for pain. Pt only received 7 days worth of norco from pharmacy so she needs rest of them called in insomnia1 Pt has insomnia Pt states that vistaril does not work. b12 Pt feels very fa tigue Pt denies any snoring Pt has low b12 .Pt is mildly anemic with low iron Pt missed her [employer] indira Pt denies any blood loss. pain Pt has chronic b ack and neck pain Pt denies any worsening pain . pt denies any loss of bladder control. pt failed NSAID and ultram. Pt takes norco PRN for pain anxiety1 Pt has anxiety a nd depression Pt has severe mood swings Pt takes prozac, klonopin and lamictal but not helping so much for her mood swings Pt states that her brother just recently and she has been feeling more anxious and she has hard time falling asleep at night .Pt denies any suicidal or homicidal thought. Pt has been having crying spells Pt states that she can not sleep at all. physical Pt needs annual physical. pt has anxiety and depression and also bipolar with mood swings pt takes prozac and klonopin but she still has rather severe mood swings. pt denies any suicidal or homicidal thought. Pt has chronic low back pain Pt takes norco PRN for pain and doing ok pt denies any loss of bladder control. Pt has insomnia. Pt doing ok with trazodone. Pt has osteoporosis Pt takes fosamax and calcium and D Pt denies bone pain or fracture ,Pt denies any other complaints insomnia1 Pt doing ok with vistaril qhs PRn Pt denies any snoring pain1 Pt has chronic b ack and neck pain Pt denies any worsening pain . pt denies any loss of bladder control. pt failed NSAID and ultram. Pt takes norco PRN for pain anxiety1 Pt has chronic a nxiety and depression Pt doing ok with prozac and klonopin Pt denies any suicidal or homicidal thought hematuria1 Pt has hematuria Pt denies any UTI symptoms, Pt denies any flank pain Pt has not done renal ultrasound yet osteoprosis1 Pt needs fosamax refill. Pt doing ok with fosamax .Pt denies any bone pain Pt denies any tooth issue or jaw pain. Pt denies any GI issue insomani1 Pt has been havi ng insomnia issue without seroquel. Pt denies any snoring anxiety1 Pt has chronic a nxiety and depression Pt takes prozac and klonopin and doing ok, Pt ector any suicidal or homicidal thought Pt denies any crying spells. chronic pain1 Pt has chronic l ow back pain pt denies any worsening pain, Pt denies any loss of bladder control. Pt failed NSAID and ultram confusion1 Pt feels slightl y cloudy feeling with cogentin. Pt stopped cogentin and she feels better now. Pt denies any headache . anemia1 pt has mildly an emia with low iron. Pt has mild hematuria. pt denies any UTI symptoms renal1 Pt has borderlin e stage III renal disease. Pt denies any abd pain or flank pain Pt denies any urinary symptoms pt has normal UO chronic pain Pt has chronic b ack and neck pain Pt denies any worsening pain Pt denies any loss of bladder control. Pt has sciatica. Pt denies any numbness anxiety1 Pt has anxiety a nd depression Pt takes prozac, and klonopin and doing ok Pt denies any suicidal or homicidal thought Pt denies any crying spells. Pt stopped seroquel and she is on cogentin and her jerking movement improved chronic pain1 Pt has chronic b ack and neck pain Pt denies any worsening pain Pt denies any loss of bladder control. Pt has sciatica. Pt denies any numbness anxiety1 Pt has anxiety a nd depression Pt takes prozac, seroquel and klonopin and doing ok Pt denies any suicidal or homicidal thought Pt denies any crying spells body movement1 Pt c/o frequent recurrent sudden jerking motion all over body for several years Pt states that it comes and goes and the past month has been bad Pt denies any hick up Pt denies any tremor ,Pt just has uncontrollable jerking the whole body. pt states that her legs and arms jerks all night. Pt has some vague neuropathy symptoms around both arms COPD1 Pt has COPd Pt s till smoking ,Pt takes airduo and incuse and ventolin, pt denies any hemoptysis, worsening sob or cough pt uses proair 1-2 per day. anxieyt1 Pt has chronic a nxiety and depression pt denies any suicidal or homicidal thought Pt takes prozac, and seroquel and klonopin PRN pt denies any crying spells chroinc pain1 Pt has chronic l ow back and neck pain pt denies any worsening pain pt denies any loss of bladder control Pt failed NSAID and ultram PHysical Pt needs annual physical pt has osteoporosis. Pt takes calcium and D and fosamax weekly Pt denies any fx. Pt has chronic pain Pt takes norco for pain Pt has anxiety and depression. pt prozac, seroquel and klonopin and doing ok pt has COPD Pt still smoking pt is on airduo, incruse and she uses ventolin daily Pt denies any hemoptysis, acute sob, Pt has HTN. Pt takes lisinopril. Pt has HLP. Pt takes zocor Pt denies any chest pain. Pt is seeing cardiology and she will do echo and stress test soon Pt denies any other complaints COPD1 Pt has been usin g proair multiple times daily Pt uses incruse and airduio Pt is going through proair one inhaler per month. Pt still smoking Pt uses 1-2 puff 3-4 missy per day chronic pain Pt has chronic b ack pain. Pt takes norco PRN for pain and doing ok anxiety1 Pt has anxiety a nd depression. Pt takes prozac and seroquel and klonopin PRN and doing ok ,Pt denies any suicidal or homicidal thought CAD Pt seen cardiolo gy and she will do cardiac echo and stress test. PT denies any chest pain or headache or sob CAD Pt has signs of CAD on chest CT. pt denies any chest pain. Pt does notice some palpitation at night when she tries to sleep. Pt denies any daytime symptoms. Pt has some coronary artery calcification anxiety1 Pt has chronic a nxiety and depression pt denies any suicidal or homicidal thought Pt takes prozac, and seroquel and klonopin PRN pt denies any crying spells chronic pain1 Pt has chronic l ow back and neck pain pt denies any worsening pain pt denies any loss of bladder control Pt failed NSAID and ultram COPD1 pt has COPD. Pt uses incruse and airduo and doing ok. pt still smoking. Pt denies any hemoptysis, acute sob or cough. pt has uses ventolin 3-4 time per day anxiety1 Pt has chronic a nxiety and depression Pt takes prozac, seroquel and klonopin and doing ok pt denies any suicidal or homicidal thought Pt denies any crying spells chronic pain1 Pt has chronic l ow back pain and neck pain due to ddd, pt failed NSAID and ultram Pt takes norco PRn for pain and doing ok. tobacco1 Pt has 40 pack y ear tobacco. Pt has lung nodule pt denies any hemoptysis, worsening sob or any worsening cough. Pt needs LDCT chronic pain1 Pt has chronic n nathalie and back pain Pt has DDD Pt denies any worsening pain, Pt denies any loss of bladder control. Pt failed NSAID and ultram osteoporosis1 Pt has osteoporo sis. Pt takes calcium and D and fosamax. Pt denies any Gi issue with fosamax. Pt denies any bone or jaw pain. Pt needs vitamin D Refilled. anxiety1 Patient has heel cover softener sangeetha anxiety and depression. Patient denies any suicidal homicidal thoughts. Patient denies any crying spells. Patient takes Prozac and Seroquel and Klonopin and doing okay. Patient denies any hopelessness. COPD1 Patient has COPD . Patient takes her dual Incruse and Ventolin as needed. Patient denies any hemoptysis, worsening shortness of breath, or cough. Patient denies any acute shortness of breath. HTN Pt takes lisinop ril and her BP is stable chronic pain1 pt has chronic n nathalie and back pain due to DDD Pt denies any worsening pain. Pt denies any loss of bladder control. pt failed NSAID and ultram anxiety1 Pt has chronic a nxiety and depression Pt takes prozac, seroquel and klonopin PRN and doing ok, Pt denies any suicidal or homicidal thought. pt denies any crying spells COPD1 Pt has COPD Pt u ses airduo, incruse and proair 2-3 per day. pt still smoking. Pt denies any acute sob. Pt denies any hemoptysis coughing. Pt states proair not covered anxiety1 Pt has chronic a nxiety and depression and mood swings. pt takes prozac and klonopin and seroquel. her mood is ok, Pt denies any suicidal or homicidal thought back pain1 pt has chronic l ow back pain Pt has mild sciatica and leg numbness. Pt denies any loss of bladder control. Pt states that her back pain has been worse lately Pt denies any new neurological deficit. anemia1 Pt had anemia. p t had lab done last month and her anemia resolved, Her iron is ok hlP Pt has HLP. Pt t akes zocor. Pt denies any myalgia chronic pain Pt has chronic n nathalie and back pain. Pt has DDD Pt denies any worsening pain Pt denies any loss of bladder control anxiety1 Pt has chronic a nxiety and depression Pt takes prozac, seroquel and klonopin PRN. Pt denies any suicidal or homicidal thought. Pt denies any crying spells anemia1 Pt has mild anem ia pt denies any blood loss. chronic pain1 pt has chronic n nathalie and back pain .Pt denies any worsening pain, Pt denies any loss of bladder control. Pt takes norco PRn for pain and doing ok anxiety1 Pt has chronic a nxiety and depression Pt takes prozac, klonopin and seroquel and doing ok. Pt denies any suicidal or homicidal thought Pt denies any crying spells. anxiety1 Pt has chronic a nxiety and depression pt takes prozac, seroquel and klonopin PRN. Pt doing ok. Pt denies any suicidal or homicidal thought. Pt denies any crying spells COPD1 Pt has copd. Pt uses incruse, airduo and Proair PRn Pt states that she uses proair on average 2-3 per week. Pt denies any acute sob osteoporosis1 Pt joyner osteoporos is. Pt started fosamax last month. pt is on calcium and vitamin D. Pt denies any bone pain Pt denies any fracture. pt denies any GI issue with fosamax anemia1 Pt had normal UA . Pt denies any blood loss. chronic pain Pt has chronic b ack and neck pain due to DDD. Pt failed NSAID and ultram Pt takes norco PRn for pain and doing ok. pt has 7/10 pain. Pt denies any loss of bladder control anemia1 Pt has mild bord jie anemia. Pt denies any blood loss. Pt denies any dizziness or chest pain or headache osteoporosis1 Pt has osteoporo sis. Pt has low D. Pt denies any history of spontaneous fracture. chronic pain Pt has chronic n nathalie and back pain due to DDD Pt denies any worsening pain Pt denies an loss of bladder control. Pt failed NSAID and ultram. Pt has 6/10 pain anxiety1 Pt has chronic a nxiety and depression Pt takes prozac, klonopin and also seroquel and doing ok. Pt denies any suicidal or homicidal thought Pt denies any crying spells b12 pt has low b12 a nd folate and high glucose. Pt denies any polyuria, polydipsia chronic pain Pt has chronic n nathalie and back pain. Pt denies any worsening pain. Pt denies any loss of bladder control. Pt failed NSAID and ultram anxiety1 Pt has chronic a nxiety and depression Pt takes prozac, seroquel and Klonopin PRN and doing ok. pt denies any suicidal or homicidal thought chronic pain1 Pt has chronic n nathalie and back pain Pt denies any radiculopathy Pt has sciatica and leg numbness. Pt denies any worsening pain Pt has 7/10 pain due to DDD pt denies any injury. Pt failed NSAID and ultram anxiety1 Pt has chronic a nxiety and depression Pt takes prozac and seroquel and klonopin PRN HTN Pt has HTN Pt ta kes lisinopril. her BP is stable. colon polyp1 Pt has colon hugh yp Pt was told to repeat in 5 years Pt does not know what type of polyp she has. Pt denies any GI bleeding or change of bowel Physical Pt needs annual physical. pt has chronic neck and back pain. Pt takes norco PRn for pain and doing ok. Pt failed OTC meds and NSAID and ultram. Pt has anxiety and depression Pt takes prozac and seroquel and klonopin PRn and doing ok. Pt denies any suicidal or homicidal thought. pt has COPD. Pt uses incruse and airduo and doing ok. pt uses albuterol 1-2 per day. pt still smoking. Pt has HLP Pt takes zocor. Pt denies any myalgia. Pt denies any other complaints lung nodule1 Pt has lung nodu le Pt has COPD. Pt takes airduo and incruse and she use Pro-Air about once per day Pt denies any acute sob. Her pneumonia resolved Chronic pain1 Pt has chronic n nathalie and back pain. Pt denies any worsening pain pt denies any loss of bladder control. Pt takes norco PRN for pain. pt failed NSAID and ultram anxiety1 Pt has chronic a nxiety and depression. Pt takes prozac, seroquel and xanax PRn and doing ok. Pt denies any suicidal or homicidal thought kcl Pt has mild high kcl. Pt denies any chest pain or palpitation. Pt has low b12 anxiety1 Pt has chronic a nxiety and depression. Pt takes prozac and klonopin and seroquel and doing ok. Pt denies any suicidal or homicidal thought. Pt denies any crying spells chronic pain1 Pt has chronic l ow back pain due to DDD> Pt takes norco PRN for pain and doing ok. Pt failed ultram and NSAID. Pt denies any loss of bladder control colon polyp Pt has colon hugh yp 2013 Pt will have colonoscopy next month. Pt denies any GI bleeding or lower GI issue COPD1 Pt has COPD and she was recently admitted to hospital for pneumonia Pt currently denies any acute sob or coughing. Pt denies any bloody phlegm. Pt just had chest CT done. Pt takes incruse and she started airduo last month. Pt feels that above inhaler are helping her breathing better. Pt uses ventolin on average once per day chronic pain Pt has chronic l ow back and neck pain. Pt takes norco PRN for pain. Pt failed NSAID and ultram anxiety1 Pt has chronic a nxiety and depression. Pt takes prozac, klonopin and also seroquel and doing ok. Pt denies any suicidal or homicidal thought. Pt denies any crying spells. pneumonia1 Pt recently was admitted to hospital for COPD exacerbation and also pneumonia .Pt is on Augmentin and prednisone now. Pt doing better now. Her CT needs to be followed up. Pt is on incruse and she was started on advair but her insurance does not cover it. Pt denies any acute sob HLp Pt tolerating zo cor ok, Pt denies any myalgia axiety1 Pt has chronic a nxiety and depression. Pt takes prozac, seroquel and Klonopin pRN and doing ok. Pt denies any suicidal or homicidal thought COPD1 Pt was using com bivent and symbicort which is not covered by insurance anymore. Pt continues to smoke chronic pain1 Pt has chronic l ow back and neck pain. Pt denies any worsening pian Pt denies any loss of bladder control HLP Pt has HLP. Pt t akes zocor. Pt denies any myalgia. Her lipid is mildly high KCL Pt has mildly hi gh KCL pt denies any chest pain or palpitation b121 Pt has low b12. GERd1 Pt takes otc ainsley tac and her EGD was ok last year anxiety1 Pt has chronic a nxiety and depression Pt takes prozac klonopin and seroquel. Pt states that she canot sleep anymore at night despite on seroquel. Pt wants to try higher dose chronc pain Pt has chronic n nathalie and back apin due to dDD Pt denies any worsening pain Pt denies any loss of bladder control anxiety1 Pt has chrnoic a nxiety and depression Pt takes prozac, and klonpin and also seroquel. Pt deneis any suicidal or homicidal thought. Pt denies any crying spells tobacoc1 Pt has more than 40 pack year. Pt has COPD Pt needs annual LDCT. GERD1 pt has GERd inte rmittently Pt takes otc zantac PRN. Pt had EGD done last year which was ok. Pt denies any worsening symptmos HLP Pt takes zocor. Pt denies any myalgia. Pt is on low fat and low carb diet HTN Pt has HTn. Pt t akes lisinopril and her BP is stable. Pt denies any chest pain or headache chronic pain Pt has chornic l ow back pain. pt denies any worsening pain. Pt denies any loss of bladder control anxiety1 Pt has chornic a nxiety and depression ,Pt takes prozac, seroquel and xanax PRn and doing ok. pt denies any suicidal or homicial thought. Pt denies any crying spell anxiety1 Pt has chronic a nxiety and depression. Pt takes prozac and klonpin PRN and doing ok. Pt denies any suicidal or homicidal thought. .Pt denies any cyirng spels COPD1 Pt has COPD. Pt continues to smoke. Pt uses combivent and symbicort and she still needs proair daily. Pt denies any acute sob chronic pain1 Pt has chronic n nathalie and back pain due to DDD. Pt denies any worsening pain. Pt denies any loss of bladder control. Pt failed NSAID. Pt has 7/10 pain daily chronic pain Pt has chornic n nathalie and back pain. Pt denies any worsening pain, Pt denies any loss of bladder control. Pt takes norco PRN for pain and doing ok anxiety1 Pt has chornic a nxiety and depression. Pt takes prozac, seroquel and klonopin PRN and doing ok. Pt denies any suicidal or homicial thought. .Pt denies any crying spells Cough1 Pt c/o productiv e coughing with green phlegm, wheezing for the past week. Pt has COPD and she still smokes heavily. Pt uses symbicort and combivent and albuterl. Pt notices using more albuterol recenlty chronic pain1 Pt has chronic n nathalie and low back painn due to DDD. Pt denies any worsening pain ,Pt denies any loss of lbadder control. Pt denies any worsening pain anxiety1 Pt has chronic a nxiety and depression. Pt takes prozac, klonpin and seroquel and doing ok. Pt denies any suicidal or homicidal thought. Pt denies any cyring spells GERD1 Pt doing ok with OTC zantac. Pt denies any abd pain or GERD chronic pain Pt has chronic n nathalie and back pain Pt denies any worsening pain, pt denies any loss of bladder control anxiety1 Pt has chronic a nxiety and dperession. Pt takes prozac and klonpin and also seroquel Pt denies any suicidal or homicdial thought HTN Pt has HTN pT ta kes liisnopril and her BP is stable pt denies any chest macho or cough HLP Pt taks zocor. P t denie any myalgia Pt is tyring low fat and low carb diet chronic pain Pt has chronic n nathalie and back pain Pt denies any worsening pain. Pt denies any loss of bladder control. Pt has 7/10 pain. Pt has dDD anxiety1 Pt has chronic a nxiety and depression. Pt takes proxac, seroquel and klonpin PRN and doing ok. Pt denies any suicidal or homicidal thought GERD1 Pt had benign EG D recenlty. Pt is off PPI. Pt still has GERD sometimes Pt denies any abd pain. COPD1 Pt uses symbicor t, combivent proair. Pt uses proair 1-2 per day. Pt still smoking. Pt denies any acute sob PHysical Pt needs annual physical Pt has chronic neck and back pain. Pt denies any worsening pain. Pt denies any loss of bladder control. Pt has chronic anxiety and depression Pt takes prozac and klonpin and seroquel. Pt denies any suicidal or homicdial thought. Pt denies any cyring spells. Pt just had EGD done which is benign. NO more caroline or ulcer. pt had benign CT scan also, Pt is on zantac now. Pt denies any abd pair or GERd. Pt denies any other complaints anxiety1 Pt has chronic a nxiety depression and she also has hsitory of schizophrenia disorder. Pt also has bipolar. Pt takes prozac seroquel and also klonpn PRN PT states that she is doing ok with above meds. Pt denies hearing voices. Pt denies any suicidal or homicdial thought. Pt denies any crying spells HTN Pt has HTN Pt ta kes lisinopril and her bp is stable. Pt denies any chest pain or headache chronic pain1 Pt has chronic n nathalie adn back pain Pt has DDD Pt deneis any worsening pain Pt denies any loss o bladder control. Pt has 7/10 pain chronic pain Pt has chronic b ack and neck pain. Pt has DDD Pt denies any worsening pain Pt denies any loss of bladde control anxiety1 Pt has chronic a nxiety and depression and insomnia. Pt takes prozac, seroquel and klonpin and doign ok. Pt denies any suicidal or homicidal thought COPD1 Pt uses symbicor t and combivent and also proair and neb pt uses neb 1-3 pe day. Pt keeps smoking .Pt denies any acute SOB weight loss1 Pt has lost 30 p ounds during last 3 years. Pt denies any loss of appetite. Pt states that she sometimes skip meal due to lack of energy to cook meal. Pt has caroline and she supposes to go back for EGD next month. hep C Pt had hep C but she cleared the infection on her own. Pt denies IV drug anxiety1 Pt has chronic a nxiety and depression and she takes prozac, klonpin and seroquel and doing ok. Pt denies any suicidal or homcidial thought chronic pain Pt has chornic n nathalie and back pain Pt denies any worsening pain Pt denies any loss of bowel or bladder control HLP Pt has HLP Pt ta kes zocor Pt denies any myalgia GERD1 Pt has GERD Pt t ook nexium which helped. Pt has ulcer and she has appointment for EGD in January OAB1 Pt has OAB Pt se en urology and she was started on vesicare but insurance does not cover. Pt was told she needs a stimulator but she does not want to do it. Pt is on oxybutynin now and doing ok chronic pain Pt has chronic n nathalie and back pain Pt denies any worsenign pain. Pt denies any loss of bowel or bladder control. Pt states that her pain meds do not work too well anymore anxiety1 Pt has chornic a nxiety and depression. Pt takes prozac and klonpin and seroquel and doing ok Pt denies any suicidal or homicidal thought Pt denies daxa rying spells hep C Pt needs hep C s creening. Pt denies any IV drug use chronic pain1 Pt has chronic n nathalie and back pian Pt denies any worsenng pain Pt denies any loss of bladder control. Pt has 7/10 pain daily anxiety1 Pt has chronic a nxiety and depression. Pt takes prozac and klonopin and klopin and donig ok Pt denies any suicidal or homicdial thought. Pt denies any crying spells Pt takes seroquel at night for insomnia and mood but she has been having diffiuclty falling asleep again lately urinary Pt c/o freuqent urination, urgency and post void burning feeling chronically. Pt states that vesicare helped. Pt had benign UA recently. Pt denies any flank pain GERD1 Pt needs EGD aga in. Pt has been taking nexium which helps Pt has lawrence. Pt needs EGD now. Pt denies any acute pain Alwrence Pt has lawrence b ut she could not afford omeprazole Pt statse that she has daily GERd. Pt denies any acute abd pain HLP Pt has HLP Pt ta kes zocor Pt denies any myalgia chronic pain Pt has chronic n nathalie and back apin Pt denies any loss of bowel ro bladder control. Pt deniesany worsening apin anxiety1 Pt has chronic a nxiety and depression. Pt taeks prozac and klonpin. and seroquel and doing ok Pt denies any suicidal or homicidal thought Pt denies any crying spells urinary urgency1 Pt has urinary urgency and frequency. Her UA is ok Pt denies any fever, chilll COPD1 Pt uses symbicor t and combivent and proair. Pt has COPD Pt still needs to use proair 3-4 per day but she feels better with symbicort. pt denies any acute soB. Pt still smoking about one pack per day back pain1 Pt has chronic l ow back pain. Pt denies any loss of bowel or bladder control. Pt denies any worsening pain anxiety1 pt has chronic a nxiety and depression. Pt takes prozac, klonopin and seroquel and doing ok. Pt denies any suicidal or homicidal thought Pt denies any crying spells tobacco Pt has 40 pack y ear smoking history. Pt has COPD COPD1 Pt has chronic C OPD with recent exacerbation. Pt went to ER and had normal chest xray per pt. Pt was Zpak and prednisone. Pt uses comibivent. Pt is off advair on her own .pt states that she already finished her proair from two weeks ago. PT feels frequent SOB. Pt still smoking chronic pain1 Pt has chronic b ack and neck pain. Pt denies any worsening pain Pt takes norco for pain PRN and doing ok. anxiety1 pt has chronic a nxity and depression. pt takes prozac, seroquel and klonpin and doing ok. Pt denies any suicidal or homicidalt hought HLP PIt has HLP. Pt takes zocor. Pt denies any myalgiak. Her lipid profile is normal anxiety1 Pt has chronic a nxiety and depression and mood swings. Pt takes prozac, klonopin and seroquel. Pt denies any suicidal or homicidal thought.. Her mood is better. Pt denies any cryin gspells chronic pain Pt has chornic n nathalie and back apin. Pt denies any worsening pain. Pt denies any loss of obwel or bladder control. Pt has 6/10 pain. urinary frequency1 Pt has urinar y frequency for several weeks Pt denies any urgency or any dysuria. Pt denies any flank pain anxiety1 Pt has chornic a nxiety and depression and bipolar mood swings. Pt states that lamictal is not working. Pt wants to try seroquel again. Pt took seroquel 50 mg in the past. PKt denies any suiciadl or homicidal thouhgt chronic pain1 Pt has chronic n nathalie and back pain. Pt denies any worsening pain. Pt takes norco for pain ,Pt just had ulnar nerve surgery done recenlty by Dr. Arevalo. COPD1 Pt has COPD. Pt states that she no longer uses advair which is not helping. Pt only uses comvbivent and paoair PRN. P denies any acute SOB> Pt still smoking osteoporosis1 Pt has osteoporo sis. Pt has been taking calcium and vitamin D. Pt denies any fx HTN Pt has HTn. Pt t akes lisinopril. Pt denies any chest pain or headache chronic pain Pt has chronic n nathalie and back pain. Pt takes norco for pain. Pt denies any loss of bowel or bladder control anxiety1 Pt has chronic a nxiety and depression and mood swings Pt has a lot of stress. Pt takes prozac and klonpin and lamital and doing better. Pt denies any suicidal or homicdial thought weight gain Pertinent negati ves include constipation, dyspnea, fatigue, irregular menses, muscle weakness and vision changes. Additional information: Pt has been losing weight steadily for the past several years. Pt denies any appetite loss. Pt denies any nausea, vomiting, diarrhea. anxiety1 Pt has chornic a nxiety and depression and severe mood swings Pt has been taking prozac and klonpin but she thinks that there is something missing. Pt states that her mood is horrible and she wants to try risperdal. Pt denies any suicidal or homicidal thought. Pt wants to try higher dose of klonopin. chornic pain1 Pt has chronic n nathalie and back pain. Pt takes norco for pain. Pt denies any worsening pain ,Pt denies any loss of bowel or bladder control osteoporosis1 Pt has osteoporo sis. Pt has been taking calcium and vitamin D. Pt denies any history of spontaneous fx. PHysical Pt needs annual physical. Pt has chronic neck and back pain. Pt takes norco for pain and doing ok. Pt denies any worsening pain. Pt also has chronic anxiety and depression. Pt states that ativan no longer works and zyprexia makes her feeling worse. Pt wants to try klonopin for anxiety. Pt denies any suicidal or homicidal thought.. Pt denies any other complaints. osteoporosis Additional infor mation: Pt has osteoorosis. pt denies any history of spontaneous fracture. anxitey1 Pt has chronic a nxiety and depression and insomnia and also mood swings. Pt takes pozac and ativan and also zyprexa, which is helping. Pt states that she wants to try higher dose of zyprexa chronic pain Pt has chronic n nathalie and back pain Pt denies any loss of bowel or bladder control. Pt takes norco for pain PRN and doing ok caroline Pt had EGD on s diagnosed with caroline October of 2014. Pt was told she needs to repeat EGD in 2017 per patient. Pt takes omeprzole and she denies any symptoms chronic pain Pt has chronic n nathalie and back pain. Pt denies any worsenign pain.. Pt denies any loss ofb owel ro bladder control anxiety1 Pt has chronic a nxiety and depression. Pt takes parozac and ativan and is helping. . Pt states that seroquel is not helping and she feels dizzy with it. Pt also states that seroquel is not helping with her insomnia either. Pt wants to try more ativan for sleep. Pt has mood swing and bipolar carpal tunnel Additional infor mation: Pt is seeing plastic surgeon and will have wrist splint soon. Pt does not want to do surgery yet. HLP Pt has HLP. Pt t akes zocor daily. Pt denies any myalgia dizziness Pertinent negati ves include chest pain, ear drainage, fever, hearing loss, palpitations, vision loss and vomiting. Additional information: Pt feels dizzy spells regarding position. Pt feels dizzy when sitting down and also standing up. Pt had negative CTA of neck and neck and cardiac echo. Pt denies any chest pain or palpitation. anxiety1 Pt has chronic a nxiety and depression. Pt takes prozac, ativan and seroquel and doing ok. Pt denies nay suicidal or homcidial thought carpal tunnel Pertinent negati ves include fever. Additional information: Pt has left carpal tunnel. Pt hsa left hand numnbess and tingling and weakness. chronic pain Pt has chronic n nathalie and back pain. PT denies any loss of bowel or bladder control. Pt doing ok dizziness1 Pt feels dizzine ss when she gets up and actually passed out recently briefly Pt denies any chest pain or palpitation. Pt did not hit her head. Pt only passed out for several secods per patient. Pt denies any weakness or any speech problem carpal tunnel Additional infor mation: PT recently was diagnosed with left carpal tunnel syndrome. Pt tried to schedule for NCS but she instead she seen a doctor who told her she has carpal tunnel. No NCS was done per patient. chornic pain1 Pt has chronic l ow back and neck pain. Pt takes nocro for pain. Pt denies any loss of owel or bladder control. Pt denies any worsening apin anxiety1 Pt has chronic a nxiety Pt denies any depression or any suicadil thought. P takes prozac, seroquel and ativan and doing ok. Pt denies any crying spells. Pt denies any feeling of hopelessness chornic pain1 Pt has chronic n nathalie and back pain. Pt doing ok with pain meds. Pt functions better now. Pt has left arm numnbess and tingling and NCS is soon per patietn Anxiety1 Pt has chronic a nxiety and depression. Pt atkes prozac and valium and seroquel. pt wants to try ativan instead of valium. Pt states that prozac and seroquel working ok. pt denies any sucididal or homicdial thought. HLP1 Pt tolerating zo cor ok. Pt denies any myalgia anxiety1 Pt has chronic a nxiety and depressionand bipoalr. Pt states that geodon is not working anymore Pt feels depressed with mood swings. Pt has trouble falling alseep. Pt wants to try seroquel. Pt denies any suicidal or homicdial thought neck pain1 Pt has chronic n nathalie and low back pain, Pt has 8/10 pain. Pt states that her pain is not well controlled, especailly in early afternoon time. Pt denies any loss of bowel or bladder control arm numbness1 Pt c/o left arm tingling and numbness for several months. Pt failed wrist splint. Pt does feel left radiculopathy. Pt does not want to do PT PAD1 Pt has mild PAD but no claudication. Pt denies any chset pain. Pt had negavive cardiac stress test anxiety1 Pt has chronic a nxiety and depression and mood swings. Pt takes prozac, geodon and valium. Pt still has panic attacks. Pt still feels anxious Pt denies any suicdial thought Pt denies feeling of hopelessness. Pt statse that she has so much stress at home and her anxiety is not well controlled. back pain1 Pt has chronic b ack and neck pain. Pt denies any loss of bowel or bladder control. Pt c/o left hand and finger numnbess. Pt statse that she has radiculopathy from neck to left arm. Pt has been having symptoms for 6 weeks. Pt denies weakness drummond waking up at night with hand pain GERD1 Pt has GERD Pt a tkes omerpazole and doing ok. Pt denies any abd pain neck pain Pertinent negati ves include rash and weight loss. Additional information: Pt has severe neck pain with left radiculopathy. Pt has numbness and tingling down to left hand. Pt had benign cardiac echo. Sterss test soon. Pt denies any chset pain. anxiety The patient pres ents with anxious/fearful thoughts but denies fatigue. The patient denies any headache, urinary frequency, vomiting and weight gain. Additional information: Pt has chronic anxiety and depression. Pt denies any suicidal thought. Pt takes prozac and geodon and valium. . Pt denies any suicidal thought pt feels more stress lately. Pt states that valium not helping. HTN Pt takes lisirno pil for HTN. Pt denies any chest pain or headache COPD Pt states taht h er SOB is getting worse. Pt denies any chest pain Pt uses advair, combivent and also proair Pt uses proair multilpe times per day, Pt still smoking neck pain Pertinent negati ves include rash and weight loss. Additional information: Pt has chronic and intermittent neck pain. Pt c/o left radiculopathy and her left 3rd, 4th and 5th finger is numb for two weeks. Pt denies any chest pain, diaphoresis, nausea and NO exertional symptoms. anxiety The patient pres ents with anxious/fearful thoughts but denies fatigue. The patient denies any headache, vomiting and weight gain. Additional information: Pt has chronic anxiety and depression and also bipoar with mood swings. Pt takes geodon and prozac and valium and doing ok. Pt denies any suicdial touight. anxiety The patient pres ents with anxious/fearful thoughts but denies fatigue. The patient denies any headache, urinary frequency, vomiting and weight gain. Additional information: Pt has chronic anxiety and deprssion and biopolar. Pt takes prozac, vailum and geodon Pt states that geodon does not help like in the past Pt has mood swings. Pt denies any suicidal or homicidal thought. vitamin D Pt has low vitam in D back pain Additional infor mation: Pt has chronic LBP. Pt denies any loss of bowel or bladder control. GERD Additional infor mation:Pt has GERD and lawrence esophagus. No more ulcer. Pt is doing ok. lumbago Pt has chronic L BP. Pt denies any loss of bowel or bladder control HLP Pt has mildly el evated TC. Pt is not working on any diet physical Pt needs annual physical. Pt c/o chronic LBP. Pt denies any loss of bowel or bladder control. Pt has chronic anxiety and depression. Pt takes prozac, valium and geodon. Pt denies any suicidal thought. Pt takes omerpazole for GERd Pt denies any abd pain Instructions Date Instruction Additional Infor mation Weight gain advised Related to B usha mass index (BMI) 24.0-24.9, adult Quit smoking Related to Anemi a Special diet education Related t o Body mass index (BMI) 25.0-25.9, adult Quit smoking Related to Gener alized Anxiety Disorder Perform monthly self breast examinations. Related to Encntr for general adult medical exam w/o abnormal findings Quit smoking. Related to Encnt r for general adult medical exam w/o abnormal findings Increase activity. 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 Increase physical activity Relat ed to Solitary lung nodule Quit smoking Related to Solit monserrat lung nodule Quit smoking Related to Chron ic pain syndrome Special diet education Related t o Body mass index (BMI) 25.0-25.9, adult Quit smoking Related to Chron ic pain syndrome Quit smoking Related to Gener alized Anxiety Disorder Quit smoking Related to Chron ic pain syndrome Quit smoking Related to Gener alized Anxiety Disorder Quit smoking Related to Anemi a Quit smoking Related to Chron ic pain syndrome Quit smoking Related to Anemi a Quit smoking Related to Chron ic pain syndrome Quit smoking Related to Chron ic pain syndrome Quit smoking Related to Solit monserrat lung nodule Quit smoking Related to Polyp of colon Quit smoking Related to COPD w/ acute exacerbation Stop smoking. Related to Hyper lipidemia Avoid provocative fo ods: citrus, alcohol, coffee, chocolate, mints. Related to GERD without esophagitis Eat smaller meals, n o eating three hours prior to bedtime. Related to GERD without esophagitis Elevate head of bed prior to sle ep. Related to GERD without esophagitis Avoid provocative fo ods: citrus, alcohol, coffee, chocolate, mints Related to GERD without esophagitis Prescribed Activity and Exercise Education Related to Dietary Surveillance and Counseling Prescribed Diet Educ ation/Lifestyle Education Regarding Diet Related to Dietary Surveillance and Counseling Eat smaller meals, n o eating three hours prior to bedtime Related to GERD without esophagitis Elevate head of bed prior to sle ep Related to GERD without esophagitis Prescribed Activity and Exercise Education Related to Dietary Surveillance and Counseling Prescribed Diet Educ ation/Lifestyle Education Regarding Diet Related to Dietary Surveillance and Counseling Increase activity. Related to Es sential (primary) hypertension Stop smoking. Related to Essen tial (primary) hypertension Follow a low sodium diet. Relate d to Essential (primary) hypertension Quit smoking Related to Emphy sema Quit smoking Related to Gener alized Anxiety Disorder Increase physical activity Relat ed to COPD w/ acute exacerbation Quit smoking Related to COPD w/ acute exacerbation Quit smoking Related to Chron ic pain syndrome Prescribed Activity and Exercise Education Related to Dietary Surveillance and Counseling Prescribed Diet Educ ation/Lifestyle Education Regarding Diet Related to Dietary Surveillance and Counseling Quit smoking Related to Gener alized Anxiety Disorder Prescribed Activity and Exercise Education Related to Dietary Surveillance and Counseling Prescribed Diet Educ ation/Lifestyle Education Regarding Diet Related to Dietary Surveillance and Counseling Dietary counseling Related to Di etary surveillance counseling Decrease caloric intake Related to Dietary surveillance counseling Dietary counseling Related to Di etary surveillance counseling Decrease caloric intake Related to Dietary surveillance counseling Decrease caloric intake Related to Dietary surveillance counseling Dietary counseling Related to Di etary surveillance counseling Dietary counseling Related to Di etary surveillance counseling Decrease caloric intake Related to Dietary surveillance counseling Dietary counseling Related to Di etary surveillance counseling Decrease caloric intake Related to Dietary surveillance counseling Assessments Type Assessment Date assessment Other postherpetic nervous syste m involvement assessment Chronic pain syndrome assessment Generalized Anxiety Disorder Aug Mental Status Date Cognitive Assessment Orientation - Oden ed to time, place, person, situation.
--- OUTSIDE RECORDS SUMMARY | 2024-10-04 17:34 | XMS_ITS | Clinical Summary ---
Author Organization [facility] Address [facility] [place] [address] Care Team Providers Care Acetylene Plant Operator Name Role Phone Eb Gomez MD Primary Care Provider [phone] Allergies Active Allergy Reactions Criticality Noted Date Comments Aspirin Anaphylaxis High 01/22/2020 Medications folic acid 1 MG tablet Take 400 mcg by mouth daily. Active alendronate 70 MG tablet Take 70 mg by mouth every 7 days. Active cyanocobalamin 1000 MCG/ML injection Active cholecalciferol 125 MCG (5000 UT) Tab Take 5,000 Units by mouth daily. Active simvastatin 20 MG tablet Active traZODone 150 MG tablet Take 150 mg by mouth nightly at bedtime. Active lamoTRIgine 100 MG tablet Take 100 mg by mouth daily. Active FLUoxetine (PROZAC) 40 MG capsule Take 1 tablet by mouth daily. 05/26/2015 Active lisinopril 20 MG tablet 05/26/2015 Active HYDROcodone-jody taminophen 10-325 MG tablet 08/26/2015 Active clonazePAM 1 MG tablet Take 1 mg by mouth 3 (three) times daily. Active Umeclidinium Whitmer 62.5 MCG/INH AEROSOL POWDER, BREATH ACTIVATED Inhale 1 puff into the lungs daily. Active albuterol sulfate HFA 108 (90 Base) MCG/ACT inhaler Inhale 2 puffs into the lungs. Active fluticasone-catia meterol 115-21 MCG/ACT inhaler Inhale 2 puffs into the lungs 2 (two) times daily. Active Active Problems No known active problems Social History Tobacco Use Types Packs/Day Years Used Date Smoking Tobacco: Smoker, Current Status Unknown Smokeless Tobacco: Never Alcohol Use Standard Drinks/Week Comments Not Currently 0 (1 standard drink = 0.6 oz pur e alcohol) Comments Unknown Sex and Gender Information Value Date Recorded Sex Assigned at Not on file Legal Sex Female 6:06 PM CDT Gender Identity Not on file Sexual Orientation Not on file Last Filed Vital Signs Vital Sign Reading Time Taken Comments Blood Pressure 124/58 06/21/2020 9:42 PM CDT Pulse 59 06/21/2020 9:42 PM CDT Temperature 36.8 C (98.2 F) 06/21/2020 8:34 PM CDT Respiratory Rate 16 06/21/2020 9:42 PM CDT Oxygen Saturation 97% 06/21/2020 9:42 PM CDT Inhaled Oxygen Concentration - - Weight 61.2 kg (135 lb) 06/21/2020 8:34 PM CDT Height 172.7 cm (5' 8 ) 06/21/2020 8:34 PM CDT Body Mass Index 20.53 06/21/2020 8:34 PM CDT Plan of Treatment Health Maintenance Due Date Last Done Comments Colorectal Cancer Screening Colonoscopy (10 Years) 1963 Annual Physical 1966 Pneumococcal Vaccine: Pediat rics (0 to 5 Years) and At-Risk Patients (6 to 64 Years) (1 of 2 - PCV) 1969 Hepatitis C 1981 DTaP, Tdap and Td Vaccines ( 1 - Tdap) 1982 Zoster Vaccines (1 of 2) 2013 Mammogram Screening 05/12/2022 05/12/2020 COVID-19 Vaccine (1 - 2023-2 5 season) 2024 Influenza Adult (#1) 2024 RSV Immunization or 60+ Years (1 - 1-dose 75+ series) 2038 Meningococcal B Vaccine Aged Out No l onger eligible based on patient's age to complete this topic Meningococcal Vaccine Aged Out No eli [place] eligible based on patient's age to complete this topic RSV Immunizations Under 20 Months Aged Out No longer eligible based on patient's age to complete this topic Procedures Procedure Name Priority Date/Time Associated Diagnosis Comments MG SCREENING W MARIBEL DOMINIC DIGI Routine 05/12/2020 9:38 AM CDT Screening mammogram for high-risk patient from Last 3 Months or Most Recently Relevant to Health Maintenance Results * MG SCREENING W MARIBEL DOMINIC DIGI (05/12/2020 9:38 AM CDT) Anatomical Region Laterality Modality Breast Bilateral Mammography 05/18/2020 10:3 8 AM CDT Impressions 05/18/2020 12:05 PM CDT IMPRESSION: No mammographic findings suggestive of malignancy. Recommendation: 1: Routine screening mammogram bilateral in 1 year Assessment: ACR BI-RADS Category 2 - Benign. Interpreted By: Clarence Gregorio MD, 05/18/2020 10:38 AM Narrative 05/18/2020 12:05 PM CDT Examination: Screening bilateral mammogram Clinical history: Asymptomatic screening mammogram Comparison: Mammograms 03/14/2016, 03/15/2017 and 07/06/2018 Technique: Digital screening mammography of both breasts was performed. Breast tomosynthesis acquisitions were obtained bilaterally. This study was read with the assistance of a computer-aided detection system. Tissue density: There are scattered areas of fibroglandular density. Findings: No suspicious masses, malignant appearing calcifications, skin thickening or other abnormalities are present. No significant change from the prior exam. Eb Gomez MD MAMMO Final Result from Last 3 Months or Most Recently Relevant to Health Maintenance Insurance [employer] Care Teams Acetylene Plant Operator Relationship Specialty Start Date End Date Eb Gomez MD PCP - General FAMILY PRACTICE 02/25/19
--- OUTSIDE RECORDS SUMMARY | 2024-10-04 17:34 | XMS_ITS | Encounter Summary ---
Author Organization [facility] Address [address] [place] [address] Care Team Providers Care Metal Loader Name Role Phone Eb Gomez MD Primary Care Provider [phone] Encounter Details Date Type Department Care Team (Late st Contact Info) Description 02/02/2019 Abstract [facility] CONVERSION [address] [place], [place] [id number] , Generic ConversionMD Social History Tobacco Use Types Packs/Day Years Used Date Smoking Tobacco: Smoker, Current Status Unknown Comments Unknown Sex and Gender Information Value Date Recorded Sex Assigned at Not on file Legal Sex Female 6:06 PM CDT Gender Identity Not on file Sexual Orientation Not on file documented as of this encounter Plan of Treatment Not on file documented as of this encounter Visit Diagnoses Not on filedocumented in this encounter Additional Health Concerns Infection Onset Date Last Indicated Resolved Time COVID-19 Rule Out 08/22/2020 08/22/2020 08/24/2020 2:38 PM [employer] documented as of this encounter Care Teams Metal Loader Relationship Specialty Start Date End Date Eb Gomez MD PCP - General FAMILY PRACTICE 02/25/19 documented as of this encounter
[2024-10-04 18:09] LABS: Anion Gap 7 mmol/L (4-12); Blood Urea Nitrogen 22 mg/dL (7-18); Calcium 9.4 mg/dL (8.5-10.1); Carbon Dioxide 34 mmol/L (21-32); Chloride 99 mmol/L (98-108); Estimated Glomerular Filt Rate 49; Glucose 86 mg/dL (70-99); Osmolality Calculated 292 mOsm/kg (285-295); Potassium 4.1 mmol/L (3.5-5.1); Sodium 140 mmol/L (136-145)
[2024-10-06 07:49] LABS: Vitamin D 25 Hydroxy 95 ng/mL (30-100)
== END 2024-10-04 17:29 | disposition home or self-care (01) ==
LOC: CHSLAB 17:31
PROVIDERS: PCP Emergency Medicine
DX: M81.0 Age-related osteoporosis without current pathological fracture (principal)
CPT/HCPCS: 36415; 80048; 82306

== ENCOUNTER 2024-12-16 00:35 | Emergency (ER) | payer OTHER, SELFPAY ==
--- OUTSIDE RECORDS SUMMARY | 2024-12-16 00:37 | XMS_ITS | Data Portability ---
Author Organization [facility], [address] [place] [address] [place]rology ([place]) Address [address] [address] Care Team Providers Care Lumite Injector Name Role Phone FRANKY CASTELLON Primary Care Provider Assessment Encounter Date Assessment Date Assessment LastModified by Organization Details LastModified Time 09/10/2024 09/10/2024 We do plan on getting urine to get the KUB done today. I then want to have one of our STRATEGIC BUYER's interrogate the device and see if it is functioning properly I personally spent a total of 22 minutes on this patient on this date of service going both vacn-nx-lcgu and nge-vzno-ay-fac e time Not available 09/12/2024 12:07:42 09/18/2024 [...] before making changes to the InterStim settings. [email or web address] Not available 09/18/2024 17:10:50 Plan of Treatment Reminders Order Date Submit Date Provider Last Modified By Organization Details Last Modified Time Details Appointments Establish ed Patient 15.EST 2024 02:45P Gus Reina Not available Not available Not available Lab BMP, serum or plasma 2023 025 [facility], [address] [place], [address], 10/07/2024 21:23:02 vitamin D, 25-hydrox y, total, serum 2023 025 [facility], [address] [place], [address], 10/07/2024 21:23:02 Referral None recorded. Procedures None recorded. Surgeries None recorded. Imaging bone density [address] (Imaging), [address] [place], [address], 04/15/2024 17:31:48 Medication Orders valacyclo vir 1 gram tablet 2024 025 [facility], [address] [place], [place], [id number], 09/18/2024 15:32:03 Patient TargetsNo targets recorded. Patient Instructions Encounter Date Encounter Id Patient Instructions Last Modified By Organization Details Last Modified Time 04/15/2024 [id number] patient follow up phone call* [email or web address] Not available 10/04/2024 11:33:49 Reason for Referral None Reported. Results Created Date Observation Date Name Description Value Unit Range Abnormal Flag Note LastModifiedBy Organization Detail LastModifiedTime 11/28/19 24 11/28/2023 XR, pelvi s, 1 or 2 view No observ ation record ed. Not Available 2023 10:44:13 09/10/19 25 09/10/2024 XR, abdom en, 1 [place] [address] Teleph oau [phone] Name: Bessy Tuttle 1460Ex am Date: [...] Page PAGE 1 of TARA ES 1 [id number] [facility] Only - [facility] [address] [place] [address], [address], 09/20/2024 17:21:59 Result Notes None recorded. Problems Name Problem SNOMED Code Status Onset Date Resolution Date Notes Provider Name and Address Organization Details Recorded Time Osteoporosis 69425806 Active 2023 Ga Liu her, [employer] TR[employer]IVER, DNP, [employer]BER [address] [place] [address], [phone], [facility] 5 12:05:38 Dysuria 08737152 Active 2023 Sylvia Butler [facility] 4 09:42:33 Increased frequency of urination 397759122 Active 2022 Sylvia Butler [facility] 4 09:43:07 Blood in urine 52876001 Active 2019 Sylviaduncan Butler [facility] 4 09:43:50 Overactive urinary bladder 728842585 Active 2024 Joel Mchugh MD [address] [place] [address], [phone], [facility] 5 12:07:24 Herpes zoster without complication 255578871 Active 2024 LILA REINA, [employer]BER [address] [place] [address], [phone], [facility] 5 15:29:28 Urinary incontinence 256717477 Active 2023 Ynes Chong [facility] 5 12:23:53 Problem Notes None recorded. [...] XR, pelvis, 1 or 2 view completed [email or web address] Information not available 12/13/2023 10:44:13 09/10/2024 XR, abdomen, 1 view completed [id number] [facility] Only - [facility] [address] [place] [address], [address], 09/20/2024 17:21:59 Procedure Notes None recorded. Medical Equipment None Reported. Allergies Allergen ID Allergen Name Allergen Category Reaction Reaction Severity Criticality Documentation Date Start Date Code Code System Note Provider Name and Address Organization Details Recorded Time 739103 ciproflox acin hydrochlo ride medicatio n Not available Not available Not available 09/25/20232012 11367 RxNorm Not Available Not Available Not Available 099283 aspirin medicatio n Not available Not available Not available 09/25/20232014 1191 RxNorm Not Available Not Available Not Available Medications Name Sig Start Date Stop Date Status Note LastModified by Organization Details LastModified Time Prescriptio n - New active Not Available Not Available Not Available albuterol sulfate 2.5 mg/3 mL (0.083 %) [...] Updated DateTime 4 167.64 cm 21.8 kg/m2 83138.9 7 g 99.5 [degF] 95 % 95 % 87 /min 118 mm[Hg] 67 mm[Hg] Agnieszkasierra Salguero awpaz [facility] 4 11:59:35 Date Recorded Body height Body mass index (BMI) Body weight Heart rate Systolic blood pressure Diastolic blood pressure Provider Name and Address Organization Details Last Updated DateTime 4 167.64 cm 21.6 kg/m2 29731.9 4 g 68 /min 100 mm[Hg] 58 mm[Hg] Carmen ChapmanDiamond mix [facility] 4 14:46:31 Date Recorded Body height Provider Name an d Address Organization Details Last Updated DateTime 09/10/2024 167.64 cm Marium Alcocer [facility] 09/10/2024 11:58:09 Date Recorded Body height Body mass index (BMI) Body weight Heart rate Oxygen saturation Oxygen saturation in Arterial blood by Pulse oximetry Provider Name and Address Organization Details Last Updated DateTime 5 167.64 cm 20.7 kg/m2 64016.8 2 g 87 /min 98 % 98 % Nelidaashley Randhawa [facility] 5 14:50:54 Social History Question Answer Notes [...] Do You Have A Medical Power Of Spooler? No [email or web address] Information not available 11/27/2023 What [...] Stroke N Fibromyalgia N Kidney Disease N Bleeding Disorder N Asthma Y Seizures N Attention-deficit Hyperactivity Disorder N Thyroid Problems N Anemia N Diabetes N Hyperlipidemia N Heart Disease N Osteoporosis Y Gynecological HistoryNo gynecological history recorded. Obstetrics History GPAL:G 0 P 0 0 0 0 Immunizations Vaccine Type Date Status Note Provider Nam e and Address Organization Details Recorded Time COVID-19, mRNA, LNP-S, PF, 100 mcg/0.5mL dose or 50 mcg/0.25mL dose 06/03/2021 completed Carmen jimenez [facility] 04/15/2024 14:42:09 Influenza, split virus, trivalent, PF 06/23/2015 completed Carmen jimenez [facility] 04/15/2024 14:42:10 Past Encounters Encounter ID Performer Location Encounter Start Date Encounter Closed Date Diagnosis/Indication Diagnosis SNOMED-CT Code Diagnosis ICD10 Code Diagnosis Note [id number] Deanna Rico , [employer]IVER, [employer]BER [address] [facility] [facility] ([place]) [address] [place] [address] 11/29/2023 11:41:35 11/29/2023 12:42:51 [id number] Ga Greenfield er, [employer]IVER, DNP, CLE[employer] MEMBER [facility] [address] [place] [address] 04/15/2024 14:27:15 04/15/2024 17:22:56 Osteoporosis 17871387 M81.0 59-year-ol d female with history of [...] after she completes the bone density scan. [id number] Joel Mchugh MD 800 [facility] ([place]) [address] [place] [address] [address] [place] [address] 09/10/2024 11:55:24 09/10/2024 13:59:58 Overactive urinary bladder 759110355 N32.81 [id number] Joel Mchugh MD [address] [facility] ([place]) [address] [place] [address] [address] [place] [address] 09/18/2024 14:40:57 09/18/2024 16:25:26 Herpes zoster without complication 667054174 B02.9 Health Concerns Section Related Observation LastModified by Organization Detai ls LastModified Time None Recorded Concern Status LastModified by Organization Details LastModified Time None Recorded Advance Directives Directive N: Payers Encounter Date Sequence Insurance Name Policy Number Policy Pepper Covered Member ID Pepper Member ID Guarantor Name 11/29/2023 1 [facility] (MEDICAID HMO) [id number] Bessy Zavala [id number] Bessy Zavala 04/15/2024 1 [facility] (MEDICAID HMO) [id number] Bessy Zavala [id number] Bessy Zavala 09/10/2024 1 [facility] (MEDICAID HMO) [id number] Bessy Zavala [id number] Bessy Zavala 09/18/2024 1 [facility] (MEDICAID HMO) [id number] 0003 Bessy Zavala [id number] Bessy Zavala Notes Date Note Type Note Provider Name and Address Organization Details Recorded Time 4 text/html Assessment & Plan:Ongoing urinary incontinence-InterStim device [...] is normal and without defect. Deanna Rico, [employer] TR[employer]IVER, [employer]BER [address] [place] [address], [phone], [facility] 11/29/2023 12:21:25 4 text/html Ms. Zavala is a 59-year-old female who presents for management of osteoporosis. Current osteoporosis treatment: Reclast (at [facility]) on 10/13/23. She does report some [...] 1800mg/day Supplements: No calcium supplement. Vitamin D2 79433TN weekly [facility], GFR 59Calcium 9.8Intact PTH 33Vitamin D [...] overuse. No longer consumes alcohol. Ga Newman, [employer]IVER, DNP, [employer] MEMBER [address] [place] [address], [phone], [facility] 04/15/2024 17:40:03 5 text/html Patient is coming [...] on this Joel Mchugh MD [address] [facility], [place], [address], [place] [facility] 09/12/2024 12:07:44 OBGyn Episode No OBEpisode recorded.
--- OUTSIDE RECORDS SUMMARY | 2024-12-16 00:37 | XMS_ITS | Clinical Summary ---
Author Organization [facility] Address [address] [address] Phone Care Team Providers Care Diamond Wheel Molder Name Role Phone Eb Gomez Primary Care Provider [phone] Allergies Active Allergy Reactions Criticality Noted Date [...] Cologuard 2013 Immunochemical Fecal Occult Blood 2013 Pneumococcal Immunization (5 0+ years) (1 [...] this topic Medical Devices Implanted Type Area Railcar Switchman Device Identifier Shelf Expiration Date Model / Serial / Lot Clip 360 Resolution 235cm - [id number] Implanted:Qty: 3 on 04/06/2018 by Puma Medina DO at [facility] IMPLANT [employer] 12/24/2020 [id number] / [id number] / [id number] Description:ASCENDING COLON POLYPECTOMY SITE Insurance MEDICAID [employer] Care Teams Diamond Wheel Molder Relationship Specialty Start Date End Date Eb Gomez [address] [place] [address] PCP - General Family Medicine 07/09/16
--- OUTSIDE RECORDS SUMMARY | 2024-12-16 00:37 | XMS_ITS | Encounter Summary ---
Author Organization [facility] Address [address] [place] [address] Care Team Providers Care Pastoral Counselor Name Role Phone Eb Gomez MD Primary Care Provider [phone] Encounter Details Date Type Department Care Team (Late st Contact Info) Description 02/02/2019 Abstract SFL CONVERSION [address] [place] [address] , Generic ConversionMD Social History Tobacco Use [...] Rule Out 08/22/2020 08/22/2020 08/24/2020 2:38 PM GLAZIER APPRENTICE documented as of this encounter Care Teams Pastoral Counselor Relationship Specialty Start Date End Date Eb Gomez MD PCP - General FAMILY PRACTICE 02/25/19 documented as of this encounter
--- OUTSIDE RECORDS SUMMARY | 2024-12-16 00:37 | XMS_ITS | Clinical Summary ---
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
--- OUTSIDE RECORDS SUMMARY | 2024-12-16 00:37 | XMS_ITS | Continuity of Care Document ---
Author Organization [facility] Address [address] [place] [address] [place] [address] Phone Care Team Providers Care Final Inspector Name Role Phone Eb Gomez MD Unavailable [...] g or operate machines, PRN for anxiety, omeprazole 40 mg capsule,delayed release take 1 capsule by oral route every day before a meal 40 MG - Active Lamictal 150 mg tablet take 1 tablet [...] by oral route every week - Active Cymbalta 60 mg capsule,delayed release take 1 capsule by oral route every day 60 MG - Active prazosin 5 mg capsule take 1 capsule by oral route [facility] Aug-15-2024 - Active avoid driving or operate machines Michelle Aerosphere 160 mcg-9mcg-4.8mcg/act uation HFA aerosol inhaler [...] OFFICE/OUTPATIENT VISIT, EST -2021 OFFICE/OUTPATIENT VISIT, EST PREV VISIT, EST, AGE 40-64 Jul- OFFICE/OUTPATIENT [...] Copied on Encounter OFFICE/OUTPA TIENT VISIT, EST [facility], [address] [place], [address], [place] tel:[phone] [facility] pain (chief complaint)anx iety1 (chief complaint)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 [address] [place], [address] , [place]. tel:[phone] OFFICE/OUTPA TIENT VISIT, [facility], [address], [place], [place], [address], [place] tel:[phone] [facility] Medicine pain (chief complaint)anx iety1 (chief complaint)rachna ght loss1 (chief complaint)bar rett1 (chief complaint) Chronic pain syndromeGenerali zed Anxiety DisorderAbnormal weight lossBarrett's esophagus without dysplasia 5 Gomez Eb. [address], [place], [place], [address] , [place]. tel:[phone] OFFICE/OUTPA TIENT VISIT, [facility], [address], [place], [place], [address], [place] tel:[phone] [facility] pain (chief complaint)anx iety1 (chief complaint)douglas ngle1 (chief complaint) Other postherpetic nervous system involvementChron ic pain syndromeGenerali zed Anxiety Disorder 5 Gomez Eb. [address], [address], [place], [place], [address] , [place]. tel:[phone] OFFICE/OUTPA TIENT VISIT, [facility], [address], [place], [place], [address], [place] tel:[phone] [facility] Medicine pain (chief complaint)anx iety1 (chief complaint)HLP (chief complaint) Chronic pain syndromeGenerali zed Anxiety DisorderMixed hyperlipidemia 5 Gomez Eb. [address], [place], [place], [address] , [place]. tel:[phone] OFFICE/OUTPA TIENT VISIT, [facility], [address], [place], [place], [address], [place] tel:[phone] [facility] pain (chief complaint)anx ity1 (chief complaint) Chronic pain syndromeGenerali zed Anxiety Disorder 4 Jason Parson. [address], [place], [place], [address] , [place]. tel:[phone] OFFICE/OUTPA TIENT VISIT, [facility], [address] [place], [address], [place] tel:[phone] [facility] pain (chief complaint)anx iety (chief complaint)HTN (chief complaint) Chronic pain syndromeGenerali zed Anxiety DisorderEssentia l (primary) hypertensionEnco unter for oth screening for malignant neoplasm of breast 4 Jason Parson. [address], [address], [place], [place], [address] , [place]. tel:[phone] OFFICE/OUTPA TIENT VISIT, [facility], [address] [place], [address], [place] tel:[phone] [facility] pain (chief complaint)anx iety1 (chief complaint)ost eoporosis1 (chief complaint)EN D1 (chief complaint) OsteoporosisGene ralized Anxiety DisorderChronic pain syndromeGERD w/o esophagitis 4 Jason Parson. [address], [place], [place], [address] , [place]. tel:[phone] [facility], [address] [place], [address], [place] tel:[phone] [facility] No Information 4 Jason Eb. [address], [address], [place], [place], [address] , [place]. tel:[phone] OFFICE/OUTPA TIENT VISIT, [facility], [address] [place], [place], [address], [place] tel:[phone] [facility] osteoporosis1 (chief complaint)leslie n (chief complaint)anx iety1 (chief complaint)federico g (chief complaint) OsteoporosisChro sangeetha pain syndromeGenerali zed Anxiety DisorderSolitary lung nodule 4 Jason Parson. [address], [place], [place], [address] , [place]. tel:[phone] OFFICE/OUTPA TIENT VISIT, [facility], [address] [place], [place], [address], [place] tel:[phone] [facility] pain (chief complaint)anx iety1 (chief complaint)nig htmares1 (chief complaint) Chronic pain syndromeGenerali zed Anxiety DisorderNightmar e disorderTobacco use 4 Jason Parson. [address] [place], [address] , [place]. tel:[phone] OFFICE/OUTPA TIENT VISIT, [facility], [address] [place], [place], [address], [place] tel:[phone] [facility] pain (chief complaint)anx iety1 (chief complaint)PTS D (chief complaint) Chronic pain syndromeGenerali zed Anxiety DisorderNightmar e disorder 4 Jason Parson. [address] [place], [address] , [place]. tel:[phone] OFFICE/OUTPA TIENT VISIT, [facility], [address] [place], [place], [address], [place] tel:[phone] [facility] pain (chief complaint)ANX IETY1 (chief complaint)GLU COSE1 (chief complaint)HLP (chief complaint)ost eoprosis1 (chief complaint) Chronic pain syndromeGenerali zed Anxiety DisorderMixed hyperlipidemiaOs teoporosisHyperg lycemia 4 Jason Parson. [address] [place], [address] , [place]. 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 [address], [place], [place], [address] , [place]. tel:[phone] PREV VISIT, EST, AGE 40-64 [facility], [address], [place], [place], [address], [place] tel:[phone] [facility] physical (chief complaint) Encounter for general adult medical examination without abnormal findings 4 Jason Parson. [address], [place], [place], [address] , [place]. tel:[phone] OFFICE/OUTPA TIENT VISIT, EST [facility], [address] [place], [address], [place] tel:[phone] [facility] pain (chief complaint)anx iety1 (chief complaint)EN D1 (chief complaint) Chronic pain syndromeGenerali zed Anxiety DisorderBarrett' s esophagus 4 Jason Juarez [address], [place], [place], [address] , [place]. tel:[phone] OFFICE/OUTPA TIENT VISIT, EST [facility], [address] [place], [address], [place] tel:[phone] [facility] pain (chief complaint)anx iety1 (chief complaint)HLP (chief complaint)ost eoporosis1 (chief complaint) Chronic pain syndromeGenerali zed Anxiety DisorderOsteopor osisMixed hyperlipidemia 4 Jason Parson. [address], [place], [place], [address] , [place]. tel:[phone] OFFICE/OUTPA TIENT VISIT, EST [facility], [address] [place], [place], [address], [place] tel:[phone] [facility] anxiety1 (chief complaint)leslie n (chief complaint)HTN (chief complaint)ost eoprosis1 (chief complaint) Chronic pain syndromeGenerali zed Anxiety DisorderOsteopor osisEssential (primary) hypertension 4 Jason Parson. [address], [address], [place], [place], [address] , [place]. tel:[phone] OFFICE/OUTPA TIENT VISIT, [facility], [address] [place], [address], [place] tel:[phone] [facility] anxiety1 (chief complaint)leslie n (chief complaint)ost eoporosis1 (chief complaint)nig htmares1 (chief complaint)emp hysema1 (chief complaint) OsteoporosisGene ralized Anxiety DisorderChronic pain syndromeNightmar e disorderCentrilo bular emphysema 4 Gomez Eb. [address], [address], [place], [place], [address] , [place]. tel:[phone] OFFICE/OUTPA TIENT VISIT, [facility], [address] [place], [place], [address], [place] tel:[phone] [facility] anxiety1 (chief complaint)leslie n (chief complaint)nig htmares1 (chief complaint)ost eoporosis1 (chief complaint) Chronic pain syndromeGenerali zed Anxiety DisorderOsteopor osisNightmare disorder 3 Jason Eb. [address], [place], [place], [address] , [place]. tel:[phone] OFFICE/OUTPA TIENT VISIT, [facility], [address] [place], [place], [address], [place] tel:[phone] [facility] anxiety1 (chief complaint)leslie n (chief complaint)bar rett1 (chief complaint)ost eoporosis1 (chief complaint) OsteoporosisGene ralized Anxiety DisorderChronic pain syndromeBarrett' s esophagusNightma re disorder 3 Jason Eb. [address], [place], [place], [address] , [place]. tel:[phone] OFFICE/OUTPA TIENT VISIT, [facility], [address] [place], [address], [place] tel:[phone] [facility] anxiety1 (chief complaint)leslie n (chief complaint)ost eoporosis1 (chief complaint) Chronic pain syndromeGenerali zed Anxiety DisorderOsteopor osis 3 Jason Parson. [address], [address], [place], [place], [address] , [place]. tel:[phone] OFFICE/OUTPA TIENT VISIT, [facility], [address] [place], [address], [place] tel:[phone] [facility] osteoporosis1 (chief complaint)anx iety1 (chief complaint)leslie n (chief complaint)bar rett1 (chief complaint)federico g nodule1 (chief complaint) OsteoporosisGene ralized Anxiety DisorderChronic pain syndromeSolitary lung noduleBarrett's esophagus 3 Jason Juarez [address], [address], [place], [place], [address] , [place]. tel:[phone] OFFICE/OUTPA TIENT VISIT, [facility], [address] [place], [place], [address], [place] tel:[phone] [facility] pain (chief complaint)anx iety1 (chief complaint)Bar rett1 (chief complaint)federico g nodule1 (chief complaint) Chronic pain syndromeGenerali zed Anxiety DisorderOsteopor osisBarrett's esophagusSolitar y lung nodule 3 Jason Juarez [address], [address], [place], [place], [address] , [place]. tel:[phone] OFFICE/OUTPA TIENT VISIT, [facility], [address] [place], [place], [address], [place] tel:[phone] [facility] pain (chief complaint)anx iety1 (chief complaint) Generalized Anxiety DisorderChronic pain syndrome 3 Jason Parson. [address], [address], [place], [place], [address] , [place]. [phone] OFFICE/OUTPA TIENT VISIT, [facility], [address] [place], [place], [address], [place] tel:[phone] [facility] pain (chief complaint)anx iety1 (chief complaint)ost eoporosis1 (chief complaint) OsteoporosisChro sangeetha pain syndromeGenerali zed Anxiety Disorder 3 Jason Parson. [address] [facility] [address], [place], [place], [address] , [place]. tel:[phone] OFFICE/OUTPA TIENT VISIT, [facility], [address] [place], [address], [place] tel:[phone] [facility] wrist fx (chief complaint)leslie n (chief complaint)anx iety1 (chief complaint) Chronic pain syndromeGenerali zed Anxiety DisorderOsteopor osisPain in right wrist 3 Jason Juarez [address] [facility] [address], [place], [place], [address] , [place]. tel:[phone] OFFICE/OUTPA TIENT VISIT, [facility], [address] [place], [place], [address], [place] tel:[phone] [facility] pain (chief complaint)anx iety1 (chief complaint)HLP (chief complaint)ane mia1 (chief complaint) Chronic pain syndromeGenerali zed Anxiety DisorderMixed hyperlipidemiaIr on deficiency anemiaOsteoporos is 3 Jason Juarez [address], [address], [place], [place], [address] , [place]. tel:[phone] OFFICE/OUTPA TIENT VISIT, [facility], [address] [place], [address], [place] tel:[phone] [facility] pain (chief complaint)anx iety1 (chief complaint) Chronic pain syndromeGenerali zed Anxiety Disorder 3 Jason Parson. [address], [place], [place], [address] , [place]. tel:[phone] OFFICE/OUTPA TIENT VISIT, [facility], [address] [place], [address], [place] tel:[phone] [facility] pain (chief complaint)anx iety1 (chief complaint)federico g nodule1 (chief complaint)ost eoporosis1 (chief complaint)Bar rett (chief complaint) Centrilobular emphysemaChronic pain syndromeGenerali zed Anxiety DisorderOsteopor osisBarrett's esophagus 3 Jason Parson. [address], [address], [place], [place], [address] , [place]. tel:[phone] PREV VISIT, EST, AGE 40-64 [facility], [address], [place], [place], [address], [place] [phone] [facility] physical (chief complaint) Encounter for general adult medical examination without abnormal findings 3 Jason Parson. [address], [place], [place], [address] , [place]. tel: [phone] OFFICE/OUTPA TIENT VISIT, [facility], [address], [place], [place], [address], [place] tel:[phone] [facility] COPD1 (chief complaint)leslie n (chief complaint)anx iety1 (chief complaint)HTN (chief complaint) Centrilobular emphysemaChronic pain syndromeEssentia l (primary) hypertensionOste oporosisGenerali zed Anxiety Disorder 2 Jason Parson. [address], [address], [place], [place], [address] , [place]. tel: [phone] OFFICE/OUTPA TIENT VISIT, EST [facility], [address], [place], [place], [address], [place] tel:[phone] [facility] pain (chief complaint)anx iety1 (chief complaint)HTN (chief complaint)ost eoporosis1 (chief complaint)ost eoporosis1 (chief complaint) Chronic pain syndromeGenerali zed Anxiety DisorderOsteopor osisEssential (primary) hypertensionCent rilobular emphysema 2 Jason Parson. [address], [address], [place], [place], [address] , [place]. tel:[phone] OFFICE/OUTPA TIENT VISIT, [facility], [address] [place], [address], tel:[phone] [facility] emphysema1 (chief complaint)leslie n (chief complaint)anx iety1 (chief complaint) COPD w/ acute exacerbationChro sangeetha pain syndromeGenerali zed Anxiety Disorder 2 Jason Parson. [address], [place], [place], [address] , [place]. 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 [address], [address] , [place]. 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 [address], [address], [place], [place], [address] , [place]. 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 [address], [address], [place], [place], [address] , [place]. tel:[phone] OFFICE/OUTPA TIENT VISIT, [facility], [address], [place], [place], [address], [place] tel:[phone] [facility] pain (chief complaint)anx iety1 (chief complaint)tin nitus1 (chief complaint)dominik se1 (chief complaint) Chronic pain syndromeGenerali zed Anxiety DisorderImpacted cerumen, bilateralNeuropa thyStenosis of carotid artery 2 Jason Parson. [address], [place], [place], [address] , [place]. 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 [address], [address], [place], [place], [address] , [place]. tel:[phone] OFFICE/OUTPA TIENT VISIT, [facility], [address], [place], [place], [address], [place] tel:[phone] [facility] pain (chief complaint)anx iety (chief complaint)bar rett1 (chief complaint) Chronic pain syndromeGenerali zed Anxiety DisorderBarrett' s esophagus without dysplasiaPolyp of colon Nov- 2 Jason Parson. [address] [facility] [address], [place], [place], [address] , [place]. tel:[phone] OFFICE/OUTPA TIENT VISIT, [facility], [address] [facility] [place], [address], [place] tel:[phone] [facility] pain (chief complaint)anx iety1 (chief complaint)ost eoporosis1 (chief complaint) Chronic pain syndromeGenerali zed Anxiety DisorderOsteopor osis 2 Jason Parson. [address] [facility] [place], [address] , [place]. tel:[phone] OFFICE/OUTPA TIENT VISIT, [facility], [address] [facility] [place], [address], [place] tel:[phone] [facility] pain (chief complaint)anx iety1 (chief complaint)ost eoporosis1 (chief complaint)tob acco1 (chief complaint) Tobacco useOsteoporosisG eneralized Anxiety DisorderChronic pain syndromeIron deficiency anemia 2 Jason Parson. [address], [address], [place], [place], [address] , [place]. tel:[phone] OFFICE/OUTPA TIENT VISIT, [facility], [address] [place], [address], [place] tel:[phone] [facility] anemia1 (chief complaint)anx iety1 (chief complaint)leslie n (chief complaint)HLP (chief complaint)ost eoporosis1 (chief complaint)cou gh1 (chief complaint) Chronic pain syndromeGenerali zed Anxiety DisorderOsteopor osisHyperlipidem iaIron deficiency anemiaTobacco useAcute cough 2 Jason Parson. [address], [place], [place], [address] , [place]. tel:[phone] PREV VISIT, EST, AGE 40-64 [facility], [address], [place], [place], [address], [place] tel:[phone] [facility] Physical (chief complaint) Encounter for general adult medical examination without abnormal findings 1 Jason Juarez [address], [place], [place], [address] , [place]. [phone] OFFICE/OUTPA TIENT VISIT, [facility], [address], [place], [place], [address], [place] tel:[phone] [facility] anxiety1 (chief complaint)leslie n (chief complaint)ost eoporosis1 (chief complaint) OsteoporosisGene ralized Anxiety DisorderChronic pain syndromeEncounte r for oth screening for malignant neoplasm of breast 1 Jason Juarez [address], [address], [place], [place], [address] , [place]. [phone] OFFICE/OUTPA TIENT VISIT, [facility], [address], [place], [place], [address], [place] tel:[phone] [facility] anxiety1 (chief complaint)leslie n (chief complaint)b12 (chief complaint)tob acco1 (chief complaint) Chronic pain syndromeGenerali zed Anxiety DisorderTobacco useDeficiency of other specified B group vitamins 1 Jason Juarez [address], [address], [place], [place], [address] , [place]. 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 tel:[phone] OFFICE/OUTPA TIENT VISIT, [facility], [address] [place], [place], [address], tel:[phone] [facility] anxiety1 (chief complaint)leslie n (chief complaint)b12 (chief complaint)ost eoporosis1 (chief complaint) Chronic pain syndromeGenerali zed Anxiety DisorderOsteopor osisVitamin B deficiencyTobacc o use 1 Jason Juarez [address], [address], [place], [place], [address] , [place]. 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 tel:[phone] OFFICE/OUTPA TIENT VISIT, [facility], [address] [place], [address], [place] tel:[phone] [facility] hip fx1 (chief complaint)anx iety1 (chief complaint)HLP (chief complaint)HTN (chief complaint)ost eoporosis1 (chief complaint) Abnormal weight lossChronic pain syndromeGenerali zed Anxiety DisorderOsteopor osisEssential (primary) hypertensionHype rlipidemiaPresen ce of left artificial hip joint 1 Jason Juarez [address], [address], [place], [place], [address] , [place]. tel:[phone] OFFICE/OUTPA TIENT VISIT, [facility], [address] [place], [address], [place] tel:[phone] [facility] anxiety1 (chief complaint)leslie n (chief complaint)ins omnia1 (chief complaint)rachna ght loss1 (chief complaint) Abnormal weight lossChronic pain syndromeGenerali zed Anxiety DisorderInsomnia Vitamin B deficiency Nov-0 1 Jason Juarez [address], [address], [place], [place], [address] , [place]. tel:[phone] OFFICE/OUTPA TIENT VISIT, [facility], [address], [place], [place], [address], [place] tel:[phone] [facility] anxiety1 (chief complaint)leslie n (chief complaint)Ane mia1 (chief complaint)mejia al (chief complaint) AnemiaChronic pain syndromeGenerali zed Anxiety DisorderRenal diseaseHyperkale miaAbnormal weight loss 0 1 Jason Juarez [address], [place], [place], [address] , [place]. tel:[phone] OFFICE/OUTPA TIENT VISIT, [facility], [address] [place], [address], [place] tel:[phone] [facility] overactive bladder1 (chief complaint) Overactive bladderMixed incontinence 0 1 Jason Juarez [address], [address], [place], [place], [address] , [place]. tel:[phone] OFFICE/OUTPA TIENT VISIT, [facility], [address] [place], [address], [place] tel:[phone] [facility] anxiety1 (chief complaint)leslie n (chief complaint)ane mia1 (chief complaint)ost eoporosis1 (chief complaint) Chronic pain syndromeGenerali zed Anxiety DisorderAbnormal weight lossAnemiaOsteop orosis 0 1 Jason Juarez [address], [address], [place], [place], [address] , [place]. 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 tel:[phone] OFFICE/OUTPA TIENT VISIT, [facility], [address] [place], [address], [place] tel:[phone] [facility] anxity1 (chief complaint)leslie n (chief complaint)hem aturia1 (chief complaint)rachna ght loss1 (chief complaint) Abnormal weight lossHematuriaChr onic pain syndromeGenerali zed Anxiety Disorder 0 Jason Juarez [address] [facility], [place], [place], [address] , [place]. tel:[phone] OFFICE/OUTPA TIENT VISIT, [facility], [address] [place], [address], [place] tel:[phone] [facility] anxiety1 (chief complaint)leslie n1 (chief complaint)mejia al (chief complaint)b12 (chief complaint)ane mia1 (chief complaint)rachna ght loss1 (chief complaint) HematuriaFolate deficiencyAnemia Renal diseaseAbnormal weight lossGeneralized Anxiety DisorderChronic pain syndrome 0 Jason Juarez [address] [place], [address] , [place]. 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 [address], [address], [place], [place], [address] , [place]. tel:[phone] OFFICE/OUTPA TIENT VISIT, [facility], [address], [place], [place], [address], [place] tel:[phone] [facility] anxiety1 (chief complaint)leslie n (chief complaint)hem aturia1 (chief complaint)LDC T (chief complaint) Generalized Anxiety DisorderHematuri aChronic pain syndromeTobacco use 0 202 0 Jason Eb. [address], [address], [place], [place], [address] , [place]. 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 [address], [address], [place], [place], [address] , [place]. tel:[phone] OFFICE/OUTPA TIENT VISIT, [facility], [address] [place], [address], [place] tel:[phone] [facility] anxiety1 (chief complaint)leslie n (chief complaint)tob acco (chief complaint) Chronic pain syndromeGenerali zed Anxiety DisorderTobacco useHematuria 0 202 0 Jason Eb. [address], [address], [place], [place], [address] , [place]. 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 [phone] OFFICE/OUTPA TIENT VISIT, [facility], [address] [facility] [place], [address], [place] tel:[phone] [facility] anxiety1 (chief complaint)leslie n1 (chief complaint)ost eoporosis1 (chief complaint)hem aturia1 (chief complaint)ins omnia1 (chief complaint) HematuriaAnemiaG eneralized Anxiety DisorderChronic pain syndromeInsomnia OsteoporosisEsse ntial (primary) hypertension 0 Jason Juarez [address] [facility] [place], [address] , [place]. 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 [phone] OFFICE/OUTPA TIENT VISIT, [facility], [address] [place], [place], [address], [place] tel:[phone] [facility] pain (chief complaint) Chronic pain syndromeGenerali zed Anxiety Disorder 0 Jason Juarez [address] [facility] [place], [address] , [place]. tel:[phone] Referring Provider: Eb Gomez [address] [place] [place], [place], [address]. tel:[phone] OFFICE/OUTPA TIENT VISIT, [facility], [address], [place], [place], [address], [place] tel:[phone] [facility] Medicine pain (chief complaint)anx iety1 (chief complaint)b12 (chief complaint)ins omnia1 (chief complaint) Generalized Anxiety DisorderInsomnia AnemiaChronic pain syndromeVitamin B deficiency 0 Jason Parson. [address], [address], [place], [place], [address] , [place]. tel:[phone] Referring Provider: Kristen Fernandez [address], [place], [place], [address]. tel:[phone] PREV VISIT, EST, AGE 40-64 [facility], [address], [place], [place], [address], [place] tel:[phone] [facility] physical (chief complaint) Encntr for general adult medical exam w/o abnormal findings 0 Jason Parson. [address], [address], [place], [place], [address] , [place]. tel:[phone] Referring Provider: Kristen Fernandez [address], [place], [place], [address]. tel:[phone] OFFICE/OUTPA TIENT VISIT, EST [facility], [address], [place], [place], [address], [place] tel:[phone] [facility] insomnia1 (chief complaint)leslie n1 (chief complaint)anx iety1 (chief complaint)hem aturia1 (chief complaint) Chronic pain syndromeGenerali zed Anxiety DisorderInsomnia Hematuria 0 Jason Parson. [address], [address], [place], [place], [address] , [place]. tel:[phone] Referring Provider: Kristen Fernandez [address], [place], [place], [address]. tel:[phone] OFFICE/OUTPA TIENT VISIT, EST [facility], [address], [place], [place], [address], [place] tel:[phone] [facility] osteoprosis1 (chief complaint)ins omani1 (chief complaint)anx iety1 (chief complaint)chr onic pain1 (chief complaint)con fusion1 (chief complaint) Generalized Anxiety DisorderChronic pain syndromeInsomnia OsteoporosisAbno rmal involuntary movementHematuri aDeficiency of other specified B group vitamins 9 Jason Parson. [address], [address], [place], [place], [address] , [place]. tel:[phone] Referring Provider: Eb Gomez, [address], [place], [place], [address]. tel:[phone] OFFICE/OUTPA TIENT VISIT, [facility], [address], [place], [place], [address], [place] tel:[phone] [facility] anemia1 (chief complaint)mejia al1 (chief complaint)chr onic pain (chief complaint)anx iety1 (chief complaint) AnemiaRenal diseaseHematuria Chronic pain syndromeGenerali zed Anxiety DisorderAbnormal involuntary movement 9 Jason Parson. [address], [address], [place], [place], [address] , [place]. 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 [address], [address], [place], [place], [address] , [place]. tel:[phone] Referring Provider: Kristen Fernandez [address], [place], [place], [address]. tel:[phone] PREV VISIT, EST, AGE 40-64 [facility], [address], [place], [place], [address], [place] tel:[phone] [facility] anxieyt1 (chief complaint)chr oinc pain1 (chief complaint)PHy sical (chief complaint) Encntr for general adult medical exam w/o abnormal findings 9 Jason Parson. [address], [address], [place], [place], [address] , [place]. tel:[phone] Referring Provider: Kristen Fernandez [facility] A, [place], [place], [address]. tel:[phone] OFFICE/OUTPA TIENT VISIT, [facility], [address] [place], [address], [place] tel:[phone] [facility] COPD1 (chief complaint)chr onic pain (chief complaint)CAD (chief complaint)anx iety1 (chief complaint) Coronary artery disease of [place] coronary artery without angina pectorisEmphysem aChronic pain syndromeGenerali zed Anxiety Disorder 9 Jason Parson. [address], [facility] A, [place], [place], [address] , [place]. tel:[phone] OFFICE/OUTPA TIENT VISIT, [facility], [address] [place], [address], [place] tel:[phone] [facility] COPD1 (chief complaint)CAD (chief complaint)anx iety1 (chief complaint)chr onic pain1 (chief complaint) Solitary lung noduleEmphysemaG eneralized Anxiety DisorderChronic pain syndromeCoronary artery disease of [place] coronary artery without angina pectoris 9 Jason Parson. [address], [address], [place], [place], [address] , [place]. tel:[phone] Referring Provider: Kristen Fernandez [facility] A, [place], [place], [address]. tel:[phone] OFFICE/OUTPA TIENT VISIT, [facility], [address] [place], [address], [place] tel:[phone] [facility] anxiety1 (chief complaint)chr onic pain1 (chief complaint)tob acco1 (chief complaint) Chronic pain syndromeGenerali zed Anxiety DisorderSolitary lung noduleTobacco use 9 Jason Parson. [address], [address], [place], [place], [address] , [place]. tel:[phone] Referring Provider: Kristen Fernandez [facility] A, [place], [place], [address]. 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 [address], [address], [place], [place], [address] , [place]. tel:[phone] OFFICE/OUTPA TIENT VISIT, [facility], [address] [place], [place], [address], [place] tel:[phone] [facility] COPD1 (chief complaint)HTN (chief complaint)chr onic pain1 (chief complaint)anx iety1 (chief complaint) Chronic pain syndromeGenerali zed Anxiety DisorderEssentia l (primary) hypertensionEmph ysema 9 Jason Parson. [address], [address], [place], [place], [address] , [place]. tel:[phone] Referring Provider: Kristen Fernandez [address] [facility] A, [place], [place], [address]. tel:[phone] OFFICE/OUTPA TIENT VISIT, [facility], [address] [place], [address], [place] tel:[phone] [facility] anemia1 (chief complaint)anx iety1 (chief complaint)brenda k pain1 (chief complaint) Generalized Anxiety DisorderChronic pain syndromeAnemia 9 Jason Parson. [address], [address], [place], [place], [address] , [place]. tel:[phone] OFFICE/OUTPA TIENT VISIT, [facility], [address], [place], [place], [address], [place] tel:[phone] [facility] hlP (chief complaint)chr onic pain (chief complaint)anx iety1 (chief complaint)ane mia1 (chief complaint) AnemiaGeneralize d Anxiety DisorderChronic pain syndromeHyperlip idemiaFolic acid deficiency Jason Parson. [address], [address], [place], [place], [address] , [place]. tel:[phone] Referring Provider: Kristen Fernandez [facility] A, [place], [place], [address]. tel:[phone] OFFICE/OUTPA TIENT VISIT, [facility], [address], [place], [place], [address], [place] tel:[phone] [facility] chronic pain1 (chief complaint)anx iety1 (chief complaint) Chronic pain syndromeGenerali zed Anxiety Disorder 9 Jason Parson. [address], [address], [place], [place], [address] , [place]. 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 [address], [address], [place], [place], [address] , [place]. tel:[phone] Referring Provider: Kristen Fernandez [address], [place], [place], [address]. tel:[phone] OFFICE/OUTPA TIENT VISIT, [facility], [address], [place], [place], [address], [place] tel:[phone] [facility] anemia1 (chief complaint)ost eoporosis1 (chief complaint)chr onic pain (chief complaint)anx iety1 (chief complaint)b12 (chief complaint) OsteoporosisAnem iaChronic pain syndromeGenerali zed Anxiety DisorderFolic acid deficiency 0 8 Jason Parson. [address], [address], [place], [place], [address] , [place]. tel:[phone] Referring Provider: Eb Gomez [address], [place], [place], [address]. tel:[phone] OFFICE/OUTPA TIENT VISIT, [facility], [address], [place], [place], [address], [place] tel:[phone] [facility] chronic pain (chief complaint)anx iety1 (chief complaint) Chronic pain syndromeGenerali zed Anxiety Disorder 8 Jason Parson. [address], [address], [place], [place], [address] , [place]. tel:[phone] Referring Provider: Kristen Fernandez [address], [place], [place], [address]. tel:[phone] OFFICE/OUTPA TIENT VISIT, [facility], [address], [place], [place], [address], [place] tel:[phone] [facility] chronic pain1 (chief complaint)anx iety1 (chief complaint)HTN (chief complaint)col on polyp1 (chief complaint) Chronic pain syndromeGenerali zed Anxiety DisorderPolyp of colonEssential (primary) hypertension 8 Jason Parson. [address], [address], [place], [place], [address] , [place]. tel:[phone] Referring Provider: Kristen Fernandez [address], [place], [place], [address]. tel:[phone] PREV VISIT, EST, AGE 40-64 [facility], [address], [place], [place], [address], [place] tel:[phone] [facility] Physical (chief complaint) Encounter for general adult medical exam w abnormal findingsPolyp of colonChronic pain syndromeGenerali zed Anxiety DisorderOsteopor osis 8 Jason Parson. [address], [address], [place], [place], [address] , [place]. tel:[phone] Referring Provider: Kristen Fernandez [address], [place], [place], [address]. tel:[phone] OFFICE/OUTPA TIENT VISIT, [facility], [address], [place], [place], [address], [place] tel:[phone] [facility] lung nodule1 (chief complaint)Chr onic pain1 (chief complaint)anx iety1 (chief complaint)kcl (chief complaint) Solitary lung noduleChronic pain syndromeGenerali zed Anxiety DisorderHyperkal emiaEmphysema 8 Jason Juarez [address], [address], [place], [place], [address] , [place]. tel:[phone] Referring Provider: Kristen Fernandez [address], [place], [place], [address]. 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 tel:[phone] Referring Provider: Kristen Fernandez [address], [place], [place], [address]. tel:[phone] OFFICE/OUTPA TIENT VISIT, [facility], [address], [place], [place], [address], [place] tel:[phone] [facility] chronic pain (chief complaint)anx iety1 (chief complaint)pne umonia1 (chief complaint) COPD w/ acute exacerbationChro sangeetha pain syndromeGenerali zed Anxiety DisorderPneumoni aEssential (primary) hypertension 8 Jason Parson. [address], [address], [place], [place], [address] , [place]. tel:[phone] Referring Provider: Kristen Fernandez [address], [place], [place], [address]. 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 [address], [address], [place], [place], [address] , [place]. tel:[phone] Referring Provider: Kristen Fernandez [address], [place], [place], [address]. tel:[phone] OFFICE/OUTPA TIENT VISIT, [facility], [address], [place], [place], [address], [place] tel:[phone] [facility] HLP (chief complaint)KCL (chief complaint)b12 1 (chief complaint)EN d1 (chief complaint)anx iety1 (chief complaint) GERD without esophagitisHyper lipidemiaHyperka lemiaInsomnia 8 Jason Parson. [address], [address], [place], [place], [address] , [place]. tel:[phone] Referring Provider: Kristen Fernandez [address], [place], [place], [address]. tel:[phone] OFFICE/OUTPA TIENT VISIT, [facility], [address], [place], [place], [address], [place] tel:[phone] [facility] chronc pain (chief complaint)anx iety1 (chief complaint)tob acoc1 (chief complaint)EN D1 (chief complaint) GERD without esophagitisGener alized Anxiety DisorderChronic pain syndromeScreenin g for lung ca 8 Jason Parson. [address], [address], [place], [place], [address] , [place]. tel:[phone] Referring Provider: Kristen Fernandez [address], [place], [place], [address]. tel:[phone] OFFICE/OUTPA TIENT VISIT, [facility], [address], [place], [place], [address], [place] tel:[phone] [facility] chronic pain (chief complaint)anx iety1 (chief complaint)HLP (chief complaint)HTN (chief complaint) Chronic pain syndromeGenerali zed Anxiety DisorderHyperlip idemiaEssential (primary) hypertension 8 Jason Parson. [address], [address], [place], [place], [address] , [place]. [phone] OFFICE/OUTPA TIENT VISIT, [facility], [address], [place], [place], [address], [place] tel:[phone] [facility] COPD1 (chief complaint)chr onic pain1 (chief complaint)anx iety1 (chief complaint) EmphysemaGeneral ized Anxiety DisorderChronic pain syndrome 7 Jason Parson. [address], [address], [place], [place], [address] , [place]. tel:[phone] Referring Provider: Kristen Fernandez [address], [place], [place], [address]. tel:[phone] OFFICE/OUTPA TIENT VISIT, [facility], [address], [place], [place], [address], [place] tel:[phone] [facility] chronic pain (chief complaint)anx iety1 (chief complaint) Generalized Anxiety DisorderChronic pain syndrome 7 Gomez Eb. [address], [address], [place], [place], [address] , [place]. tel:[phone] Referring Provider: Kristen Fernandez [address], [place], [place], [address]. tel:[phone] OFFICE/OUTPA TIENT VISIT, [facility], [address], [place], [place], [address], [place] tel:[phone] [facility] Cough1 (chief complaint)chr onic pain1 (chief complaint)anx iety1 (chief complaint)EN D1 (chief complaint) COPD w/ acute exacerbationChro sangeetha pain syndromeGenerali zed Anxiety DisorderGERD without esophagitis 7 Jason Juarez [address], [address], [place], [place], [address] , [place]. tel:[phone] Referring Provider: Kristen Fernandez [facility] A, [place], [place], [address]. tel:[phone] OFFICE/OUTPA TIENT VISIT, [facility], [address], [place], [place], [address], [place] tel:[phone] [facility] chronic pain (chief complaint)anx iety1 (chief complaint)HTN (chief complaint)HLP (chief complaint) Chronic pain syndromeGenerali zed Anxiety DisorderHyperlip idemiaEssential (primary) hypertension 7 Jason Juarez [address], [address], [place], [place], [address] , [place]. tel:[phone] Referring Provider: Kristen Fernandez [address], [place], [place], [address]. 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 [address], [address], [place], [place], [address] , [place]. tel:[phone] Referring Provider: Kristen Fernandez [address], [place], [place], [address]. tel:[phone] PREV VISIT, EST, AGE 40-64 [facility], [address], [place], [place], [address], [place] tel:[phone] [facility] PHysical (chief complaint) Encntr for general adult medical exam w/o abnormal findings 7 Jason Parson. [address], [address], [place], [place], [address] , [place]. tel:[phone] Referring Provider: Kristen Fernandez [address], [place], [place], [address]. tel:[phone] OFFICE/OUTPA TIENT VISIT, EST [facility], [address], [place], [place], [address], [place] tel:[phone] [facility] HTN (chief complaint)chr onic pain1 (chief complaint)anx iety1 (chief complaint) Essential (primary) hypertensionGene ralized Anxiety DisorderChronic pain syndromeEncounte r for oth screening for malignant neoplasm of breast 7 Jason Parson. Kristen [address], [place], [place], [address] , [place]. tel:[phone] Referring Provider: Kristen Fernandez [address], [place], [place], [address]. 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 tel:[phone] Referring Provider: Kristen Fernandez [address], [place], [place], [address]. tel:[phone] OFFICE/OUTPA TIENT VISIT, [facility], [address], [place], [place], [address], tel:[phone] [facility] [facility] anxiety1 (chief complaint)chr onic pain (chief complaint)HLP (chief complaint)EN D1 (chief complaint)hep C (chief complaint) HyperlipidemiaGe neralized Anxiety DisorderChronic pain syndromeHepatiti s C Nov- 0 7 Jason Parson. [address], [address], [place], [place], [address] , [place]. tel:[phone] Referring Provider: Kristen Fernandez [address], [place], [place], [address]. tel:[phone] OFFICE/OUTPA TIENT VISIT, [facility], [address], [place], [place], [address], [place] tel:[phone] [facility] OAB1 (chief complaint)chr onic pain (chief complaint)anx iety1 (chief complaint)hep C (chief complaint) Chronic pain syndromeGenerali zed Anxiety DisorderOveracti ve bladderEncounter for screening for other viral diseases 7 Jason Juarez [address], [address], [place], [place], [address] , [place]. tel:[phone] Referring Provider: Kristen Fernandez [address], [place], [place], [address]. tel:[phone] OFFICE/OUTPA TIENT VISIT, [facility], [address], [place], [place], [address], [place] tel:[phone] [facility] chronic pain1 (chief complaint)anx iety1 (chief complaint)uri nary (chief complaint)EN D1 (chief complaint) GERD with esophagitisInsom niaGeneralized Anxiety DisorderOveracti ve bladder Fe 7 Jason Jaurez [address], [address], [place], [place], [address] , [place]. tel:[phone] Referring Provider: Kristen Fernandez [address], [place], [place], [address]. tel:[phone] OFFICE/OUTPA TIENT VISIT, [facility], [address], [place], [place], [address], [place] tel:[phone] [facility] Medicine HLP (chief complaint)chr onic pain (chief complaint)anx iety1 (chief complaint)uri nary urgency1 (chief complaint)Bar rett (chief complaint) Lawrence's esophagusChronic pain syndromeGenerali zed Anxiety DisorderOveracti ve bladder 7 Jason Parson. [address], [address], [place], [place], [address] , [place]. tel:[phone] Referring Provider: Kristen Fernandez [address], [place], [place], [address]. tel:[phone] OFFICE/OUTPA TIENT VISIT, [facility], [address], [place], [place], [address], [place] tel:[phone] [facility] COPD1 (chief complaint)brenda k pain1 (chief complaint)anx iety1 (chief complaint)tob acco (chief complaint) Chronic obstructive pulmonary disease, unspecifiedGener alized Anxiety DisorderChronic pain syndromeTobacco use 6 Jason Parson. [address], [address], [place], [place], [address] , [place]. tel:[phone] Referring Provider: Kristen Fernandez [address], [place], [place], [address]. tel:[phone] OFFICE/OUTPA TIENT VISIT, [facility], [address], [place], [place], [address], [place] tel:[phone] [facility] COPD1 (chief complaint)chr onic pain1 (chief complaint)anx iety1 (chief complaint) Chronic obstructive pulmonary disease, unspecifiedGener alized Anxiety DisorderChronic pain syndrome 6 Jason Juarez [address], [address], [place], [place], [address] , [place]. tel:[phone] Referring Provider: Kristen Fernandez [address] [facility], [place], [place], [address]. tel:[phone] OFFICE/OUTPA TIENT VISIT, [facility], [address] [place], [address], tel:[phone] [facility] HLP (chief complaint)anx iety1 (chief complaint)chr onic pain (chief complaint)uri nary frequency1 (chief complaint) Urinary frequencyChronic pain syndromeGenerali zed Anxiety DisorderHyperlip idemia 6 Jason Juarez [address] [facility] A, [place], [place], [address] , [place]. tel:[phone] Referring Provider: Kristen Fernandez [place], [address]. 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 tel:[phone] Referring Provider: Kristen Fernandez [facility] A, [place], [place], [address]. tel:[phone] OFFICE/OUTPA TIENT VISIT, [facility], [address] [place] [place], [address], [place] tel:[phone] [facility] HTN (chief complaint)chr onic pain (chief complaint)anx iety1 (chief complaint)rachna ght gain (chief complaint) Abnormal weight lossGeneralized Anxiety DisorderChronic pain syndromeEssentia l (primary) hypertension 6 Gomez Eb. [address], [address], [place], [place], [address] , [place]. tel:[phone] Referring Provider: Kristen Fernandez [address], [place], [place], [address]. tel:[phone] OFFICE/OUTPA TIENT VISIT, EST [facility], [address], [place], [place], [address], [place] tel:[phone] [facility] anxiety1 (chief complaint)cho rnic pain1 (chief complaint)ost eoporosis1 (chief complaint) Chronic pain syndromeGenerali zed Anxiety DisorderOsteopor osis 6 Jason Parson. [address], [address], [place], [place], [address] , [place]. tel:[phone] Referring Provider: Kristen Fernandez [address], [place], [place], [address]. tel:[phone] PREV VISIT, EST, AGE 40-64 [facility], [address], [place], [place], [address], [place] tel:[phone] [facility] PHysical (chief complaint) Encntr for general adult medical exam w/o abnormal findings 6 Jason Parson. [address], [address], [place], [place], [address] , [place]. tel:[phone] Referring Provider: Kristen Fernandez [address], [place], [place], [address]. tel:[phone] OFFICE/OUTPA TIENT VISIT, EST [facility], [address], [place], [place], [address], [place] tel:[phone] [facility] osteoporosis (chief complaint)anx itey1 (chief complaint)chr onic pain (chief complaint)bar ret (chief complaint) OsteoporosisGene ralized anxiety disorderChronic pain syndromeBarrett' s esophagus 6 Jason Parson. [address], [address], [place], [place], [address] , [place]. tel:[phone] Referring Provider: Kristen Fern[address], [place], [place], [address]. tel:[phone] OFFICE/OUTPA TIENT VISIT, [facility], [address], [place], [place], [address], [place] tel:[phone] [facility] chronic pain (chief complaint)anx iety1 (chief complaint)car pal tunnel (chief complaint)HLP (chief complaint) Chronic pain syndromeHyperlip idemiaInsomniaEn counter for screening for osteoporosis 6 Jason Parson. [address], [address], [place], [place], [address] , [place]. tel:[phone] Referring Provider: Kristen Fernandez [facility] A, [place], [place], [address]. tel:[phone] OFFICE/OUTPA TIENT VISIT, [facility], [address], [place], [place], [address], [place] tel:[phone] [facility] dizziness (chief complaint)anx iety1 (chief complaint)car pal tunnel (chief complaint)chr onic pain (chief complaint) Carpal tunnel syndrome of left armChronic pain syndromeGenerali zed Anxiety DisorderSyncope and collapse 6 Jason Parson. [address], [address], [place], [place], [address] , [place]. tel:[phone] Referring Provider: Kristen Fernandez [facility] A, [place], [place], [address]. tel:[phone] OFFICE/OUTPA TIENT VISIT, [facility], [address], [place], [place], [address], [place] tel:[phone] [facility] carpal tunnel (chief complaint)cho rnic pain1 (chief complaint)anx iety1 (chief complaint)diz ziness1 (chief complaint) DizzinessGeneral ized anxiety disorderLow back painCarpal tunnel syndrome, left upper limb 6 Jason Juarez [address], [address], [place], [place], [address] , [place]. tel:[phone] Referring Provider: Kristen Fernandez [address], [place], [place], [address]. tel:[phone] OFFICE/OUTPA TIENT VISIT, [facility], [address], [place], [place], [address], [place] tel:[phone] [facility] chornic pain1 (chief complaint)Anx iety1 (chief complaint)HLP 1 (chief complaint) Chronic pain syndromeGenerali zed anxiety disorderMixed hyperlipidemiaGE RD with esophagitis 0 5 Jason Parson. [address], [address], [place], [place], [address] , [place]. [phone] Referring Provider: Kristen Fernandez [address], [place], [place], [address]. tel:[phone] OFFICE/OUTPA TIENT VISIT, [facility], [address], [place], [place], [address], [place] tel:[phone] [facility] anxiety1 (chief complaint)nec k pain1 (chief complaint)arm numbness1 (chief complaint)PAD 1 (chief complaint) Lawrence's esophagusOther spondylosis, lumbar regionParesthesi a of skinGeneralized Anxiety Disorder 5 Jason Parson. [address], [address], [place], [place], [address] , [place]. [phone] Referring Provider: Kristen Fernandez [address], [place], [place], [address]. tel:[phone] OFFICE/OUTPA TIENT VISIT, [facility], [address], [place], [place], [address], [place] tel:[phone] [facility] anxiety1 (chief complaint)EN D1 (chief complaint)brenda k pain1 (chief complaint) Generalized anxiety disorderOther spondylosis, cervical regionGERD without esophagitisPares thesia of skin 5 Jason Parson. [address], [address], [place], [place], [address] , [place]. tel:[phone] Referring Provider: Kristen Fernandez [address], [place], [place], [address]. tel:[phone] OFFICE/OUTPA TIENT VISIT, [facility], [address], [place], [place], [address], [place] tel:[phone] [facility] neck pain (chief complaint)anx iety (chief complaint)HTN (chief complaint) Unspecified essential hypertensionGene ralized anxiety disorderNeck pain Apr-3 5 Jason Parson. [address], [address], [place], [place], [address] , [place]. [phone] Referring Provider: Kristen Fernandez [address], [place], [place], [address]. 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 [address], [address], [place], [place], [address] , [place]. [phone] Referring Provider: Kristen Fernandez [address], [place], [place], [address]. tel:[phone] OFFICE/OUTPA TIENT VISIT, [facility], [address], [place], [place], [address], [place] tel:[phone] [facility] back pain (chief complaint)anx iety (chief complaint)vit owen D (chief complaint) LumbagoGeneraliz ed anxiety disorderBarrett' s esophagus 5 Jason Parson. [address], [address], [place], [place], [address] , [place]. tel:[phone] Referring Provider: Kristen Fernandez [address], [place], [place], [address]. tel:[phone] OFFICE/OUTPA TIENT VISIT, [facility], [address], [place], [place], [address], [place] tel:[phone] [facility] Medicine GERD (chief complaint)lum bago (chief complaint)HLP (chief complaint) LumbagoLoss of weightGeneralize d anxiety disorderDyslipid aemia 5 Jason Parson. [address], [address], [place], [place], [address] , [place]. tel:[phone] Referring Provider: Eb Gomez, [address], [place], [place], [address]. tel:[phone] PREV VISIT, EST, AGE 40-64 [facility], [address], [place], [place], [address], [place] tel:[phone] [facility] physical (chief complaint) Routine medical exam 5 Jason Parson. [address], [address], [place], [place], [address] , [place]. tel:[phone] Referring Provider: Kristen Fernandez [address], [place], [place], [address]. tel:[phone] OFFICE/OUTPA TIENT VISIT, [facility], [address], [place], [place], [address], [place] tel:[phone] [facility] COPD (chief complaint)brenda k pain (chief complaint)anx iety (chief complaint)bar ett (chief complaint) COPDLumbagoBARRE TT'S ESOPHAGUSGeneral ized anxiety disorder Nov- 5 Jason Parson. [address], [address], [place], [place], [address] , [place]. tel:[phone] Referring Provider: Kristen Fernandez [address], [place], [place], [address]. tel:[phone] OFFICE/OUTPA TIENT VISIT, [facility], [address], [place], [place], [address], [place] tel:[phone] [facility] COPD (chief complaint)brenda k pain (chief complaint)anx iety (chief complaint) COPDGeneralized anxiety disorderLumbagoS edative, hypnotic or anxiolytic dependence, unspecified 5 Jason Parson. [address], [address], [place], [place], [address] , [place]. [phone] Referring Provider: Kristen Fernandez [facility] A, [place], [place], [address]. 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 [address], [address], [place], [place], [address] , [place]. [phone] Referring Provider: Kristen Fernandez [address], [place], [place], [address]. tel:[phone] OFFICE/OUTPA TIENT VISIT, [facility], [address] [place], [address], [place] [phone] [facility] COPD (chief complaint)vann d nodule (chief complaint)brenda k pain (chief complaint)anx iety (chief complaint) LumbagoGeneraliz ed anxiety disorderOther tenosynovitis of hand and wristCOPD 5 Jason Parson. [address], [address], [place], [place], [address] , [place]. tel:[phone] Referring Provider: Kristen Fernandez [address] [facility] A, [place], [place], [address]. 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 [address], [address], [place], [place], [address] , [place]. [phone] Referring Provider: Kristen Fernandez [address], [place], [place], [address]. tel:[phone] OFFICE/OUTPA TIENT VISIT, [facility], [address], [place], [place], [address], [place] [phone] [facility] gastric ulcer (chief complaint)brenda k pain (chief complaint)anx iety (chief complaint) Acute gastric ulcer without mention of hemorrhage or perforation, with obstructionLumba goDepression 4 Jason Parson. [address], [address], [place], [place], [address] , [place]. [phone] Referring Provider: Kristen Fernandez [address], [place], [place], [address]. tel:[phone] OFFICE/OUTPA TIENT VISIT, [facility], [address], [place], [place], [address], [place] tel:[phone] [facility] anxiety (chief complaint)brenda k pain (chief complaint)abd ominal pain (chief complaint) LumbagoAbdominal PainDepressionGa stroparesis 4 Jason Juarez [address], [address], [place], [place], [address] , [place]. [phone] Referring Provider: Kristen Fernandez [address], [place], [place], [address]. 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 tel:[phone] Referring Provider: Kristen Fernandez [address], [place], [place], [address]. tel:[phone] OFFICE/OUTPA TIENT VISIT, [facility], [address], [place], [place], [address], [place] tel:[phone] [facility] abdominal pain (chief complaint)brenda k pain (chief complaint)anx iety (chief complaint) Dietary surveillance and counselingAbdomi nal PainLumbagoGener alized anxiety disorder Apr-0 4 Jason Juarez [address], [place], [place], [address] , [place]. [phone] Referring Provider: Kristen Fernandez [address] [facility] [address], [place], [place], [address]. tel:[phone] OFFICE/OUTPA TIENT VISIT, [facility], [address], [place], [place], [address], [place] tel:[phone] [facility] back pain (chief complaint)anx iety (chief complaint)abd ominal pain (chief complaint) Dietary surveillance and counselingLumbag oGeneralized anxiety disorderAbdomina l Pain 4 Jason Juarez [address], [address], [place], [place], [address] , [place]. [phone] Referring Provider: Kristen Fernandez [address], [place], [place], [address]. tel:[phone] OFFICE/OUTPA TIENT VISIT, [facility], [address] [place], [place], [address], [place] tel:[phone] [facility] back pain (chief complaint)anx iety (chief complaint)HLP (chief complaint)Vit owen D (chief complaint) Dietary surveillance and counselingLumbag oGeneralized anxiety disorderHyperten brionna, UnspecifiedOther and unspecified hyperlipidemia 4 Jason Juarez [address], [address] [place], [address] , [place]. tel:[phone] Referring Provider: Kristen Fernandez [place], [address]. tel:[phone] OFFICE/OUTPA TIENT VISIT, EST [facility], [address] [place], [address], tel:[phone] [facility] back pain (chief complaint)anx iety (chief complaint)HTN (chief complaint) Dietary surveillance and counselingHypert ension, UnspecifiedLumba goGeneralized anxiety disorderDepressi on 4 Jason Parson. [address] [facility] [place], [place], [address] , [place]. tel:[phone] Referring Provider: Kristen Fernandez [place], [address]. tel:[phone] PREV VISIT, NEW, AGE 40-64 [facility], [facility] [address] [facility] [place], [address], [place] tel:[phone] [facility] PHysical (chief complaint) Dietary surveillance and counselingRoutin e Medical ExamRoutine Medical Exam 4 Jason Parson. [address] [facility] [place], [address] , [place]. tel:[phone] Family History Family Member Type Diagnosis Age At Onset Father Problem (finding) Cancer, lung Mother Problem (finding) Hyperlipidemia Brother Problem (finding) Anxiety Mother Problem (finding) Hypertension Payers Payer name Insurance type Covered green party ID David lyman(s) [facility] [id number] Social History Type Description Quantity Date Captured Comments Alcohol Use Details No Caffeine Use Details Unknown Tobacco Use Status Heavy cigarette smok er (20-39 cigs/day) Smoking Status Heavy tobacco smoker Sex Female Vital Signs Date / Time: Height Weight BMI Pulse Rate Blood Pressure Temperature Respiratory Rate Body Surface Area Head Circumference BMI percentile Pulse Ox Inhaled Ox 12:12 PM 68.00 in 120.80 lbs 18.3 7 kg/m eter (2) 90 /min 118/60 mm[Hg] 98.3 F 16 /min 97 21 Chief Complaint And Reason For Visit From encounter dated '11/21/2024 12:10'. pain (chief complaint). Description: Pt has chronic [...] thought Pt denies any crying spells COPD1 (chief complaint). Description: Pt has COPD .Pt is on breztri and she still has been coughinga lot Pt denies any phlegm. pt just saw pulmonary and she will do chest x ray and sputum culture. Pt is a candidate for daliresp Pt still smokes. barrett1 (chief complaint). Description: pt has lawrence Pt is on omeprazole and she has indira for EGDon 12/02/24 Plan Of Treatment Date Type Action Status [...] Goal Tobacco cessation counseling completed Referral Ordered: OPERATIVE UPPER GI ENDOSCOPY ordered Referral Ordered: HOLLY WILLOUGHBY -Allopathic & Osteopathic Physicians : Internal Medicine : Endocrinology, Diabetes & Metabolism (related to Osteoporosis) ordered Referral Referred To: HOLLY WILLOUGHBY [address] [place], [place], [address] Ordered: Referrals: Allopathic & Osteopathic Physicians : Internal Medicine : Endocrinology, Diabetes & Metabolism. HOLLY WILLOUGHBY. Evaluate and treat ordered Referral Referred To: Dennise SALEEM, Guera Beal [address] [facility]
[address] [place], [place], [id number] Ordered: Referrals: Guera Bowden MD. Evaluate and treat ordered Referral Ordered: US CAROTID ordered Referral Ordered: Jean Pierre Venegas -Allopathic & Osteopathic Physicians : Internal Medicine : Endocrinology, Diabetes & Metabolism (related to Osteoporosis) ordered Referral Referred To: Jean Pierre Venegas [address] [facility]
[address] [place], [place] [id number] Ordered: Referrals: Allopathic & Osteopathic Physicians : Internal Medicine : Endocrinology, Diabetes & Metabolism. Jean Pierre Venegas. Evaluate and treat ordered Referral Ordered: US EXAM, ABDOM, COMPLETE ordered Referral Ordered: Urology (related to Hematuria) ordered Referral Ordered: Urology (related to Anemia) ordered Referral Ordered: Matias Reid -Allopathic & Osteopathic Physicians : Urology (related to Hematuria) ordered Referral Referred To: Matias Reid [address] [place], [place], [id number] Ordered: Referrals: Allopathic & Osteopathic Physicians : Urology. Matias Reid. Evaluate and treat ordered Referral Ordered: US KIDNEY ordered Referral Ordered: Pulmonology (related to Emphysema) ordered Referral Ordered: Referrals: Pulmonology. Evaluate and treat ordered Referral Ordered: Rafy Wong -Allopathic & Osteopathic Physicians : Internal Medicine : Cardiovascular Disease (related to Coronary artery disease of [place] coronary artery without angina pectoris) ordered Referral Referred To: Rafy Wong [address] [place], [place] [id number] Ordered: Referrals: Allopathic & Osteopathic Physicians : [...] Arevalo [address] [place], [phone] Ordered: Referrals: Roge Arevalo. Evaluate and treat [...] Date Complaint History Of Prese nt Illness anxiety1 Pt has chronic a nxiety and [...] percocet for pain PRN and doing ok barrett1 pt has lawrence P t is on omeprazole and she has indira for EGD on 12/02/24 COPD1 Pt has COPD .Pt is on breztri and she still has been coughing a lot Pt denies any phlegm. pt just saw pulmonary and she will do chest x ray and sputum culture. Pt is a candidate for daliresp Pt still smokes. anxiety1 Pt has chronic a nxiety and [...] percocet for pain PRN and doing ok weight loss1 Pt has been losi ng weight unintentionally. her BMI is only 18 Pt states that she has good appetite and she eats a lot of food but she keep losing weight Pt denies any appetite loss, nausea, vomiting, change of bowel, abd pain, etc. barrett1 Pt has lawrence e stacyagus. Pt had EGD 3 years ago .Pt needs to repeat EGD. Pt is on omeprazole 40 mg daily pain Pt has chronic b ack and [...] spells HLP Pt has HLP Pt ta chuy zocor Pt denies any myalgia pain Pt [...] homicidal thought Pt denies any crying spells. pain Pt has chronic b ack and [...] reclast Pt needs vitamin D refilled . GERD1 Pt has chronic G ERD Pt takes omeprazole and doing ok. Pt needs omeprazole refilled osteoporosis1 Pt has osteoporo sis and she [...] she has been having more nightmares lately. pain Pt has chronic b ack and [...] homicidal thought Pt denies any crying spells ANXIETY1 Pt has chronic a nxiety and [...] fasting HLP Pt has HLP Pt ta keeleanor zocor Pt denies any myalgia. Her lipid [...] her bp is ok. Pt needs refill osteoprosis1 Pt is seeing end o and [...] ok. Pt denies any saddle area paresthesia. pain Pt has chronic b ack and [...] by insurance and she is working with [employer] to find something that will be covered by insurance. nightmares1 Pt has nightmare s due to [...] has PTSD and she has nightmares frequently. barrett1 pt has lawrence P t had EGD last year and she is on omeprazole Pt does not need EGD until 2024 Pt doing ok with omeprazole anxiety1 Pt has chronic a nxiety and depression ,Pt takes cymbalta and klonopin and lamictal and doing ok Pt denies any suicidal or homicidal thought Pt denies any crying spells osteoporosis1 Pt has osteoporo sis. Pt is on calcium and D and she is waiting for reclast approval from insurance now pain Pt has chronic b ack [...] spells osteoporosis1 Pt has osteoporo sis Pt is in [...] chest CT done recently which was benign Barrett1 Pt has lawrence. Pt takes omeprazole. Pt denies any GERD or abd pain lung nodule1 Pt has lung nodu le. Pt sees pulmonary Pt will do chest CT next week anxiety1 Pt has chronic a nxiety and [...] spells osteoporosis1 Pt has osteoporo sis. Pt has not been getting treatment Pt did not get along with her previous endo and we tried to refer her to [facility] but is having some issues with the referral Pt was told by s [facility] that she needs a transfer of care and records. wrist fx pt fell after fe eling [...] pt is able to move her fingers. anxiety Pt has chronic a nxiety and depression [...] tingling for several months. Pt failed neurontin HLP Pt has HLP Pt ta chuy zocor Pt denies any myalgia. Her lipid [...] done 2021 and needs to repeat 2024 lung nodule1 Pt has lung nodu le on recent chest Ct pt sees pulmonary. Pt is on trelegy and singulair now and she uses albuterol PRN Pt denies any hemoptysis osteoporosis1 Pt has osteoporo sis. Pt saw endo and she got another injection med but not covered by insurance again. Pt is working with her endo regarding above. anxiety1 Pt has chronic a nxiety and [...] borderlin e HTN. Pt is on lisinopril osteoporosis1 Pt has osteoporo sis Pt takes calcium and D and she has not done anything for it yet . pt is seeing endo and she supposes to do some type of study which she could not get it done so she has not seen the endo yet for any follow up. anxiety1 Pt has chronic a nxiety and [...] states that cymbalta is helping her neuropathy palpitation1 Pt has intermitt ent palpitation Pt [...] needs refill. Pt denies any abd pain COPD pt has emphysema Pt uses incruse and advair and she still uses albuterol frequently. Pt denies any hemoptysis COPD1 Pt has COPD. Pt doing ok with [...] feet numbness and tingling for several months. anxiety1 Pt has chronic a nxiety and depression. Pt takes prozac, klonopin and lamictal and doing ok Pt denies any suicidal or homicidal thought Pt denies any crying spells tinnitus1 Pt c/o ? tinnitu s and some hearing loss both ear for long time Pt denies any ear pain or drainage noise1 Pt states that s he can hear some whooshing noise both side of neck for several months Pt denies any chest pain COPD1 Pt has COPD Pt s till [...] was ok. Pt denies any kierra GERD pain Pt has chronic b ack and [...] homicidal thought Pt denies any crying spells osteoporosis Pt has osteoporo sis. Pt is seeing endo and she will start forteo soon osteoporosis1 Pt has osteoporo sis. Pt takes calcium and D and fosamax. She has not had any improvement in her bone density despite above Pt has indira with bone specialist in several weeks. tobacco1 Pt has 40 pack y ear tobacco. Pt denies any hemoptysis, worsening sob, Pt had negative LDCT pain Pt has chronic b ack and [...] homicidal thought Pt denies any crying spells anemia1 Pt has iron defi ciency anemia. Pt denies any bleeding pt still has not set up EGD and colonoscopy yet. anxiety Pt has chronic a nxiety [...] has osteoporosis Pt has not heard form [facility] end[facility] yet. Her b12 is ok now. Pt has COPD Pt uses airduo and incruse and albuterol PRn Pt needs albuterol refilled pt in general uses albuterol 1-2 per week, Pt has not done mammo, endoscopy or chest CT yet. pain Pt has chronic b ack [...] been taking fosamax for almost 3 years. anxiety1 Pt has chronic a nxiety and depression. Pt takes prozac, klonopin and lamictal and doing ok Pt denies any suicidal or homicidal thought Pt denies any crying spells b12 Pt still has not done lab yet. Pt states that she is out of b12. Pt states that she only has 1 cc vial and she is out. Pt is noncompliant with lab work and mammo tobacco1 Pt is long time smoker pt has COPD Pt uses inhaler .pt needs LDCT for lung CA screening pain Pt has chronic b ack and [...] any crying spells HLP Pt has HLP pt ta chuy zocor pt denies any myalgia HTN Pt has HTN Pt ta kes lisinopril and her bp is ok at home .pt denies any chest pain or headache COPD Pt has COPD Pt jenna cortes and she uses ventolin 1-2 per week Pt denies any hemoptysis, worsening sob or any cough pain Pt has chronic b ack and [...] homicidal thought Pt denies any crying spells anxiety Pt has chronic a nxiety and [...] myalgia HTN Pt has HTN. Pt t endy lisinopril Pt needs refill. Her bp is around 120/60 at home per pt. osteoporosis Pt has osteoporo sis. Pt takes calcium and D and fosamax and she has not done bone density yet. anxiety Pt has anxiety a nd depression Pt [...] with incontinence. Pt has interstim implant placed 2016 which really helps her symptoms Pt is seeing new urologist and she will undergo battery change for the interstim implant under general anesthesia. ,Pt needs clearance from me for the procedure. Pt denies any history of adverse reaction to anesthesia and also surgery. pt denies any chest pain or sob. pain Pt has chronic b ack and neck pain Pt denies any worsening pain . pt denies any loss of bladder control. pt failed NSAID and ultram. Pt takes norco PRN for pain and doing ok osteoporosis1 Pt takes calcium and D and she takes fosamax for the past two years. Pt needs bone density repeated anxiety1 Pt has anxiety a nd depression Pt has severe mood swings Pt takes prozac, klonopin and Lamictal for her mood swings and she is doing ok Pt denies any suicidal or homicidal thought. Pt denies any crying spells anemia1 Pt has iron defi ciency anemia. [...] any flank pain or any urinary symptoms COPD1 Pt has COPD. Pt takes incruse and airduo and she uses proair 1-2 per week Pt denies any acute sob. Her LDCT is k anxity1 Pt has anxiety a nd depression Pt has severe mood swings Pt takes prozac, klonopin and Lamictal for her mood swings and she is doing ok Pt denies any suicidal or homicidal thought. Pt denies any crying spells pain Pt has anxiety a nd depression Pt has severe mood swings Pt takes prozac, klonopin and Lamictal for her mood swings and she is doing ok Pt denies any suicidal or homicidal thought. Pt denies any crying spells hematuria1 Pt has chronic h ematuria .Pt had cysto which showed unusably spot and she will get biopsy and needs surgical clearance. weight loss1 Pt denies any ap petite loss .Pt has mild abd pain. Pt is seeing GI and will do EGD and colonoscopy soon .Pt had normal chest , abd and pelvis Ct .Pt states that her abd pain is vague and random Pt has sharp pain around midepigastric area. anxiety1 Pt has anxiety a nd depression [...] norco PRN for pain and doing ok renal Pt has low renal , which [...] hematuria . pt has indira with urology [place] in 3 weeks pt denies any UTI [...] Pt told me she made indira with [facility] and she needs a referral send over LDCT Pt had LDCT done but not mammogram or lab work anxiety1 Pt has anxiety a nd depression [...] ok COPD1 Pt has COPD. Pt takes incruse and airduo pt uses ventolin 1-2 per week Pt denies any hemoptysis, worsening sob or cough hematuria1 Pt denies any UT I symptoms or flank pain ,Pt still has not done seen urology yet tobacco Pt needs LDCT fo r lung [...] symptoms COPD1 Pt has COPD pt t akes incruse and airduo pt uses albuterol 1-2 [...] Pt denies any suicidal or homicidal thought insomnia1 Pt states that t razodone does not help her insomnia hematuria1 pt has hematuria and mild anemia and low renal and low b12 and low iron. pt still has not started b12 injection yet Pt denies any UTI symptoms or flank pain osteoporosis1 Pt has osteoporo sis pt takes fosamax, calcium and vitamin D and she does weight bearing exercise. anxiety1 Pt has anxiety a nd depression [...] month HLP Pt has HLP ,Pt t akes zocor Pt needs refill Pt denies any [...] Pt states that vistaril does not work. pain Pt has chronic b ack and [...] that she can not sleep at all. 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 physical Pt needs annual physical. pt has [...] on cogentin and her jerking movement improved body movement1 Pt c/o frequent recurrent sudden [...] cough pt uses proair 1-2 per day. chronic pain1 Pt has chronic b ack and neck pain Pt denies any worsening pain Pt denies any loss of bladder control. Pt has sciatica. Pt denies any numbness anxiety1 Pt has anxiety a nd depression Pt takes prozac, seroquel and klonopin and doing ok Pt denies any suicidal or homicidal thought Pt denies any crying spells anxieyt1 Pt has chronic a nxiety and [...] homicidal thought Pt denies any crying spells tobacco1 Pt has 40 pack y ear tobacco. Pt has lung nodule pt denies any hemoptysis, worsening sob or any worsening cough. Pt needs LDCT chronic pain1 Pt has chronic l ow back pain and neck pain due to ddd, pt failed NSAID and ultram Pt takes norco PRn for pain and doing ok. chronic pain1 Pt has chronic n nathalie [...] needs vitamin D Refilled. 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 Patient denies any [...] her anemia resolved, Her iron is ok anemia1 Pt has mild anem ia pt denies any blood loss. hlP Pt has HLP. Pt t akes [...] Pt denies any crying spells chronic pain1 pt has chronic n nathalie and back pain .Pt denies any worsening pain, Pt denies any loss of bladder control. Pt takes norco PRn for pain and doing ok anxiety1 Pt has chronic a nxiety and depression Pt takes prozac, klonopin and seroquel and doing ok. Pt denies any suicidal or homicidal thought Pt denies any crying spells. chronic pain Pt has chronic b ack [...] UA . Pt denies any blood loss. anemia1 Pt has mild bord jie anemia. Pt denies any blood loss. Pt denies any dizziness or chest pain or headache osteoporosis1 Pt has osteoporo sis. Pt has low D. Pt denies any history of spontaneous fracture. anxiety1 Pt has chronic a nxiety and [...] NSAID and ultram. Pt has 6/10 pain chronic pain Pt has chronic n nathalie [...] pain or palpitation. Pt has low b12 chronic pain1 Pt has chronic l ow back pain due to DDD> Pt takes norco PRN for pain and doing ok. Pt failed ultram and NSAID. Pt denies any loss of bladder control anxiety1 Pt has chronic a nxiety and depression. Pt takes prozac and klonopin and seroquel and doing ok. Pt denies any suicidal or homicidal thought. Pt denies any crying spells colon polyp Pt has colon hugh yp [...] seroquel. Pt wants to try higher dose tobacoc1 Pt has more than 40 pack year. Pt has COPD Pt needs annual LDCT. GERD1 pt has GERd inte rmittently Pt takes otc zantac PRN. Pt had EGD done last year which was ok. Pt denies any worsening symptmos chronc pain Pt has chronic n nathalie and back apin due to dDD Pt denies any worsening pain Pt denies any loss of bladder control anxiety1 Pt has chrnoic a nxiety and depression Pt takes prozac, and klonpin and also seroquel. Pt deneis any suicidal or homicidal thought. Pt denies any crying spells HLP Pt takes zocor. Pt denies any [...] tyring low fat and low carb diet COPD1 Pt uses symbicor t, combivent proair. Pt uses proair 1-2 per day. Pt still smoking. Pt denies any acute sob chronic pain Pt has chronic n nathalie [...] GERD sometimes Pt denies any abd pain. PHysical Pt needs annual physical Pt has [...] or GERd. Pt denies any other complaints HTN Pt has HTN Pt ta kes lisinopril and her bp is stable. Pt denies any chest pain or headache chronic pain1 Pt has chronic n nathalie adn back pain Pt has DDD Pt deneis any worsening pain Pt denies any loss o bladder control. Pt has 7/10 pain anxiety1 Pt has chronic a nxiety depression and she also has hsitory of schizophrenia disorder. Pt also has bipolar. Pt takes prozac seroquel and also klonpn PRN PT states that she is doing ok with above meds. Pt denies hearing voices. Pt denies any suicidal or homicdial thought. Pt denies any crying spells chronic pain Pt has chronic b ack [...] to go back for EGD next month. anxiety1 Pt has chronic a nxiety and depression and she takes prozac, klonpin and seroquel and doing ok. Pt denies any suicidal or homcidial thought hep C Pt had hep C but she cleared the infection on her own. Pt denies IV drug chronic pain Pt has chornic n nathalie and back pain Pt denies any worsening pain Pt denies any loss of bowel or bladder control HLP Pt has HLP Pt ta kes zocor Pt denies any myalgia GERD1 Pt has GERD Pt t ook nexium which helped. Pt has ulcer and she has appointment for EGD in January anxiety1 Pt has chornic a nxiety and depression. Pt takes prozac and klonpin and seroquel and doing ok Pt denies any suicidal or homicidal thought Pt denies daxa rying spells hep C Pt needs hep C s creening. Pt denies any IV drug use chronic pain Pt has chronic n nathalie and back pain Pt denies any worsenign pain. Pt denies any loss of bowel or bladder control. Pt states that her pain meds do not work too well anymore OAB1 Pt has OAB Pt se en urology and she was started on vesicare but insurance does not cover. Pt was told she needs a stimulator but she does not want to do it. Pt is on oxybutynin now and doing ok chronic pain1 Pt has chronic n nathalie [...] EGD now. Pt denies any acute pain anxiety1 Pt has chronic a nxiety and depression. Pt taeks prozac and klonpin. and seroquel and doing ok Pt denies any suicidal or homicidal thought Pt denies any crying spells urinary urgency1 Pt has urinary urgency and frequency. Her UA is ok Pt denies any fever, chilll Lawrence Pt has lawrence b ut she could not afford omeprazole Pt statse that she has daily GERd. Pt denies any acute abd pain HLP Pt has HLP Pt ta kes zocor Pt denies any myalgia chronic pain Pt has chronic n nathalie and back apin Pt denies any loss of bowel ro bladder control. Pt deniesany worsening apin tobacco Pt has 40 pack y ear smoking history. Pt has COPD COPD1 Pt uses symbicor t and combivent [...] denies any crying spells COPD1 Pt has chronic C OPD with [...] and vitamin D. Pt denies any fx weight gain Pertinent negati ves include constipation, dyspnea, fatigue, irregular menses, muscle weakness and vision changes. Additional information: Pt has been losing weight steadily for the past several years. Pt denies any appetite loss. Pt denies any nausea, vomiting, diarrhea. anxiety1 Pt has chronic a nxiety and depression and mood swings Pt has a lot of stress. Pt takes prozac and klonpin and lamital and doing better. Pt denies any suicidal or homicdial thought chronic pain Pt has chronic n nathalie and back pain. Pt takes norco for pain. Pt denies any loss of bowel or bladder control HTN Pt has HTn. Pt t akes lisinopril. Pt denies any chest pain or headache anxiety1 Pt has chornic a nxiety and [...] denies any other complaints. osteoporosis Additional infor jayesh: Pt has osteoorosis. pt denies any history [...] zo cor ok. Pt denies any myalgia PAD1 Pt has mild PAD but no [...] Pt does not want to do PT back pain1 Pt has chronic b ack and neck pain. Pt denies any loss of bowel or bladder control. Pt c/o left hand and finger numnbess. Pt statse that she has radiculopathy from neck to left arm. Pt has been having symptoms for 6 weeks. Pt denies weakness drummond waking up at night with hand pain anxiety1 Pt has chronic a nxiety and depression and mood swings. Pt takes prozac, geodon and valium. Pt still has panic attacks. Pt still feels anxious Pt denies any suicdial thought Pt denies feeling of hopelessness. Pt statse that she has so much stress at home and her anxiety is not well controlled. GERD1 Pt has GERD Pt a tkes [...] Pt denies any chest pain or headache neck pain Pertinent negati ves include rash and weight loss. Additional information: Pt has chronic and intermittent neck pain. Pt c/o left radiculopathy and her left 3rd, 4th and 5th finger is numb for two weeks. Pt denies any chest pain, diaphoresis, nausea and NO exertional symptoms. COPD Pt states taht h er SOB is getting worse. Pt denies any chest pain Pt uses advair, combivent and also proair Pt uses proair multilpe times per day, Pt still smoking anxiety The patient pres ents with anxious/fearful [...] any loss of bowel or bladder control. lumbago Pt has chronic L BP. Pt denies any loss of bowel or bladder control HLP Pt has mildly el evated TC. Pt is not working on any diet GERD Additional infor mation:Pt has GERD and lawrence esophagus. No more ulcer. Pt is doing ok. physical Pt needs annual physical. 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 Related to GERD without esophagitis Prescribed Activity and Exercise Education Related to Dietary Surveillance and Counseling Prescribed Diet Educ ation/Lifestyle Education Regarding Diet Related to Dietary Surveillance and Counseling Avoid provocative fo ods: citrus, alcohol, coffee, chocolate, mints Related to GERD without esophagitis Eat smaller meals, n o eating three hours prior to bedtime Related to GERD without esophagitis Elevate head of bed prior to sle ep Related to GERD without esophagitis Follow a low sodium diet. Relate d to Essential (primary) hypertension Prescribed Diet Educ ation/Lifestyle Education Regarding Diet Related to Dietary Surveillance and Counseling Increase activity. Related to Es sential (primary) hypertension Stop smoking. Related to Essen tial (primary) hypertension Prescribed Activity and Exercise Education Related to Dietary Surveillance and Counseling Quit smoking Related to Emphy sema Quit [...] surveillance counseling Assessments Type Assessment Date assessment Generalized Anxiety Disorder Oct assessment Chronic pain syndrome assessment Lawrence's esophagus assessment COPD w/ acute exacerbation Mental Status Date Cognitive Assessment Orientation - [place] ed to time, place, person, situation.
--- OUTSIDE RECORDS SUMMARY | 2024-12-16 00:37 | XMS_ITS | Referral Summary ---
Author Organization [address] Address [address] [place] [id number] Care Team Providers Care Plant Superintendent Name Role Phone Eb Gomez MD Primary Care Provider + [phone] Allergies Active Allergy Reactions Criticality Noted Date [...] 11/11/2021 Assessment & Plan (10/18/2022 2:14 PM TREATMENT PLANT OPERATOR): Patient afraid of considering Forteo Will request [...] 11/11/2021 Assessment & Plan (10/18/2022 2:12 PM TREATMENT PLANT OPERATOR): Check 25 [place] vit D Adjust dose [...] on file Legal Sex Female 2:17 PM TREATMENT PLANT OPERATOR Gender Identity Female 10/18/2022 1:15 PM TREATMENT PLANT OPERATOR Sexual Orientation Not on file Last Filed Vital Signs Vital Sign Reading Time Taken Comments Blood Pressure 124/60 10/18/2022 1:30 PM TREATMENT PLANT OPERATOR Pulse 80 10/18/2022 1:30 PM TREATMENT PLANT OPERATOR Temperature - - Respiratory Rate 16 10/18/2022 1:30 PM TREATMENT PLANT OPERATOR Oxygen Saturation - - Inhaled Oxygen Concentration - - Weight 68.5 kg (151 lb 0.2 oz) 10/18/2022 1:30 P M TREATMENT PLANT OPERATOR Height 167.4 cm (5' 5.91 ) 10/18/2022 1:30 PM CS T Body Mass Index 24.44 10/18/2022 1:30 PM TREATMENT PLANT OPERATOR Plan of Treatment Not on file Insurance [facility] Care Teams Plant Superintendent Relationship Specialty Start Date End Date Eb Gomez MD [address] [facility] [place] [address] PCP - General Family Medicine 09/02/21
--- OUTSIDE RECORDS SUMMARY | 2024-12-16 00:37 | XMS_ITS | Clinical Summary ---
Author Organization [address] Address [address] [place] [id number] Care Team Providers Care Pest Control Service Sales Agent Name Role Phone Eb Gomez MD Primary Care Provider + [phone] Allergies Active Allergy Reactions Criticality Noted Date [...] 11/11/2021 Assessment & Plan (10/18/2022 2:14 PM ADULT SCHOOL COUNSELOR): Patient afraid of considering Forteo Will request [...] 11/11/2021 Assessment & Plan (10/18/2022 2:12 PM ADULT SCHOOL COUNSELOR): Check 25 OH vit D Adjust dose [...] on file Legal Sex Female 2:17 PM ADULT SCHOOL COUNSELOR Gender Identity Female 10/18/2022 1:15 PM ADULT SCHOOL COUNSELOR Sexual Orientation Not on file Obstetrics History Last Filed Vital Signs Vital Sign Reading Time Taken Comments Blood Pressure 124/60 10/18/2022 1:30 PM ADULT SCHOOL COUNSELOR Pulse 80 10/18/2022 1:30 PM ADULT SCHOOL COUNSELOR Temperature - - Respiratory Rate 16 10/18/2022 1:30 PM ADULT SCHOOL COUNSELOR Oxygen Saturation - - Inhaled Oxygen Concentration - - Weight 68.5 kg (151 lb 0.2 oz) 10/18/2022 1:30 P M ADULT SCHOOL COUNSELOR Height 167.4 cm (5' 5.91 ) 10/18/2022 1:30 PM CS T Body Mass Index 24.44 10/18/2022 1:30 PM ADULT SCHOOL COUNSELOR Plan of Treatment Health Maintenance Due Date Last Done Comments Breast Cancer Screening-Mammogram 1963 Colon Cancer Screening-Colonoscopy 1963 Depression Screening 1963 Hepatitis C Screening 1963 DTaP/Tdap/Td Vaccine (1 - Tdap) 1974 Hepatitis B Screening 1981 Regular Well Visit/Exam 18-64 1981 Pneumococcal vaccine <65 (1 of 2 - PCV) 1982 Zoster Vaccine (1 of 2) 2013 Covid-19 Vaccine (2 - season) 04/28/202402/2021 Influenza Vaccine (#1) 2024 06/23/2015 Insurance [facility] Care Teams Pest Control Service Sales Agent Relationship Specialty Start Date End Date Eb Gomez MD [address] [place] [address] PCP - General Family Medicine 09/02/21
[2024-12-16 00:43] VITALS: BP 110/57; PULSE 76; RESP 20; TEMP 36.5; O2SAT 96
--- NOTE | 2024-12-16 00:57 | ED.GENADULT ---
HPI - General Adult General Chief complaint: Extremity Problem,Nontraumatic Stated complaint: Joint Pain Time Seen by Provider: 12/16/24 00:54 Source: patient Mode of arrival: ambulatory Limitations: no limitations History of Present Illness HPI narrative: 59 years old white female came from home by private car complaining of hurting anywhere, pain in every bone in her body from head to toes. Patient is telling me that she does have history of spinal stenosis and sciatica , osteoporosis . she believes that she over did it today because of the . She denies any fever, chills, nausea, vomiting, fall or any recent trauma. Patient came to the ED walking using a cane. Patient is telling me that she is taking oxycodone 10/325 4 times a day, she had twice over the last 24 hours because is not working. Related Data Home Medications ?Medication ?Instructions ?Recorded ?Confirmed ?Last Taken ?Type clonazepam 1 mg tablet 1 mg PO TID 10/04/19 11/26/24 08/19/23 History simvastatin 20 mg tablet (Zocor) 20 mg PO DAILY 10/04/19 11/26/24 08/19/23 History lamotrigine 100 mg tablet 100 mg PO DAILY 12/28/20 11/26/24 08/19/23 History lisinopril 20 mg tablet 20 mg PO DAILY 12/28/20 11/26/24 08/19/23 History omeprazole 40 mg capsule,delayed 40 mg PO DAILY 12/24/21 11/26/24 08/19/23 History release duloxetine 60 mg capsule,delayed 60 mg PO DAILY 04/14/22 11/26/24 08/19/23 History release (Cymbalta) ergocalciferol (vitamin D2) 1,250 1,250 mcg PO WEEKLY 11/03/22 11/26/24 08/19/23 History mcg (50,000 unit) capsule prazosin 5 mg capsule 5 mg PO DAILY 05/10/24 11/26/24 Unknown History Allergies Allergy/AdvReac Type Severity Reaction Status Date / Time aspirin Allergy Mild Anaphylaxis Verified 11/26/24 13:11 ciprofloxacin Allergy Unknown Anaphylaxis Verified 11/26/24 13:11 BEE STINGS Allergy Intermediate SWELLING Uncoded 11/26/24 13:11 Review of Systems Review of Systems: All systems reviewed & are unremarkable except as noted in HPI and below PMFSH Past Medical History Medical History Fracture of distal end of right radius Hepatomegaly Tobacco abuse GERD (gastroesophageal reflux disease) Weight loss The patient was evaluated by Dr. Maguire who recommended the patient have EGD and colonoscopy she has not followed up. Her CT scan performed at that time demonstrated hepatomegaly Heart murmur Since Elevated lipids Arthritis Anemia Chronic obstructive pulmonary disease Cubital tunnel syndrome on left Dyslipidemia Essential hypertension Surgical History Surgical History Displaced fracture of left femoral neck Garden type 4 subcapital femoral neck fracture Cemented left bipolar hemiarthroplasty December 30, 2020 S/P implantation of urinary electronic stimulator device (~2016) With battery exchange 2020 History of carpal tunnel release Left S/P cubital tunnel release Left History of esophagogastroduodenoscopy (EGD) (~2016) History of colonoscopy with polypectomy (~2013) History of appendectomy History of hysterectomy Without oophorectomy at age 36 performed due to endometriosis and dysfunctional uterine bleeding History of shoulder surgery History of knee surgery Open meniscus repair left knee History of foot surgery Repair of tendons and ligaments of left ankle after severe laceration Family History Family History Father Lung cancer Sibling Psychiatric illness Mother Hypertension Hyperlipidemia Unknown Asthma Depression Heart disease Lung cancer Arthritis Cerebrovascular accident Other Diabetes mellitus Social History Social History Social History: She lives at home with her fiance and her adult son. She only has the 1 son. She has smoked between 1-2 packs of cigarettes per day since she was in her teens. She continues to smoke 0.5 pack of cigarettes per day. She denies any alcohol use or illicit substance use. 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 Primary care physician: Dr. Eb Gomez Code status: Full code Smoking packs per day: 0.50 Smoking cigarettes per day: 10.0 Years smoked: 40 Smoking pack-years: 20.00 Smoking status: Current every day smoker Tobacco type: cigarettes Second hand tobacco smoke exposure: Yes Alcohol intake: never Substance use: never Substance use type: does not use Living arrangements: with family Occupation/Education: retired Gender identity (if verbalized by the patient): Female Spiritual care concerns: No Exam Narrative: General appearance: Well-developed, well-nourished Skin: Normal color Head: Normocephalic, nontraumatic Eyes: Clear conjunctiva ENT: Oropharynx normal, ears normal, nose normal Neck: Supple, nontender Chest and respiratory: Airway patent, no respiratory distress, no accessory muscle use Heart: Regular rate/rhythm Abdomen: Soft, nontender, no organomegaly, quiet bowel sounds Musculoskeletal: Slight limited range of motion of all over the body because of pain Neurologic: Alert and oriented ?3, BED AND BREAKFAST INNKEEPER is normal as tested, no gross motor deficit Course Vital Signs Vital signs: Vital Signs Temperature 36.5 C 12/16/24 00:43 Pulse Rate 76 12/16/24 00:43 Respiratory Rate 20 12/16/24 00:43 Blood Pressure 110/57 L 12/16/24 00:43 Pulse Oximetry 96 12/16/24 00:43 Oxygen Delivery Room Air 12/16/24 00:43 Temperature 36.5 C 12/16/24 00:43 Pulse Rate 76 12/16/24 00:43 Respiratory Rate 20 12/16/24 00:43 Blood Pressure 110/57 L 12/16/24 00:43 Pulse Oximetry 96 12/16/24 00:43 Oxygen Delivery Room Air 12/16/24 00:43 Medical Decision Making MDM Narrative Medical decision making narrative: patient presents with general body aches from head to toes after cooking a lot today for the . No specific trauma Patient received 1 mg Dilaudid IM 4 mg of Zofran p.o. prior to discharge. Patient was advised to continue home medications. Vital Signs Vital Signs: Vital Signs Temperature 36.5 C 12/16/24 00:43 Pulse Rate 76 12/16/24 00:43 Respiratory Rate 20 12/16/24 00:43 Blood Pressure 110/57 L 12/16/24 00:43 Pulse Oximetry 96 12/16/24 00:43 Oxygen Delivery Room Air 12/16/24 00:43 Temperature 36.5 C 12/16/24 00:43 Pulse Rate 76 12/16/24 00:43 Respiratory Rate 20 12/16/24 00:43 Blood Pressure 110/57 L 12/16/24 00:43 Pulse Oximetry 96 12/16/24 00:43 Oxygen Delivery Room Air 12/16/24 00:43 Critical Care Time Critical Care Time Critical Care Time: No Discharge Plan Discharge Clinical Impression: Chronic pain Patient Disposition: Home Condition: Stable Instructions: Chronic Pain (ED) Additional Instructions: Return if symptoms are worsening , call your family physician for appointment, take Tylenol as as needed for aches and pain, continue home medications. Patient Language: Omani Prescriptions: No Action ergocalciferol (vitamin D2) 1,250 mcg (50,000 unit) capsule 1,250 mcg PO WEEKLY lisinopril 20 mg tablet 20 mg PO DAILY lamotrigine 100 mg tablet 100 mg PO DAILY omeprazole 40 mg capsule,delayed release(DR/EC) 40 mg PO DAILY duloxetine [Cymbalta] 60 mg capsule,delayed release(DR/EC) 60 mg PO DAILY oxycodone-acetaminophen [Percocet] 10-325 mg tablet 1 tablet PO Q8H PRN (Reason: pain) Qty: 14 0RF (DME) inhalational spacing device Spacer See Rx Instructions .ROUTE .MEDSUPPLY Qty: 1 0RF Rx Instructions: As directed clonazepam 1 mg tablet 1 mg PO TID simvastatin [Zocor] 20 mg tablet 20 mg PO DAILY prazosin 5 mg capsule 5 mg PO DAILY albuterol sulfate 2.5 mg /3 mL (0.083 %) solution for nebulization 2.5 mg inhalation Q6H PRN (Reason: shortness of breath or wheezing) Qty: 360 2RF montelukast 10 mg tablet 10 mg PO QHS Qty: 30 11RF benzonatate 200 mg capsule See Rx Instructions .ROUTE .COMPLEX Qty: 90 0RF Dose Instruction: TAKE ONE CAPSULE BY MOUTH THREE TIMES A DAY NEEDED Rx Instructions: TAKE ONE CAPSULE BY MOUTH THREE TIMES A DAY NEEDED Breztri Aerosphere 160-9-4.8 mcg/actuation HFA aerosol inhaler See Rx Instructions .ROUTE .COMPLEX Qty: 10.7 11RF Dose Instruction: INHALE TWO PUFFS BY MOUTH EVERY MORNING AND EVERY EVENING. Rx Instructions: INHALE TWO PUFFS BY MOUTH EVERY MORNING AND EVERY EVENING. Rinse and spit. albuterol sulfate 90 mcg/actuation HFA aerosol inhaler See Rx Instructions .ROUTE .COMPLEX Qty: 8.5 5RF Dose Instruction: INHALE ONE TO TWO PUFFS EVERY FOUR TO SIX HOURS NEEDED FOR SHORTNESS OF BREATH OR WHEEZING Rx Instructions: INHALE ONE TO TWO PUFFS EVERY FOUR TO SIX HOURS NEEDED FOR SHORTNESS OF BREATH OR WHEEZING Follow-up/Referrals: Eb Gomez MD [Primary Care Provider] -
[2024-12-16] MEDS: ONDANSETRON HCL ODT 4 MG TABLET PO (01:00)
--- OUTSIDE RECORDS SUMMARY | 2024-12-16 01:01 | XMS_ITS | Clinical Summary ---
Author Organization [address] Address [address] [place] [id number] Care Team Providers Care Title Coordinator Name Role Phone Eb Gomez MD Primary Care Provider + [phone] Allergies Active Allergy Reactions Criticality Noted Date [...] 11/11/2021 Assessment & Plan (10/18/2022 2:14 PM BLOCK MACHINE OPERATOR): Patient afraid of considering Forteo Will [...] 11/11/2021 Assessment & Plan (10/18/2022 2:12 PM BLOCK MACHINE OPERATOR): Check 25 OH vit D Adjust [...] on file Legal Sex Female 2:17 PM BLOCK MACHINE OPERATOR Gender Identity Female 10/18/2022 1:15 PM BLOCK MACHINE OPERATOR Sexual Orientation Not on file Obstetrics History Last Filed Vital Signs Vital Sign Reading Time Taken Comments Blood Pressure 124/60 10/18/2022 1:30 PM BLOCK MACHINE OPERATOR Pulse 80 10/18/2022 1:30 PM BLOCK MACHINE OPERATOR Temperature - - Respiratory Rate 16 10/18/2022 1:30 PM BLOCK MACHINE OPERATOR Oxygen Saturation - - Inhaled Oxygen Concentration - - Weight 68.5 kg (151 lb 0.2 oz) 10/18/2022 1:30 P M BLOCK MACHINE OPERATOR Height 167.4 cm (5' 5.91 ) 10/18/2022 1:30 PM CS T Body Mass Index 24.44 10/18/2022 1:30 PM BLOCK MACHINE OPERATOR Plan of Treatment Health Maintenance Due Date [...] 04/28/202402/2021 Influenza Vaccine (#1) 2024 06/23/2015 Insurance [facility] Care Teams Title Coordinator Relationship Specialty Start Date End Date Eb Gomez MD [address] [place] [address] PCP - General Family Medicine 09/02/21
--- OUTSIDE RECORDS SUMMARY | 2024-12-16 01:01 | XMS_ITS | Clinical Summary ---
Author Organization [facility] Address [address] [id number] Phone Care Team Providers Care Card Brusher Name Role Phone Eb Gomez Primary Care Provider [phone] Allergies Active Allergy Reactions Criticality Noted Date [...] this topic Medical Devices Implanted Type Area Bean Snipper Device Identifier Shelf Expiration Date Model / Serial / Lot Clip 360 Resolution 235cm - [id number] Implanted:Qty: 3 on 04/06/2018 by Puma Medina DO at [facility] IMPLANT [email or web address] 12/24/2020 [id number] / [id number] / [id number] Description:ASCENDING COLON POLYPECTOMY SITE Insurance [employer]ICA[employer] Care Teams Card Brusher Relationship Specialty Start Date End Date Eb Gomez [address] [place] [id number] PCP - General Family Medicine 07/09/16
--- OUTSIDE RECORDS SUMMARY | 2024-12-16 01:01 | XMS_ITS | Referral Summary ---
Author Organization [address] Address [address] [place] [id number] Care Team Providers Care Teaching Manager Name Role Phone Eb Gomez MD Primary Care Provider + [phone] Allergies Active Allergy Reactions Criticality Noted Date [...] 11/11/2021 Assessment & Plan (10/18/2022 2:14 PM HOOP ROLLS OPERATOR): Patient afraid of considering Forteo Will [...] 11/11/2021 Assessment & Plan (10/18/2022 2:12 PM HOOP ROLLS OPERATOR): Check 25 OH vit D Adjust [...] on file Legal Sex Female 2:17 PM HOOP ROLLS OPERATOR Gender Identity Female 10/18/2022 1:15 PM HOOP ROLLS OPERATOR Sexual Orientation Not on file Last Filed Vital Signs Vital Sign Reading Time Taken Comments Blood Pressure 124/60 10/18/2022 1:30 PM HOOP ROLLS OPERATOR Pulse 80 10/18/2022 1:30 PM HOOP ROLLS OPERATOR Temperature - - Respiratory Rate 16 10/18/2022 1:30 PM HOOP ROLLS OPERATOR Oxygen Saturation - - Inhaled Oxygen Concentration - - Weight 68.5 kg (151 lb 0.2 oz) 10/18/2022 1:30 P M HOOP ROLLS OPERATOR Height 167.4 cm (5' 5.91 ) 10/18/2022 1:30 PM CS T Body Mass Index 24.44 10/18/2022 1:30 PM HOOP ROLLS OPERATOR Plan of Treatment Not on file Insurance [facility] Care Teams Teaching Manager Relationship Specialty Start Date End Date Eb Gomez MD [address] [facility] [place] [address] PCP - General Family Medicine 09/02/21
[2024-12-16] MEDS: HYDROmorphone HCL INJ (*CRX) 2 MG/ML VIAL 1 MG IM (01:02)
--- OUTSIDE RECORDS SUMMARY | 2024-12-16 01:02 | XMS_ITS | Encounter Summary ---
Author Organization [facility] Address [address] [place] [id number] Care Team Providers Care Patient Accounts Coordinator Name Role Phone Eb Gomez MD Primary Care Provider [phone] Encounter Details Date Type Department Care Team (Late st Contact Info) Description 02/02/2019 Abstract SFL CONVERSION [address] [place] [address] , Generic ConversionMD Social History Tobacco Use [...] Rule Out 08/22/2020 08/22/2020 08/24/2020 2:38 PM JUMPBASTING CANVAS BASTER documented as of this encounter Care Teams Patient Accounts Coordinator Relationship Specialty Start Date End Date Eb Gomez MD PCP - General FAMILY PRACTICE 02/25/19 documented as of this encounter
--- OUTSIDE RECORDS SUMMARY | 2024-12-16 01:02 | XMS_ITS | Continuity of Care Document ---
Author Organization [facility] Address [address] [place] [address] [place] [address] Phone Care Team Providers Care Industrial Safety Engineer Name Role Phone Eb Gomez MD Unavailable Unavailable Allergies, Adverse Reactions, Alerts Substance Reaction Status Criticality aspirin Active No Information CIPROFLOXACIN HCL Active No Informa tion ciprofloxacin Active No Information Medications Medication Instructions Dosage Effective Dates (start - stop) Status Comments omeprazole 40 mg capsule,delayed release take 1 capsule by oral route every day before a meal 40 MG - Active Klonopin 1 mg tablet take 1 tablet by oral route 3 times every day as needed 1 MG - Active avoid drivin g or operate machines, PRN for anxiety, Percocet 10 mg-325 mg tablet take 1 tablet by oral route 4 times every day as needed as needed 1 tablet - Active PRN for pain, avoid driving or operate machines prednisone 20 mg tablet take 3 Tablet by oral route every day 60 MG - Active Lamictal 150 mg tablet [...] by oral route every week - Active prazosin 5 mg capsule take 1 capsule by oral route q - Active avoid driving or operate machines Cymbalta 60 mg capsule,delayed release take 1 capsule by oral route every day 60 MG - Active Breztri Aerosphere 160 mcg-9mcg-4.8mcg/act uation HFA aerosol inhaler inhale 2 puff by inhalation route 2 times every day in the morning and evening 2.00 puff - Active albuterol sulfate HFA 90 mcg/actuation aerosol inhaler inhale 1 puff by inhalation route every 4 - 6 hours as needed as needed 1 puff - Active PRN for sob albuterol sulfate 2.5 mg/3 mL (0.083 %) solution for nebulization inhale 3 milliliter by nebulization route every 6 hours as needed 2.5 MG - Active COPD, PRN for sob ProAir HFA 90 mcg/actuation aerosol inhaler inhale 2 puff by inhalation route every 4 - 6 hours as needed as needed - Active PRN for sob naloxone 0.4 mg/mL injection syringe inject 1 milliliter by intravenous route over once, may repeat at 2 to 3 minute intervals as needed - Active PRN for OD nebulizer and compressor use PRN - Active use PRN for sob Procedures Procedure Date OFFICE/OUTPATIENT VISIT, EST OFFICE/OUTPATIENT [...] Copied on Encounter OFFICE/OUTPA TIENT VISIT, EST [facility], [address] [place], [id number], [place] tel:[phone] [facility] pain (chief complaint)anx iety1 (chief complaint)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 [address] [place], [address] , [place]. tel:[phone] OFFICE/OUTPA TIENT VISIT, [facility], [address], [place], [place], [address], [place] tel:[phone] [facility] pain (chief complaint)anx iety1 (chief complaint)rachna ght loss1 (chief complaint)bar rett1 (chief complaint) Chronic pain syndromeGenerali zed Anxiety DisorderAbnormal weight lossBarrett's esophagus without dysplasia 5 Gomez Eb. [address], [place], [place], [address] , [place]. tel:[phone] OFFICE/OUTPA TIENT VISIT, [facility], [address], [place], [place], [address], [place] tel:[phone] [facility] pain (chief complaint)anx iety1 (chief complaint)douglas ngle1 (chief complaint) Other postherpetic nervous system involvementChron ic pain syndromeGenerali zed Anxiety Disorder 5 Gomez Eb. [address], [place], [place], [address] , [place]. tel:[phone] OFFICE/OUTPA TIENT VISIT, [facility], [address], [place], [place], [address], [place] tel:[phone] [facility] pain (chief complaint)anx iety1 (chief complaint)HLP (chief complaint) Chronic pain syndromeGenerali zed Anxiety DisorderMixed hyperlipidemia 5 Gomez Eb. [address], [place], [place], [address] , [place]. tel:[phone] OFFICE/OUTPA TIENT VISIT, [facility], [address], [place], [place], [address], [place] tel:[phone] [facility] pain (chief complaint)anx ity1 (chief complaint) Chronic pain syndromeGenerali zed Anxiety Disorder 4 Jason Parson. [address], [place], [place], [address] , [place]. tel:[phone] OFFICE/OUTPA TIENT VISIT, [facility], [address] [place], [address], [place] tel:[phone] [facility] pain (chief complaint)anx iety (chief complaint)HTN (chief complaint) Chronic pain syndromeGenerali zed Anxiety DisorderEssentia l (primary) hypertensionEnco unter for oth screening for malignant neoplasm of breast 4 Jason Parson. [address], [place], [place], [address] , [place]. tel:[phone] OFFICE/OUTPA TIENT VISIT, [facility], [address] [place], [address], [place] tel:[phone] [facility] pain (chief complaint)anx iety1 (chief complaint)ost eoporosis1 (chief complaint)EN D1 (chief complaint) OsteoporosisGene ralized Anxiety DisorderChronic pain syndromeGERD w/o esophagitis 4 Jason Parson. [address], [place], [place], [address] , [place]. tel:[phone] [facility], [address] [place], [address], [place] tel:[phone] [facility] No Information 4 Jason Eb. [address], [place], [place], [address] , [place]. tel:[phone] OFFICE/OUTPA TIENT VISIT, [facility], [address] [place], [address], [place] tel:[phone] [facility] osteoporosis1 (chief complaint)leslie n (chief complaint)anx iety1 (chief complaint)federico g (chief complaint) OsteoporosisChro sangeetha pain syndromeGenerali zed Anxiety DisorderSolitary lung nodule 4 Jason Parson. [address], [place], [place], [address] , [place]. tel:[phone] OFFICE/OUTPA TIENT VISIT, [facility], [address] [place], [address], [place] tel:[phone] [facility] pain (chief complaint)anx iety1 (chief complaint)nig htmares1 (chief complaint) Chronic pain syndromeGenerali zed Anxiety DisorderNightmar e disorderTobacco use 4 Jason Parson. [address] [facility] [address], [address] , [place]. tel:[phone] OFFICE/OUTPA TIENT VISIT, [facility], [address] [place], [place], [address], [place] tel:[phone] [facility] pain (chief complaint)anx iety1 (chief complaint)PTS D (chief complaint) Chronic pain syndromeGenerali zed Anxiety DisorderNightmar e disorder 4 Jason Parson. [address] [place], [address] , [place]. tel:[phone] OFFICE/OUTPA TIENT VISIT, [facility], [address] [place], [address], [place] tel:[phone] [facility] pain (chief complaint)ANX IETY1 (chief complaint)GLU COSE1 (chief complaint)HLP (chief complaint)ost eoprosis1 (chief complaint) Chronic pain syndromeGenerali zed Anxiety DisorderMixed hyperlipidemiaOs teoporosisHyperg lycemia 4 Jason Parson. [address] [facility] [address], [address] , [place]. tel:[phone] OFFICE/OUTPA TIENT VISIT, 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 [address], [place], [place], [address] , [place]. tel:[phone] PREV VISIT, EST, AGE 40-64 [facility], [address], [place], [place], [address], [place] tel:[phone] [facility] physical (chief complaint) Encounter for general adult medical examination without abnormal findings 4 Jason Parson. [address], [place], [place], [address] , [place]. tel:[phone] OFFICE/OUTPA TIENT VISIT, EST [facility], [address] [place], [address], [place] tel:[phone] [facility] pain (chief complaint)anx iety1 (chief complaint)EN D1 (chief complaint) Chronic pain syndromeGenerali zed Anxiety DisorderBarrett' s esophagus 4 Jason Juarez [address], [place], [place], [address] , [place]. tel:[phone] OFFICE/OUTPA TIENT VISIT, EST [facility], [address] [place], [address], [place] tel:[phone] [facility] pain (chief complaint)anx iety1 (chief complaint)HLP (chief complaint)ost eoporosis1 (chief complaint) Chronic pain syndromeGenerali zed Anxiety DisorderOsteopor osisMixed hyperlipidemia 4 Jason Parson. [address], [place], [place], [address] , [place]. tel:[phone] OFFICE/OUTPA TIENT VISIT, EST [facility], [address] [place], [address], [place] tel:[phone] [facility] anxiety1 (chief complaint)leslie n (chief complaint)HTN (chief complaint)ost eoprosis1 (chief complaint) Chronic pain syndromeGenerali zed Anxiety DisorderOsteopor osisEssential (primary) hypertension 4 Jason Parson. [address], [place], [place], [address] , [place]. tel:[phone] OFFICE/OUTPA TIENT VISIT, [facility], [address] [place], [place], [address], [place] tel:[phone] [facility] anxiety1 (chief complaint)leslie n (chief complaint)ost eoporosis1 (chief complaint)nig htmares1 (chief complaint)emp hysema1 (chief complaint) OsteoporosisGene ralized Anxiety DisorderChronic pain syndromeNightmar e disorderCentrilo bular emphysema 4 Gomez Eb. [address], [place], [place], [address] , [place]. tel:[phone] OFFICE/OUTPA TIENT VISIT, [facility], [address] [place], [address], [place] tel:[phone] [facility] anxiety1 (chief complaint)leslie n (chief complaint)nig htmares1 (chief complaint)ost eoporosis1 (chief complaint) Chronic pain syndromeGenerali zed Anxiety DisorderOsteopor osisNightmare disorder 3 Jason Eb. [address] [facility] [address], [place], [place], [address] , [place]. tel:[phone] OFFICE/OUTPA TIENT VISIT, [facility], [address] [place], [address], [place] tel:[phone] [facility] anxiety1 (chief complaint)leslie n (chief complaint)bar rett1 (chief complaint)ost eoporosis1 (chief complaint) OsteoporosisGene ralized Anxiety DisorderChronic pain syndromeBarrett' s esophagusNightma re disorder 3 Jason Eb. [address], [place], [place], [address] , [place]. tel:[phone] OFFICE/OUTPA TIENT VISIT, [facility], [address] [place], [address], [place] tel:[phone] [facility] anxiety1 (chief complaint)leslie n (chief complaint)ost eoporosis1 (chief complaint) Chronic pain syndromeGenerali zed Anxiety DisorderOsteopor osis 3 Jason Parson. [address], [place], [place], [address] , [place]. tel:[phone] OFFICE/OUTPA TIENT VISIT, [facility], [address] [place], [address], [place] tel:[phone] [facility] osteoporosis1 (chief complaint)anx iety1 (chief complaint)leslie n (chief complaint)bar rett1 (chief complaint)federico g nodule1 (chief complaint) OsteoporosisGene ralized Anxiety DisorderChronic pain syndromeSolitary lung noduleBarrett's esophagus 3 Jason Juarez [address], [place], [place], [address] , [place]. tel:[phone] OFFICE/OUTPA TIENT VISIT, [facility], [address], [address], [place] tel:[phone] [facility] pain (chief complaint)anx iety1 (chief complaint)Bar rett1 (chief complaint)federico g nodule1 (chief complaint) Chronic pain syndromeGenerali zed Anxiety DisorderOsteopor osisBarrett's esophagusSolitar y lung nodule 3 Jason Juarez [address], [place], [place], [address] , [place]. [phone] OFFICE/OUTPA TIENT VISIT, [facility], [address] [place], [address], [place] tel:[phone] [facility] pain (chief complaint)anx iety1 (chief complaint) Generalized Anxiety DisorderChronic pain syndrome 3 Jason Parson. [address], [place], [place], [address] , [place]. [phone] OFFICE/OUTPA TIENT VISIT, [facility], [address] [place], [address], [place] tel:[phone] [facility] pain (chief complaint)anx iety1 (chief complaint)ost eoporosis1 (chief complaint) OsteoporosisChro sangeetha pain syndromeGenerali zed Anxiety Disorder 3 Jason Parson. [address] [facility] [address], [place], [place], [address] , [place]. tel:[phone] OFFICE/OUTPA TIENT VISIT, [facility], [address] [place], [address], [place] tel:[phone] [facility] wrist fx (chief complaint)leslie n (chief complaint)anx iety1 (chief complaint) Chronic pain syndromeGenerali zed Anxiety DisorderOsteopor osisPain in right wrist 3 Jason Juarez [address] [facility] [address], [place], [place], [address] , [place]. tel:[phone] OFFICE/OUTPA TIENT VISIT, [facility], [address] [place], [address], [place] tel:[phone] [facility] pain (chief complaint)anx iety1 (chief complaint)HLP (chief complaint)ane mia1 (chief complaint) Chronic pain syndromeGenerali zed Anxiety DisorderMixed hyperlipidemiaIr on deficiency anemiaOsteoporos is 3 Jason Juarez [address], [place], [place], [address] , [place]. tel:[phone] OFFICE/OUTPA TIENT VISIT, [facility], [address] [place], [address], [place] tel:[phone] [facility] pain (chief complaint)anx iety1 (chief complaint) Chronic pain syndromeGenerali zed Anxiety Disorder 3 Jason Parson. [address], [place], [place], [address] , [place]. tel:[phone] OFFICE/OUTPA TIENT VISIT, [facility], [address] [place], [address], [place] tel:[phone] [facility] pain (chief complaint)anx iety1 (chief complaint)federico g nodule1 (chief complaint)ost eoporosis1 (chief complaint)Bar rett (chief complaint) Centrilobular emphysemaChronic pain syndromeGenerali zed Anxiety DisorderOsteopor osisBarrett's esophagus 3 Jason Parson. [address], [place], [place], [address] , [place]. tel:[phone] PREV VISIT, EST, AGE 40-64 [facility], [address], [place], [place], [address], [place] [phone] [facility] physical (chief complaint) Encounter for general adult medical examination without abnormal findings 3 Jason Parson. [address], [place], [place], [address] , [place]. tel: [phone] OFFICE/OUTPA TIENT VISIT, [facility], [address], [place], [place], [address], [place] tel:[phone] [facility] COPD1 (chief complaint)leslie n (chief complaint)anx iety1 (chief complaint)HTN (chief complaint) Centrilobular emphysemaChronic pain syndromeEssentia l (primary) hypertensionOste oporosisGenerali zed Anxiety Disorder 2 Jason Parson. [address], [place], [place], [address] , [place]. tel: [phone] OFFICE/OUTPA TIENT VISIT, EST [facility], [address], [place], [place], [address], [place] tel:[phone] [facility] pain (chief complaint)anx iety1 (chief complaint)HTN (chief complaint)ost eoporosis1 (chief complaint)ost eoporosis1 (chief complaint) Chronic pain syndromeGenerali zed Anxiety DisorderOsteopor osisEssential (primary) hypertensionCent rilobular emphysema 2 Jason Parson. [address], [place], [place], [address] , [place]. tel:[phone] OFFICE/OUTPA TIENT VISIT, [facility], [address] [place], [address], tel:[phone] [facility] emphysema1 (chief complaint)leslie n (chief complaint)anx iety1 (chief complaint) COPD w/ acute exacerbationChro sangeetha pain syndromeGenerali zed Anxiety Disorder 2 Jason Parson. [address], [place], [place], [address] , [place]. tel:[phone] OFFICE/OUTPA TIENT VISIT, 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 tel:[phone] OFFICE/OUTPA TIENT VISIT, 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 [address], [address] , [place]. tel:[phone] OFFICE/OUTPA TIENT VISIT, 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 [address], [place], [place], [address] , [place]. tel:[phone] OFFICE/OUTPA TIENT VISIT, 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 [address], [place], [place], [address] , [place]. tel:[phone] OFFICE/OUTPA TIENT VISIT, [facility], [address], [place], [place], [address], [place] tel:[phone] [facility] pain (chief complaint)anx iety1 (chief complaint)tin nitus1 (chief complaint)dominik se1 (chief complaint) Chronic pain syndromeGenerali zed Anxiety DisorderImpacted cerumen, bilateralNeuropa thyStenosis of carotid artery 2 Jason Parson. [address], [place], [place], [address] , [place]. tel:[phone] OFFICE/OUTPA TIENT VISIT, 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 [address], [place], [place], [address] , [place]. tel:[phone] OFFICE/OUTPA TIENT VISIT, [facility], [address], [place], [place], [address], [place] tel:[phone] [facility] pain (chief complaint)anx iety (chief complaint)bar rett1 (chief complaint) Chronic pain syndromeGenerali zed Anxiety DisorderBarrett' s esophagus without dysplasiaPolyp of colon Nov- 2 Jason Parson. [address] [facility] [address], [place], [place], [address] , [place]. tel:[phone] OFFICE/OUTPA TIENT VISIT, [facility], [address] [place], [place], [address], [place] tel:[phone] [facility] pain (chief complaint)anx iety1 (chief complaint)ost eoporosis1 (chief complaint) Chronic pain syndromeGenerali zed Anxiety DisorderOsteopor osis 2 Jason Parson. [address] [facility] [place], [address] , [place]. tel:[phone] OFFICE/OUTPA TIENT VISIT, [facility], [address] [place], [address], [place] tel:[phone] [facility] pain (chief complaint)anx iety1 (chief complaint)ost eoporosis1 (chief complaint)tob acco1 (chief complaint) Tobacco useOsteoporosisG eneralized Anxiety DisorderChronic pain syndromeIron deficiency anemia 2 Jason Parson. [address], [place], [place], [address] , [place]. tel:[phone] OFFICE/OUTPA TIENT VISIT, [facility], [address] [place], [place], [address], [place] tel:[phone] [facility] anemia1 (chief complaint)anx iety1 (chief complaint)leslie n (chief complaint)HLP (chief complaint)ost eoporosis1 (chief complaint)cou gh1 (chief complaint) Chronic pain syndromeGenerali zed Anxiety DisorderOsteopor osisHyperlipidem iaIron deficiency anemiaTobacco useAcute cough 2 Jasno Parson. [address], [place], [place], [address] , [place]. tel:[phone] PREV VISIT, EST, AGE 40-64 [facility], [address], [place], [place], [address], [place] tel:[phone] [facility] Physical (chief complaint) Encounter for general adult medical examination without abnormal findings 1 Jason Juarez [address], [place], [place], [address] , [place]. [phone] OFFICE/OUTPA TIENT VISIT, [facility], [address], [place], [place], [address], [place] tel:[phone] [facility] anxiety1 (chief complaint)leslie n (chief complaint)ost eoporosis1 (chief complaint) OsteoporosisGene ralized Anxiety DisorderChronic pain syndromeEncounte r for oth screening for malignant neoplasm of breast 1 Jason Juarez [address], [place], [place], [address] , [place]. [phone] OFFICE/OUTPA TIENT VISIT, [facility], [address], [place], [place], [address], [place] tel:[phone] [facility] anxiety1 (chief complaint)leslie n (chief complaint)b12 (chief complaint)tob acco1 (chief complaint) Chronic pain syndromeGenerali zed Anxiety DisorderTobacco useDeficiency of other specified B group vitamins 1 Jason Juarez [address], [place], [place], [address] , [place]. 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 tel:[phone] OFFICE/OUTPA TIENT VISIT, [facility], [address] [place], [address], tel:[phone] [facility] anxiety1 (chief complaint)leslie n (chief complaint)b12 (chief complaint)ost eoporosis1 (chief complaint) Chronic pain syndromeGenerali zed Anxiety DisorderOsteopor osisVitamin B deficiencyTobacc o use 1 Jason Juarez [address], [place], [place], [address] , [place]. [phone] OFFICE/OUTPA TIENT VISIT, 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 tel:[phone] OFFICE/OUTPA TIENT VISIT, [facility], [address] [place], [address], [place] tel:[phone] [facility] hip fx1 (chief complaint)anx iety1 (chief complaint)HLP (chief complaint)HTN (chief complaint)ost eoporosis1 (chief complaint) Abnormal weight lossChronic pain syndromeGenerali zed Anxiety DisorderOsteopor osisEssential (primary) hypertensionHype rlipidemiaPresen ce of left artificial hip joint 1 Jason Juarez [address], [address], [place], [place], [address] , [place]. tel:[phone] OFFICE/OUTPA TIENT VISIT, [facility], [address] [place], [address], [place] tel:[phone] [facility] anxiety1 (chief complaint)leslie n (chief complaint)ins omnia1 (chief complaint)rachna ght loss1 (chief complaint) Abnormal weight lossChronic pain syndromeGenerali zed Anxiety DisorderInsomnia Vitamin B deficiency Nov-0 1 Jason Juarez [address], [address], [place], [place], [address] , [place]. tel:[phone] OFFICE/OUTPA TIENT VISIT, [facility], [address], [place], [place], [address], [place] tel:[phone] [facility] anxiety1 (chief complaint)leslie n (chief complaint)Ane mia1 (chief complaint)mejia al (chief complaint) AnemiaChronic pain syndromeGenerali zed Anxiety DisorderRenal diseaseHyperkale miaAbnormal weight loss 0 1 Jason Juarez [address], [address], [place], [place], [address] , [place]. tel:[phone] OFFICE/OUTPA TIENT VISIT, [facility], [address] [place], [address], [place] tel:[phone] [facility] overactive bladder1 (chief complaint) Overactive bladderMixed incontinence 0 1 Jason Juarez [address], [address], [place], [place], [address] , [place]. tel:[phone] OFFICE/OUTPA TIENT VISIT, [facility], [address] [place], [address], [place] tel:[phone] [facility] anxiety1 (chief complaint)leslie n (chief complaint)ane mia1 (chief complaint)ost eoporosis1 (chief complaint) Chronic pain syndromeGenerali zed Anxiety DisorderAbnormal weight lossAnemiaOsteop orosis 0 1 Jason Juarez [address], [address], [place], [place], [address] , [place]. tel:[phone] OFFICE/OUTPA TIENT VISIT, 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 tel:[phone] OFFICE/OUTPA TIENT VISIT, [facility], [address] [place], [place], [address], [place] tel:[phone] [facility] anxity1 (chief complaint)leslie n (chief complaint)hem aturia1 (chief complaint)rachna ght loss1 (chief complaint) Abnormal weight lossHematuriaChr onic pain syndromeGenerali zed Anxiety Disorder 0 Jason Ju[facility] [place], [place], [address] , [place]. tel:[phone] OFFICE/OUTPA TIENT VISIT, [facility], [address] [place], [place], [address], [place] tel:[phone] [facility] anxiety1 (chief complaint)leslie n1 (chief complaint)mejia al (chief complaint)b12 (chief complaint)ane mia1 (chief complaint)rachna ght loss1 (chief complaint) HematuriaFolate deficiencyAnemia Renal diseaseAbnormal weight lossGeneralized Anxiety DisorderChronic pain syndrome 0 Jason Juarez [address] [facility] [address], [address] , [place]. [phone] OFFICE/OUTPA TIENT VISIT, 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 [address], [address], [place], [place], [address] , [place]. tel:[phone] OFFICE/OUTPA TIENT VISIT, [facility], [address], [place], [place], [address], [place] tel:[phone] [facility] anxiety1 (chief complaint)leslie n (chief complaint)hem aturia1 (chief complaint)LDC T (chief complaint) Generalized Anxiety DisorderHematuri aChronic pain syndromeTobacco use 0 202 0 Jason Eb. [address], [place], [place], [address] , [place]. tel:[phone] OFFICE/OUTPA TIENT VISIT, 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 [address], [address], [place], [place], [address] , [place]. tel:[phone] OFFICE/OUTPA TIENT VISIT, [facility], [address], [address], [place] tel:[phone] [facility] anxiety1 (chief complaint)leslie n (chief complaint)tob acco (chief complaint) Chronic pain syndromeGenerali zed Anxiety DisorderTobacco useHematuria 0 202 0 Jason Eb. [address], [address], [place], [place], [address] , [place]. tel:[phone] OFFICE/OUTPA TIENT VISIT, 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 [phone] OFFICE/OUTPA TIENT VISIT, [facility], [address] [facility] [place], [address], [place] tel:[phone] [facility] anxiety1 (chief complaint)leslie n1 (chief complaint)ost eoporosis1 (chief complaint)hem aturia1 (chief complaint)ins omnia1 (chief complaint) HematuriaAnemiaG eneralized Anxiety DisorderChronic pain syndromeInsomnia OsteoporosisEsse ntial (primary) hypertension 0 Jason Juarez [address] [facility] [place], [address] , [place]. [phone] OFFICE/OUTPA TIENT VISIT, 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 [phone] OFFICE/OUTPA TIENT VISIT, [facility], [address] [place], [address], [place] tel:[phone] [facility] pain (chief complaint) Chronic pain syndromeGenerali zed Anxiety Disorder 0 Jason Juarez [address] [facility] [place], [address] , [place]. tel:[phone] Referring Provider: Eb Gomez [address] [place], [place], [address]. tel:[phone] OFFICE/OUTPA TIENT VISIT, [facility], [address], [place], [place], [address], [place] tel:[phone] [facility] pain (chief complaint)anx iety1 (chief complaint)b12 (chief complaint)ins omnia1 (chief complaint) Generalized Anxiety DisorderInsomnia AnemiaChronic pain syndromeVitamin B deficiency 0 Jason Parson. [address], [place], [place], [address] , [place]. tel:[phone] Referring Provider: Kristen Fernandez [address], [place], [place], [address]. tel:[phone] PREV VISIT, EST, AGE 40-64 [facility], [address], [place], [place], [address], [place] tel:[phone] [facility] physical (chief complaint) Encntr for general adult medical exam w/o abnormal findings 0 Jason Parson. [address], [address], [place], [place], [address] , [place]. tel:[phone] Referring Provider: Kristen Fernandez [address], [place], [place], [address]. tel:[phone] OFFICE/OUTPA TIENT VISIT, EST [facility], [address], [place], [place], [address], [place] tel:[phone] [facility] insomnia1 (chief complaint)leslie n1 (chief complaint)anx iety1 (chief complaint)hem aturia1 (chief complaint) Chronic pain syndromeGenerali zed Anxiety DisorderInsomnia Hematuria 0 Jason Parson. [address], [place], [place], [address] , [place]. tel:[phone] Referring Provider: Kristen Fernandez [address], [place], [place], [address]. tel:[phone] OFFICE/OUTPA TIENT VISIT, EST [facility], [address], [place], [place], [address], [place] tel:[phone] [facility] osteoprosis1 (chief complaint)ins omani1 (chief complaint)anx iety1 (chief complaint)chr onic pain1 (chief complaint)con fusion1 (chief complaint) Generalized Anxiety DisorderChronic pain syndromeInsomnia OsteoporosisAbno rmal involuntary movementHematuri aDeficiency of other specified B group vitamins 9 Jason Parson. [address], [place], [place], [address] , [place]. tel:[phone] Referring Provider: Eb Gomez, [address], [place], [place], [address]. tel:[phone] OFFICE/OUTPA TIENT VISIT, [facility], [address], [place], [place], [address], [place] tel:[phone] [facility] anemia1 (chief complaint)mejia al1 (chief complaint)chr onic pain (chief complaint)anx iety1 (chief complaint) AnemiaRenal diseaseHematuria Chronic pain syndromeGenerali zed Anxiety DisorderAbnormal involuntary movement 9 Jason Parson. [address], [place], [place], [address] , [place]. 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 [address], [place], [place], [address] , [place]. tel:[phone] Referring Provider: Kristen Fernandez [address], [place], [place], [address]. tel:[phone] PREV VISIT, EST, AGE 40-64 [facility], [address], [place], [place], [address], [place] tel:[phone] [facility] anxieyt1 (chief complaint)chr oinc pain1 (chief complaint)PHy sical (chief complaint) Encntr for general adult medical exam w/o abnormal findings 9 Jason Parson. [address], [place], [place], [address] , [place]. tel:[phone] Referring Provider: Kristen Fernandez [facility], [place], [place], [address]. tel:[phone] OFFICE/OUTPA TIENT VISIT, [facility], [address] [place], [address], [place] tel:[phone] [facility] COPD1 (chief complaint)chr onic pain (chief complaint)CAD (chief complaint)anx iety1 (chief complaint) Coronary artery disease of [place] coronary artery without angina pectorisEmphysem aChronic pain syndromeGenerali zed Anxiety Disorder 9 Jason Parson. [address], [facility], [place], [place], [address] , [place]. tel:[phone] OFFICE/OUTPA TIENT VISIT, [facility], [address] [place], [address], [place] tel:[phone] [facility] COPD1 (chief complaint)CAD (chief complaint)anx iety1 (chief complaint)chr onic pain1 (chief complaint) Solitary lung noduleEmphysemaG eneralized Anxiety DisorderChronic pain syndromeCoronary artery disease of [place] coronary artery without angina pectoris 9 Jason Parson. [address], [place], [place], [address] , [place]. tel:[phone] Referring Provider: Kristen Fernandez [facility], [place], [place], [address]. tel:[phone] OFFICE/OUTPA TIENT VISIT, [facility], [address] [place], [place], [address], [place] tel:[phone] [facility] anxiety1 (chief complaint)chr onic pain1 (chief complaint)tob acco1 (chief complaint) Chronic pain syndromeGenerali zed Anxiety DisorderSolitary lung noduleTobacco use 9 Jason Parson. [address], [place], [place], [address] , [place]. tel:[phone] Referring Provider: Kristen Fernandez [facility], [place], [place], [address]. tel:[phone] OFFICE/OUTPA TIENT VISIT, 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 [address], [place], [place], [address] , [place]. tel:[phone] OFFICE/OUTPA TIENT VISIT, [facility], [address], [address], [place] tel:[phone] [facility] COPD1 (chief complaint)HTN (chief complaint)chr onic pain1 (chief complaint)anx iety1 (chief complaint) Chronic pain syndromeGenerali zed Anxiety DisorderEssentia l (primary) hypertensionEmph ysema 9 Jason Parson. [address], [place], [place], [address] , [place]. tel:[phone] Referring Provider: Kristen Fernandez [address] [facility] A, [place], [place], [address]. tel:[phone] OFFICE/OUTPA TIENT VISIT, [facility], [address] [place], [address], [place] tel:[phone] [facility] anemia1 (chief complaint)anx iety1 (chief complaint)brenda k pain1 (chief complaint) Generalized Anxiety DisorderChronic pain syndromeAnemia 9 Jason Parson. [address], [place], [place], [address] , [place]. tel:[phone] OFFICE/OUTPA TIENT VISIT, [facility], [address], [place], [place], [address], [place] tel:[phone] [facility] hlP (chief complaint)chr onic pain (chief complaint)anx iety1 (chief complaint)ane mia1 (chief complaint) AnemiaGeneralize d Anxiety DisorderChronic pain syndromeHyperlip idemiaFolic acid deficiency Jason Parson. [address], [place], [place], [address] , [place]. tel:[phone] Referring Provider: Kristen Fernandez [facility], [place], [place], [address]. tel:[phone] OFFICE/OUTPA TIENT VISIT, [facility], [address], [place], [place], [address], [place] tel:[phone] [facility] chronic pain1 (chief complaint)anx iety1 (chief complaint) Chronic pain syndromeGenerali zed Anxiety Disorder 9 Jason Parson. [address], [place], [place], [address] , [place]. tel:[phone] OFFICE/OUTPA TIENT VISIT, 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 [address], [place], [place], [address] , [place]. tel:[phone] Referring Provider: Kristen Fernandez [address], [place], [place], [address]. tel:[phone] OFFICE/OUTPA TIENT VISIT, [facility], [address], [place], [place], [address], [place] tel:[phone] [facility] anemia1 (chief complaint)ost eoporosis1 (chief complaint)chr onic pain (chief complaint)anx iety1 (chief complaint)b12 (chief complaint) OsteoporosisAnem iaChronic pain syndromeGenerali zed Anxiety DisorderFolic acid deficiency 0 8 Jason Parson. [address], [place], [place], [address] , [place]. tel:[phone] Referring Provider: Eb Gomez [address], [place], [place], [address]. tel:[phone] OFFICE/OUTPA TIENT VISIT, [facility], [address], [place], [place], [address], [place] tel:[phone] [facility] chronic pain (chief complaint)anx iety1 (chief complaint) Chronic pain syndromeGenerali zed Anxiety Disorder 8 Jason Parson. [address], [place], [place], [address] , [place]. tel:[phone] Referring Provider: Kristen Fernandez [address], [place], [place], [address]. tel:[phone] OFFICE/OUTPA TIENT VISIT, [facility], [address], [place], [place], [address], [place] tel:[phone] [facility] chronic pain1 (chief complaint)anx iety1 (chief complaint)HTN (chief complaint)col on polyp1 (chief complaint) Chronic pain syndromeGenerali zed Anxiety DisorderPolyp of colonEssential (primary) hypertension 8 Jason Parson. [address], [place], [place], [address] , [place]. tel:[phone] Referring Provider: Kristen Fernandez [address], [place], [place], [address]. tel:[phone] PREV VISIT, EST, AGE 40-64 [facility], [address], [place], [place], [address], [place] tel:[phone] [facility] Physical (chief complaint) Encounter for general adult medical exam w abnormal findingsPolyp of colonChronic pain syndromeGenerali zed Anxiety DisorderOsteopor osis 8 Jason Parson. [address], [place], [place], [address] , [place]. tel:[phone] Referring Provider: Kristen Fernandez [address], [place], [place], [address]. tel:[phone] OFFICE/OUTPA TIENT VISIT, [facility], [address], [place], [place], [address], [place] tel:[phone] [facility] lung nodule1 (chief complaint)Chr onic pain1 (chief complaint)anx iety1 (chief complaint)kcl (chief complaint) Solitary lung noduleChronic pain syndromeGenerali zed Anxiety DisorderHyperkal emiaEmphysema 8 Jason Juarez [address], [place], [place], [address] , [place]. tel:[phone] Referring Provider: Kristen Fernandez [address], [place], [place], [address]. tel:[phone] OFFICE/OUTPA TIENT VISIT, 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 tel:[phone] Referring Provider: Kristen Fernandez [address], [place], [place], [address]. tel:[phone] OFFICE/OUTPA TIENT VISIT, [facility], [address], [place], [place], [address], [place] tel:[phone] [facility] chronic pain (chief complaint)anx iety1 (chief complaint)pne umonia1 (chief complaint) COPD w/ acute exacerbationChro sangeetha pain syndromeGenerali zed Anxiety DisorderPneumoni aEssential (primary) hypertension 8 Jason Parson. [address], [place], [place], [address] , [place]. tel:[phone] Referring Provider: Kristen Fernandez [address], [place], [place], [address]. tel:[phone] OFFICE/OUTPA TIENT VISIT, 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 [address], [place], [place], [address] , [place]. tel:[phone] Referring Provider: Kristen Fernandez [address], [place], [place], [address]. tel:[phone] OFFICE/OUTPA TIENT VISIT, [facility], [address], [place], [place], [address], [place] tel:[phone] [facility] HLP (chief complaint)KCL (chief complaint)b12 1 (chief complaint)EN d1 (chief complaint)anx iety1 (chief complaint) GERD without esophagitisHyper lipidemiaHyperka lemiaInsomnia 8 Jason Parson. [address], [place], [place], [address] , [place]. tel:[phone] Referring Provider: Kristen Fernandez [address], [place], [place], [address]. tel:[phone] OFFICE/OUTPA TIENT VISIT, [facility], [address], [place], [place], [address], [place] tel:[phone] [facility] chronc pain (chief complaint)anx iety1 (chief complaint)tob acoc1 (chief complaint)EN D1 (chief complaint) GERD without esophagitisGener alized Anxiety DisorderChronic pain syndromeScreenin g for lung ca 8 Jason Parson. [address], [place], [place], [address] , [place]. tel:[phone] Referring Provider: Kristen Fernandez [address], [place], [place], [address]. tel:[phone] OFFICE/OUTPA TIENT VISIT, [facility], [address], [place], [place], [address], [place] tel:[phone] [facility] chronic pain (chief complaint)anx iety1 (chief complaint)HLP (chief complaint)HTN (chief complaint) Chronic pain syndromeGenerali zed Anxiety DisorderHyperlip idemiaEssential (primary) hypertension 8 Jason Parson. [address], [place], [place], [address] , [place]. [phone] OFFICE/OUTPA TIENT VISIT, [facility], [address], [place], [place], [address], [place] tel:[phone] [facility] COPD1 (chief complaint)chr onic pain1 (chief complaint)anx iety1 (chief complaint) EmphysemaGeneral ized Anxiety DisorderChronic pain syndrome 7 Jason Parson. [address], [place], [place], [address] , [place]. tel:[phone] Referring Provider: Kristen Fernandez [address], [place], [place], [address]. tel:[phone] OFFICE/OUTPA TIENT VISIT, [facility], [address], [place], [place], [address], [place] tel:[phone] [facility] chronic pain (chief complaint)anx iety1 (chief complaint) Generalized Anxiety DisorderChronic pain syndrome 7 Gomez Eb. [address], [place], [place], [address] , [place]. tel:[phone] Referring Provider: Kristen Fernandez [address], [place], [place], [address]. tel:[phone] OFFICE/OUTPA TIENT VISIT, [facility], [address], [place], [place], [address], [place] tel:[phone] [facility] Cough1 (chief complaint)chr onic pain1 (chief complaint)anx iety1 (chief complaint)EN D1 (chief complaint) COPD w/ acute exacerbationChro sangeetha pain syndromeGenerali zed Anxiety DisorderGERD without esophagitis 7 Jason Juarez [address], [place], [place], [address] , [place]. tel:[phone] Referring Provider: Kristen Fernandez [facility], [place], [place], [address]. tel:[phone] OFFICE/OUTPA TIENT VISIT, [facility], [address], [place], [place], [address], [place] tel:[phone] [facility] chronic pain (chief complaint)anx iety1 (chief complaint)HTN (chief complaint)HLP (chief complaint) Chronic pain syndromeGenerali zed Anxiety DisorderHyperlip idemiaEssential (primary) hypertension 7 Jason Juarez [address], [place], [place], [address] , [place]. tel:[phone] Referring Provider: Kristen Fernandez [address], [place], [place], [address]. tel:[phone] OFFICE/OUTPA TIENT VISIT, 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 [address], [place], [place], [address] , [place]. tel:[phone] Referring Provider: Kristen Fernandez [address], [place], [place], [address]. tel:[phone] PREV VISIT, EST, AGE 40-64 [facility], [address], [place], [place], [address], [place] tel:[phone] [facility] PHysical (chief complaint) Encntr for general adult medical exam w/o abnormal findings 7 Jason Parson. [address], [place], [place], [address] , [place]. tel:[phone] Referring Provider: Kristen Fernandez [address], [place], [place], [address]. tel:[phone] OFFICE/OUTPA TIENT VISIT, EST [facility], [address], [place], [place], [address], [place] tel:[phone] [facility] HTN (chief complaint)chr onic pain1 (chief complaint)anx iety1 (chief complaint) Essential (primary) hypertensionGene ralized Anxiety DisorderChronic pain syndromeEncounte r for oth screening for malignant neoplasm of breast 7 Jason Parson. [address], [place], [place], [address] , [place]. tel:[phone] Referring Provider: Kristen Fernandez [address], [place], [place], [address]. 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 tel:[phone] Referring Provider: Kristen Fernandez [address], [place], [place], [address]. tel:[phone] OFFICE/OUTPA TIENT VISIT, [facility], [address], [place], [place], [address], tel:[phone] [facility] anxiety1 (chief complaint)chr onic pain (chief complaint)HLP (chief complaint)EN D1 (chief complaint)hep C (chief complaint) HyperlipidemiaGe neralized Anxiety DisorderChronic pain syndromeHepatiti s C Nov- 0 7 Jason Parson. [address], [place], [place], [address] , [place]. tel:[phone] Referring Provider: Kristen Fernandez [address], [place], [place], [address]. tel:[phone] OFFICE/OUTPA TIENT VISIT, [facility], [address], [place], [place], [address], [place] tel:[phone] [facility] OAB1 (chief complaint)chr onic pain (chief complaint)anx iety1 (chief complaint)hep C (chief complaint) Chronic pain syndromeGenerali zed Anxiety DisorderOveracti ve bladderEncounter for screening for other viral diseases 7 Jason Juarez [address], [place], [place], [address] , [place]. tel:[phone] Referring Provider: Kristen Fernandez [address], [place], [place], [address]. tel:[phone] OFFICE/OUTPA TIENT VISIT, [facility], [address], [place], [place], [address], [place] tel:[phone] [facility] chronic pain1 (chief complaint)anx iety1 (chief complaint)uri nary (chief complaint)EN D1 (chief complaint) GERD with esophagitisInsom niaGeneralized Anxiety DisorderOveracti ve bladder Fe 7 Jason Juarez [address], [place], [place], [address] , [place]. tel:[phone] Referring Provider: Kristen Fernandez [address], [place], [place], [address]. tel:[phone] OFFICE/OUTPA TIENT VISIT, [facility], [address], [place], [place], [address], [place] tel:[phone] [facility] HLP (chief complaint)chr onic pain (chief complaint)anx iety1 (chief complaint)uri nary urgency1 (chief complaint)Bar rett (chief complaint) Lawrence's esophagusChronic pain syndromeGenerali zed Anxiety DisorderOveracti ve bladder 7 Jason Parson. [address], [place], [place], [address] , [place]. tel:[phone] Referring Provider: Kristen Fernandez [address], [place], [place], [address]. tel:[phone] OFFICE/OUTPA TIENT VISIT, [facility], [address], [place], [place], [address], [place] tel:[phone] [facility] COPD1 (chief complaint)brenda k pain1 (chief complaint)anx iety1 (chief complaint)tob acco (chief complaint) Chronic obstructive pulmonary disease, unspecifiedGener alized Anxiety DisorderChronic pain syndromeTobacco use 6 Jason Parson. [address], [place], [place], [address] , [place]. tel:[phone] Referring Provider: Kristen Fernandez [address], [place], [place], [address]. tel:[phone] OFFICE/OUTPA TIENT VISIT, [facility], [address], [place], [place], [address], [place] tel:[phone] [facility] COPD1 (chief complaint)chr onic pain1 (chief complaint)anx iety1 (chief complaint) Chronic obstructive pulmonary disease, unspecifiedGener alized Anxiety DisorderChronic pain syndrome 6 Jason Juarez [address], [place], [place], [address] , [place]. tel:[phone] Referring Provider: Kristen Fernandez [address] [facility], [place], [place], [address]. tel:[phone] OFFICE/OUTPA TIENT VISIT, [facility], [address] [place] [place], [address], tel:[phone] [facility] HLP (chief complaint)anx iety1 (chief complaint)chr onic pain (chief complaint)uri nary frequency1 (chief complaint) Urinary frequencyChronic pain syndromeGenerali zed Anxiety DisorderHyperlip idemia 6 Jason Juarez [address] [facility] A, [place], [place], [address] , [place]. tel:[phone] Referring Provider: Kristen Fernandez [place], [address]. tel:[phone] OFFICE/OUTPA TIENT VISIT, 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 tel:[phone] Referring Provider: Kristen Fernandez [facility] A, [place], [place], [address]. tel:[phone] OFFICE/OUTPA TIENT VISIT, [facility], [address] [place], [address], [place] tel:[phone] [facility] HTN (chief complaint)chr onic pain (chief complaint)anx iety1 (chief complaint)rachna ght gain (chief complaint) Abnormal weight lossGeneralized Anxiety DisorderChronic pain syndromeEssentia l (primary) hypertension 6 Gomez Eb. [address], [place], [place], [address] , [place]. tel:[phone] Referring Provider: Kristen Fernandez [address], [place], [place], [address]. tel:[phone] OFFICE/OUTPA TIENT VISIT, EST [facility], [address], [place], [place], [address], [place] tel:[phone] [facility] anxiety1 (chief complaint)cho rnic pain1 (chief complaint)ost eoporosis1 (chief complaint) Chronic pain syndromeGenerali zed Anxiety DisorderOsteopor osis 6 Jason Parson. [address], [place], [place], [address] , [place]. tel:[phone] Referring Provider: Kristen Fernandez [address], [place], [place], [address]. tel:[phone] PREV VISIT, EST, AGE 40-64 [facility], [address], [place], [place], [address], [place] tel:[phone] [facility] PHysical (chief complaint) Encntr for general adult medical exam w/o abnormal findings 6 Jason Parson. [address], [place], [place], [address] , [place]. tel:[phone] Referring Provider: Kristen Fernandez [address], [place], [place], [address]. tel:[phone] OFFICE/OUTPA TIENT VISIT, EST [facility], [address], [place], [place], [address], [place] tel:[phone] [facility] osteoporosis (chief complaint)anx itey1 (chief complaint)chr onic pain (chief complaint)bar ret (chief complaint) OsteoporosisGene ralized anxiety disorderChronic pain syndromeBarrett' s esophagus 6 Jason Parson. [address], [place], [place], [address] , [place]. tel:[phone] Referring Provider: Kristen Fernandez [address], [place], [place], [address]. tel:[phone] OFFICE/OUTPA TIENT VISIT, [facility], [address], [place], [place], [address], [place] tel:[phone] [facility] chronic pain (chief complaint)anx iety1 (chief complaint)car pal tunnel (chief complaint)HLP (chief complaint) Chronic pain syndromeHyperlip idemiaInsomniaEn counter for screening for osteoporosis 6 Jason Parson. [address], [place], [place], [address] , [place]. tel:[phone] Referring Provider: Kristen Fernandez [facility] A, [place], [place], [address]. tel:[phone] OFFICE/OUTPA TIENT VISIT, [facility], [address], [place], [place], [address], [place] tel:[phone] [facility] dizziness (chief complaint)anx iety1 (chief complaint)car pal tunnel (chief complaint)chr onic pain (chief complaint) Carpal tunnel syndrome of left armChronic pain syndromeGenerali zed Anxiety DisorderSyncope and collapse 6 Jason Parson. [address], [place], [place], [address] , [place]. tel:[phone] Referring Provider: Kristen Fernandez [facility] A, [place], [place], [address]. tel:[phone] OFFICE/OUTPA TIENT VISIT, [facility], [address], [place], [place], [address], [place] tel:[phone] [facility] carpal tunnel (chief complaint)cho rnic pain1 (chief complaint)anx iety1 (chief complaint)diz ziness1 (chief complaint) DizzinessGeneral ized anxiety disorderLow back painCarpal tunnel syndrome, left upper limb 6 Jason Juarez [address], [place], [place], [address] , [place]. tel:[phone] Referring Provider: Kristen Fernandez [address], [place], [place], [address]. tel:[phone] OFFICE/OUTPA TIENT VISIT, [facility], [address], [place], [place], [address], [place] tel:[phone] [facility] chornic pain1 (chief complaint)Anx iety1 (chief complaint)HLP 1 (chief complaint) Chronic pain syndromeGenerali zed anxiety disorderMixed hyperlipidemiaGE RD with esophagitis 0 5 Jason Parson. [address], [place], [place], [address] , [place]. [phone] Referring Provider: Kristen Fernandez [address], [place], [place], [address]. tel:[phone] OFFICE/OUTPA TIENT VISIT, [facility], [address], [place], [place], [address], [place] tel:[phone] [facility] anxiety1 (chief complaint)nec k pain1 (chief complaint)arm numbness1 (chief complaint)PAD 1 (chief complaint) Lawrence's esophagusOther spondylosis, lumbar regionParesthesi a of skinGeneralized Anxiety Disorder 5 Jason Parson. [address], [place], [place], [address] , [place]. [phone] Referring Provider: Kristen Fernandez [address], [place], [place], [address]. tel:[phone] OFFICE/OUTPA TIENT VISIT, [facility], [address], [place], [place], [address], [place] tel:[phone] [facility] anxiety1 (chief complaint)EN D1 (chief complaint)brenda k pain1 (chief complaint) Generalized anxiety disorderOther spondylosis, cervical regionGERD without esophagitisPares thesia of skin 5 Jason Parson. [address], [place], [place], [address] , [place]. tel:[phone] Referring Provider: Kristen Fernandez [address], [place], [place], [address]. tel:[phone] OFFICE/OUTPA TIENT VISIT, [facility], [address], [place], [place], [address], [place] tel:[phone] [facility] neck pain (chief complaint)anx iety (chief complaint)HTN (chief complaint) Unspecified essential hypertensionGene ralized anxiety disorderNeck pain Apr-3 5 Jason Parson. [address], [place], [place], [address] , [place]. [phone] Referring Provider: Kristen Fernandez [address], [place], [place], [address]. tel:[phone] OFFICE/OUTPA TIENT VISIT, 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 [address], [place], [place], [address] , [place]. [phone] Referring Provider: Kristen Fernandez [address], [place], [place], [address]. tel:[phone] OFFICE/OUTPA TIENT VISIT, [facility], [address], [place], [place], [address], [place] tel:[phone] [facility] back pain (chief complaint)anx iety (chief complaint)vit owen D (chief complaint) LumbagoGeneraliz ed anxiety disorderBarrett' s esophagus 5 Jason Parson. [address], [place], [place], [address] , [place]. tel:[phone] Referring Provider: Kristen Fernandez [address], [place], [place], [address]. tel:[phone] OFFICE/OUTPA TIENT VISIT, [facility], [address], [place], [place], [address], [place] tel:[phone] [facility] GERD (chief complaint)lum bago (chief complaint)HLP (chief complaint) LumbagoLoss of weightGeneralize d anxiety disorderDyslipid aemia 5 Jason Parson. [address], [place], [place], [address] , [place]. tel:[phone] Referring Provider: Eb Gomez, [address], [place], [place], [address]. tel:[phone] PREV VISIT, EST, AGE 40-64 [facility], [address], [place], [place], [address], [place] tel:[phone] [facility] physical (chief complaint) Routine medical exam 5 Jason Parson. [address], [place], [place], [address] , [place]. tel:[phone] Referring Provider: Kristen Fernandez [address], [place], [place], [address]. tel:[phone] OFFICE/OUTPA TIENT VISIT, [facility], [address], [place], [place], [address], [place] tel:[phone] [facility] COPD (chief complaint)brenda k pain (chief complaint)anx iety (chief complaint)bar ett (chief complaint) COPDLumbagoBARRE TT'S ESOPHAGUSGeneral ized anxiety disorder Nov- 5 Jason Parson. [address], [place], [place], [address] , [place]. tel:[phone] Referring Provider: Kristen Fernandez [address], [place], [place], [address]. tel:[phone] OFFICE/OUTPA TIENT VISIT, [facility], [address], [place], [place], [address], [place] tel:[phone] [facility] COPD (chief complaint)brenda k pain (chief complaint)anx iety (chief complaint) COPDGeneralized anxiety disorderLumbagoS edative, hypnotic or anxiolytic dependence, unspecified 5 Jason Parson. [address], [place], [place], [address] , [place]. [phone] Referring Provider: Kristen Fernandez [facility] A, [place], [place], [address]. tel:[phone] OFFICE/OUTPA TIENT VISIT, 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 [address], [place], [place], [address] , [place]. [phone] Referring Provider: Kristen Fernandez [address], [place], [place], [address]. tel:[phone] OFFICE/OUTPA TIENT VISIT, [facility], [address] [place], [address], [place] [phone] [facility] COPD (chief complaint)vann d nodule (chief complaint)brenda k pain (chief complaint)anx iety (chief complaint) LumbagoGeneraliz ed anxiety disorderOther tenosynovitis of hand and wristCOPD 5 Jason Parson. [address], [place], [place], [address] , [place]. [phone] Referring Provider: Kristen Fernandez [address] [facility] A, [place], [place], [address]. tel:[phone] OFFICE/OUTPA TIENT VISIT, 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 [address], [place], [place], [address] , [place]. [phone] Referring Provider: Kristen Fernandez [address], [place], [place], [address]. tel:[phone] OFFICE/OUTPA TIENT VISIT, [facility], [address], [place], [place], [address], [place] [phone] [facility] gastric ulcer (chief complaint)brenda k pain (chief complaint)anx iety (chief complaint) Acute gastric ulcer without mention of hemorrhage or perforation, with obstructionLumba goDepression 4 Jason Parson. [address], [place], [place], [address] , [place]. [phone] Referring Provider: Kristen Fernandez [address], [place], [place], [address]. tel:[phone] OFFICE/OUTPA TIENT VISIT, [facility], [address], [place], [place], [address], [place] tel:[phone] [facility] anxiety (chief complaint)brenda k pain (chief complaint)abd ominal pain (chief complaint) LumbagoAbdominal PainDepressionGa stroparesis 4 Jason Juarez [address], [place], [place], [address] , [place]. [phone] Referring Provider: Kristen Fernandez [address], [place], [place], [address]. tel:[phone] OFFICE/OUTPA TIENT VISIT, 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 tel:[phone] Referring Provider: Kristen Fernandez [address], [place], [place], [address]. tel:[phone] OFFICE/OUTPA TIENT VISIT, [facility], [address], [place], [place], [address], [place] tel:[phone] [facility] abdominal pain (chief complaint)brenda k pain (chief complaint)anx iety (chief complaint) Dietary surveillance and counselingAbdomi nal PainLumbagoGener alized anxiety disorder Apr-0 4 Jason Juarez [address], [place], [place], [address] , [place]. [phone] Referring Provider: Kristen Fernandez [address] [facility] A, [place], [place], [address]. tel:[phone] OFFICE/OUTPA TIENT VISIT, [facility], [address], [place], [place], [address], [place] tel:[phone] [facility] back pain (chief complaint)anx iety (chief complaint)abd ominal pain (chief complaint) Dietary surveillance and counselingLumbag oGeneralized anxiety disorderAbdomina l Pain 4 Jason Juarez [address], [place], [place], [address] , [place]. [phone] Referring Provider: Kristen Fernandez [address], [place], [place], [address]. tel:[phone] OFFICE/OUTPA TIENT VISIT, [facility], [address] [place], [place], [address], [place] tel:[phone] [facility] back pain (chief complaint)anx iety (chief complaint)HLP (chief complaint)Vit owen D (chief complaint) Dietary surveillance and counselingLumbag oGeneralized anxiety disorderHyperten brionna, UnspecifiedOther and unspecified hyperlipidemia 4 Jason Juarez [address], [address] [place], [address] , [place]. tel:[phone] Referring Provider: Kristen Fernandez [place], [address]. tel:[phone] OFFICE/OUTPA TIENT VISIT, EST [facility], [address] [place], [address], tel:[phone] [facility] back pain (chief complaint)anx iety (chief complaint)HTN (chief complaint) Dietary surveillance and counselingHypert ension, UnspecifiedLumba goGeneralized anxiety disorderDepressi on 4 Jason Parson. [address] [facility] [place], [address] , [place]. tel:[phone] Referring Provider: Kristen Fernandez [place], [place], [address]. tel:[phone] PREV VISIT, NEW, AGE 40-64 [facility], [facility] [address] [place], [place], [address], [place] tel:[phone] [facility] PHysical (chief complaint) Dietary surveillance and counselingRoutin e Medical ExamRoutine Medical Exam 4 Jason Parson. [address] [facility] [place], [address] , [place]. tel:[phone] Family History Family Member Type Diagnosis Age At Onset Father Problem (finding) Cancer, lung Mother Problem (finding) Hyperlipidemia Brother Problem (finding) Anxiety Mother Problem (finding) Hypertension Payers Payer name Insurance type Covered alliance party ID David lyman(s) [facility] [id number] Social History Type Description Quantity Date Captured [...] Referred To: HOLLY WILLOUGHBY [address] [place], [place], [id number] Ordered: Referrals: Allopathic & Osteopathic Physicians : Internal Medicine : Endocrinology, Diabetes & Metabolism. HOLLY WILLOUGHBY. Evaluate and treat ordered Referral Referred To: Dennise SALEEM, Guera Beal [address] [facility]
[address] [place], [place], [id number] Ordered: Referrals: Guera Bowden MD. Evaluate and treat ordered Referral Ordered: US CAROTID ordered Referral Ordered: Jean Pierre Venegas -Allopathic & Osteopathic Physicians : Internal Medicine : Endocrinology, Diabetes & Metabolism (related to Osteoporosis) ordered Referral Referred To: Jean Pierre Venegas [address] [facility]
[address] [place], [place] [id number] Ordered: Referrals: Allopathic & Osteopathic Physicians : Internal Medicine : Endocrinology, Diabetes & Metabolism. Jean Pierre Venegas. Evaluate and treat ordered Referral Ordered: US EXAM, ABDOM, COMPLETE ordered Referral Ordered: Urology (related to Hematuria) ordered Referral Ordered: Urology (related to Anemia) ordered Referral Ordered: Matias Reid -Allopathic & Osteopathic Physicians : Urology (related to Hematuria) ordered Referral Referred To: Matias Reid [address] [place], [place], [id number] Ordered: Referrals: Allopathic & Osteopathic Physicians : Urology. Matias Reid. Evaluate and treat ordered Referral Ordered: US KIDNEY ordered Referral Ordered: Pulmonology (related to Emphysema) ordered Referral Ordered: Referrals: Pulmonology. Evaluate and treat ordered Referral Ordered: Rafy Wong -Allopathic & Osteopathic Physicians : Internal Medicine : Cardiovascular Disease (related to Coronary artery disease of [place] coronary artery without angina pectoris) ordered Referral Referred To: Rafy Wong [address] [place], [place] [id number] Ordered: Referrals: Allopathic & Osteopathic Physicians : [...] Arevalo [address] [place], [id number] Ordered: Referrals: Roge Arevalo. Evaluate and treat [...] spells barrett1 pt has lawrence P t is [...] homicidal thought Pt denies any crying spells weight loss1 Pt has been losi ng weight unintentionally. her BMI is only 18 Pt states that she has good appetite and she eats a lot of food but she keep losing weight Pt denies any appetite loss, nausea, vomiting, change of bowel, abd pain, etc. pain Pt has chronic b ack and neck pain Pt denies any worsening pain . pt denies any loss of bladder control. pt failed NSAID and ultram. Pt takes percocet for pain PRN and doing ok barrett1 Pt has lawrence e stacyagus. Pt [...] got reclast approved and will start soon pain Pt has chronic b ack [...] by insurance and she is working with [employer] to find something that will be covered [...] until 2024 Pt doing ok with omeprazole osteoporosis1 Pt has osteoporo sis. Pt is [...] tingling for several months. Pt failed neurontin osteoporosis1 Pt has osteoporo sis Pt is [...] homicidal thought Pt denies any crying spells Barrett1 Pt has lawrence. Pt takes omeprazole. [...] and we tried to refer her to [facility] but is having some issues with the referral Pt was told by s [facility] that she needs a transfer of [...] pt is able to move her fingers. pain Pt has chronic b ack and [...] spells HLP Pt has HLP Pt ta erins zocor Pt denies any myalgia. Her lipid [...] thought Pt denies any crying spells lung nodule1 Pt has lung nodu le on recent chest Ct pt sees pulmonary. Pt is on trelegy and singulair now and she uses albuterol PRN Pt denies any hemoptysis osteoporosis1 Pt has osteoporo sis. Pt saw endo and she got another injection med but not covered by insurance again. Pt is working with her endo regarding above. Lawrence Pt has lawrence P t is on omeprazole and doing ok. Pt had EGD done 2021 and needs to repeat 2024 pain Pt has chronic b ack and [...] has HLP Pt takes zocor Pt has lwarence. pt takes omeprazole and she is doing [...] homicidal thought Pt denies any crying spells. barrett1 Pt had EGD done which showed Lawrence [...] done mammo, endoscopy or chest CT yet. anxiety1 Pt has chronic a nxiety [...] been taking fosamax for almost 3 years. b12 Pt still has not done lab yet. Pt states that she is out of b12. Pt states that she only has 1 cc vial and she is out. Pt is noncompliant with lab work and mammo tobacco1 Pt is long time smoker pt has COPD Pt uses inhaler .pt needs LDCT for lung CA screening anxiety Pt has chronic a nxiety and [...] warmth or swelling Pt denies any fever HLP Pt has HLP pt ta chuy zocor pt denies any myalgia HTN Pt has HTN Pt ta erins lisinopril and her bp is ok at [...] pt denies any chest pain or sob. anxiety Pt has anxiety a nd depression [...] hematuria . pt has indira with urology riple[facility] in 3 weeks pt denies any UTI [...] Pt told me she made indira with [facility] and she needs a referral [...] Pt does not want to go to [facility], which is too far for her. 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 physical [...] test soon Pt denies any other complaints chronic pain Pt has chronic b ack [...] any chest pain or headache or sob COPD1 Pt has been usin g proair multiple times daily Pt uses incruse and airduio Pt is going through proair one inhaler per month. Pt still smoking Pt uses 1-2 puff 3-4 missy per day CAD Pt has signs of CAD on [...] needs vitamin D Refilled. 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 Patient denies any [...] was ok. Pt denies any worsening symptmos chronic pain Pt has chornic l ow back pain. pt denies any worsening pain. Pt denies any loss of bladder control anxiety1 Pt has chornic a nxiety and depression ,Pt takes prozac, seroquel and xanax PRn and doing ok. pt denies any suicidal or homicial thought. Pt denies any crying spell HLP Pt takes zocor. Pt denies any myalgia. Pt is on low fat and low carb diet HTN Pt has HTn. Pt t akes lisinopril and her BP is stable. Pt denies any chest pain or headache anxiety1 Pt has chronic a nxiety and [...] she has appointment for EGD in January hep C Pt had hep C but she cleared the infection on her own. Pt denies IV drug OAB1 Pt has OAB Pt se en [...] EGD now. Pt denies any acute pain HLP Pt has HLP Pt ta [...] GERd. Pt denies any acute abd pain COPD1 Pt uses symbicor t and combivent [...] pain. Pt had negavive cardiac stress test GERD1 Pt has GERD Pt a tkes omerpazole and doing ok. Pt denies any abd pain anxiety1 Pt has chronic a nxiety [...] waking up at night with hand pain neck pain Pertinent negati ves include [...] doing ok. Pt denies any suicdial touight. back pain Additional infor mation: Pt has chronic LBP. Pt denies any loss of bowel or bladder control. anxiety The patient pres ents with anxious/fearful [...] D Pt has low vitam in D GERD Additional infor mation:Pt has GERD and [...] Related to Coron monserrat artery disease of [place] coronary artery without angina pectoris Increase physical [...] Mental Status Date Cognitive Assessment Orientation - [place] ed to time, place, person, situation.
--- OUTSIDE RECORDS SUMMARY | 2024-12-16 01:02 | XMS_ITS | Clinical Summary ---
Author Organization [facility] Address [address] [place] [address] Care Team Providers Care Trestle Mainternance Laborer Name Role Phone Eb Gomez MD Primary Care Provider [phone] Allergies Active Allergy Reactions Criticality Noted Date [...] mouth 3 (three) times daily. Active Umeclidinium [place] 62.5 MCG/INH AEROSOL POWDER, BREATH ACTIVATED Inhale [...] Relevant to Health Maintenance Insurance Care Teams Trestle Mainternance Laborer Relationship Specialty Start Date End Date Eb Gomez MD PCP - General FAMILY PRACTICE 02/25/19
[2024-12-16 01:23] VITALS: BP 105/55; PULSE 72; RESP 18; O2SAT 97
== END 2024-12-16 01:23 | disposition home or self-care (01) ==
PROVIDERS: Emergency Provider Emergency Medicine; PCP Emergency Medicine
DX: G89.29 Other chronic pain (principal); I10 Essential (primary) hypertension; E78.5 Hyperlipidemia, unspecified; J44.9 Chronic obstructive pulmonary disease, unspecified; F17.210 Nicotine dependence, cigarettes, uncomplicated
CPT/HCPCS: 96372; 99283; A9270; J1171

== ENCOUNTER 2025-01-02 00:49 | Day surgery (SDC) | payer OTHER, SELFPAY ==
[2024-12-18 14:46] VITALS: BMI 19.9
--- NOTE | 2024-12-18 15:03 | SUR.PREOP ---
Patients last preoperative call was less than a month ago. Went through patients allergies and medications, and patient stated no medical history has changed . Patient educated on date,time and instructions for procedure.
--- OUTSIDE RECORDS SUMMARY | 2025-01-02 00:51 | XMS_ITS | Data Portability ---
Author Organization [facility], [address] [place] [address] Neurology ([place]) Address [address] [address] Care Team Providers Care Technical Project Coordinator Name Role Phone FRANKY CASTELLON Primary Care Provider Assessment Encounter Date Assessment Date Assessment LastModified by Organization Details LastModified Time 09/10/2024 09/10/2024 We do plan on getting urine to get the KUB done today. I then want to have one of our STATION TENDER's interrogate the device and see if it is functioning properly I personally spent a total of 22 minutes on this patient on this date of service going both [id number]-yr-iopz and hrg-folx-cw-fac e time Not available 09/12/2024 12:07:42 09/18/2024 [...] before making changes to the InterSt[employer] settings. [email or web address] Not available 09/18/2024 17:10:50 Plan of Treatment Reminders Order Date Submit Date Provider Last Modified By Organization Details Last Modified Time Details Appointments None recorded. Lab BMP, serum or plasma [address] [facility], [address] [place], [address], 21:23:02 vitamin D, 25-hydroxy, total, serum [address] [facility], [address] [place], [address], 21:23:02 Referral None recorded. Procedures None recorded. Surgeries None recorded. Imaging bone density 2023 025 [email or web address] [facility] (Im[facility]), [address] [place], [address], 4 17:31:48 Medication Orders valacyclovi r 1 gram tablet 2024 025 [facility], [address] [place], [address], 5 15:32:03 Patient TargetsNo targets recorded. Patient Instructions Encounter Date Encounter Id Patient Instructions Last Modified By Organization Details Last Modified Time 04/15/2024 [id number] patient follow up phone call* [email or web address] Not available 10/04/2024 11:33:49 Reason for Referral None Reported. Results Created Date Observation Date Name Description Value Unit Range Abnormal Flag Note LastModifiedBy Organization Detail LastModifiedTime 11/28/19 24 11/28/2023 XR, pelvi s, 1 or 2 view No observ ation record ed. [email or web address] Not Available 2023 10:44:13 09/10/19 25 09/10/2024 XR, abdom en, [address] [address] Teleph one [phone] Name: Bessy Tuttle [id number] am Date: 2024 Age: 59Phys ician: MD Lolita, Xu y : 1964Ex aminat ion: XR ABDOME N/KUB1 VIEW EXAM: XR ABDOME N/KUB 1 VIEW HISTOR Y: Medtro sangeetha placed in 2020, checki ng placem ent. No other abdome n compla ints. FINDIN GS: Urinar y bladde r stimul ator seen. There is a left hip arthro plasty . The bowel gas patter n appear s normal withou t eviden ce of obstru ction IMPRES THEODORA: Normal bowel gas patter n Electr onical ly signed in [place] cribe by: KENDAL Rosales on:08/28 11:53 AM cc: Page PAGE 1 of [facility] ES 1 [id number] [place] Only - [place] Radiology [address] [place] [address], [address], 09/20/2024 17:21:59 Result Notes None recorded. Problems Name Problem SNOMED Code Status Onset Date Resolution Date Notes Provider Name and Address Organization Details Recorded Time Osteoporosis 71191738 Active 2023 Ga Liu her, ADVERTISING ANALYST, DNP, LAYOUT ARTIST [address] [place] [address], [phone], [facility] 5 12:05:38 Dysuria 44011591 Active 2023 Sylvia Butler [facility] 4 09:42:33 Increased frequency of urination 199706743 Active 2022 Sylvia Butler [facility] 4 09:43:07 Blood in urine 08403445 Active 2019 Sylvia Butler [facility] 4 09:43:50 Overactive urinary bladder 252343524 Active 2024 Joel Mchugh MD [address] [place] [address], [phone], [facility] 5 12:07:24 Herpes zoster without complication 018098099 Active 2024 LILA CARNEY, LAYOUT ARTIST [address] [place] [address], [phone], [facility] 5 15:29:28 Urinary incontinence 039070233 Active 2023 Ynes Chong [facility] 5 12:23:53 Problem Notes None recorded. [...] XR, pelvis, 1 or 2 view completed [email or web address] Information not available 12/13/2023 10:44:13 09/10/2024 XR, abdomen, 1 view completed [id number] [place] [facility] [place] [facility] [address] [place] [address], [id number], 09/20/2024 17:21:59 Procedure Notes None recorded. Medical Equipment None Reported. Allergies Allergen ID Allergen Name Allergen Category Reaction Reaction Severity Criticality Documentation Date Start Date Code Code System Note Provider Name and Address Organization Details Recorded Time 269867 ciproflox acin hydrochlo ride medicatio n Not available Not available Not available 09/25/20232012 60009 RxNorm Not Available [facility] 22:28:32 234735 aspirin medicatio n Not available Not available Not available 09/25/20232014 1191 RxNorm Not Available [facility] 22:28:32 Medications Name Sig Start Date Stop Date [...] active Not Available Not Available Not Available Gemtesa 75 mg tablet Take 1 tablet every day by oral route for 28 days. 2024 active Not Available Not Available Not Avai lable Paxlovid 300 mg (150 mg x 2)-100 [...] Updated DateTime 4 167.64 cm 21.8 kg/m2 43035.9 7 g 99.5 [degF] 95 % 95 % 87 /min 118 mm[Hg] 67 mm[Hg] Agnieszkasierra Salguero paz [facility] 4 11:59:35 Date Recorded Body height Body mass index (BMI) Body weight Heart rate Systolic blood pressure Diastolic blood pressure Provider Name and Address Organization Details Last Updated DateTime 4 167.64 cm 21.6 kg/m2 35178.9 4 g 68 /min 100 mm[Hg] 58 mm[Hg] Carmen mix [facility] 4 14:46:31 Date Recorded Body height Provider Name an d Address Organization Details Last Updated DateTime 09/10/2024 167.64 cm Marium Alcocer [facility] 09/10/2024 11:58:09 Date Recorded Body height Body mass index (BMI) Body weight Heart rate Oxygen saturation Oxygen saturation in Arterial blood by Pulse oximetry Provider Name and Address Organization Details Last Updated DateTime 5 167.64 cm 20.7 kg/m2 45199.8 2 g 87 /min 98 % 98 % [facility] 5 14:50:54 Date Recorded Body height Body mass index (BMI) Body weight Heart rate Oxygen saturation Oxygen saturation in Arterial blood by Pulse oximetry Provider Name and Address Organization Details Last Updated DateTime 5 167.64 cm 19.8 kg/m2 75744.4 2 g 90 /min 94 % 94 % [facility] 5 15:48:47 Social History Question Answer Notes LastModified by [...] Do You Have A Medical Power Of Warp Dresser? No [email or web address] Information not available 11/27/2023 What [...] available 2023 12:25:48 Medical History Condition Response Anxiety Disorder Y Diabetes N Bleeding Disorder N Attention-deficit Hyperactivity Disorder N High Blood Pressure Y Arthritis Y Hyperlipidemia N Cancer N Thyroid Problems N Stroke N COPD Y Asthma Y Depression Y Anemia N Seizures N Heart Disease N Fibromyalgia N Osteoporosis Y Kidney Disease N Gynecological HistoryNo gynecological history recorded. Obstetrics History GPAL:G 0 P 0 0 0 0 Immunizations Vaccine Type Date Status Note Provider Nam e and Address Organization Details Recorded Time COVID-19, mRNA, LNP-S, PF, 100 mcg/0.5mL dose or 50 mcg/0.25mL dose 06/03/2021 completed Carmen jimenez [facility] 04/15/2024 14:42:09 Influenza, split virus, trivalent, PF 06/23/2015 completed Carmen jimenez [facility] 04/15/2024 14:42:10 Past Encounters Encounter ID Performer Location Encounter Start Date Encounter Closed Date Diagnosis/Indication Diagnosis SNOMED-CT Code Diagnosis ICD10 Code Diagnosis Note [id number] Deanna Rico , ADVERTISING ANALYST, LAYOUT ARTIST [address] [facility] ([place]) [address] [place] [phone] 11/29/2023 11:41:35 11/29/2023 12:42:51 [id number] Ga Greenfield er, ADVERTISING ANALYST, DNP, LAYOUT ARTIST [place] [facility] [address] [place] [address] 04/15/2024 14:27:15 04/15/2024 17:22:56 Osteoporosis 11873525 M81.0 59-year-ol d female with history of [...] after she completes the bone density scan. [id number] Joel Mchugh MD [address] [facility] ([place]) [address] [place] [phone] 09/10/2024 11:55:24 09/10/2024 13:59:58 Overactive urinary bladder 773108554 N32.81 [id number] LILA CARNEY CNP [address] [facility] ([place]) [address] [place] [phone] 09/18/2024 14:40:57 09/18/2024 16:25:26 Herpes zoster without complication 655327591 B02.9 [id number] LILA URIBECKER, PRITI [address] [facility]rology ([place]) [address] [place] [address] 01/01/2025 15:43:20 01/01/2025 16:50:15 Overactive urinary bladder 850021332 N32.81 Health Concerns Section Related Observation LastModified by Organization Detai ls LastModified Time None Recorded Concern Status LastModified by Organization Details LastModified Time None Recorded Advance Directives Directive N: Payers Insurance Date Sequence Insurance Name Policy Number Policy Pepper Covered Member ID Pepper Member ID Guarantor Name 01/01/2025 1 [facility] (MEDICAID HMO) [id number] Bessy Zavala [id number] Bessy Zavala Notes Date Note Type Note [...] is normal and without defect. Deanna Rico, ADVERTISING ANALYST, LAYOUT ARTIST [address] [place] [address], [phone], [facility] 11/29/2023 12:21:25 4 text/html Ms. Zavala is a 59-year-old female who presents for management of osteoporosis. Current osteoporosis treatment: Reclast (at [facility]) on 10/13/23. She does report some body [...] 1800mg/day Supplements: No calcium supplement. Vitamin D2 88916JB weekly [facility]97, GFR 59Calcium 9.8Intact PTH 33Vitamin D 89Celiac disease panel negativeKappa/lambda serum free light chains 1.35SPEP no abnormalities Exercise: None Falls: Reports 1 fall in the past year Has had all of her teeth extracted in 2016 or 2017. Denies sores in mouth. No plans for implants. Family History: Report both of her grandmothers broke a hip. Social history: Currently smokes less than 1/2PPD, previously smoked over 2 PPD. History of alcohol overuse. No longer consumes alcohol. Ga Newman, ADVERTISING ANALYST, DNP, LAYOUT ARTIST [address] [place] [address], [phone], [facility] 04/15/2024 17:40:03 5 text/html Patient is [...] on this Joel Mchugh MD [address] [place] [address], [phone], [facility] 09/12/2024 12:07:44 OBGyn Episode No OBEpisode recorded.
--- OUTSIDE RECORDS SUMMARY | 2025-01-02 00:51 | XMS_ITS | Referral Summary ---
Author Organization [address] Address [address] [place] [phone] Care Team Providers Care Diesel Engine Assembler Name Role Phone Eb Gomez MD Primary Care Provider + [phone] Allergies Active Allergy Reactions Criticality Noted Date [...] 11/11/2021 Assessment & Plan (10/18/2022 2:14 PM INDUSTRIAL ROOF PLUMBER): Patient afraid of considering Forteo Will request [...] 11/11/2021 Assessment & Plan (10/18/2022 2:12 PM INDUSTRIAL ROOF PLUMBER): Check 25 OH vit D Adjust dose [...] on file Legal Sex Female 2:17 PM INDUSTRIAL ROOF PLUMBER Gender Identity Female 10/18/2022 1:15 PM INDUSTRIAL ROOF PLUMBER Sexual Orientation Not on file Last Filed Vital Signs Vital Sign Reading Time Taken Comments Blood Pressure 124/60 10/18/2022 1:30 PM INDUSTRIAL ROOF PLUMBER Pulse 80 10/18/2022 1:30 PM INDUSTRIAL ROOF PLUMBER Temperature - - Respiratory Rate 16 10/18/2022 1:30 PM INDUSTRIAL ROOF PLUMBER Oxygen Saturation - - Inhaled Oxygen Concentration - - Weight 68.5 kg (151 lb 0.2 oz) 10/18/2022 1:30 P M INDUSTRIAL ROOF PLUMBER Height 167.4 cm (5' 5.91 ) 10/18/2022 1:30 PM CS T Body Mass Index 24.44 10/18/2022 1:30 PM INDUSTRIAL ROOF PLUMBER Plan of Treatment Not on file Insurance [facility] Care Teams Diesel Engine Assembler Relationship Specialty Start Date End Date Eb Gomez MD [address] [place] [address] PCP - General Family Medicine 09/02/21
--- OUTSIDE RECORDS SUMMARY | 2025-01-02 00:51 | XMS_ITS | Continuity of Care Document ---
Author Organization [facility] Address [address] [place] [address] [place] [address] Phone Care Team Providers Care Cider Maker Name Role Phone Eb Gomez MD Unavailable Unavailable Allergies, Adverse Reactions, Alerts Substance Reaction Status Criticality aspirin Active No Information CIPROFLOXACIN HCL Active No Informa tion ciprofloxacin Active No Information Medications Medication Instructions Dosage Effective Dates (start - stop) Status Comments Klonopin 1 mg tablet take 1 tablet by oral route 3 times every day as needed 1 MG - Active avoid drivin g or operate machines, PRN for anxiety, Percocet 10 mg-325 mg tablet take 1 tablet by oral route 4 times every day as needed as needed 1 tablet - Active PRN for pain, avoid driving or operate machines omeprazole 40 mg capsule,delayed release take 1 [...] EST, AGE 40-64 Aug- OFFICE/OUTPATIENT VISIT, EST -2021 OFFICE/OUTPATIENT VISIT, EST OFFICE/OUTPATIENT VISIT, EST OFFICE/OUTPATIENT VISIT, EST OFFICE/OUTPATIENT VISIT, EST OFFICE/OUTPATIENT VISIT, EST OFFICE/OUTPATIENT VISIT, EST OFFICE/OUTPATIENT VISIT, EST OFFICE/OUTPATIENT VISIT, EST OFFICE/OUTPATIENT VISIT, EST OFFICE/OUTPATIENT VISIT, EST OFFICE/OUTPATIENT VISIT, EST -2021 OFFICE/OUTPATIENT VISIT, EST -2021 PREV VISIT, EST, AGE 40-64 OFFICE/OUTPATIENT VISIT, [...] Providers Copied on Encounter OFFICE/OUTPA TIENT VISIT, [facility], [address] [place], [place], [address], tel:[phone] [facility] pain (chief complaint)anx iety1 (chief complaint) Chronic pain syndromeGenerali zed Anxiety Disorder Nov- 5 Jason Parson. [address] [place], [address] , [place]. tel:[phone] OFFICE/OUTPA TIENT VISIT, [facility], [address], [place], [place], [address], [place] tel:[phone] [facility] pain (chief complaint)anx iety1 (chief complaint)ACTIVITY AID D1 (chief complaint)bar rett1 (chief complaint) Generalized Anxiety DisorderChronic pain syndromeBarrett' s esophagusCOPD w/ acute exacerbation 5 Jason Juarez [address], [place], [place], [address] , [place]. tel:[phone] OFFICE/OUTPA TIENT VISIT, [facility], [address], [place], [place], [address], [place] tel:[phone] [facility] pain (chief complaint)anx iety1 (chief complaint)rachna ght loss1 (chief complaint)bar rett1 (chief complaint) Chronic pain syndromeGenerali zed Anxiety DisorderAbnormal weight lossBarrett's esophagus without dysplasia 5 Jason Juarez [address], [place], [place], [address] , [place]. tel:[phone] OFFICE/OUTPA TIENT VISIT, [facility], [address] [place], [address], [place] tel:[phone] [facility] Medicine pain (chief complaint)anx iety1 (chief complaint)douglas ngle1 (chief complaint) Other postherpetic nervous system involvementChron ic pain syndromeGenerali zed Anxiety Disorder 5 Jason Juarez [address], [place], [place], [address] , [place]. tel:[phone] OFFICE/OUTPA TIENT VISIT, [facility], [address] [place], [address], [place] tel:[phone] [facility] Medicine pain (chief complaint)anx iety1 (chief complaint)HLP (chief complaint) Chronic pain syndromeGenerali zed Anxiety DisorderMixed hyperlipidemia 5 Jason Juarez [address], [place], [place], [address] , [place]. tel:[phone] OFFICE/OUTPA TIENT VISIT, [facility], [address], [address], tel:[phone] [facility] pain (chief complaint)anx ity1 (chief complaint) Chronic pain syndromeGenerali zed Anxiety Disorder 4 Jason Parson. [address] [facility] [place] [address] , [place]. tel:[phone] OFFICE/OUTPA TIENT VISIT, [facility], [address], [address], tel:[phone] [facility] pain (chief complaint)anx iety (chief complaint)HTN (chief complaint) Chronic pain syndromeGenerali zed Anxiety DisorderEssentia l (primary) hypertensionEnco unter for oth screening for malignant neoplasm of breast 4 Jason Parson. [address] [place], [address] , [place]. tel:[phone] OFFICE/OUTPA TIENT VISIT, [facility], [address] [place], [place], [address], tel:[phone] [facility] pain (chief complaint)anx iety1 (chief complaint)ost eoporosis1 (chief complaint)EN D1 (chief complaint) OsteoporosisGene ralized Anxiety DisorderChronic pain syndromeGERD w/o esophagitis 4 Jason Parson. [address], [address] , [place]. tel:[phone] OFFICE/OUTPA TIENT VISIT, [facility], [address] [place], [place], [address], tel:[phone] [facility] osteoporosis1 (chief complaint)leslie n (chief complaint)anx iety1 (chief complaint)federico g (chief complaint) OsteoporosisChro sangeetha pain syndromeGenerali zed Anxiety DisorderSolitary lung nodule 4 Jason Parson. [address], [address] , [place]. tel:[phone] OFFICE/OUTPA TIENT VISIT, EST [facility], [address], [address], [place] tel:[phone] [facility] pain (chief complaint)anx iety1 (chief complaint)nig htmares1 (chief complaint) Chronic pain syndromeGenerali zed Anxiety DisorderNightmar e disorderTobacco use 4 Gomez Eb. [address] [facility] [address], [place], [place], [address] , [place]. tel:[phone] OFFICE/OUTPA TIENT VISIT, [facility], [address] [place], [place], [address], [place] tel:[phone] [facility] pain (chief complaint)anx iety1 (chief complaint)PTS D (chief complaint) Chronic pain syndromeGenerali zed Anxiety DisorderNightmar e disorder 4 Gomez Eb. [address] [facility] [place], [address] , [place]. tel:[phone] OFFICE/OUTPA TIENT VISIT, EST [facility], [address] [place], [place], [address], [place] tel:[phone] [facility] pain (chief complaint)ANX IETY1 (chief complaint)GLU COSE1 (chief complaint)HLP (chief complaint)ost eoprosis1 (chief complaint) Chronic pain syndromeGenerali zed Anxiety DisorderMixed hyperlipidemiaOs teoporosisHyperg lycemia 4 Gomez Eb. [address] [facility] [address], [place], [place], [address] , [place]. tel:[phone] OFFICE/OUTPA TIENT VISIT, [facility], [address], [address], [place] tel:[phone] [facility] pain (chief complaint)anx iety1 (chief complaint)ACTIVITY AID D1 (chief complaint) Encntr screen mammogram for malignant neoplasm of breastGeneralize d Anxiety DisorderChronic pain syndromeCentrilo bular emphysema 4 Jason Parson. [address], [place], [place], [address] , [place]. tel:[phone] PREV VISIT, EST, AGE 40-64 [facility], [address], [place], [place], [address], [place] tel:[phone] [facility] Medicine physical (chief complaint) Encounter for general adult medical examination without abnormal findings 4 Jason Parson. [address], [place], [place], [address] , [place]. tel:[phone] OFFICE/OUTPA TIENT VISIT, EST [facility], [address], [place], [place], [address], [place] tel:[phone] [facility] pain (chief complaint)anx iety1 (chief complaint)EN D1 (chief complaint) Chronic pain syndromeGenerali zed Anxiety DisorderBarrett' s esophagus 4 Jason Parson. [address], [place], [place], [address] , [place]. tel:[phone] OFFICE/OUTPA TIENT VISIT, EST [facility], [address], [place], [place], [address], [place] tel:[phone] [facility] pain (chief complaint)anx iety1 (chief complaint)HLP (chief complaint)ost eoporosis1 (chief complaint) Chronic pain syndromeGenerali zed Anxiety DisorderOsteopor osisMixed hyperlipidemia 4 Jason Parson. [address], [place], [place], [address] , [place]. tel:[phone] OFFICE/OUTPA TIENT VISIT, EST [facility], [address] [place], [address], [place] tel:[phone] [facility] anxiety1 (chief complaint)leslie n (chief complaint)HTN (chief complaint)ost eoprosis1 (chief complaint) Chronic pain syndromeGenerali zed Anxiety DisorderOsteopor osisEssential (primary) hypertension 4 Jason Parson. [address] [facility] [address], [place], [place], [address] , [place]. tel:[phone] OFFICE/OUTPA TIENT VISIT, [facility], [address] [place], [address], [place] tel:[phone] [facility] anxiety1 (chief complaint)leslie n (chief complaint)ost eoporosis1 (chief complaint)nig htmares1 (chief complaint)emp hysema1 (chief complaint) OsteoporosisGene ralized Anxiety DisorderChronic pain syndromeNightmar e disorderCentrilo bular emphysema 4 Jason Parson. [address], [place], [place], [address] , [place]. tel:[phone] OFFICE/OUTPA TIENT VISIT, [facility], [address] [place], [address], [place] tel:[phone] [facility] anxiety1 (chief complaint)leslie n (chief complaint)nig htmares1 (chief complaint)ost eoporosis1 (chief complaint) Chronic pain syndromeGenerali zed Anxiety DisorderOsteopor osisNightmare disorder 3 Jason Parson. [address], [place], [place], [address] , [place]. tel:[phone] OFFICE/OUTPA TIENT VISIT, [facility], [address] [place], [address], [place] tel:[phone] [facility] anxiety1 (chief complaint)leslie n (chief complaint)bar rett1 (chief complaint)ost eoporosis1 (chief complaint) OsteoporosisGene ralized Anxiety DisorderChronic pain syndromeBarrett' s esophagusNightma re disorder 3 Jason Parson. [address], [place], [place], [address] , [place]. tel:[phone] OFFICE/OUTPA TIENT VISIT, [facility], [address] [place], [address], [place] tel:[phone] [facility] anxiety1 (chief complaint)leslie n (chief complaint)ost eoporosis1 (chief complaint) Chronic pain syndromeGenerali zed Anxiety DisorderOsteopor osis 3 Jason Parson. [address], [place], [place], [address] , [place]. tel:[phone] OFFICE/OUTPA TIENT VISIT, [facility], [address], [place], [place], [address], [place] tel:[phone] [facility] osteoporosis1 (chief complaint)anx iety1 (chief complaint)leslie n (chief complaint)bar rett1 (chief complaint)federico g nodule1 (chief complaint) OsteoporosisGene ralized Anxiety DisorderChronic pain syndromeSolitary lung noduleBarrett's esophagus 3 Jason Parson. [address], [place], [place], [address] , [place]. tel:[phone] OFFICE/OUTPA TIENT VISIT, [facility], [address], [place], [place], [address], [place] tel:[phone] [facility] pain (chief complaint)anx iety1 (chief complaint)Bar rett1 (chief complaint)federico g nodule1 (chief complaint) Chronic pain syndromeGenerali zed Anxiety DisorderOsteopor osisBarrett's esophagusSolitar y lung nodule 3 Jason Parson. [address], [place], [place], [address] , [place]. tel:[phone] OFFICE/OUTPA TIENT VISIT, [facility], [address], [place], [place], [address], [place] tel:[phone] [facility] pain (chief complaint)anx iety1 (chief complaint) Generalized Anxiety DisorderChronic pain syndrome 3 Jason Parson. [address], [place], [place], [address] , [place]. tel:[phone] OFFICE/OUTPA TIENT VISIT, [facility], [address], [place], [place], [address], [place] tel:[phone] [facility] pain (chief complaint)anx iety1 (chief complaint)ost eoporosis1 (chief complaint) OsteoporosisChro sangeetha pain syndromeGenerali zed Anxiety Disorder 3 Jason Parson. [address], [place], [place], [address] , [place]. tel:[phone] OFFICE/OUTPA TIENT VISIT, [facility], [address], [place], [place], [address], [place] tel:[phone] [facility] wrist fx (chief complaint)leslie n (chief complaint)anx iety1 (chief complaint) Chronic pain syndromeGenerali zed Anxiety DisorderOsteopor osisPain in right wrist 3 Jason Parson. [address], [place], [place], [address] , [place]. tel:[phone] OFFICE/OUTPA TIENT VISIT, [facility], [address], [place], [place], [address], [place] tel:[phone] [facility] pain (chief complaint)anx iety1 (chief complaint)HLP (chief complaint)ane mia1 (chief complaint) Chronic pain syndromeGenerali zed Anxiety DisorderMixed hyperlipidemiaIr on deficiency anemiaOsteoporos is 3 Jason Parson. [address], [place], [place], [address] , [place]. tel:[phone] OFFICE/OUTPA TIENT VISIT, [facility], [address], [place], [place], [address], [place] tel:[phone] [facility] pain (chief complaint)anx iety1 (chief complaint) Chronic pain syndromeGenerali zed Anxiety Disorder Oct- 3 Jason Parson. [address], [place], [place], [address] , [place]. tel:[phone] OFFICE/OUTPA TIENT VISIT, [facility], [address], [place], [place], [address], [place] tel:[phone] [facility] pain (chief complaint)anx iety1 (chief complaint)federico g nodule1 (chief complaint)ost eoporosis1 (chief complaint)Bar rett (chief complaint) Centrilobular emphysemaChronic pain syndromeGenerali zed Anxiety DisorderOsteopor osisBarrett's esophagus 3 Jason Parson. [address], [place], [place], [address] , [place]. tel:[phone] PREV VISIT, EST, AGE 40-64 [facility], [address] [place], [address], [place] tel:[phone] [facility] physical (chief complaint) Encounter for general adult medical examination without abnormal findings 3 Jason Parson. [address], [place], [place], [address] , [place]. tel:[phone] OFFICE/OUTPA TIENT VISIT, EST [facility], [address], [place], [place], [address], [place] tel:[phone] [facility] COPD1 (chief complaint)leslie n (chief complaint)anx iety1 (chief complaint)HTN (chief complaint) Centrilobular emphysemaChronic pain syndromeEssentia l (primary) hypertensionOste oporosisGenerali zed Anxiety Disorder 2 Jason Parson. [address], [place], [place], [address] , [place]. tel:[phone] OFFICE/OUTPA TIENT VISIT, EST [facility], [address], [place], [place], [address], [place] tel:[phone] [facility] pain (chief complaint)anx iety1 (chief complaint)HTN (chief complaint)ost eoporosis1 (chief complaint)ost eoporosis1 (chief complaint) Chronic pain syndromeGenerali zed Anxiety DisorderOsteopor osisEssential (primary) hypertensionCent rilobular emphysema 2 Jason Parson. [address], [place], [place], [address] , [place]. tel:[phone] OFFICE/OUTPA TIENT VISIT, [facility], [address], [place], [place], [address], [place] tel:[phone] [facility] emphysema1 (chief complaint)leslie n (chief complaint)anx iety1 (chief complaint) COPD w/ acute exacerbationChro sangeetha pain syndromeGenerali zed Anxiety Disorder 2 Jason Parson. [address], [place], [place], [address] , [place]. tel:[phone] OFFICE/OUTPA TIENT VISIT, [facility], [address] [place], [address], [place] tel:[phone] [facility] palpitation1 (chief complaint)ACTIVITY AID D1 (chief complaint)leslie n (chief complaint)anx iety1 (chief complaint) Chronic pain syndromeGenerali zed Anxiety DisorderCentrilo bular emphysemaPalpita tions 2 Jason Parson. [address], [place], [place], [address] , [place]. tel:[phone] OFFICE/OUTPA TIENT VISIT, [facility], [address], [place], [place], [address], [place] tel:[phone] [facility] anxiety1 (chief complaint)leslie n (chief complaint)ACTIVITY AID D1 (chief complaint)ins omnia1 (chief complaint) COPD w/ acute exacerbationGene ralized Anxiety DisorderChronic pain syndromePrimary insomnia 2 Jason Parson. [address], [place], [place], [address] , [place]. tel:[phone] OFFICE/OUTPA TIENT VISIT, [facility], [address], [place], [place], [address], [place] tel:[phone] [facility] anxiety1 (chief complaint)leslie n (chief complaint)Bar rett1 (chief complaint)ACTIVITY AID D1 (chief complaint) Centrilobular emphysemaGeneral ized Anxiety DisorderChronic pain syndromeBarrett' s esophagus 2 Jason Parson. [address], [place], [place], [address] , [place]. tel:[phone] OFFICE/OUTPA TIENT VISIT, [facility], [address], [place], [place], [address], [place] tel:[phone] [facility] pain (chief complaint)anx iety1 (chief complaint)ACTIVITY AID D1 (chief complaint) Chronic pain syndromeGenerali zed Anxiety DisorderStenosis of carotid arteryEmphysema 2 Jason Parson. [address], [place], [place], [address] , [place]. [phone] OFFICE/OUTPA TIENT VISIT, [facility], [address], [place], [place], [address], [place] tel:[phone] [facility] pain (chief complaint)anx iety1 (chief complaint)tin nitus1 (chief complaint)dominik se1 (chief complaint) Chronic pain syndromeGenerali zed Anxiety DisorderImpacted cerumen, bilateralNeuropa thyStenosis of carotid artery 2 Jason Juarez [address], [place], [place], [address] , [place]. [phone] OFFICE/OUTPA TIENT VISIT, [facility], [address], [place], [place], [address], [place] tel:[phone] [facility] pain (chief complaint)anx iety1 (chief complaint)ACTIVITY AID D1 (chief complaint)ost eoprosis1 (chief complaint)bar rett1 (chief complaint) EmphysemaOsteopo rosisChronic pain syndromeGenerali zed Anxiety DisorderBarrett' s esophagus without dysplasia 2 Jason Parson. [address], [place], [place], [address] , [place]. [phone] OFFICE/OUTPA TIENT VISIT, [facility], [address], [place], [place], [address], [place] tel:[phone] [facility] pain (chief complaint)anx iety (chief complaint)bar rett1 (chief complaint) Chronic pain syndromeGenerali zed Anxiety DisorderBarrett' s esophagus without dysplasiaPolyp of colon 2 Jason Parson. [address], [place], [place], [address] , [place]. tel:[phone] OFFICE/OUTPA TIENT VISIT, [facility], [address], [place], [place], [address], [place] tel:[phone] [facility] pain (chief complaint)anx iety1 (chief complaint)ost eoporosis1 (chief complaint) Chronic pain syndromeGenerali zed Anxiety DisorderOsteopor osis 2 Jason Parson. [address] [facility] [address], [place], [place], [address] , [place]. tel:[phone] OFFICE/OUTPA TIENT VISIT, [facility], [address], [place], [place], [address], [place] tel:[phone] [facility] pain (chief complaint)anx iety1 (chief complaint)ost eoporosis1 (chief complaint)tob acco1 (chief complaint) Tobacco useOsteoporosisG eneralized Anxiety DisorderChronic pain syndromeIron deficiency anemia Fe- 2 Jason Parson. [address], [place], [place], [address] , [place]. tel:[phone] OFFICE/OUTPA TIENT VISIT, [facility], [address], [place], [place], [address], [place] tel:[phone] [facility] anemia1 (chief complaint)anx iety1 (chief complaint)leslie n (chief complaint)HLP (chief complaint)ost eoporosis1 (chief complaint)cou gh1 (chief complaint) Chronic pain syndromeGenerali zed Anxiety DisorderOsteopor osisHyperlipidem iaIron deficiency anemiaTobacco useAcute cough 2 Jason Parson. [address], [place], [place], [address] , . tel:[phone] PREV VISIT, EST, AGE 40-64 [facility], [address] [place], [address], tel:[phone] [facility] Physical (chief complaint) Encounter for general adult medical examination without abnormal findings 1 Jason Juarez [address] [facility] [address], [place], [place], [address] , [place]. tel:[phone] OFFICE/OUTPA TIENT VISIT, EST [facility], [address], [address], tel:[phone] [facility] anxiety1 (chief complaint)leslie n (chief complaint)ost eoporosis1 (chief complaint) OsteoporosisGene ralized Anxiety DisorderChronic pain syndromeEncounte r for oth screening for malignant neoplasm of breast 1 Jason Juarez [address], [place], [place], [address] , [place]. tel:[phone] OFFICE/OUTPA TIENT VISIT, EST [facility], [address] [place], [address], tel:[phone] [facility] anxiety1 (chief complaint)leslie n (chief complaint)b12 (chief complaint)tob acco1 (chief complaint) Chronic pain syndromeGenerali zed Anxiety DisorderTobacco useDeficiency of other specified B group vitamins 1 Jason Juarez [address], [place], [place], [address] , [place]. tel:[phone] OFFICE/OUTPA TIENT VISIT, EST [facility], [address], [address], tel:[phone] [facility] anxiety1 (chief complaint)leslie n (chief complaint)HLP (chief complaint)HTN (chief complaint)ACTIVITY AID D1 (chief complaint) Chronic pain syndromeGenerali zed Anxiety DisorderEmphysem aHyperlipidemiaE ssential (primary) hypertension 1 Jason Juarez [address], [place], [place], [address] , [place]. tel:[phone] OFFICE/OUTPA TIENT VISIT, [facility], [address] [place], [address], [place] tel:[phone] [facility] anxiety1 (chief complaint)leslie n (chief complaint)b12 (chief complaint)ost eoporosis1 (chief complaint) Chronic pain syndromeGenerali zed Anxiety DisorderOsteopor osisVitamin B deficiencyTobacc o use 1 Jason Juarez [address], [place], [place], [address] , [place]. [phone] OFFICE/OUTPA TIENT VISIT, [facility], [address] [place], [address], [place] tel:[phone] [facility] anxiety1 (chief complaint)leslie n (chief complaint)ACTIVITY AID D1 (chief complaint)ins omnia1 (chief complaint)ost eoporosis1 (chief complaint) Chronic pain syndromeOsteopor osisGeneralized Anxiety DisorderEmphysem aInsomnia 1 Jason Juarez [address], [place], [place], [address] , [place]. tel:[phone] OFFICE/OUTPA TIENT VISIT, [facility], [address] [place], [place], [address], [place] tel:[phone] [facility] hip fx1 (chief complaint)anx iety1 (chief complaint)HLP (chief complaint)HTN (chief complaint)ost eoporosis1 (chief complaint) Abnormal weight lossChronic pain syndromeGenerali zed Anxiety DisorderOsteopor osisEssential (primary) hypertensionHype rlipidemiaPresen ce of left artificial hip joint 1 Jason Juarez [address], [place], [place], [address] , [place]. tel:[phone] OFFICE/OUTPA TIENT VISIT, [facility], [address] [place], [address], [place] tel:[phone] [facility] anxiety1 (chief complaint)leslie n (chief complaint)ins omnia1 (chief complaint)rachna ght loss1 (chief complaint) Abnormal weight lossChronic pain syndromeGenerali zed Anxiety DisorderInsomnia Vitamin B deficiency Nov-0 1 Jason Parson. [address], [place], [place], [address] , [place]. tel:[phone] OFFICE/OUTPA TIENT VISIT, [facility], [address], [place], [place], [address], [place] tel:[phone] [facility] anxiety1 (chief complaint)leslie n (chief complaint)Ane mia1 (chief complaint)mejia al (chief complaint) AnemiaChronic pain syndromeGenerali zed Anxiety DisorderRenal diseaseHyperkale miaAbnormal weight loss Oct-0 1 Jason Parson. [address], [place], [place], [address] , [place]. tel:[phone] OFFICE/OUTPA TIENT VISIT, [facility], [address], [place], [place], [address], [place] tel:[phone] [facility] overactive bladder1 (chief complaint) Overactive bladderMixed incontinence 0 1 Jason Parson. [address], [place], [place], [address] , [place]. tel:[phone] OFFICE/OUTPA TIENT VISIT, [facility], [address] [place], [address], [place] tel:[phone] [facility] anxiety1 (chief complaint)leslie n (chief complaint)ane mia1 (chief complaint)ost eoporosis1 (chief complaint) Chronic pain syndromeGenerali zed Anxiety DisorderAbnormal weight lossAnemiaOsteop orosis 0 1 Jason Parson. [address], [place], [place], [address] , [place]. tel:[phone] OFFICE/OUTPA TIENT VISIT, [facility], [address] [place], [address], tel:[phone] [facility] anxiety1 (chief complaint)leslie n (chief complaint)hem aturia1 (chief complaint)ACTIVITY AID D1 (chief complaint) Abnormal weight lossChronic pain syndromeGenerali zed Anxiety DisorderHematuri aEmphysemaTobacc o use 1 Jason Parson. [address], [place], [place], [address] , [place]. [phone] OFFICE/OUTPA TIENT VISIT, [facility], [address] [place], [address], tel:[phone] [facility] anxity1 (chief complaint)leslie n (chief complaint)hem aturia1 (chief complaint)rachna ght loss1 (chief complaint) Abnormal weight lossHematuriaChr onic pain syndromeGenerali zed Anxiety Disorder 0 Jason Parson. [address], [address], [address] , [place]. [phone] OFFICE/OUTPA TIENT VISIT, [facility], [address] [place], [address], [place] tel:[phone] [facility] anxiety1 (chief complaint)leslie n1 (chief complaint)mejia al (chief complaint)b12 (chief complaint)ane mia1 (chief complaint)rachna ght loss1 (chief complaint) HematuriaFolate deficiencyAnemia Renal diseaseAbnormal weight lossGeneralized Anxiety DisorderChronic pain syndrome 0 Jason Parson. [address], [address] , [place]. tel:[phone] OFFICE/OUTPA TIENT VISIT, [facility], [address] [place], [address], [place] tel:[phone] [facility] anxiety1 (chief complaint)leslie n (chief complaint)ACTIVITY AID D1 (chief complaint)hem aturia1 (chief complaint) Chronic pain syndromeGenerali zed Anxiety DisorderHematuri aVitamin B deficiencyTobacc o useEmphysema Oct-0 8-202 0 Jason Parson. [address], [place], [place], [address] , . [phone] OFFICE/OUTPA TIENT VISIT, [facility], [address] [place], [address], tel:[phone] [facility] anxiety1 (chief complaint)leslie n (chief complaint)hem aturia1 (chief complaint)LDC T (chief complaint) Generalized Anxiety DisorderHematuri aChronic pain syndromeTobacco use 0 9-202 0 Jason Juarez [address] [facility] [address] , [place]. [phone] OFFICE/OUTPA TIENT VISIT, [facility], [address] [place], [place], [address], tel:[phone] [facility] anxiety1 (chief complaint)leslie n1 (chief complaint)ACTIVITY AID D1 (chief complaint)hem aturia1 (chief complaint) Generalized Anxiety DisorderChronic pain syndromeEmphysem aHematuria 0-202 0 Jason Juarez [address], [facility] [place], [address] , [place]. [phone] OFFICE/OUTPA TIENT VISIT, [facility], [address] [place], [address], [place] tel:[phone] [facility] anxiety1 (chief complaint)leslie n (chief complaint)tob acco (chief complaint) Chronic pain syndromeGenerali zed Anxiety DisorderTobacco useHematuria Feb-0 9-202 0 Jason Parson. [address] [place] [address] , [place]. tel:[phone] OFFICE/OUTPA TIENT VISIT, [facility], [address] [place], [address], tel:[phone] [facility] anxiety1 (chief complaint)leslie n (chief complaint)ane mia1 (chief complaint)ACTIVITY AID D1 (chief complaint)b12 (chief complaint) Generalized Anxiety DisorderAnemiaVi tamin B deficiencyChroni c pain syndromeEmphysem a 0 Jason Juarez [address] [facility] A, [place], [place], [address] , [place]. [phone] OFFICE/OUTPA TIENT VISIT, [facility], [address] [place], [address], [place] tel:[phone] [facility] anxiety1 (chief complaint)leslie n1 (chief complaint)ost eoporosis1 (chief complaint)hem aturia1 (chief complaint)ins omnia1 (chief complaint) HematuriaAnemiaG eneralized Anxiety DisorderChronic pain syndromeInsomnia OsteoporosisEsse ntial (primary) hypertension 0 Jason Juarez [address] [facility], [place], [place], [address] , [place]. tel:[phone] OFFICE/OUTPA TIENT VISIT, [facility], [address], [place], [place], [address], [place] tel:[phone] [facility] pain (chief complaint)ins omnia1 (chief complaint)anx iety1 (chief complaint)HLP (chief complaint)ACTIVITY AID D1 (chief complaint) Chronic pain syndromeGenerali zed Anxiety DisorderEmphysem aInsomniaVitamin B deficiencyHyperl ipidemia 0 Jason Juarez [address] [facility] A, [place], [place], [address] , [place]. tel:[phone] OFFICE/OUTPA TIENT VISIT, [facility], [address], [address], [place] tel:[phone] [facility] pain (chief complaint) Chronic pain syndromeGenerali zed Anxiety Disorder 0 Jason Juarez [address], [place], [place], [address] , [place]. tel:[phone] Referring Provider: Eb Gomez [address] [facility] A, [place], [place], [address]. tel:[phone] OFFICE/OUTPA TIENT VISIT, [facility], [address], [place], [place], [address], [place] tel:[phone] [facility] pain (chief complaint)anx iety1 (chief complaint)b12 (chief complaint)ins omnia1 (chief complaint) Generalized Anxiety DisorderInsomnia AnemiaChronic pain syndromeVitamin B deficiency 0 Jason Parson. [address], [place], [place], [address] , [place]. tel:[phone] Referring Provider: Kristen Fernandez [address], [place], [place], [address]. tel:[phone] PREV VISIT, EST, AGE 40-64 [facility], [address], [place], [place], [address], [place] tel:[phone] [facility] physical (chief complaint) Encntr for general adult medical exam w/o abnormal findings 0 Jason Parson. [address], [place], [place], [address] , [place]. tel:[phone] Referring Provider: Kristen Fernandez [address], [place], [place], [address]. tel:[phone] OFFICE/OUTPA TIENT VISIT, [facility], [address], [place], [place], [address], [place] tel:[phone] [facility] insomnia1 (chief complaint)leslie n1 (chief complaint)anx iety1 (chief complaint)hem aturia1 (chief complaint) Chronic pain syndromeGenerali zed Anxiety DisorderInsomnia Hematuria 0 Jason Parson. [address], [place], [place], [address] , [place]. tel:[phone] Referring Provider: Kristen Fernandez [address], [place], [place], [address]. tel:[phone] OFFICE/OUTPA TIENT VISIT, [facility], [address], [place], [place], [address], [place] [phone] [facility] osteoprosis1 (chief complaint)ins omani1 (chief complaint)anx iety1 (chief complaint)chr onic pain1 (chief complaint)con fusion1 (chief complaint) Generalized Anxiety DisorderChronic pain syndromeInsomnia OsteoporosisAbno rmal involuntary movementHematuri aDeficiency of other specified B group vitamins 0 9 Jason Parson. [address], [place], [place], [address] , [place]. tel: [phone] Referring Provider: Kristen Fernandez [facility] A, [place], [place], [address]. tel:[phone] OFFICE/OUTPA TIENT VISIT, [facility], [address] [place], [address], [phone] [facility] anemia1 (chief complaint)mejia al1 (chief complaint)chr onic pain (chief complaint)anx iety1 (chief complaint) AnemiaRenal diseaseHematuria Chronic pain syndromeGenerali zed Anxiety DisorderAbnormal involuntary movement 9 Jason Parson. [address], [facility] A, [place], [place], [address] , [place]. [phone] OFFICE/OUTPA TIENT VISIT, [facility], [address] [place], [address], [place] [phone] [facility] chronic pain1 (chief complaint)anx iety1 (chief complaint)bod y movement1 (chief complaint)ACTIVITY AID D1 (chief complaint) Generalized Anxiety DisorderChronic pain syndromeAbnormal involuntary movementEmphysem a 9 Jason Parson. [address], [place], [place], [address] , [place]. tel:[phone] Referring Provider: Kristen Fernandez [address], [place], [place], [address]. tel:[phone] PREV VISIT, EST, AGE 40-64 [facility], [address], [place], [place], [address], [place] tel:[phone] [facility] anxieyt1 (chief complaint)chr oinc pain1 (chief complaint)PHy sical (chief complaint) Encntr for general adult medical exam w/o abnormal findings 9 Jason Parson. [address], [place], [place], [address] , [place]. [phone] Referring Provider: Kristen Fernandez [address], [place], [place], [address]. tel:[phone] OFFICE/OUTPA TIENT VISIT, [facility], [address], [place], [place], [address], [place] tel:[phone] [facility] COPD1 (chief complaint)chr onic pain (chief complaint)CAD (chief complaint)anx iety1 (chief complaint) Coronary artery disease of iroquois coronary artery without angina pectorisEmphysem aChronic pain syndromeGenerali zed Anxiety Disorder 9 Jason Parson. [address], [place], [place], [address] , [place]. [phone] OFFICE/OUTPA TIENT VISIT, [facility], [address], [place], [place], [address], [place] tel:[phone] [facility] COPD1 (chief complaint)CAD (chief complaint)anx iety1 (chief complaint)chr onic pain1 (chief complaint) Solitary lung noduleEmphysemaG eneralized Anxiety DisorderChronic pain syndromeCoronary artery disease of iroquois coronary artery without angina pectoris 9 Jason Parson. [address], [place], [place], [address] , [place]. [phone] Referring Provider: Kristen Fernandez [address], [place], [place], [address]. tel:[phone] OFFICE/OUTPA TIENT VISIT, [facility], [address], [place], [place], [address], [place] tel:[phone] [facility] anxiety1 (chief complaint)chr onic pain1 (chief complaint)tob acco1 (chief complaint) Chronic pain syndromeGenerali zed Anxiety DisorderSolitary lung noduleTobacco use 9 Jason Parson. [address], [place], [place], [address] , [place]. tel:[phone] Referring Provider: Kristen Fernandez [facility] A, [place], [place], [address]. tel:[phone] OFFICE/OUTPA TIENT VISIT, [facility], [address], [place], [place], [address], [place] tel:[phone] [facility] osteoporosis1 (chief complaint)anx iety1 (chief complaint)ACTIVITY AID D1 (chief complaint)chr onic pain1 (chief complaint) Generalized Anxiety DisorderChronic pain syndromeEmphysem aOsteoporosis 9 Jason Parson. [address], [place], [place], [address] , [place]. tel:[phone] OFFICE/OUTPA TIENT VISIT, [facility], [address], [place], [place], [address], [place] tel:[phone] [facility] COPD1 (chief complaint)HTN (chief complaint)chr onic pain1 (chief complaint)anx iety1 (chief complaint) Chronic pain syndromeGenerali zed Anxiety DisorderEssentia l (primary) hypertensionEmph ysema 9 Jason Parson. [address], [place], [place], [address] , [place]. tel:[phone] Referring Provider: Kristen Fernandez [address], [place], [place], [address]. tel:[phone] OFFICE/OUTPA TIENT VISIT, [facility], [address] [place], [address], [place] tel:[phone] [facility] anemia1 (chief complaint)anx iety1 (chief complaint)brenda k pain1 (chief complaint) Generalized Anxiety DisorderChronic pain syndromeAnemia 9 Jason Parson. [address], [place], [place], [address] , [place]. tel:[phone] OFFICE/OUTPA TIENT VISIT, [facility], [address], [place], [place], [address], [place] tel:[phone] [facility] hlP (chief complaint)chr onic pain (chief complaint)anx iety1 (chief complaint)ane mia1 (chief complaint) AnemiaGeneralize d Anxiety DisorderChronic pain syndromeHyperlip idemiaFolic acid deficiency Jason Parson. [address], [place], [place], [address] , [place]. tel:[phone] Referring Provider: Eb Gomez, [address] [facility] A, [place], [place], [address]. tel:[phone] OFFICE/OUTPA TIENT VISIT, [facility], [address] [place], [address], [place] tel:[phone] [facility] chronic pain1 (chief complaint)anx iety1 (chief complaint) Chronic pain syndromeGenerali zed Anxiety Disorder Jason Parson. [address], [place], [place], [address] , [place]. tel:[phone] OFFICE/OUTPA TIENT VISIT, [facility], [address], [place], [place], [address], [place] tel:[phone] [facility] chronic pain (chief complaint)anx iety1 (chief complaint)ACTIVITY AID D1 (chief complaint)ost eoporosis1 (chief complaint)ane mia1 (chief complaint) AnemiaChronic pain syndromeOsteopor osisGeneralized Anxiety DisorderEmphysem a 8 Jason Parson. [address], [place], [place], [address] , [place]. tel:[phone] Referring Provider: Eb Gomez [address], [place], [place], [address]. tel:[phone] OFFICE/OUTPA TIENT VISIT, [facility], [address], [place], [place], [address], [place] tel:[phone] [facility] anemia1 (chief complaint)ost eoporosis1 (chief complaint)chr onic pain (chief complaint)anx iety1 (chief complaint)b12 (chief complaint) OsteoporosisAnem iaChronic pain syndromeGenerali zed Anxiety DisorderFolic acid deficiency 0 8 Jason Parson. [address], [place], [place], [address] , [place]. tel:[phone] Referring Provider: Kristen Fernandez [facility] A, [place], [place], [address]. tel:[phone] OFFICE/OUTPA TIENT VISIT, [facility], [address], [place], [place], [address], [place] tel:[phone] [facility] chronic pain (chief complaint)anx iety1 (chief complaint) Chronic pain syndromeGenerali zed Anxiety Disorder 8 Jason Parson. [address], [place], [place], [address] , [place]. tel:[phone] Referring Provider: Kristen Fernandez [address] [facility] [place], [place], [place], [address]. tel:[phone] OFFICE/OUTPA TIENT VISIT, [facility], [address] [place], [address], [place] tel:[phone] [facility] chronic pain1 (chief complaint)anx iety1 (chief complaint)HTN (chief complaint)col on polyp1 (chief complaint) Chronic pain syndromeGenerali zed Anxiety DisorderPolyp of colonEssential (primary) hypertension 8 Jasno Parson. [address], [place], [place], [address] , [place]. tel:[phone] Referring Provider: Kristen Fernandez [address] [facility] A, [place], [place], [address]. tel:[phone] PREV VISIT, EST, AGE 40-64 [facility], [address], [place], [place], [address], [place] tel:[phone] [facility] Physical (chief complaint) Encounter for general adult medical exam w abnormal findingsPolyp of colonChronic pain syndromeGenerali zed Anxiety DisorderOsteopor osis 8 Jason Parson. [address], [place], [place], [address] , [place]. tel:[phone] Referring Provider: Kristen Fernandez [address], [place], [place], [address]. tel:[phone] OFFICE/OUTPA TIENT VISIT, [facility], [address], [place], [place], [address], [place] tel:[phone] [facility] lung nodule1 (chief complaint)Chr onic pain1 (chief complaint)anx iety1 (chief complaint)kcl (chief complaint) Solitary lung noduleChronic pain syndromeGenerali zed Anxiety DisorderHyperkal emiaEmphysema 8 Jason Parson. [address], [place], [place], [address] , [place]. tel:[phone] Referring Provider: Kristen Fernandez [address], [place], [place], [address]. tel:[phone] OFFICE/OUTPA TIENT VISIT, [facility], [address], [place], [place], [address], [place] tel:[phone] [facility] anxiety1 (chief complaint)chr onic pain1 (chief complaint)ACTIVITY AID D1 (chief complaint)col on polyp (chief complaint) Polyp of colonGeneralized Anxiety DisorderChronic pain syndromeEmphysem a 8 Jason Parson. [address], [place], [place], [address] , [place]. tel:[phone] Referring Provider: Kristen Fernandez [address], [place], [place], [address]. tel:[phone] OFFICE/OUTPA TIENT VISIT, [facility], [address], [place], [place], [address], [place] tel:[phone] [facility] chronic pain (chief complaint)anx iety1 (chief complaint)pne umonia1 (chief complaint) COPD w/ acute exacerbationChro sangeetha pain syndromeGenerali zed Anxiety DisorderPneumoni aEssential (primary) hypertension 8 Jason Juarez [address], [place], [place], [address] , [place]. tel:[phone] Referring Provider: Kristen Fernandez [address], [place], [place], [address]. tel:[phone] OFFICE/OUTPA TIENT VISIT, [facility], [address] [place], [address], [place] tel:[phone] [facility] HLp (chief complaint)axi ety1 (chief complaint)ACTIVITY AID D1 (chief complaint)chr onic pain1 (chief complaint) EmphysemaHyperli pidemiaGERD without esophagitisChron ic pain syndromeGenerali zed Anxiety Disorder 8 Jason Juarez [address], [place], [place], [address] , [place]. tel:[phone] Ref[facility]: [facility], [place], [place], [address]. tel:[phone] OFFICE/OUTPA TIENT VISIT, [facility], [address] [place], [place], [address], [place] tel:[phone] [facility] HLP (chief complaint)KCL (chief complaint)b12 1 (chief complaint)EN d1 (chief complaint)anx iety1 (chief complaint) GERD without esophagitisHyper lipidemiaHyperka lemiaInsomnia 8 Jason Juarez [address], [place], [place], [address] , [place]. tel:[phone] Referring Provider: Kristen Fernandez [address], [place], [place], [address]. tel:[phone] OFFICE/OUTPA TIENT VISIT, [facility], [address], [place], [place], [address], [place] tel:[phone] [facility] chronc pain (chief complaint)anx iety1 (chief complaint)tob acoc1 (chief complaint)EN D1 (chief complaint) GERD without esophagitisGener alized Anxiety DisorderChronic pain syndromeScreenin g for lung ca 0 8 Jason Parson. [address], [place], [place], [address] , [place]. tel:[phone] Referring Provider: Eb Gomez, [address], [place], [place], [address]. tel:[phone] OFFICE/OUTPA TIENT VISIT, [facility], [address], [place], [place], [address], [place] tel:[phone] [facility] chronic pain (chief complaint)anx iety1 (chief complaint)HLP (chief complaint)HTN (chief complaint) Chronic pain syndromeGenerali zed Anxiety DisorderHyperlip idemiaEssential (primary) hypertension 8 Jason Parson. [address], [place], [place], [address] , [place]. tel:[phone] OFFICE/OUTPA TIENT VISIT, [facility], [address], [place], [place], [address], [place] tel:[phone] [facility] COPD1 (chief complaint)chr onic pain1 (chief complaint)anx iety1 (chief complaint) EmphysemaGeneral ized Anxiety DisorderChronic pain syndrome 7 Jason Parson. [address], [place], [place], [address] , [place]. tel:[phone] Referring Provider: Kristen Fernandez [address], [place], [place], [address]. tel:[phone] OFFICE/OUTPA TIENT VISIT, [facility], [address], [place], [place], [address], [place] tel:[phone] [facility] chronic pain (chief complaint)anx iety1 (chief complaint) Generalized Anxiety DisorderChronic pain syndrome Jun- 7 Jason Parson. [address], [place], [place], [address] , [place]. tel:[phone] Referring Provider: Kristen Fernandez [address], [place], [place], [address]. tel:[phone] OFFICE/OUTPA TIENT VISIT, [facility], [address], [place], [place], [address], [place] tel:[phone] [facility] Cough1 (chief complaint)chr onic pain1 (chief complaint)anx iety1 (chief complaint)EN D1 (chief complaint) COPD w/ acute exacerbationChro sangeetha pain syndromeGenerali zed Anxiety DisorderGERD without esophagitis 7 Jason Juarez [address], [place], [place], [address] , [place]. tel:[phone] Referring Provider: Kristen Fernandez [address], [place], [place], [address]. tel:[phone] OFFICE/OUTPA TIENT VISIT, [facility], [address], [place], [place], [address], [place] tel:[phone] [facility] chronic pain (chief complaint)anx iety1 (chief complaint)HTN (chief complaint)HLP (chief complaint) Chronic pain syndromeGenerali zed Anxiety DisorderHyperlip idemiaEssential (primary) hypertension 7 Jason Juarez [address], [place], [place], [address] , [place]. tel:[phone] Referring Provider: Kristen Fernandez [address], [place], [place], [address]. tel:[phone] OFFICE/OUTPA TIENT VISIT, [facility], [address], [place], [place], [address], [place] tel:[phone] [facility] chronic pain (chief complaint)anx iety1 (chief complaint)EN D1 (chief complaint)ACTIVITY AID D1 (chief complaint) Chronic pain syndromeGenerali zed Anxiety DisorderCOPDGERD without esophagitis 7 Jason Juarez [address], [place], [place], [address] , [place]. [phone] Referring Provider: Kristen Fernandez [address], [place], [place], [address]. tel:[phone] PREV VISIT, EST, AGE 40-64 [facility], [address], [place], [place], [address], [place] tel:[phone] [facility] PHysical (chief complaint) Encntr for general adult medical exam w/o abnormal findings 7 Jason Juarez [address], [place], [place], [address] , [place]. [phone] Referring Provider: Kristen Fernandez [facility], [place], [place], [address]. tel:[phone] OFFICE/OUTPA TIENT VISIT, EST [facility], [address], [place], [place], [address], [place] tel:[phone] [facility] HTN (chief complaint)chr onic pain1 (chief complaint)anx iety1 (chief complaint) Essential (primary) hypertensionGene ralized Anxiety DisorderChronic pain syndromeEncounte r for oth screening for malignant neoplasm of breast 7 Jason Peterson [address], [place], [place], [address] , [place]. [phone] Referring Provider: Kristen Fernandez [address], [place], [place], [address]. tel:[phone] OFFICE/OUTPA TIENT VISIT, EST [facility], [address], [place], [place], [address], [place] tel:[phone] [facility] chronic pain (chief complaint)anx iety1 (chief complaint)ACTIVITY AID D1 (chief complaint)rachna ght loss1 (chief complaint) Abnormal weight lossGeneralized Anxiety DisorderChronic pain syndromeCOPD 7 Jason Peterson [address], [place], [place], [address] , [place]. tel:[phone] Referring Provider: Kristen Fernandez [facility] A, [place], [place], [address]. tel:[phone] OFFICE/OUTPA TIENT VISIT, [facility], [address], [place], [place], [address], [place] tel:[phone] [facility] anxiety1 (chief complaint)chr onic pain (chief complaint)HLP (chief complaint)NE D1 (chief complaint)hep C (chief complaint) HyperlipidemiaGe neralized Anxiety DisorderChronic pain syndromeHepatiti s C Nov- 0 7 Jason Juarez [address], [place], [place], [address] , [place]. tel:[phone] Referring Provider: Kristen Fernandez [facility] A, [place], [place], [address]. tel:[phone] OFFICE/OUTPA TIENT VISIT, [facility], [address], [place], [place], [address], [place] tel:[phone] [facility] OAB1 (chief complaint)chr onic pain (chief complaint)anx iety1 (chief complaint)hep C (chief complaint) Chronic pain syndromeGenerali zed Anxiety DisorderOveracti ve bladderEncounter for screening for other viral diseases Oct- 7 Jason Peterson [facility] A, [place], [place], [address] , [place]. tel:[phone] Referring Provider: Kristen Fernandez [facility] [address], [place], [place], [address]. tel:[phone] OFFICE/OUTPA TIENT VISIT, [facility], [address] [place], [address], [place] tel:[phone] [facility] chronic pain1 (chief complaint)anx iety1 (chief complaint)uri nary (chief complaint)EN D1 (chief complaint) GERD with esophagitisInsom niaGeneralized Anxiety DisorderOveracti ve bladder Feb- 7 Gomez Eb. [address], [place], [place], [address] , [place]. tel:[phone] Referring Provider: Kristen Fernandez [address], [place], [place], [address]. tel:[phone] OFFICE/OUTPA TIENT VISIT, [facility], [address], [place], [place], [address], [place] tel:[phone] [facility] HLP (chief complaint)chr onic pain (chief complaint)anx iety1 (chief complaint)uri nary urgency1 (chief complaint)Bar rett (chief complaint) Lawrence's esophagusChronic pain syndromeGenerali zed Anxiety DisorderOveracti ve bladder 7 Jason Parson. [address], [place], [place], [address] , [place]. tel:[phone] Referring Provider: Kristen Fernandez [address], [place], [place], [address]. tel:[phone] OFFICE/OUTPA TIENT VISIT, [facility], [address], [place], [place], [address], [place] tel:[phone] [facility] COPD1 (chief complaint)brenda k pain1 (chief complaint)anx iety1 (chief complaint)tob acco (chief complaint) Chronic obstructive pulmonary disease, unspecifiedGener alized Anxiety DisorderChronic pain syndromeTobacco use 6 Jason Parson. [address], [place], [place], [address] , [place]. tel:[phone] Referring Provider: Kristen Fernandez [address], [place], [place], [address]. tel:[phone] OFFICE/OUTPA TIENT VISIT, [facility], [address], [place], [place], [address], [place] tel:[phone] [facility] COPD1 (chief complaint)chr onic pain1 (chief complaint)anx iety1 (chief complaint) Chronic obstructive pulmonary disease, unspecifiedGener alized Anxiety DisorderChronic pain syndrome 6 Jason Parson. [address], [place], [place], [address] , [place]. tel:[phone] Referring Provider: Kristen Fernanedz [address], [place], [place], [address]. tel:[phone] OFFICE/OUTPA TIENT VISIT, [facility], [address], [place], [place], [address], [place] tel:[phone] [facility] HLP (chief complaint)anx iety1 (chief complaint)chr onic pain (chief complaint)uri nary frequency1 (chief complaint) Urinary frequencyChronic pain syndromeGenerali zed Anxiety DisorderHyperlip idemia 6 Jason Parson. [address], [place], [place], [address] , [place]. tel:[phone] Referring Provider: Kristen Fernandez [address], [place], [place], [address]. tel:[phone] OFFICE/OUTPA TIENT VISIT, [facility], [address], [place], [place], [address], [place] tel:[phone] [facility] anxiety1 (chief complaint)chr onic pain1 (chief complaint)ACTIVITY AID D1 (chief complaint)ost eoporosis1 (chief complaint) OsteoporosisGene ralized Anxiety DisorderCOPDChro sangeetha pain syndrome 6 Jason Parson. [address], [place], [place], [address] , [place]. tel:[phone] Referring Provider: Kristen Fernandez [address], [place], [place], [address]. tel:[phone] OFFICE/OUTPA TIENT VISIT, [facility], [address], [place], [place], [address], [place] tel:[phone] [facility] HTN (chief complaint)chr onic pain (chief complaint)anx iety1 (chief complaint)rachna ght gain (chief complaint) Abnormal weight lossGeneralized Anxiety DisorderChronic pain syndromeEssentia l (primary) hypertension 6 Jason Parson. [address], [place], [place], [address] , [place]. tel:[phone] Referring Provider: Krist[address], [place], [place], [address]. tel:[phone] OFFICE/OUTPA TIENT VISIT, EST [facility], [address], [place], [place], [address], [place] tel:[phone] [facility] anxiety1 (chief complaint)cho rnic pain1 (chief complaint)ost eoporosis1 (chief complaint) Chronic pain syndromeGenerali zed Anxiety DisorderOsteopor osis 6 Jason Juarez [address], [place], [place], [address] , [place]. tel:[phone] Referring Provider: Krist[address], [place], [place], [address]. tel:[phone] PREV VISIT, EST, AGE 40-64 [facility], [address], [place], [place], [address], [place] tel:[phone] [facility] PHysical (chief complaint) Encntr for general adult medical exam w/o abnormal findings 6 Jason Joseph[address], [place], [place], [address] , [place]. tel:[phone] Referring Provider: Kristen [address], [place], [place], [address]. tel:[phone] OFFICE/OUTPA TIENT VISIT, EST [facility], [address], [place], [place], [address], [place] tel:[phone] [facility] osteoporosis (chief complaint)anx itey1 (chief complaint)chr onic pain (chief complaint)bar ret (chief complaint) OsteoporosisGene ralized anxiety disorderChronic pain syndromeBarrett' s esophagus 6 Jason Juarez [address], [place], [place], [address] , [place]. tel:[phone] Referring Provider: Kristen Fernandez [address], [place], [place], [address]. tel:[phone] OFFICE/OUTPA TIENT VISIT, [facility], [address], [place], [place], [address], [place] tel:[phone] [facility] chronic pain (chief complaint)anx iety1 (chief complaint)car pal tunnel (chief complaint)HLP (chief complaint) Chronic pain syndromeHyperlip idemiaInsomniaEn counter for screening for osteoporosis 6 Jason Parson. [address], [place], [place], [address] , [place]. tel:[phone] Referring Provider: Kristen Fernandez [address], [place], [place], [address]. tel:[phone] OFFICE/OUTPA TIENT VISIT, [facility], [address], [place], [place], [address], [place] tel:[phone] [facility] dizziness (chief complaint)anx iety1 (chief complaint)car pal tunnel (chief complaint)chr onic pain (chief complaint) Carpal tunnel syndrome of left armChronic pain syndromeGenerali zed Anxiety DisorderSyncope and collapse 6 Jason Parson. [address], [place], [place], [address] , [place]. tel:[phone] Referring Provider: Kristen Fernandez [address], [place], [place], [address]. tel:[phone] OFFICE/OUTPA TIENT VISIT, [facility], [address], [place], [place], [address], [place] tel:[phone] [facility] carpal tunnel (chief complaint)cho rnic pain1 (chief complaint)anx iety1 (chief complaint)diz ziness1 (chief complaint) DizzinessGeneral ized anxiety disorderLow back painCarpal tunnel syndrome, left upper limb 6 Jason Parson. [address], [place], [place], [address] , [place]. tel:[phone] Referring Provider: Kristen Fernandez [facility] [address], [place], [place], [address]. tel:[phone] OFFICE/OUTPA TIENT VISIT, [facility], [address], [place], [place], [address], [place] tel:[phone] [facility] chornic pain1 (chief complaint)Anx iety1 (chief complaint)HLP 1 (chief complaint) Chronic pain syndromeGenerali zed anxiety disorderMixed hyperlipidemiaGE RD with esophagitis 0 5 Jason Juarez [address], [place], [place], [address] , [place]. tel:[phone] Referring Provider: Kristen Fernandez [facility] [address], [place], [place], [address]. tel:[phone] OFFICE/OUTPA TIENT VISIT, [facility], [address], [place], [place], [address], [place] tel:[phone] [facility] anxiety1 (chief complaint)nec k pain1 (chief complaint)arm numbness1 (chief complaint)PAD 1 (chief complaint) Lawrence's esophagusOther spondylosis, lumbar regionParesthesi a of skinGeneralized Anxiety Disorder 5 Jason Juarez [address], [place], [place], [address] , [place]. tel:[phone] Referring Provider: Kristen Fernandez [address], [place], [place], [address]. tel:[phone] OFFICE/OUTPA TIENT VISIT, [facility], [address], [address], [place] tel:[phone] [facility] anxiety1 (chief complaint)EN D1 (chief complaint)brenda k pain1 (chief complaint) Generalized anxiety disorderOther spondylosis, cervical regionGERD without esophagitisPares thesia of skin 5 Jason Juarez [address], [place], [place], [address] , [place]. tel:[phone] Referring Provider: Kristen Fernandez [address], [place], [place], [address]. tel:[phone] OFFICE/OUTPA TIENT VISIT, [facility], [address], [place], [place], [address], [place] tel:[phone] [facility] neck pain (chief complaint)anx iety (chief complaint)HTN (chief complaint) Unspecified essential hypertensionGene ralized anxiety disorderNeck pain Sep-3 5 Jason Parson. [address], [place], [place], [address] , [place]. tel:[phone] Referring Provider: Kristen Fernandez [address], [place], [place], [address]. tel:[phone] OFFICE/OUTPA TIENT VISIT, [facility], [address], [place], [place], [address], [place] tel:[phone] [facility] neck pain (chief complaint)anx iety (chief complaint)ACTIVITY AID D (chief complaint) LumbagoGeneraliz ed anxiety disorderCOPDPare sthesia 5 Jason Parson. [address], [place], [place], [address] , [place]. [phone] Referring Provider: Kristen Fernandez [address], [place], [place], [address]. tel:[phone] OFFICE/OUTPA TIENT VISIT, [facility], [address], [place], [place], [address], [place] tel:[phone] [facility] back pain (chief complaint)anx iety (chief complaint)vit owen D (chief complaint) LumbagoGeneraliz ed anxiety disorderBarrett' s esophagus 5 Jason Parson. [address], [place], [place], [address] , [place]. tel:[phone] Referring Provider: Kristen Fernandez [address], [place], [place], [address]. tel:[phone] OFFICE/OUTPA TIENT VISIT, EST [facility], [address], [place], [place], [address], [place] tel:[phone] [facility] GERD (chief complaint)lum bago (chief complaint)HLP (chief complaint) LumbagoLoss of weightGeneralize d anxiety disorderDyslipid aemia 5 Jason Parson. [address], [place], [place], [address] , [place]. tel:[phone] Referring Provider: Kristen Fernandez [address], [place], [place], [address]. tel:[phone] PREV VISIT, EST, AGE 40-64 [facility], [address], [place], [place], [address], [place] tel:[phone] [facility] physical (chief complaint) Routine medical exam 5 Jason Parson. [address], [place], [place], [address] , [place]. tel:[phone] Referring Provider: Kristen [address], [place], [place], [address]. tel:[phone] OFFICE/OUTPA TIENT VISIT, [facility], [address], [place], [place], [address], [place] tel:[phone] [facility] COPD (chief complaint)brenda k pain (chief complaint)anx iety (chief complaint)bar ett (chief complaint) COPDLumbagoBARRE TT'S ESOPHAGUSGeneral ized anxiety disorder Nov-2 5 Jason Parson. [address], [place], [place], [address] , [place]. tel:[phone] Referring Provider: Kristen Fernandez [address], [place], [place], [address]. tel:[phone] OFFICE/OUTPA TIENT VISIT, [facility], [address], [place], [place], [address], [place] tel:[phone] [facility] COPD (chief complaint)brenda k pain (chief complaint)anx iety (chief complaint) COPDGeneralized anxiety disorderLumbagoS edative, hypnotic or anxiolytic dependence, unspecified Nov- 5 Jason Parson. [address], [place], [place], [address] , [place]. tel:[phone] Referring Provider: Kristen Fernandez [address], [place], [place], [address]. tel:[phone] OFFICE/OUTPA TIENT VISIT, [facility], [address], [place], [place], [address], [place] [phone] [facility] back pain (chief complaint)anx iety (chief complaint)ACTIVITY AID D (chief complaint)abd pain (chief complaint) COPDLumbagoGener alized anxiety disorderOpioid type dependence, unspecified use 5 Jason Parson. [address], [place], [place], [address] , [place]. [phone] Referring Provider: Kristen Fernandez [address], [place], [place], [address]. tel:[phone] OFFICE/OUTPA TIENT VISIT, [facility], [address], [place], [place], [address], [place] [phone] [facility] COPD (chief complaint)vann d nodule (chief complaint)brenda k pain (chief complaint)anx iety (chief complaint) LumbagoGeneraliz ed anxiety disorderOther tenosynovitis of hand and wristCOPD 5 Jason Parson. [address], [place], [place], [address] , [place]. [phone] Referring Provider: Kristen Fernandez [address], [place], [place], [address]. tel:[phone] OFFICE/OUTPA TIENT VISIT, [facility], [address], [place], [place], [address], [place] tel:[phone] [facility] duodenal ulcer (chief complaint)brenda k pain (chief complaint)anx iety (chief complaint)ACTIVITY AID D (chief complaint) Acute gastric ulcer without mention of hemorrhage or perforation, with obstructionLumba goGeneralized anxiety disorderCOPD 4 aJson Parson. [address], [place], [place], [address] , [place]. tel:[phone] Referring Provider: Kristen Fernandez [address], [place], [place], [address]. tel:[phone] OFFICE/OUTPA TIENT VISIT, [facility], [address], [place], [place], [address], [place] tel:[phone] [facility] gastric ulcer (chief complaint)brenda k pain (chief complaint)anx iety (chief complaint) Acute gastric ulcer without mention of hemorrhage or perforation, with obstructionLumba goDepression 4 Jason Parson. [address], [place], [place], [address] , [place]. tel:[phone] Referring Provider: Kristen Fernandez [address], [place], [place], [address]. tel:[phone] OFFICE/OUTPA TIENT VISIT, [facility], [address], [place], [place], [address], [place] tel:[phone] [facility] anxiety (chief complaint)brenda k pain (chief complaint)abd ominal pain (chief complaint) LumbagoAbdominal PainDepressionGa stroparesis 4 Jason Juarez [address], [place], [place], [address] , [place]. tel:[phone] Referring Provider: Kristen Fernandez [address], [place], [place], [address]. tel:[phone] OFFICE/OUTPA TIENT VISIT, [facility], [address], [place], [place], [address], [place] tel:[phone] [facility] back pain (chief complaint)anx iety (chief complaint)abd ominal pain (chief complaint)ACTIVITY AID D (chief complaint) DepressionLumbag oHypertension, Unspecified Sep-2 4 Jason Parson. [address], [place], [place], [address] , [place]. tel:[phone] Referring Provider: Kristen Fernandez [address], [place], [place], [address]. tel:[phone] OFFICE/OUTPA TIENT VISIT, [facility], [address], [place], [place], [address], [place] [phone] [facility] abdominal pain (chief complaint)brenda k pain (chief complaint)anx iety (chief complaint) Dietary surveillance and counselingAbdomi nal PainLumbagoGener alized anxiety disorder Sep-0 4 Jason Parson. [address], [place], [place], [address] , [place]. tel:[phone] Referring Provider: Kristen Fernandez [address], [address]. tel:[phone] OFFICE/OUTPA TIENT VISIT, [facility], [address], [address], [place] [phone] [facility] back pain (chief complaint)anx iety (chief complaint)abd ominal pain (chief complaint) Dietary surveillance and counselingLumbag oGeneralized anxiety disorderAbdomina l Pain Mar-0 4 Jason Parson. [address], [place], [place], [address] , [place]. tel:[phone] Referring Provider: Kristen Fernandez [address], [place], [place], [address]. tel:[phone] OFFICE/OUTPA TIENT VISIT, [facility], [address], [address], [place] tel:[phone] [facility] back pain (chief complaint)anx iety (chief complaint)HLP (chief complaint)Vit owen D (chief complaint) Dietary surveillance and counselingLumbag oGeneralized anxiety disorderHyperten brionna, UnspecifiedOther and unspecified hyperlipidemia 4 Jason Parson. [address], [place], [place], [address] , [place]. tel:[phone] Referring Provider: Eb Gomez, [facility] [place], [place], [address]. tel:[phone] OFFICE/OUTPA TIENT VISIT, EST [facility], [address], [address], [place] tel:[phone] [facility] back pain (chief complaint)anx iety (chief complaint)HTN (chief complaint) Dietary surveillance and counselingHypert ension, UnspecifiedLumba goGeneralized anxiety disorderDepressi on 4 Jason Parson. [address], [place], [place], [address] , [place]. tel:[phone] Referring Provider: Kristen Fernandez [address] [place], [address]. tel:[phone] PREV VISIT, NEW, AGE 40-64 [facility], [address] [place], [place], [address], [place] tel:[phone] [facility] PHysical (chief complaint) Dietary surveillance and counselingRoutin e Medical ExamRoutine Medical Exam 4 Jason Parson. [address] [facility] [place], [place], [address] , [place]. tel:[phone] Family History Family Member Type Diagnosis Age At Onset Father Problem (finding) Cancer, lung Mother Problem (finding) Hyperlipidemia Brother Problem (finding) Anxiety Mother Problem (finding) Hypertension Payers Payer name Insurance type Covered green party ID aDvid lyman(s) [facility] [id number] Social History Type Description Quantity Date Captured Comments Alcohol Use Details No Caffeine Use Details Unknown Tobacco Use Status Heavy cigarette smok er (20-39 cigs/day) Smoking Status Heavy tobacco smoker Sex Female Vital Signs Date / Time: Height Weight BMI Pulse Rate Blood Pressure Temperature Respiratory Rate Body Surface Area Head Circumference BMI percentile Pulse Ox Inhaled Ox 1:08 PM 68.00 in 120.00 lbs 18.2 5 kg/m eter (2) 68 /min 120/70 mm[Hg] 97.2 F 17 /min Chief Complaint And Reason For Visit From encounter dated 12/19/2024 12:38'. pain (chief complaint). Description: Pt has chronic [...] homicidal thought Pt denies any crying spells Plan Of Treatment Date Type Action Status [...] Referred To: HOLLY WILLOUGHBY [address] [place], [place], [address] Ordered: Referrals: Allopathic & Osteopathic Physicians : Internal Medicine : Endocrinology, Diabetes & Metabolism. HOLLY WILLOUGHBY. Evaluate and treat ordered Referral Referred To: Dennise SALEEM, Guera Beal [address] [facility]
[address] [place], [place], [address] Ordered: Referrals: Guera Bowden MD. Evaluate and treat ordered Referral Ordered: US CAROTID ordered Referral Ordered: Jean Pierre Venegas -Allopathic & Osteopathic Physicians : Internal Medicine : Endocrinology, Diabetes & Metabolism (related to Osteoporosis) ordered Referral Referred To: Jean Pierre Venegas [address] [facility]
[address] [place], [place] [id number] Ordered: Referrals: Allopathic & Osteopathic Physicians : Internal Medicine : Endocrinology, Diabetes & Metabolism. Jean Pierre Venegas. Evaluate and treat ordered Referral Ordered: US EXAM, ABDOM, COMPLETE ordered Referral Ordered: Urology (related to Hematuria) ordered Referral Ordered: Urology (related to Anemia) ordered Referral Ordered: Matias Reid -Allopathic & Osteopathic Physicians : Urology (related to Hematuria) ordered Referral Referred To: Matias Reid [address] [facility]
[address] [place], [place], [phone] Ordered: Referrals: Allopathic & Osteopathic Physicians : Urology. Matias Reid. Evaluate and treat ordered Referral Ordered: US KIDNEY ordered Referral Ordered: Pulmonology (related to Emphysema) ordered Referral Ordered: Referrals: Pulmonology. Evaluate and treat ordered Referral Ordered: Rafy Wong -Allopathic & Osteopathic Physicians : Internal Medicine : Cardiovascular Disease (related to Coronary artery disease of [place] coronary artery without angina pectoris) ordered Referral Referred To: Rafy Wong [address] [place], [place] [id number] Ordered: Referrals: Allopathic & Osteopathic Physicians : [...] Arevalo [address] [place], [id number] Ordered: Referrals: Roge Arevalo. Evaluate and treat [...] crying spells HLP Pt has HLP Pt aime vera zocor Pt denies any myalgia pain Pt [...] and doing ok. Pt needs omeprazole refilled anxiety1 Pt has chronic a nxiety and depression ,Pt takes cymbalta and klonopin and lamictal and doing ok Pt denies any suicidal or homicidal thought Pt denies any crying spells lung Pt has history o f lung nodule and she is chronically smoker. She just had repeat chest CT done which was normal osteoporosis1 Pt has osteoporo sis and she [...] percocet for pain PRN and doing ok nightmares1 Pt has PTSD with nightmares Pt [...] control. Pt denies any saddle area paresthesia. ANXIETY1 Pt has chronic a nxiety and depression ,Pt takes cymbalta and klonopin and lamictal and doing ok Pt denies any suicidal or homicidal thought Pt denies any crying spells GLUCOSE1 Pt has mildly hi gh glucose [...] by insurance and she is working with [employer] to find something that will be covered [...] spells osteoporosis1 Pt has osteoporo sis Pt just had bone density done which showed deterioration of her bone density. PIt is on calcium and D and she is doing weight bearing exercise Pt is seeing endo and she is waiting for reclast approval nightmares1 Pt has nightmare s due to PTSD. Pt is on prazosin qhs which helped about 50 %. Pt denies any side effects from prazosin pain Pt has chronic b ack and [...] and we tried to refer her to [facility] but is having some issues with the referral Pt was told by s [facility] that she needs a transfer of care [...] denies any crying spells anemia1 Pt has history o f iron deficiency anemia, Pt had lab done which was normal Pt denies any bleeding. HLP Pt has HLP Pt ta kes zocor Pt denies any myalgia. Her lipid profile is ok pain Pt has chronic b ack and neck pain Pt denies any worsening pain . pt denies any loss of bladder control. pt failed NSAID and ultram. Pt takes norco PRN for pain and doing ok. Pt denies any saddle area paresthesia. Pt c/o bilateral hand and feet numbness and tingling for several months. Pt failed neuropathy. anxiety Pt has chronic a nxiety and [...] states that cymbalta is helping her neuropathy anxiety Pt has chronic a nxiety and [...] Pt denies any fever or chest pain Nov-03-2022 anxiety1 Pt has chronic a nxiety and [...] monitor, cardiac echo and also stress test. COPD Pt has CPOD. pt uses advair and [...] denies any crying spells Barrett1 Pt has lawrence P t takes [...] denies any hemoptysis, worsening sob or cough anxiety Pt has chronic a nxiety [...] her colonoscopy was ok. Pt denies any kierar GERD pain Pt has chronic b ack [...] spells osteoporosis Pt has osteoporo sis. Pt takes [...] any fever HLP Pt has HLP pt aime vera zocor pt denies any myalgia HTN Pt has HTN Pt aime vera lisinopril and her bp is ok at home .pt denies any chest pain or headache COPD Pt has COPD Pt t jenna butler and she uses ventolin 1-2 per week [...] Pt denies any crying spells b12 Pt has low b12 a nd [...] yet. Pt wants refill or pain medication anxiety Pt has chronic a nxiety and [...] pt denies any chest pain or sob. osteoporosis1 Pt takes calcium and D and [...] pain and doing ok anemia1 Pt has iron defi ciency anemia. [...] hematuria . pt has indira with [facility] [place] in 3 weeks pt denies any UTI [...] Pt told me she made indira with [facility] and she needs a referral [...] Pt does not want to go to [facility], which is too far for her. 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 pain [...] or fracture ,Pt denies any other complaints pain1 Pt has chronic b ack and neck pain Pt denies any worsening pain . pt denies any loss of bladder control. pt failed NSAID and ultram. Pt takes norco PRN for pain anxiety1 Pt has chronic a nxiety and depression Pt doing ok with prozac and klonopin Pt denies any suicidal or homicidal thought insomnia1 Pt doing ok with vistaril qhs PRn Pt denies any snoring hematuria1 Pt has hematuria Pt denies any [...] needs vitamin D Refilled. 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 Patient denies any [...] her anemia resolved, Her iron is ok chronic pain Pt has chronic n nathalie and back pain. Pt has DDD Pt denies any worsening pain Pt denies any loss of bladder control hlP Pt has HLP. Pt t akes zocor. Pt denies any myalgia anxiety1 Pt has [...] UA . Pt denies any blood loss. osteoporosis1 Pt has osteoporo sis. Pt has low D. Pt denies any history of spontaneous fracture. anemia1 Pt has mild bord jie anemia. Pt denies any blood loss. Pt denies any dizziness or chest pain or headache chronic pain Pt [...] was ok. Pt denies any worsening symptmos HTN Pt has HTn. Pt t akes [...] on low fat and low carb diet anxiety1 Pt has chronic a nxiety and [...] failed NSAID. Pt has 7/10 pain daily anxiety1 Pt has chornic a nxiety and depression. Pt takes prozac, seroquel and klonopin PRN and doing ok. Pt denies any suicidal or homicial thought. .Pt denies any crying spells chronic pain Pt has chornic n nathalie and back pain. Pt denies any worsening pain, Pt denies any loss of bladder control. Pt takes norco PRN for pain and doing ok Cough1 Pt c/o productiv e coughing with [...] homicdial thought. Pt denies any crying spells anxiety1 Pt [...] to go back for EGD next month. chronic pain Pt has chronic b ack [...] on her own. Pt denies IV drug hep C Pt needs hep C s creening. Pt denies any IV drug use anxiety1 Pt has chornic a nxiety and depression. Pt takes prozac and klonpin and seroquel and doing ok Pt denies any suicidal or homicidal thought Pt denies daxa rying spells chronic pain Pt has chronic n nathalie [...] GERd. Pt denies any acute abd pain tobacco Pt has 40 pack y ear [...] homicidal thought.. Pt denies any other complaints. caroline Pt had EGD on s diagnosed with caroline October of 2014. Pt was told she needs to repeat EGD in 2017 per patient. Pt takes omeprzole and she denies any symptoms osteoporosis Additional infor mation: Pt has osteoorosis. [...] norco for pain PRN and doing ok chronic pain Pt has [...] D Pt has low vitam in D lumbago Pt has chronic L BP. Pt [...] Related to Coron monserrat artery disease of [place]roqu[place] coronary artery without angina pectoris Increase physical [...] Related to Gener alized Anxiety Disorder Prescribed Diet Educ ation/Lifestyle Education Regarding Diet Related to Dietary Surveillance and Counseling Prescribed Activity and Exercise Education Related to Dietary Surveillance and Counseling Dietary [...] surveillance counseling Assessments Type Assessment Date assessment Chronic pain syndrome assessment Generalized Anxiety Disorder Nov Mental Status Date Cognitive Assessment Orientation - [place] ed to time, place, person, situation.
--- OUTSIDE RECORDS SUMMARY | 2025-01-02 00:51 | XMS_ITS | Clinical Summary ---
Author Organization [facility] Address [address] [address] Phone Care Team Providers Care Special Needs Bus Driver Name Role Phone Eb Gomez Primary Care Provider [phone] Allergies Active Allergy Reactions Criticality Noted Date [...] this topic Medical Devices Implanted Type Area Channel Marketing Manager Device Identifier Shelf Expiration Date Model / Serial / Lot Clip 360 Resolution 235cm - [id number] Implanted:Qty: 3 on 04/06/2018 by Puma Medina DO at [facility] IMPLANT [employer] 12/24/2020 [id number] / [id number] / [id number] Description:ASCENDING COLON POLYPECTOMY SITE Insurance MEDICAID [employer] Care Teams Special Needs Bus Driver Relationship Specialty Start Date End Date Eb Gomez [address] [place] [address] PCP - General Family Medicine 07/09/16
--- OUTSIDE RECORDS SUMMARY | 2025-01-02 00:51 | XMS_ITS | Encounter Summary ---
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
--- OUTSIDE RECORDS SUMMARY | 2025-01-02 00:51 | XMS_ITS | Clinical Summary ---
Author Organization [facility] Address [facility] [place] [address] Care Team Providers Care Byproducts Supervisor Name Role Phone Eb Gomez MD Primary Care Provider [phone] Allergies Active Allergy Reactions Criticality Noted Date [...] mouth 3 (three) times daily. Active Umeclidinium [place] 62.5 MCG/INH AEROSOL POWDER, BREATH ACTIVATED Inhale [...] Relevant to Health Maintenance Insurance Care Teams Byproducts Supervisor Relationship Specialty Start Date End Date Eb Gomez MD PCP - General FAMILY PRACTICE 02/25/19
--- OUTSIDE RECORDS SUMMARY | 2025-01-02 00:51 | XMS_ITS | Clinical Summary ---
Author Organization [address] Address [address] [place] [id number] Care Team Providers Care Log Cutter Name Role Phone Eb Gomez MD Primary Care Provider [phone] Allergies Active Allergy Reactions Criticality Noted Date [...] 11/11/2021 Assessment & Plan (10/18/2022 2:14 PM TECHNICIAN SUPPORT ASSOCIATION): Patient afraid of considering Forteo Will request [...] 11/11/2021 Assessment & Plan (10/18/2022 2:12 PM TECHNICIAN SUPPORT ASSOCIATION): Check 25 OH vit D Adjust dose [...] on file Legal Sex Female 2:17 PM TECHNICIAN SUPPORT ASSOCIATION Gender Identity Female 10/18/2022 1:15 PM TECHNICIAN SUPPORT ASSOCIATION Sexual Orientation Not on file Obstetrics History Last Filed Vital Signs Vital Sign Reading Time Taken Comments Blood Pressure 124/60 10/18/2022 1:30 PM TECHNICIAN SUPPORT ASSOCIATION Pulse 80 10/18/2022 1:30 PM TECHNICIAN SUPPORT ASSOCIATION Temperature - - Respiratory Rate 16 10/18/2022 1:30 PM TECHNICIAN SUPPORT ASSOCIATION Oxygen Saturation - - Inhaled Oxygen Concentration - - Weight 68.5 kg (151 lb 0.2 oz) 10/18/2022 1:30 P M TECHNICIAN SUPPORT ASSOCIATION Height 167.4 cm (5' 5.91 ) 10/18/2022 1:30 PM CS T Body Mass Index 24.44 10/18/2022 1:30 PM TECHNICIAN SUPPORT ASSOCIATION Plan of Treatment Health Maintenance Due Date [...] 04/28/202402/2021 Influenza Vaccine (#1) 2024 06/23/2015 Insurance [facility] Care Teams Log Cutter Relationship Specialty Start Date End Date Eb Gomez MD [address] [place] [address] PCP - General Family Medicine 09/02/21
[2025-01-02 11:45] VITALS: BP 106/56; PULSE 66; RESP 18; TEMP 36.1; O2SAT 97; BMI 19.4
[2025-01-02] MEDS: LACTATED RINGERS 1,000 ML 150 ML IV CONT (12:00)
--- NOTE | 2025-01-02 12:58 | WPDANESEPPF ---
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 Patient Data Age: 59 Gender: F Height: 1.7 m Weight: 56.2 kg Last Vital Signs Temp 97.0 F L 01/02/25 11:45 Pulse 66 01/02/25 11:45 Resp 18 01/02/25 11:45 BP 106/56 L 01/02/25 11:45 Pulse Ox 97 01/02/25 11:45 O2 Del Method Room Air 01/02/25 11:45 Allergies Allergy/AdvReac Type Severity Reaction Status Date / Time bee venom protein (honey bee) Allergy Intermediate Swelling Verified 01/02/25 11:44 aspirin Allergy Mild Anaphylaxis Verified 01/02/25 11:44 ciprofloxacin Allergy Unknown Anaphylaxis Verified 01/02/25 11:44 Home Medications ?Medication ?Instructions ?Recorded ?Confirmed ?Type clonazepam 1 mg tablet 1 mg PO TID 10/04/19 01/02/25 History simvastatin 20 mg tablet (Zocor) 20 mg PO DAILY 10/04/19 01/02/25 History lamotrigine 100 mg tablet 100 mg PO DAILY 12/28/20 01/02/25 History lisinopril 20 mg tablet 20 mg PO DAILY 12/28/20 01/02/25 History omeprazole 40 mg capsule,delayed 40 mg PO DAILY 12/24/21 01/02/25 History release duloxetine 60 mg capsule,delayed 60 mg PO DAILY 04/14/22 01/02/25 History release (Cymbalta) albuterol sulfate 2.5 mg/3 mL 2.5 mg (3 mL) inhalation Q6H PRN 08/30/22 12/18/24 Rx (0.083 %) solution for nebulization shortness of breath or wheezing #360 mL ergocalciferol (vitamin D2) 1,250 1,250 mcg PO WEEKLY 11/03/22 01/02/25 History mcg (50,000 unit) capsule oxycodone-acetaminophen 10 mg-325 1 tablet PO Q8H PRN pain #14 tabs 01/16/23 12/18/24 Rx mg tablet (Percocet) inhalational spacing device #1 ea 07/07/23 11/15/24 Rx prazosin 5 mg capsule 5 mg PO DAILY 05/10/24 01/02/25 History montelukast 10 mg tablet 10 mg PO QHS #30 tabs 06/20/24 01/02/25 Rx albuterol sulfate 90 mcg/actuation See Rx Instructions .Route 12/05/24 12/18/24 Rx aerosol inhaler .COMPLEX #8.5 grams budesonide 160 mcg-glycopyr 9 See Rx Instructions .Route 12/05/24 01/02/25 Rx mcg-formot 4.8 mcg/actuation HFA .COMPLEX #10.7 grams inhaler (Breztri Aerosphere) benzonatate 200 mg capsule See Rx Instructions .Route 12/30/24 01/02/25 Rx .COMPLEX #90 caps Patient hx anesthesia problems: none Family hx anesthesia problems: none Results Review: All pre-operative results and documents have been reviewed as part of the pre-operative evaluation. [facility] Past Medical History Medical History Fracture of distal end of right radius Hepatomegaly Tobacco abuse GERD (gastroesophageal reflux disease) Weight loss The patient was evaluated by Dr. Maguire who recommended the patient have EGD and colonoscopy she has not followed up. Her CT scan performed at that time demonstrated hepatomegaly Heart murmur Since Elevated lipids Arthritis Anemia Chronic obstructive pulmonary disease Cubital tunnel syndrome on left Dyslipidemia Essential hypertension Surgical History Surgical History Displaced fracture of left femoral neck Garden type 4 subcapital femoral neck fracture Cemented left bipolar hemiarthroplasty December 30, 2020 S/P implantation of urinary electronic stimulator device (~2016) With battery exchange 2020 History of carpal tunnel release Left S/P cubital tunnel release Left History of esophagogastroduodenoscopy (EGD) (~2016) History of colonoscopy with polypectomy (~2013) History of appendectomy History of hysterectomy Without oophorectomy at age 36 performed due to endometriosis and dysfunctional uterine bleeding History of shoulder surgery History of knee surgery Open meniscus repair left knee History of foot surgery Repair of tendons and ligaments of left ankle after severe laceration Family History Family History Father Lung cancer Sibling Psychiatric illness Mother Hypertension Hyperlipidemia Unknown Asthma Depression Heart disease Lung cancer Arthritis Cerebrovascular accident Other Diabetes mellitus Social History Social History Social History: She lives at home with her fiance and her adult son. She only has the 1 son. She has smoked between 1-2 packs of cigarettes per day since she was in her teens. She continues to smoke 0.5 pack of cigarettes per day. She denies any alcohol use or illicit substance use. 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 Primary care physician: Dr. Eb Gomez Code status: Full code Smoking packs per day: 0.50 Smoking cigarettes per day: 10.0 Years smoked: 40 Smoking pack-years: 20.00 Smoking status: Current every day smoker Tobacco type: cigarettes Second hand tobacco smoke exposure: Yes Alcohol intake: never Substance use: never Substance use type: does not use Living arrangements: with family Occupation/Education: retired Gender identity (if verbalized by the patient): Female Spiritual care concerns: No Anes - Eval Final PreProcedure Day of Procedure 01/02/25 12:58 Patient weight: normal and thin Lungs: normal air movement Airway: Mallampati scale class II Neurological: alert and oriented Last oral intake: >/= 8 hours ASA classification: III Emergent: no Anesthetic plan: proceed Anesthesia type and monitoring: general GIVS and standard monitoring Results Review: All pre-operative results and documents have been reviewed as part of the pre-operative evaluation. HTN, hyperlipidemia, COPD w current smoker, 1/2 ppd, Bunch's esophagus. Informed Consent: The patient's anesthetic plan and its attendant risks and benefits were discussed with the patient/family/POA. Questions were solicited and answers provided to the satisfaction of the patient/family/POA.
--- NOTE | 2025-01-02 13:01 | PM.HPGS ---
History of Present Illness History of Present Illness Consent: Risks, benefits, and alternatives have been discussed and questions answered. Patient agrees to proceed with procedure. 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 Maguire who recommended the patient have EGD and colonoscopy she has not followed up. Her CT scan performed at that time demonstrated hepatomegaly Heart murmur Since Elevated lipids Arthritis Anemia Chronic obstructive pulmonary disease Cubital tunnel syndrome on left Dyslipidemia Essential hypertension Surgical History Surgical History Displaced fracture of left femoral neck Garden type 4 subcapital femoral neck fracture Cemented left bipolar hemiarthroplasty December 30, 2020 S/P implantation of urinary electronic stimulator device (~2016) With battery exchange 2020 History of carpal tunnel release Left S/P cubital tunnel release Left History of esophagogastroduodenoscopy (EGD) (~2016) History of colonoscopy with polypectomy (~2013) History of appendectomy History of hysterectomy Without oophorectomy at age 36 performed due to endometriosis and dysfunctional uterine bleeding History of shoulder surgery History of knee surgery Open meniscus repair left knee History of foot surgery Repair of tendons and ligaments of left ankle after severe laceration Family History Family History Father Lung cancer Sibling Psychiatric illness Mother Hypertension Hyperlipidemia Unknown Asthma Depression Heart disease Lung cancer Arthritis Cerebrovascular accident Other Diabetes mellitus Social History Social History Social History: She lives at home with her fiance and her adult son. She only has the 1 son. She has smoked between 1-2 packs of cigarettes per day since she was in her teens. She continues to smoke 0.5 pack of cigarettes per day. She denies any alcohol use or illicit substance use. 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 Primary care physician: Dr. Eb Gomez Code status: Full code Smoking packs per day: 0.50 Smoking cigarettes per day: 10.0 Years smoked: 40 Smoking pack-years: 20.00 Smoking status: Current every day smoker Tobacco type: cigarettes Second hand tobacco smoke exposure: Yes Alcohol intake: never Substance use: never Substance use type: does not use Living arrangements: with family Occupation/Education: retired Gender identity (if verbalized by the patient): Female Spiritual care concerns: No Meds Home Medications and Allergies Home Medications ?Medication ?Instructions ?Recorded ?Confirmed ?Type clonazepam 1 mg tablet 1 mg PO TID 10/04/19 01/02/25 History simvastatin 20 mg tablet (Zocor) 20 mg PO DAILY 10/04/19 01/02/25 History lamotrigine 100 mg tablet 100 mg PO DAILY 12/28/20 01/02/25 History lisinopril 20 mg tablet 20 mg PO DAILY 12/28/20 01/02/25 History omeprazole 40 mg capsule,delayed 40 mg PO DAILY 12/24/21 01/02/25 History release duloxetine 60 mg capsule,delayed 60 mg PO DAILY 04/14/22 01/02/25 History release (Cymbalta) albuterol sulfate 2.5 mg/3 mL 2.5 mg (3 mL) inhalation Q6H PRN 08/30/22 12/18/24 Rx (0.083 %) solution for nebulization shortness of breath or wheezing #360 mL ergocalciferol (vitamin D2) 1,250 1,250 mcg PO WEEKLY 11/03/22 01/02/25 History mcg (50,000 unit) capsule oxycodone-acetaminophen 10 mg-325 1 tablet PO Q8H PRN pain #14 tabs 01/16/23 12/18/24 Rx mg tablet (Percocet) inhalational spacing device #1 ea 07/07/23 11/15/24 Rx prazosin 5 mg capsule 5 mg PO DAILY 05/10/24 01/02/25 History montelukast 10 mg tablet 10 mg PO QHS #30 tabs 06/20/24 01/02/25 Rx albuterol sulfate 90 mcg/actuation See Rx Instructions .Route 12/05/24 12/18/24 Rx aerosol inhaler .COMPLEX #8.5 grams budesonide 160 mcg-glycopyr 9 See Rx Instructions .Route 12/05/24 01/02/25 Rx mcg-formot 4.8 mcg/actuation HFA .COMPLEX #10.7 grams inhaler (Breztri Aerosphere) benzonatate 200 mg capsule See Rx Instructions .Route 12/30/24 01/02/25 Rx .COMPLEX #90 caps Allergies Allergy/AdvReac Type Severity Reaction Status Date / Time bee venom protein (honey bee) Allergy Intermediate Swelling Verified 01/02/25 11:44 aspirin Allergy Mild Anaphylaxis Verified 01/02/25 11:44 ciprofloxacin Allergy Unknown Anaphylaxis Verified 01/02/25 11:44 Vital Signs Vital Signs - 24 hr 01/02/25 11:45 Temperature 97.0 F L Pulse Rate 66 Respiratory Rate 18 Blood Pressure 106/56 L Pulse Oximetry 97 Oxygen Delivery Room Air Exam Const: General: comfortable and no acute distress HENMT: Face/Nose/Sinus: Normal nares present Eyes: General: appearance normal, both eyes and all related structures Neck: Neck: no JVD Resp: Auscultation: clear to auscultation bilaterally Cardio: Rate: regular rate Rhythm: regular rhythm GI: Inspection: non-distended GI Palp: Yes Soft to palpation Skin: General skin exam: normal color Neuro: General: gait normal Speech: normal speech Extrem: General: normal to inspection Psych: Mental Status: mental status grossly normal Assessment and Plan Assessment and plan (1) Lawrence esophagus: Code(s): K22.70 - Lawrence's esophagus without dysplasia Status: Acute Assessment and Plan: egd with bx on ppi
[2025-01-02] MEDS: BENZOCAINE (*SP) 60 ML SPRAY CAN (HURRICAINE) 1 SPRAY MUCOUS MEM (13:04)
[2025-01-02 13:12] VITALS: BP 84/39; PULSE 55; RESP 21; O2SAT 97
[2025-01-02 13:22] VITALS: BP 87/45; PULSE 55; RESP 18; O2SAT 98
[2025-01-02 13:32] VITALS: BP 110/47; PULSE 55; RESP 17; O2SAT 98
[2025-01-02 13:42] VITALS: BP 114/57; PULSE 50; RESP 13; O2SAT 98
== END 2025-01-02 13:53 | disposition home or self-care (01) ==
PROVIDERS: PCP Emergency Medicine; Referring Provider Emergency Medicine; Visit Provider Internal Medicine Gastroenterology
PROC: 0DJ08ZZ Inspection of Upper Intestinal Tract, Via Natural or Artificial Opening Endoscopic (ICD-10-PCS; CPT 43239; principal; 2025-01-02 13:00)
DX: K29.70 Gastritis, unspecified, without bleeding (principal); K21.00 Gastro-esophageal reflux disease with esophagitis, without bleeding
CPT/HCPCS: 43239; 88305; J2003; J2704; J7120

== ENCOUNTER 2025-01-07 15:59 | Outpatient (CLI) | payer OTHER, SELFPAY ==
--- NOTE | ~2025-01-07 | XR_ITS ---
EXAMINATION: XR chest 2V Exam Date/Time: 01/07/2025 16:05 CDT HISTORY: R05.9 - Cough, unspecified Comparison: None. RESULT: Lines, tubes, and devices: None. Lungs and pleura: Senescent/emphysematous change. Left hemidiaphragm elevation. Cardiomediastinal silhouette: Stable. Other: No acute osseous or upper abdominal finding. IMPRESSION: No acute cardiopulmonary process. A4.3 Reviewed, dictated and finalized at location K.
--- OUTSIDE RECORDS SUMMARY | 2025-01-07 16:02 | XMS_ITS | Clinical Summary ---
Author Organization [facility] Address [address] [address] Phone Care Team Providers Care Soybean Specialties Cook Name Role Phone Eb Gomez Primary Care Provider [phone] Allergies Active Allergy Reactions Criticality Noted Date [...] this topic Medical Devices Implanted Type Area Global Process Owner Device Identifier Shelf Expiration Date Model / Serial / Lot Clip 360 Resolution 235cm - [id number] Implanted:Qty: 3 on 04/06/2018 by Puma Medina DO at [facility] IMPLANT [employer] 12/24/2020 [id number] / [id number] / [id number] Description:ASCENDING COLON POLYPECTOMY SITE Insurance MEDICAID [employer] Care Teams Soybean Specialties Cook Relationship Specialty Start Date End Date Eb Gomez [address] [place] [address] PCP - General Family Medicine 07/09/16
--- OUTSIDE RECORDS SUMMARY | 2025-01-07 16:03 | XMS_ITS | Clinical Summary ---
Author Organization [address] Address [address] [place] [phone] Care Team Providers Care Labor Contract Analyst Name Role Phone Eb Gomez MD Primary Care Provider [phone] Allergies Active Allergy Reactions Criticality Noted Date [...] 11/11/2021 Assessment & Plan (10/18/2022 2:14 PM FACTORY MACHINE COMPUTER OPERATOR): Patient afraid of considering Forteo Will [...] 11/11/2021 Assessment & Plan (10/18/2022 2:12 PM FACTORY MACHINE COMPUTER OPERATOR): Check 25 OH vit D Adjust [...] on file Legal Sex Female 2:17 PM FACTORY MACHINE COMPUTER OPERATOR Gender Identity Female 10/18/2022 1:15 PM FACTORY MACHINE COMPUTER OPERATOR Sexual Orientation Not on file Obstetrics History Last Filed Vital Signs Vital Sign Reading Time Taken Comments Blood Pressure 124/60 10/18/2022 1:30 PM FACTORY MACHINE COMPUTER OPERATOR Pulse 80 10/18/2022 1:30 PM FACTORY MACHINE COMPUTER OPERATOR Temperature - - Respiratory Rate 16 10/18/2022 1:30 PM FACTORY MACHINE COMPUTER OPERATOR Oxygen Saturation - - Inhaled Oxygen Concentration - - Weight 68.5 kg (151 lb 0.2 oz) 10/18/2022 1:30 P M FACTORY MACHINE COMPUTER OPERATOR Height 167.4 cm (5' 5.91 ) 10/18/2022 1:30 PM CS T Body Mass Index 24.44 10/18/2022 1:30 PM FACTORY MACHINE COMPUTER OPERATOR Plan of Treatment Health Maintenance Due [...] 04/28/202402/2021 Influenza Vaccine (#1) 2024 06/23/2015 Insurance [facility] Care Teams Labor Contract Analyst Relationship Specialty Start Date End Date Eb Gomez MD [address] [place] [address] PCP - General Family Medicine 09/02/21
--- OUTSIDE RECORDS SUMMARY | 2025-01-07 16:03 | XMS_ITS | Encounter Summary ---
Author Organization [facility] Address [address] [place] [id number] Care Team Providers Care Shipper Name Role Phone Eb Gomez MD Primary Care Provider [phone] Encounter Details Date Type Department Care Team (Late st Contact Info) Description 02/02/2019 Abstract SFL CONVERSION [address] [place], [place] [id number] , Generic ConversionMD Social History Tobacco Use [...] Rule Out 08/22/2020 08/22/2020 08/24/2020 2:38 PM RN SURGICAL documented as of this encounter Care Teams Shipper Relationship Specialty Start Date End Date Eb Gomez MD PCP - General FAMILY PRACTICE 02/25/19 documented as of this encounter
--- OUTSIDE RECORDS SUMMARY | 2025-01-07 16:03 | XMS_ITS | Continuity of Care Document ---
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 Name Role Phone Eb Castellon MD Unavailable Unavailable Allergies, Adverse Reactions, Alerts Substance Reaction Status Criticality aspirin Active No Information CIPROFLOXACIN HCL Active No Informa tion ciprofloxacin Active No Information Medications Medication Instructions Dosage Effective Dates (start - stop) Status Comments Percocet 10 mg-325 mg tablet take 1 [...] EST OFFICE/OUTPATIENT VISIT, EST OFFICE/OUTPATIENT VISIT, EST -2022 OFFICE/OUTPATIENT VISIT, EST OFFICE/OUTPATIENT VISIT, EST OFFICE/OUTPATIENT VISIT, EST -2022 PREV VISIT, EST, AGE 40-64 Aug- OFFICE/OUTPATIENT [...] Providers Copied on Encounter OFFICE/OUTPA TIENT VISIT, [facility], [address] [place], [address], [place] tel:[phone] [facility] [place] pain (chief complaint)anx iety1 (chief complaint) Chronic pain syndromeGenerali zed Anxiety Disorder Nov- 5 Jason Parson. [address] [place], [place], [address] , [place]. tel:[phone] OFFICE/OUTPA TIENT VISIT, [facility], [address], [place], [place], [address], [place] tel:[phone] [facility] pain (chief complaint)anx iety1 (chief complaint)MEDICAL BILLER D1 (chief complaint)bar rett1 (chief complaint) Generalized Anxiety DisorderChronic pain syndromeBarrett' s esophagusCOPD w/ acute exacerbation 5 Jason Juarez [address], [place], [place], [address] , [place]. tel:[phone] OFFICE/OUTPA TIENT VISIT, [facility], [address], [place], [place], [address], [place] tel:[phone] [facility] Medicine pain (chief complaint)anx iety1 (chief complaint)rachna ght loss1 (chief complaint)bar rett1 (chief complaint) Chronic pain syndromeGenerali zed Anxiety DisorderAbnormal weight lossBarrett's esophagus without dysplasia 5 Jason Juarez [address], [place], [place], [address] , [place]. tel:[phone] OFFICE/OUTPA TIENT VISIT, [facility], [address], [place], [place], [address], [place] tel:[phone] [facility] Medicine pain (chief complaint)anx iety1 (chief complaint)douglas ngle1 (chief complaint) Other postherpetic nervous system involvementChron ic pain syndromeGenerali zed Anxiety Disorder 5 Jason Juarez [address], [place], [place], [address] , [place]. tel:[phone] OFFICE/OUTPA TIENT VISIT, [facility], [address] [place], [address], [place] tel:[phone] [facility] Medicine pain (chief complaint)anx iety1 (chief complaint)HLP (chief complaint) Chronic pain syndromeGenerali zed Anxiety DisorderMixed hyperlipidemia 5 Jason Parson. [address], [place], [place], [address] , [place]. tel:[phone] OFFICE/OUTPA TIENT VISIT, [facility], [address] [place], [address], tel:[phone] [facility] [place] pain (chief complaint)anx ity1 (chief complaint) Chronic pain syndromeGenerali zed Anxiety Disorder 4 Jason Parson. [address] [facility] [place], [address] , [place]. tel:[phone] OFFICE/OUTPA TIENT VISIT, [facility], [address] [place], [place], [address], tel:[phone] [facility] [place] pain (chief complaint)anx iety (chief complaint)HTN (chief complaint) Chronic pain syndromeGenerali zed Anxiety DisorderEssentia l (primary) hypertensionEnco unter for oth screening for malignant neoplasm of breast 4 Jason Parson. [address] [facility] [place] [address] , [place]. tel:[phone] OFFICE/OUTPA TIENT VISIT, [facility], [address] [place], [place], [address], tel:[phone] [facility] [place] pain (chief complaint)anx iety1 (chief complaint)ost eoporosis1 (chief complaint)EN D1 (chief complaint) OsteoporosisGene ralized Anxiety DisorderChronic pain syndromeGERD w/o esophagitis 4 Jason Parson. [address] [facility] [place], [address] , [place]. tel:[phone] OFFICE/OUTPA TIENT VISIT, [facility], [address] [place], [place], [address], tel:[phone] [facility] [place] osteoporosis1 (chief complaint)leslie n (chief complaint)anx iety1 (chief complaint)federico g (chief complaint) OsteoporosisChro sangeetha pain syndromeGenerali zed Anxiety DisorderSolitary lung nodule 4 Jason Parson. [address], [place], [place], [address] , [place]. tel:[phone] OFFICE/OUTPA TIENT VISIT, [facility], [address] [place], [address], [place] tel:[phone] [facility] [place] pain (chief complaint)anx iety1 (chief complaint)nig htmares1 (chief complaint) Chronic pain syndromeGenerali zed Anxiety DisorderNightmar e disorderTobacco use 4 Castellon Eb. [address], [place], [place], [address] , [place]. tel:[phone] OFFICE/OUTPA TIENT VISIT, [facility], [address] [place], [place], [address], [place] tel:[phone] [facility] [place] pain (chief complaint)anx iety1 (chief complaint)PTS D (chief complaint) Chronic pain syndromeGenerali zed Anxiety DisorderNightmar e disorder 4 Castellon Eb. [address] [facility] [address], [place], [place], [address] , [place]. tel:[phone] OFFICE/OUTPA TIENT VISIT, [facility], [address] [place], [place], [address], [place] tel:[phone] [facility] [place] pain (chief complaint)ANX IETY1 (chief complaint)GLU COSE1 (chief complaint)HLP (chief complaint)ost eoprosis1 (chief complaint) Chronic pain syndromeGenerali zed Anxiety DisorderMixed hyperlipidemiaOs teoporosisHyperg lycemia 4 Castellon Eb. [address] [facility] [address], [place], [place], [address] , [place]. tel:[phone] OFFICE/OUTPA TIENT VISIT, [facility], [address] [place], [address], [place] tel:[phone] [facility] [place] pain (chief complaint)anx iety1 (chief complaint)MEDICAL BILLER D1 (chief complaint) Encntr screen mammogram for malignant neoplasm of breastGeneralize d Anxiety DisorderChronic pain syndromeCentrilo bular emphysema 4 Jason Parson. [address], [place], [place], [address] , [place]. tel:[phone] PREV VISIT, EST, AGE 40-64 [facility] [place], [address], [place], [place], [address], [place] tel:[phone] [facility] [place] physical (chief complaint) Encounter for general adult medical examination without abnormal findings 4 Jason Parson. [address], [place], [place], [address] , [place]. tel:[phone] OFFICE/OUTPA TIENT VISIT, EST [facility] [place], [address], [place], [place], [address], [place] tel:[phone] [facility] [place] pain (chief complaint)anx iety1 (chief complaint)EN D1 (chief complaint) Chronic pain syndromeGenerali zed Anxiety DisorderBarrett' s esophagus 4 Jason Parson. [address], [place], [place], [address] , [place]. tel:[phone] OFFICE/OUTPA TIENT VISIT, EST [facility] [place], [address], [place], [place], [address], [place] tel:[phone] [facility] [place] pain (chief complaint)anx iety1 (chief complaint)HLP (chief complaint)ost eoporosis1 (chief complaint) Chronic pain syndromeGenerali zed Anxiety DisorderOsteopor osisMixed hyperlipidemia 4 Castellon Eb. [address], [place], [place], [address] , [place]. tel:[phone] OFFICE/OUTPA TIENT VISIT, EST [facility] [place], [address], [place], [place], [address], [place] tel:[phone] [facility] [place] anxiety1 (chief complaint)leslie n (chief complaint)HTN (chief complaint)ost eoprosis1 (chief complaint) Chronic pain syndromeGenerali zed Anxiety DisorderOsteopor osisEssential (primary) hypertension 4 Jason Parson. [address], [place], [place], [address] , [place]. [phone] OFFICE/OUTPA TIENT VISIT, [facility], [address] [place], [address], [place] tel:[phone] [facility] [place] anxiety1 (chief complaint)leslie n (chief complaint)ost eoporosis1 (chief complaint)nig htmares1 (chief complaint)emp hysema1 (chief complaint) OsteoporosisGene ralized Anxiety DisorderChronic pain syndromeNightmar e disorderCentrilo bular emphysema 4 Jason Parson. [address], [place], [place], [address] , [place]. [phone] OFFICE/OUTPA TIENT VISIT, [facility], [address] [place], [address], [place] tel:[phone] [facility] [place] anxiety1 (chief complaint)leslie n (chief complaint)nig htmares1 (chief complaint)ost eoporosis1 (chief complaint) Chronic pain syndromeGenerali zed Anxiety DisorderOsteopor osisNightmare disorder 3 Jason Parson. [address], [place], [place], [address] , [place]. [phone] OFFICE/OUTPA TIENT VISIT, [facility], [address], [place], [address], [place] tel:[phone] [facility] [place] anxiety1 (chief complaint)leslie n (chief complaint)bar rett1 (chief complaint)ost eoporosis1 (chief complaint) OsteoporosisGene ralized Anxiety DisorderChronic pain syndromeBarrett' s esophagusNightma re disorder 3 Jason Juarez [address], [place], [place], [address] , [place]. tel:[phone] OFFICE/OUTPA TIENT VISIT, [facility], [address], [address], [place] tel:[phone] [facility] [place] anxiety1 (chief complaint)leslie n (chief complaint)ost eoporosis1 (chief complaint) Chronic pain syndromeGenerali zed Anxiety DisorderOsteopor osis 3 Jason Parson. [address], [place], [place], [address] , [place]. tel:[phone] OFFICE/OUTPA TIENT VISIT, [facility], [address], [place], [place], [address], [place] tel:[phone] [facility] [place] osteoporosis1 (chief complaint)anx iety1 (chief complaint)leslie n (chief complaint)bar rett1 (chief complaint)federico g nodule1 (chief complaint) OsteoporosisGene ralized Anxiety DisorderChronic pain syndromeSolitary lung noduleBarrett's esophagus 3 Jason Parson. [address], [place], [place], [address] , [place]. tel:[phone] OFFICE/OUTPA TIENT VISIT, [facility], [address], [place], [place], [address], [place] tel:[phone] [facility] [place] pain (chief complaint)anx iety1 (chief complaint)Bar rett1 (chief complaint)federico g nodule1 (chief complaint) Chronic pain syndromeGenerali zed Anxiety DisorderOsteopor osisBarrett's esophagusSolitar y lung nodule 3 Jason Parson. [address], [place], [place], [address] , [place]. tel:[phone] OFFICE/OUTPA TIENT VISIT, [facility], [address], [place], [place], [address], [place] tel:[phone] [facility] [place] pain (chief complaint)anx iety1 (chief complaint) Generalized Anxiety DisorderChronic pain syndrome 3 Jason Parson. [address], [place], [place], [address] , [place]. tel:[phone] OFFICE/OUTPA TIENT VISIT, [facility], [address], [place], [place], [address], [place] tel:[phone] [facility] [place] pain (chief complaint)anx iety1 (chief complaint)ost eoporosis1 (chief complaint) OsteoporosisChro sangeetha pain syndromeGenerali zed Anxiety Disorder 3 Jason Parson. [address], [place], [place], [address] , [place]. tel:[phone] OFFICE/OUTPA TIENT VISIT, [facility], [address], [place], [place], [address], [place] tel:[phone] [facility] [place] wrist fx (chief complaint)leslie n (chief complaint)anx iety1 (chief complaint) Chronic pain syndromeGenerali zed Anxiety DisorderOsteopor osisPain in right wrist 3 Jason Parson. [address], [place], [place], [address] , [place]. tel:[phone] OFFICE/OUTPA TIENT VISIT, [facility], [address], [place], [place], [address], [place] tel:[phone] [facility] [place] pain (chief complaint)anx iety1 (chief complaint)HLP (chief complaint)ane mia1 (chief complaint) Chronic pain syndromeGenerali zed Anxiety DisorderMixed hyperlipidemiaIr on deficiency anemiaOsteoporos is 3 Jason Parson. [address], [place], [place], [address] , [place]. tel:[phone] OFFICE/OUTPA TIENT VISIT, [facility], [address], [place], [place], [address], [place] tel:[phone] [facility] [place] pain (chief complaint)anx iety1 (chief complaint) Chronic pain syndromeGenerali zed Anxiety Disorder Oct- 3 Jason Parson. [address], [place], [place], [address] , [place]. tel:[phone] OFFICE/OUTPA TIENT VISIT, [facility], [address], [place], [place], [address], [place] tel:[phone] [facility] [place] pain (chief complaint)anx iety1 (chief complaint)federico g nodule1 (chief complaint)ost eoporosis1 (chief complaint)Bar rett (chief complaint) Centrilobular emphysemaChronic pain syndromeGenerali zed Anxiety DisorderOsteopor osisBarrett's esophagus 3 Jason Parson. [address], [place], [place], [address] , [place]. tel:[phone] PREV VISIT, EST, AGE 40-64 [facility] [place], [address] [place], [address], [place] tel:[phone] [facility] [place] physical (chief complaint) Encounter for general adult medical examination without abnormal findings 3 Jason Parson. [address], [place], [place], [address] , [place]. tel:[phone] OFFICE/OUTPA TIENT VISIT, EST [facility] [place], [address] [place], [address], [place] tel:[phone] [facility] [place] COPD1 (chief complaint)leslie n (chief complaint)anx iety1 (chief complaint)HTN (chief complaint) Centrilobular emphysemaChronic pain syndromeEssentia l (primary) hypertensionOste oporosisGenerali zed Anxiety Disorder 2 Jason Parson. [address], [place], [place], [address] , [place]. tel:[phone] OFFICE/OUTPA TIENT VISIT, EST [facility] [place], [address] [place], [address], [place] tel:[phone] [facility] [place] pain (chief complaint)anx iety1 (chief complaint)HTN (chief complaint)ost eoporosis1 (chief complaint)ost eoporosis1 (chief complaint) Chronic pain syndromeGenerali zed Anxiety DisorderOsteopor osisEssential (primary) hypertensionCent rilobular emphysema 2 Castellon Eb. [address], [place], [place], [address] , [place]. tel:[phone] OFFICE/OUTPA TIENT VISIT, [facility], [address], [place], [place], [address], [place] tel:[phone] [facility] [place] emphysema1 (chief complaint)leslie n (chief complaint)anx iety1 (chief complaint) COPD w/ acute exacerbationChro sangeetha pain syndromeGenerali zed Anxiety Disorder 2 Castellon Eb. [address], [place], [place], [address] , [place]. tel:[phone] OFFICE/OUTPA TIENT VISIT, [facility], [address] [place], [address], [place] tel:[phone] [facility] [place] palpitation1 (chief complaint)MEDICAL BILLER D1 (chief complaint)leslie n (chief complaint)anx iety1 (chief complaint) Chronic pain syndromeGenerali zed Anxiety DisorderCentrilo bular emphysemaPalpita tions 2 Castellon Eb. [address], [place], [place], [address] , [place]. tel:[phone] OFFICE/OUTPA TIENT VISIT, [facility], [address], [place], [place], [address], [place] tel:[phone] [facility] [place] anxiety1 (chief complaint)leslie n (chief complaint)MEDICAL BILLER D1 (chief complaint)ins omnia1 (chief complaint) COPD w/ acute exacerbationGene ralized Anxiety DisorderChronic pain syndromePrimary insomnia 2 Castellon Eb. [address], [place], [place], [address] , [place]. tel:[phone] OFFICE/OUTPA TIENT VISIT, [facility], [address], [place], [place], [address], [place] tel:[phone] [facility] [place] anxiety1 (chief complaint)leslie n (chief complaint)Bar rett1 (chief complaint)MEDICAL BILLER D1 (chief complaint) Centrilobular emphysemaGeneral ized Anxiety DisorderChronic pain syndromeBarrett' s esophagus 2 Jason Parson. [address], [place], [place], [address] , [place]. tel:[phone] OFFICE/OUTPA TIENT VISIT, [facility], [address], [place], [place], [address], [place] tel:[phone] [facility] [place] pain (chief complaint)anx iety1 (chief complaint)MEDICAL BILLER D1 (chief complaint) Chronic pain syndromeGenerali zed Anxiety DisorderStenosis of carotid arteryEmphysema 2 Jason Parson. [address], [place], [place], [address] , [place]. tel:[phone] OFFICE/OUTPA TIENT VISIT, [facility], [address], [place], [place], [address], [place] tel:[phone] [facility] [place] pain (chief complaint)anx iety1 (chief complaint)tin nitus1 (chief complaint)dominik se1 (chief complaint) Chronic pain syndromeGenerali zed Anxiety DisorderImpacted cerumen, bilateralNeuropa thyStenosis of carotid artery 2 Jason Parson. [address], [place], [place], [address] , [place]. [phone] OFFICE/OUTPA TIENT VISIT, [facility], [address], [place], [place], [address], [place] tel:[phone] [facility] [place] pain (chief complaint)anx iety1 (chief complaint)MEDICAL BILLER D1 (chief complaint)ost eoprosis1 (chief complaint)bar rett1 (chief complaint) EmphysemaOsteopo rosisChronic pain syndromeGenerali zed Anxiety DisorderBarrett' s esophagus without dysplasia 2 Jason Parson. [address], [place], [place], [address] , [place]. [phone] OFFICE/OUTPA TIENT VISIT, [facility], [address], [place], [place], [address], tel:[phone] [facility] [place] pain (chief complaint)anx iety (chief complaint)bar rett1 (chief complaint) Chronic pain syndromeGenerali zed Anxiety DisorderBarrett' s esophagus without dysplasiaPolyp of colon 2 Jason Parson. [address], [place], [place], [address] , [place]. tel:[phone] OFFICE/OUTPA TIENT VISIT, [facility], [address], [place], [place], [address], [place] tel:[phone] [facility] [place] pain (chief complaint)anx iety1 (chief complaint)ost eoporosis1 (chief complaint) Chronic pain syndromeGenerali zed Anxiety DisorderOsteopor osis 2 Jason Parson. [address] [facility] [facility], [place], [place], [address] , [place]. tel:[phone] OFFICE/OUTPA TIENT VISIT, [facility], [address], [place], [place], [address], [place] tel:[phone] [facility] [place] pain (chief complaint)anx iety1 (chief complaint)ost eoporosis1 (chief complaint)tob acco1 (chief complaint) Tobacco useOsteoporosisG eneralized Anxiety DisorderChronic pain syndromeIron deficiency anemia Fe 2 Jason Parson. [address], [place], [place], [address] , [place]. tel:[phone] OFFICE/OUTPA TIENT VISIT, [facility], [address], [place], [place], [address], [place] tel:[phone] [facility] [place] anemia1 (chief complaint)anx iety1 (chief complaint)leslie n (chief complaint)HLP (chief complaint)ost eoporosis1 (chief complaint)cou gh1 (chief complaint) Chronic pain syndromeGenerali zed Anxiety DisorderOsteopor osisHyperlipidem iaIron deficiency anemiaTobacco useAcute cough 2 Jason Parson. [address], [place], [place], [address] , [place]. tel:[phone] PREV VISIT, EST, AGE 40-64 [facility] [place], [address], [place], [place], [address], tel:[phone] [facility] [place] Physical (chief complaint) Encounter for general adult medical examination without abnormal findings 1 Jason Juarez [address] [facility] [address], [place], [place], [address] , [place]. tel:[phone] OFFICE/OUTPA TIENT VISIT, EST [facility] [place], [address] [place], [address], [place] tel:[phone] [facility] [place] anxiety1 (chief complaint)leslie n (chief complaint)ost eoporosis1 (chief complaint) OsteoporosisGene ralized Anxiety DisorderChronic pain syndromeEncounte r for oth screening for malignant neoplasm of breast 1 Jason Juarez [address] [facility] [address], [place], [place], [address] , [place]. tel:[phone] OFFICE/OUTPA TIENT VISIT, EST [facility] [place], [address] [place], [place], [address], tel:[phone] [facility] [place] anxiety1 (chief complaint)leslie n (chief complaint)b12 (chief complaint)tob acco1 (chief complaint) Chronic pain syndromeGenerali zed Anxiety DisorderTobacco useDeficiency of other specified B group vitamins 1 Jason Juarez [address], [place], [place], [address] , [place]. tel:[phone] OFFICE/OUTPA TIENT VISIT, EST [facility] [place], [address] [place], [place], [address], tel:[phone] [facility] [place] anxiety1 (chief complaint)leslie n (chief complaint)HLP (chief complaint)HTN (chief complaint)MEDICAL BILLER D1 (chief complaint) Chronic pain syndromeGenerali zed Anxiety DisorderEmphysem aHyperlipidemiaE ssential (primary) hypertension 1 Jason Juarez [address], [place], [place], [address] , [place]. tel:[phone] OFFICE/OUTPA TIENT VISIT, [facility], [address] [place], [address], [place] tel:[phone] [facility] [place] Health anxiety1 (chief complaint)leslie n (chief complaint)b12 (chief complaint)ost eoporosis1 (chief complaint) Chronic pain syndromeGenerali zed Anxiety DisorderOsteopor osisVitamin B deficiencyTobacc o use 1 Jason Juarez [address], [place], [place], [address] , [place]. tel:[phone] OFFICE/OUTPA TIENT VISIT, [facility], [address] [place], [id number], [place] tel:[phone] [facility], [place], [facility] anxiety1 (chief complaint)leslie n (chief complaint)MEDICAL BILLER D1 (chief complaint)ins omnia1 (chief complaint)ost eoporosis1 (chief complaint) Chronic pain syndromeOsteopor osisGeneralized Anxiety DisorderEmphysem aInsomnia 1 Jason Juarez [address], [place], [place], [address] , [place]. tel:[phone] OFFICE/OUTPA TIENT VISIT, [facility], [address] [place], [place], [address], [place] tel:[phone] [facility], [place] hip fx1 (chief complaint)anx iety1 (chief complaint)HLP (chief complaint)HTN (chief complaint)ost eoporosis1 (chief complaint) Abnormal weight lossChronic pain syndromeGenerali zed Anxiety DisorderOsteopor osisEssential (primary) hypertensionHype rlipidemiaPresen ce of left artificial hip joint 1 Jason Juarez [address], [place], [place], [address] , [place]. tel:[phone] OFFICE/OUTPA TIENT VISIT, [facility], [address] [place], [address], tel:[phone] [facility], [place], [facility] anxiety1 (chief complaint)leslie n (chief complaint)ins omnia1 (chief complaint)rachna ght loss1 (chief complaint) Abnormal weight lossChronic pain syndromeGenerali zed Anxiety DisorderInsomnia Vitamin B deficiency Apr-0 1 Jason Parson. [address], [place], [place], [address] , [place]. tel:[phone] OFFICE/OUTPA TIENT VISIT, EST [facility], [place], [facility], [address] [id number]|2025-01-07 16:03:00|2025-01-07 16:03:00|XMS_ITS|KASSANDRAG JEAN|External Medical Summaries|[id number]|" Data Portability Created on: January 07, 2025 Bessy Zavala .[id number] : 1965 Sex: Female Author Organization [facility], [address] [place] [address] ([place]) Address [address] [place] [address] Care Team Providers Care Corn Chip Maker Name Role Phone EB CASTELLON Primary Care Provider Assessment Encounter Date Assessment Date Assessment LastModified by Organization Details LastModified Time 09/10/2024 09/10/2024 We do plan on getting urine to get the KUB done today. I then want to have one of our ENROLLMENT MANAGEMENT VICE PRESIDENT's interrogate the device and see if it is functioning properly I personally spent a total of 22 minutes on this patient on this date of service going both cwea-qs-exks and jdv-opyo-bp-fac e time Not available 09/12/2024 12:07:42 09/18/2024 [...] before making changes to the InterSt[employer] settings. [email or web address] Not available 09/18/2024 17:10:50 Plan of Treatment Reminders Order Date Submit Date Provider Last Modified By Organization Details Last Modified Time Details Appointments None recorded. Lab BMP, serum or plasma 2023 025 [facility], [address] [place], [address], 5 21:23:02 vitamin D, 25-hydroxy, total, serum 2023 025 [facility], [address] [place], [address], 5 21:23:02 Referral None recorded. Procedures None recorded. Surgeries None recorded. Imaging bone density 2023 025 [email or web address] [facility] (Im[facility]), [address] [place], [address], 4 17:31:48 Medication Orders valacyclovi r 1 gram tablet 2024 025 [facility], [address] [place], [address], 5 15:32:03 Patient TargetsNo targets recorded. Patient Instructions Encounter Date Encounter Id Patient Instructions Last Modified By Organization Details Last Modified Time 04/15/2024 [id number] patient follow up phone call* [email or web address] Not available 10/04/2024 11:33:49 Reason for Referral None Reported. Results Created Date Observation Date Name Description Value Unit Range Abnormal Flag Note LastModifiedBy Organization Detail LastModifiedTime 01/02/2001/01/2025 urina lysis , compl ete urinalysis, complete LOW LEVEL S OF HEMOG LOBIN IN ABSEN CE OF HEMAT URIA MAY NOT BE CLINI MOISES SIGNI FICAN T. Not Available [facility], [address], 01/01/2025 17:43:33 01/02/20 25 01/01/2025 urina lysis , compl ete color DARK YELLOW Dipst ick may be inacc urate due to the color of the urine Not Available [facility] [address] [place] [address], [id number], 01/01/2025 17:43:33 01/02/20 25 01/01/2025 urina lysis , compl ete clarity CLEAR Not Available [facility] [address] [place] [address], [address], 01/01/2025 17:43:33 01/02/20 25 01/01/2025 urina lysis , compl ete pH 7.0 5.0-7. 5 Not Available [facility] [address] [place] [address], [address], 01/01/2025 17:43:33 01/02/20 25 01/01/2025 urina lysis , compl ete specific gravity 1.029 1.000- 1.030 Not Available [facility] [address] [place] [address], [address], 01/01/2025 17:43:33 01/02/20 25 01/01/2025 urina lysis , compl ete blood NEGATI VE negati ve Not Available [facility] [address] [place] [address], [address], 01/01/2025 17:43:33 01/02/20 25 01/01/2025 urina lysis , compl ete bilirubin NEGATI VE negati ve Not Available [facility] [address] [place] [address], [address], 01/01/2025 17:43:33 01/02/20 25 01/01/2025 urina lysis , compl ete urobilinogen 1.0 0.2-1. 0 Not Available [facility] [address] [place] [address], [address], 01/01/2025 17:43:33 01/02/20 25 01/01/2025 urina lysis , compl ete ketone TRACE negati ve abnormal Not Available [facility] [address] [place] [address], [address], 01/01/2025 17:43:33 01/02/20 25 01/01/2025 urina lysis , compl ete glucose NEGATI VE negati ve Not Available [facility] [address] [place] [address], [address], 01/01/2025 17:43:33 01/02/20 25 01/01/2025 urina lysis , compl ete protein NEGATI VE negati ve Not Available [facility] [address] [place] [address], [address], 01/01/2025 17:43:33 01/02/20 25 01/01/2025 urina lysis , compl ete nitrite NEGATI VE negati ve Not Available [facility] [address] [place] [address], [address], 01/01/2025 17:43:33 01/02/20 25 01/01/2025 urina lysis , compl ete leukocytes NEGATI VE negati ve Not Available [facility] [address] [place] [address], [address], 01/01/2025 17:43:33 01/02/20 25 01/01/2025 urina lysis , compl ete RBC 0-2 0-2/hp f Not Available [facility] [address] [place] [address], [address], 01/01/2025 17:43:33 01/02/20 25 01/01/2025 urina lysis , compl ete WBC 0-5 0-5/hp f Not Available [facility] [address] [place] [address], [address], 01/01/2025 17:43:33 01/02/20 25 01/01/2025 urina lysis , compl ete squamous epithelial 0-2 0-10/h pf Not Available [facility] [address] [place] [address], [address], 01/01/2025 17:43:33 01/02/20 25 01/01/2025 urina lysis , compl ete bacteria NONE SEEN none Not Available [facility] [address] [place] [address], [address], 01/01/2025 17:43:33 01/02/20 25 01/01/2025 urina lysis , compl ete hyaline cast 0-2 0-2/lp f Not Available [facility] [address] [place] [address], [address], 01/01/2025 17:43:33 01/02/20 25 01/03/2025 cultu re + sensi tivit y, urine urine culture and sens. IVANIA L URINE No growt h after overn ight incub ation After two night s incub ation 40,00 0 CFU/m l Mixed uroge nital fede isola kalia. Not Available [facility] [address] [place] [address], [address], 01/03/2025 09:45:46 01/02/20 25 01/02/2025 cultu re + sensi tivit y, urine urine culture and sens. PREL IM URINE No growt h after overn ight incub ation Not Available [facility] [address] [place] [address], [address], 01/02/2025 15:29:33 11/28/19 24 11/28/2023 XR, pelvi s, 1 or 2 view No observ ation record ed. [email or web address] Not Available 2023 10:44:13 09/10/19 25 09/10/2024 XR, abdom en, [address] [address] Tele one Name: Bessy Tuttle 1460Ex am Date: 2024 Age: 59Phys ician: MD Lolita, Xu parham : 1964Ex aminat ion: XR ABDOME N/KUB1 VIEW EXAM: XR ABDOME N/KUB 1 VIEW HISTOR Y: Medtro sangeetha placed in ry 2020, checki ng placem ent. No other [...] 11:53 AM cc: Page PAGE 1 of [facility] 1 [email or web address] [facility] [address] [place] [address], [address], 09/20/2024 17:21:59 Result Notes None recorded. Problems Name Problem SNOMED Code Status Onset Date Resolution Date Notes Provider Name and Address Organization Details Recorded Time Osteoporosis 69318558 Active 2023 Ga Liu her, WAREHOUSE SHIPPING RECEIVING CLERK, DNP, PRORATION CLERK [address] [place] [address], [address], [facility] 5 12:05:38 Dysuria 43849529 Active 2023 Sylvia Butler [facility] 4 09:42:33 Increased frequency of urination 569941408 Active 2022 Sylvia Butler [facility] 4 09:43:07 Blood in urine 86397199 Active 2019 Sylvia Butler [facility] 4 09:43:50 Overactive urinary bladder 980466342 Active 2024 Joel Mchugh MD [address] [place] [address], [address], [facility] 5 12:07:24 Herpes zoster without complication 663276889 Active 2024 LILA CARNEY, PRORATION CLERK [address] [place] [address], [address], [facility] 5 15:29:28 Urinary incontinence 540871606 Active 2023 Ynes Castillo null, [facility] 5 12:23:53 Problem Notes None recorded. Procedures [...] XR, pelvis, 1 or 2 view completed [email or web address] Information not available 12/13/2023 10:44:13 09/10/2024 XR, abdomen, 1 view completed [id number] [facility] [address] [place] [address], [address], 09/20/2024 17:21:59 Procedure Notes None recorded. Medical Equipment None Reported. Allergies Allergen ID Allergen Name Allergen Category Reaction Reaction Severity Criticality Documentation Date Start Date Code Code System Note Provider Name and Address Organization Details Recorded Time 751823 ciproflox acin hydrochlo ride medicatio n Not available Not available Not available 09/25/20232012 52816 RxNorm Not Available [facility] 4 22:28:32 045268 aspirin medicatio n Not available Not available Not available 09/25/20232014 1191 RxNorm Not Available [facility] 4 22:28:32 Medications Name Sig Start Date Stop [...] completed Not Available Not Available Not Available Laura Ellipta 100 mcg-62.5 mcg-25 mcg powder for [...] Updated DateTime 4 167.64 cm 21.8 kg/m2 81575.9 7 g 99.5 [degF] 95 % 95 % 87 /min 118 mm[Hg] 67 mm[Hg] Agnieszka Salguero awpaz [facility] 4 11:59:35 Date Recorded Body height Body mass index (BMI) Body weight Heart rate Systolic blood pressure Diastolic blood pressure Provider Name and Address Organization Details Last Updated DateTime 4 167.64 cm 21.6 kg/m2 16874.9 4 g 68 /min 100 mm[Hg] 58 mm[Hg] Carmen mix [facility] 4 14:46:31 Date Recorded Body height Provider Name an d Address Organization Details Last Updated DateTime 09/10/2024 167.64 cm Marium Alcocer [facility] 09/10/2024 11:58:09 Date Recorded Body height Body mass index (BMI) Body weight Heart rate Oxygen saturation Oxygen saturation in Arterial blood by Pulse oximetry Provider Name and Address Organization Details Last Updated DateTime 5 167.64 cm 20.7 kg/m2 11969.8 2 g 87 /min 98 % 98 % Nelida [facility] 5 14:50:54 Date Recorded Body height Body mass index (BMI) Body weight Heart rate Oxygen saturation Oxygen saturation in Arterial blood by Pulse oximetry Provider Name and Address Organization Details Last Updated DateTime 5 167.64 cm 19.8 kg/m2 93237.4 2 g 90 /min 94 % 94 % [facility] 5 15:48:47 Social History Question Answer Notes LastModified by [employer] ion Details LastModified Time Do You Have An Advance Directive? No [email or web address] Information not available 11/27/2023 What Is Your Level Of Caffeine Consumption? Moderate [email or web address] Information not available 11/27/2023 How Many Times Per Week Do You Exercise? 1-2 Times Per Week [email or web address] Information not available 11/27/2023 How Many Packs Per Day (PPD)? 1/2 Pack Per Day [email or web address] Information not available 11/27/2023 How Long Have You Smoked? 40 Years [email or web address] Information not available 11/27/2023 Do You Have A Medical Power Of Registered Nurse Obstetrics? No [email or web address] Information not available 11/27/2023 What Was The Date Of Your Most Recent Tobacco Screening? 11/29/2023 [email or web address] Information not available 11/27/2023 What Is Your Relationship Status? Domestic Partner [email or web address] Information not available 11/27/2023 Sex: Unknown Functional Status Question Answer Note LastModified by [employer] ion Details LastModified Time Do you use any illicit or recreational drugs? No [email or web address] Information not available 11/27/2023 What is your level of alcohol consumption? None [email or web address] Information not available 11/27/2023 Are you currently employed? No [email or web address] Information not available 11/27/2023 What is your occupation? None [email or web address] Information not available 11/27/2023 What is your exercise level? Occasional [email or web address] Information not available 11/27/2023 Mental Status None recorded. Family History Relationship Description Onset Age of this Age Resolved Age Notes LastModified by Organization Details LastModified Time Unspecified Relation Family history unknown [email or web address] Not available 2023 12:25:48 Medical History Condition Response Attention-deficit Hyperactivity Disorder N High Blood Pressure Y Thyroid Problems N COPD Y Depression Y Anemia N Diabetes N Anxiety Disorder Y Bleeding Disorder N Arthritis Y Hyperlipidemia N Cancer N Stroke N Asthma Y Seizures N Heart Disease N Fibromyalgia N Osteoporosis Y Kidney Disease N Gynecological HistoryNo gynecological history recorded. Obstetrics History GPAL:G 0 P 0 0 0 0 Immunizations Vaccine Type Date Status Note Provider Nam e and Address Organization Details Recorded Time COVID-19, mRNA, LNP-S, PF, 100 mcg/0.5mL dose or 50 mcg/0.25mL dose 06/03/2021 completed Carmen jimenez [facility] 04/15/2024 14:42:09 Influenza, split virus, trivalent, PF 06/23/2015 completed Carmen jimenez [facility] 04/15/2024 14:42:10 Past Encounters Encounter ID Performer Location Encounter Start Date Encounter Closed Date Diagnosis/Indication Diagnosis SNOMED-CT Code Diagnosis ICD10 Code Diagnosis Note [id number] Deanna Rico , WAREHOUSE SHIPPING RECEIVING CLERK, PRORATION CLERK [facility] ([place]) [address] [place] [address] 2 [place] [address] 11/29/2023 11:41:35 11/29/2023 12:42:51 [id number] Ga Greenfield er, WAREHOUSE SHIPPING RECEIVING CLERK, DNP, PRORATION CLERK [facility] ([place]) [address] [place] [address] 04/15/2024 14:27:15 04/15/2024 17:22:56 Osteoporosis 95853498 M81.0 59-year-ol d female with history of [...] after she completes the bone density scan. [id number] Joel Mchugh MD 800 [facility] ([place]) [address] [place] [address] 2 [place] [address] 09/10/2024 11:55:24 09/10/2024 13:59:58 Overactive urinary bladder 402930635 N32.81 [id number] LILA CARNEY CNP 800 [facility] ([place]) [address] [place] [address] 2 [place] [address] 09/18/2024 14:40:57 09/18/2024 16:25:26 Herpes zoster without complication 826227949 B02.9 [id number] LILA CARNEY CNP [address] [place], [place] [address]y ([place]) [address] [place] [address] 2 [place] [address] 01/01/2025 15:43:20 01/01/2025 16:50:15 Overactive urinary bladder 806887121 N32.81 Health Concerns Section Related Observation LastModified by Organization Detai ls LastModified Time None Recorded Concern Status LastModified by Organization Details LastModified Time None Recorded Advance Directives Directive N: Payers Insurance Date Sequence Insurance Name Policy Number Policy Pepper Covered Member ID Pepper Member ID Guarantor Name 01/03/2025 1 [facility] (MEDICAID HMO) [id number] Bessy Zavala [id number] Bessy Zavala Notes Date Note Type Note [...] is normal and without defect. Deanna Rico, WAREHOUSE SHIPPING RECEIVING CLERK, PRORATION CLERK [address], [address], [facility] 11/29/2023 12:21:25 4 text/html Ms. Zavala is a 59-year-old female who presents for management of osteoporosis. Current osteoporosis treatment: Reclast (at [facility]) on 10/13/23. She does report some [...] 1800mg/day Supplements: No calcium supplement. Vitamin D2 87237LC weekly [facility], GFR 59Calcium 9.8Intact PTH 33Vitamin D [...] alcohol overuse. No longer consumes alcohol. Ga Newman APRN, DNP, PRORATION CLERK [address] [place] [address], [address], [facility] 04/15/2024 17:40:03 text/html Patient is coming in today for [...] on this Joel Mchugh MD [address] [place] [address], [phone], [facility] 09/12/2024 12:07:44 OBGyn Episode No OBEpisode recorded. "
--- OUTSIDE RECORDS SUMMARY | 2025-01-07 16:03 | XMS_ITS | Referral Summary ---
Author Organization [address] Address [address] [place] [address] Care Team Providers Care Research Biostatistician Name Role Phone Eb Gomez MD Primary Care Provider [phone] Allergies Active Allergy Reactions Criticality Noted Date [...] 11/11/2021 Assessment & Plan (10/18/2022 2:14 PM PRICING MANAGER): Patient afraid of considering Forteo Will request [...] 11/11/2021 Assessment & Plan (10/18/2022 2:12 PM PRICING MANAGER): Check 25 OH vit D Adjust dose [...] on file Legal Sex Female 2:17 PM PRICING MANAGER Gender Identity Female 10/18/2022 1:15 PM PRICING MANAGER Sexual Orientation Not on file Last Filed Vital Signs Vital Sign Reading Time Taken Comments Blood Pressure 124/60 10/18/2022 1:30 PM PRICING MANAGER Pulse 80 10/18/2022 1:30 PM PRICING MANAGER Temperature - - Respiratory Rate 16 10/18/2022 1:30 PM PRICING MANAGER Oxygen Saturation - - Inhaled Oxygen Concentration - - Weight 68.5 kg (151 lb 0.2 oz) 10/18/2022 1:30 P M PRICING MANAGER Height 167.4 cm (5' 5.91 ) 10/18/2022 1:30 PM CS T Body Mass Index 24.44 10/18/2022 1:30 PM PRICING MANAGER Plan of Treatment Not on file Insurance [facility] Care Teams Research Biostatistician Relationship Specialty Start Date End Date Eb Gomez MD [address] [facility] [place] [address] PCP - General Family Medicine 09/02/21
--- OUTSIDE RECORDS SUMMARY | 2025-01-07 16:03 | XMS_ITS | Clinical Summary ---
Author Organization [facility] Address [facility] [place] [address] Care Team Providers Care Liquor Merchant Name Role Phone Eb Gomez MD Primary Care Provider [phone] Allergies Active Allergy Reactions Criticality Noted Date [...] mouth 3 (three) times daily. Active Umeclidinium [place] 62.5 MCG/INH AEROSOL POWDER, BREATH ACTIVATED Inhale [...] Relevant to Health Maintenance Insurance Care Teams Liquor Merchant Relationship Specialty Start Date End Date Eb Gomez MD PCP - General FAMILY PRACTICE 02/25/19
== END 2025-01-07 16:00 | disposition home or self-care (01) ==
PROVIDERS: PCP Emergency Medicine; Visit Provider Nurse Practitioner Family
DX: R05.9 Cough, unspecified (principal)
CPT/HCPCS: 71046

== ENCOUNTER 2025-04-09 13:39 | Outpatient (CLI) | payer OTHER, SELFPAY ==
--- OUTSIDE RECORDS SUMMARY | 2025-04-09 13:44 | XMS_ITS | Clinical Summary ---
Author Organization [facility] Address [address] [address] Phone Care Team Providers Care Paper Machine Operator Name Role Phone Eb Gomez Primary Care Provider [phone] Allergies Active Allergy Reactions Criticality Noted Date [...] 8:49 PM CDT Height 172.7 cm (5' 8) 02/21/2020 8:49 PM CDT Body Mass Index 23.57 02/21/2020 8:49 PM CDT Plan of Treatment Health Maintenance Due Date Last Done Comments Hepatitis C Virus (HCV) Screening 1965 TdaP Immunization 1965 Cologuard 02/11/2008 Immunochemical Fecal Occult Blood 02/11/2008 Pneumococcal Immunization (5 0+ years) (1 of 1 - PCV) 2013 Zoster Immunization (1 of 2) 2013 Colonoscopy 04/06/2023 04/06/2018 Colorectal Cancer Screening 04/06/2023 SARS-COV-2 Immunization ( season) 2024 06/03/2021 Influenza Immunization (#1) 2025 06/23/2015 Respiratory Syncytial Virus (RSV) Immunization (Adult) (1 - 1-dose 75+ series) 2038 Hepatitis B Immunization Aged Out No longer eligible based on patient's age to complete this topic Human Papillomavirus (HPV) Immunization Aged Out No longer eligible b ased on patient's age to complete this topic Meningococcal Immunization (ACWY) Aged Out No longer eligible based on patient's age to complete this topic Rotavirus Immunization Aged Out No lo nger eligible based on patient's age to complete this topic Medical Devices Implanted Type Area Embedded Engineer Device Identifier Shelf Expiration Date Model / Serial / Lot Clip 360 Resolution 235cm - [id number] Implanted:Qty: 3 on 04/06/2018 by Puma Medina DO at [facility] IMPLANT Ellie 12/24/2020 [id number] / [id number] / [id number] Description:ASCENDING COLON POLYPECTOMY SITE Insurance MEDICAID [employer] Care Teams Paper Machine Operator Relationship Specialty Start Date End Date Jason Eb [address] [place] [address] PCP - General Family Medicine 07/09/16
--- OUTSIDE RECORDS SUMMARY | 2025-04-09 13:45 | XMS_ITS | Continuity of Care Document ---
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 Name Role Phone Eb Gomez MD Unavailable Unavailable Allergies, Adverse Reactions, Alerts Substance Reaction Status Criticality aspirin Active No Information CIPROFLOXACIN HCL Active No Informa tion ciprofloxacin Active No Information Medications Medication Instructions Dosage Effective Dates (start - stop) Status Comments duloxetine 60 mg capsule,delayed release take 1 capsule by oral route every day 60 MG - Active prazosin 5 mg capsule take 1 capsule by oral route qhs - Active avoid driving or operate machines Klonopin 1 [...] for pain, avoid driving or operate machines Zyprexa 5 mg tablet take 1 tablet by oral route every day 5 MG - Active avoid driving or operate machines Neurontin 300 mg capsule take 1 capsule by oral route 2 times every day 300 MG - Active avoid driving or operate machines omeprazole 40 [...] by oral route every week - Active Breztri Aerosphere 160 mcg-9mcg-4.8mcg/act uation [...] VISIT, EST PREV VISIT, EST, AGE 40-64 Nov- OFFICE/OUTPATIENT VISIT, EST OFFICE/OUTPATIENT VISIT, EST OFFICE/OUTPATIENT [...] Copied on Encounter OFFICE/OUTPA TIENT VISIT, EST [facility], [address], [place], [place], [address], [place] tel:[phone] [facility] pain (chief complaint)anx iety1 (chief complaint)nig htmares1 (chief complaint) Chronic pain syndromeGenerali zed Anxiety DisorderNightmar e disorderTobacco use 5 Jason Parson. [address], [place], [place], [address] , [place]. tel:[phone] OFFICE/OUTPA TIENT VISIT, EST [facility], [address], [place], [place], [address], [place] tel:[phone] [facility] anxiety1 (chief complaint)leslie n (chief complaint)jonathan ropathy1 (chief complaint)rachna ght gain1 (chief complaint) Chronic pain syndromeGenerali zed Anxiety DisorderIdiopath ic progressive neuropathyAbnorm al weight gain 5 Jason Juarez [address], [place], [place], [address] , [place]. tel:[phone] OFFICE/OUTPA TIENT VISIT, EST [facility], [address] [place], [address], [place] tel:[phone] [facility] anxiety1 (chief complaint)leslie n1 (chief complaint)jonathan ropathy1 (chief complaint)rachna ght loss1 (chief complaint) Chronic pain syndromeGenerali zed Anxiety DisorderIdiopath ic progressive neuropathyAbnorm al weight loss 5 Jason Juarez [address], [place], [place], [address] , [place]. tel:[phone] OFFICE/OUTPA TIENT VISIT, EST [facility], [address] [place], [address], [place] tel:[phone] [facility] pain (chief complaint)anx iety1 (chief complaint)Bar rett1 (chief complaint)OAB (chief complaint) Lawrence's esophagusChronic pain syndromeGenerali zed Anxiety DisorderOveracti ve bladder 5 Jason Juarez [address], [place], [place], [address] , [place]. tel:[phone] OFFICE/OUTPA TIENT VISIT, [facility], [place], [address], [place], [place], [address], [place] tel:[phone] [facility] pain (chief complaint)anx iety1 (chief complaint) Chronic pain syndromeGenerali zed Anxiety Disorder 5 Jason Parson. [address], [place], [place], [address] , [place]. 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 [address], [place], [place], [address] , [place]. tel:[phone] OFFICE/OUTPA TIENT VISIT, [facility], [place], [address] [place], [address], [place] tel:[phone] [facility] pain (chief complaint)anx iety1 (chief complaint)rachna ght loss1 (chief complaint)bar rett1 (chief complaint) Chronic pain syndromeGenerali zed Anxiety DisorderAbnormal weight lossBarrett's esophagus without dysplasia 5 Jason Parson. [address], [place], [place], [address] , [place]. tel:[phone] OFFICE/OUTPA TIENT VISIT, [facility], [place], [address] [place], [address], [place] tel:[phone] [facility] pain (chief complaint)anx iety1 (chief complaint)douglas ngle1 (chief complaint) Other postherpetic nervous system involvementChron ic pain syndromeGenerali zed Anxiety Disorder 0 5 Jason Parson. [address], [place], [place], [address] , [place]. tel:[phone] OFFICE/OUTPA TIENT VISIT, [facility] [place], [address], [place], [place], [address], [place] tel:[phone] [facility] pain (chief complaint)anx iety1 (chief complaint)HLP (chief complaint) Chronic pain syndromeGenerali zed Anxiety DisorderMixed hyperlipidemia 0 2 5 Jason Parson. [address], [place], [place], [address] , [place]. tel:[phone] OFFICE/OUTPA TIENT VISIT, [facility], [place], [address] [place], [address], [place] tel:[phone] [facility] pain (chief complaint)anx ity1 (chief complaint) Chronic pain syndromeGenerali zed Anxiety Disorder 4 Jason Parson. [address], [place], [place], [address] , [place]. tel:[phone] OFFICE/OUTPA TIENT VISIT, [facility], [place], [address], [place], [place], [address], [place] tel:[phone] [facility] pain (chief complaint)anx iety (chief complaint)HTN (chief complaint) Chronic pain syndromeGenerali zed Anxiety DisorderEssentia l (primary) hypertensionEnco unter for oth screening for malignant neoplasm of breast 4 Jason Parson. [address], [place], [place], [address] , [place]. tel:[phone] OFFICE/OUTPA TIENT VISIT, [facility], [place], [address] [place], [address], [place] tel:[phone] [facility] pain (chief complaint)anx iety1 (chief complaint)ost eoporosis1 (chief complaint)EN D1 (chief complaint) OsteoporosisGene ralized Anxiety DisorderChronic pain syndromeGERD w/o esophagitis 4 Gomez Eb. [address], [place], [place], [address] , [place]. tel:[phone] OFFICE/OUTPA TIENT VISIT, [facility] [place], [address] [place], [address], [place] tel:[phone] [facility] osteoporosis1 (chief complaint)leslie n (chief complaint)anx iety1 (chief complaint)federico g (chief complaint) OsteoporosisChro sangeetha pain syndromeGenerali zed Anxiety DisorderSolitary lung nodule 4 Gomez Eb. [address], [place], [place], [address] , [place]. tel:[phone] OFFICE/OUTPA TIENT VISIT, [facility], [place], [address] [place], [address], [place] tel:[phone] [facility] pain (chief complaint)anx iety1 (chief complaint)nig htmares1 (chief complaint) Chronic pain syndromeGenerali zed Anxiety DisorderNightmar e disorderTobacco use 4 Gomez Eb. [address] [facility] [address], [place], [place], [address] , [place]. tel:[phone] OFFICE/OUTPA TIENT VISIT, [facility] [place], [address] [place], [address], [place] tel:[phone] [facility] pain (chief complaint)anx iety1 (chief complaint)PTS D (chief complaint) Chronic pain syndromeGenerali zed Anxiety DisorderNightmar e disorder 4 Gomez Eb. [address] [facility] [address], [place], [place], [address] , [place]. tel:[phone] OFFICE/OUTPA TIENT VISIT, [facility] [place], [address] [place], [address], [place] tel:[phone] [facility] pain (chief complaint)ANX IETY1 (chief complaint)GLU COSE1 (chief complaint)HLP (chief complaint)ost eoprosis1 (chief complaint) Chronic pain syndromeGenerali zed Anxiety DisorderMixed hyperlipidemiaOs teoporosisHyperg lycemia 4 Jason Parson. [address], [place], [place], [address] , [place]. 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 [address], [place], [place], [address] , [place]. tel:[phone] PREV VISIT, EST, AGE 40-64 [facility], [address], [place], [place], [address], [place] tel:[phone] [facility] physical (chief complaint) Encounter for general adult medical examination without abnormal findings 4 Jason Parson. [address], [place], [address] , [place]. tel:[phone] OFFICE/OUTPA TIENT VISIT, EST [facility], [address], [place], [place], [address], [place] tel:[phone] [facility] pain (chief complaint)anx iety1 (chief complaint)EN D1 (chief complaint) Chronic pain syndromeGenerali zed Anxiety DisorderBarrett' s esophagus 4 Jason Parson. [address], [place], [place], [address] , [place]. tel:[phone] OFFICE/OUTPA TIENT VISIT, EST [facility], [address], [place], [place], [address], [place] tel:[phone] [facility] pain (chief complaint)anx iety1 (chief complaint)HLP (chief complaint)ost eoporosis1 (chief complaint) Chronic pain syndromeGenerali zed Anxiety DisorderOsteopor osisMixed hyperlipidemia 4 Jason Parson. [address] [facility] [address], [place], [place], [address] , [place]. tel:[phone] OFFICE/OUTPA TIENT VISIT, [facility] [place], [address] [place], [address], [place] tel:[phone] [facility] anxiety1 (chief complaint)leslie n (chief complaint)HTN (chief complaint)ost eoprosis1 (chief complaint) Chronic pain syndromeGenerali zed Anxiety DisorderOsteopor osisEssential (primary) hypertension 4 Jason Parson. [address] [facility] [address], [place], [place], [address] , [place]. tel:[phone] OFFICE/OUTPA TIENT VISIT, [facility] [place], [address] [place], [address], [place] tel:[phone] [facility] anxiety1 (chief complaint)leslie n (chief complaint)ost eoporosis1 (chief complaint)nig htmares1 (chief complaint)emp hysema1 (chief complaint) OsteoporosisGene ralized Anxiety DisorderChronic pain syndromeNightmar e disorderCentrilo bular emphysema 4 Jason Parson. [address], [place], [place], [address] , [place]. tel:[phone] OFFICE/OUTPA TIENT VISIT, [facility] [place], [address] [place], [address], [place] tel:[phone] [facility] anxiety1 (chief complaint)leslie n (chief complaint)nig htmares1 (chief complaint)ost eoporosis1 (chief complaint) Chronic pain syndromeGenerali zed Anxiety DisorderOsteopor osisNightmare disorder 3 Jason Parson. [address], [place], [place], [address] , [place]. tel:[phone] OFFICE/OUTPA TIENT VISIT, [facility] [place], [address] [place], [address], [place] tel:[phone] [facility] anxiety1 (chief complaint)leslie n (chief complaint)bar rett1 (chief complaint)ost eoporosis1 (chief complaint) OsteoporosisGene ralized Anxiety DisorderChronic pain syndromeBarrett' s esophagusNightma re disorder 3 Jason Juarez [address], [place], [place], [address] , [place]. tel:[phone] OFFICE/OUTPA TIENT VISIT, [facility] [place], [address], [place], [place], [address], [place] tel:[phone] [facility] anxiety1 (chief complaint)leslie n (chief complaint)ost eoporosis1 (chief complaint) Chronic pain syndromeGenerali zed Anxiety DisorderOsteopor osis 3 Jason Juarez [address], [place], [place], [address] , [place]. tel:[phone] OFFICE/OUTPA TIENT VISIT, [facility] [place], [address], [place], [place], [address], [place] tel:[phone] [facility] osteoporosis1 (chief complaint)anx iety1 (chief complaint)leslie n (chief complaint)bar rett1 (chief complaint)federico g nodule1 (chief complaint) OsteoporosisGene ralized Anxiety DisorderChronic pain syndromeSolitary lung noduleBarrett's esophagus 3 Jason Juarez [address], [place], [place], [address] , [place]. tel:[phone] OFFICE/OUTPA TIENT VISIT, [facility] [place], [address], [place], [place], [address], [place] tel:[phone] [facility] pain (chief complaint)anx iety1 (chief complaint)Bar rett1 (chief complaint)federico g nodule1 (chief complaint) Chronic pain syndromeGenerali zed Anxiety DisorderOsteopor osisBarrett's esophagusSolitar y lung nodule 3 Jason Juarez [address], [address], [address] , [place]. tel:[phone] OFFICE/OUTPA TIENT VISIT, [facility] [place], [address] [place], [address], [place] tel:[phone] [facility] pain (chief complaint)anx iety1 (chief complaint) Generalized Anxiety DisorderChronic pain syndrome 3 Jason Parson. [address], [place], [place], [address] , [place]. tel:[phone] OFFICE/OUTPA TIENT VISIT, [facility] [place], [address] [place], [address], [place] tel:[phone] [facility] pain (chief complaint)anx iety1 (chief complaint)ost eoporosis1 (chief complaint) OsteoporosisChro sangeetha pain syndromeGenerali zed Anxiety Disorder 3 Jason Parson. [address], [place], [place], [address] , [place]. tel:[phone] OFFICE/OUTPA TIENT VISIT, [facility] [place], [address] [place], [address], [place] tel:[phone] [facility] wrist fx (chief complaint)leslie n (chief complaint)anx iety1 (chief complaint) Chronic pain syndromeGenerali zed Anxiety DisorderOsteopor osisPain in right wrist 3 Jason Parson. [address], [place], [place], [address] , [place]. tel:[phone] OFFICE/OUTPA TIENT VISIT, [facility] [place], [address] [place], [address], [place] tel:[phone] [facility] pain (chief complaint)anx iety1 (chief complaint)HLP (chief complaint)ane mia1 (chief complaint) Chronic pain syndromeGenerali zed Anxiety DisorderMixed hyperlipidemiaIr on deficiency anemiaOsteoporos is 3 Jason Parson. [address], [place], [place], [address] , [place]. tel:[phone] OFFICE/OUTPA TIENT VISIT, EST [facility], [address] [place], [address], [place] tel:[phone] [facility] pain (chief complaint)anx iety1 (chief complaint) Chronic pain syndromeGenerali zed Anxiety Disorder 3 Jason Parson. [address], [place], [place], [address] , [place]. tel:[phone] OFFICE/OUTPA TIENT VISIT, EST [facility], [address], [place], [address], [place] tel:[phone] [facility] pain (chief complaint)anx iety1 (chief complaint)federico g nodule1 (chief complaint)ost eoporosis1 (chief complaint)Bar rett (chief complaint) Centrilobular emphysemaChronic pain syndromeGenerali zed Anxiety DisorderOsteopor osisBarrett's esophagus 3 Jason Parson. [address], [place], [place], [address] , [place]. tel:[phone] PREV VISIT, EST, AGE 40-64 [facility], [address] [place], [place], [address], [place] tel:[phone] [facility] physical (chief complaint) Encounter for general adult medical examination without abnormal findings 3 Jason Parson. [address], [place], [place], [address] , [place]. tel:[phone] OFFICE/OUTPA TIENT VISIT, EST [facility], [address] [place], [address], [place] tel:[phone] [facility] COPD1 (chief complaint)leslie n (chief complaint)anx iety1 (chief complaint)HTN (chief complaint) Centrilobular emphysemaChronic pain syndromeEssentia l (primary) hypertensionOste oporosisGenerali zed Anxiety Disorder 2 Jason Parson. [address], [place], [place], [address] , [place]. tel:[phone] OFFICE/OUTPA TIENT VISIT, [facility] [place], [address], [place], [place], [address], [place] tel:[phone] [facility] pain (chief complaint)anx iety1 (chief complaint)HTN (chief complaint)ost eoporosis1 (chief complaint)ost eoporosis1 (chief complaint) Chronic pain syndromeGenerali zed Anxiety DisorderOsteopor osisEssential (primary) hypertensionCent rilobular emphysema 2 Gomez Eb. [address], [place], [place], [address] , [place]. tel:[phone] OFFICE/OUTPA TIENT VISIT, [facility] [place], [address], [place], [place], [address], [place] tel:[phone] [facility] emphysema1 (chief complaint)leslie n (chief complaint)anx iety1 (chief complaint) COPD w/ acute exacerbationChro sangeetha pain syndromeGenerali zed Anxiety Disorder 2 Gomez Eb. [address], [place], [place], [address] , [place]. 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 [address], [place], [place], [address] , [place]. tel:[phone] OFFICE/OUTPA TIENT VISIT, [facility] [place], [address], [place], [place], [address], [place] tel:[phone] [facility] anxiety1 (chief complaint)leslie n (chief complaint)KILN FURNITURE SAW TENDER D1 (chief complaint)ins omnia1 (chief complaint) COPD w/ acute exacerbationGene ralized Anxiety DisorderChronic pain syndromePrimary insomnia 2 Jason Parson. [address] [facility] [address] [place], [place], [address] , [place]. 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 [facility] [address] [place], [address] , [place]. 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 [facility] [address] [place], [place], [address] , [place]. tel:[phone] OFFICE/OUTPA TIENT VISIT, [facility] [place], [address] [place], [address], [place] tel:[phone] [facility] pain (chief complaint)anx iety1 (chief complaint)tin nitus1 (chief complaint)dominik se1 (chief complaint) Chronic pain syndromeGenerali zed Anxiety DisorderImpacted cerumen, bilateralNeuropa thyStenosis of carotid artery 2 Jason Parson. [address], [place], [address] , [place]. tel:[phone] OFFICE/OUTPA TIENT VISIT, [facility] [place], [address] [place], [address], [place] tel:[phone] [facility] pain (chief complaint)anx iety1 (chief complaint)KILN FURNITURE SAW TENDER D1 (chief complaint)ost eoprosis1 (chief complaint)bar rett1 (chief complaint) EmphysemaOsteopo rosisChronic pain syndromeGenerali zed Anxiety DisorderBarrett' s esophagus without dysplasia 2 Jason Parson. [address] [facility] [address], [place], [place], [address] , [place]. tel:[phone] OFFICE/OUTPA TIENT VISIT, [facility] [place], [address] , [place], [place], [address], [place] tel:[phone] [facility] pain (chief complaint)anx iety (chief complaint)bar rett1 (chief complaint) Chronic pain syndromeGenerali zed Anxiety DisorderBarrett' s esophagus without dysplasiaPolyp of colon Nov- 2 Jason Parson. [address] [facility] [facility] [address], [place], [address] , [place]. tel:[phone] OFFICE/OUTPA TIENT VISIT, EST [facility], [address] [place], [address], [place] tel:[phone] [facility] pain (chief complaint)anx iety1 (chief complaint)ost eoporosis1 (chief complaint) Chronic pain syndromeGenerali zed Anxiety DisorderOsteopor osis 2 Jason Parson. [address] [facility] [address], [place], [place], [address] , [place]. tel:[phone] OFFICE/OUTPA TIENT VISIT, [facility] [place], [address] [place], [address], [place] tel:[phone] [facility] pain (chief complaint)anx iety1 (chief complaint)ost eoporosis1 (chief complaint)tob acco1 (chief complaint) Tobacco useOsteoporosisG eneralized Anxiety DisorderChronic pain syndromeIron deficiency anemia Feb- 2 Jason Parson. [address], [place], [place], [address] , [place]. tel:[phone] OFFICE/OUTPA TIENT VISIT, EST [facility], [address], [place], [place], [address], [place] tel:[phone] [facility] anemia1 (chief complaint)anx iety1 (chief complaint)leslie n (chief complaint)HLP (chief complaint)ost eoporosis1 (chief complaint)cou gh1 (chief complaint) Chronic pain syndromeGenerali zed Anxiety DisorderOsteopor osisHyperlipidem iaIron deficiency anemiaTobacco useAcute cough 2 Jason Parson. [address], [place], [place], [address] , [place]. tel:[phone] PREV VISIT, EST, AGE 40-64 [facility], [address], [place], [place], [address], [place] tel:[phone] [facility] Physical (chief complaint) Encounter for general adult medical examination without abnormal findings 1 Jason Parson. [address], [place], [place], [address] , [place]. tel:[phone] OFFICE/OUTPA TIENT VISIT, EST [facility], [address], [place], [place], [address], [place] tel:[phone] [facility] anxiety1 (chief complaint)leslie n (chief complaint)ost eoporosis1 (chief complaint) OsteoporosisGene ralized Anxiety DisorderChronic pain syndromeEncounte r for oth screening for malignant neoplasm of breast 1 Jason Parson. [address], [place], [address] , [place]. tel:[phone] OFFICE/OUTPA TIENT VISIT, EST [facility], [address] [employer] [address], [place], [place], [address], [place] tel:[phone] [facility] anxiety1 (chief complaint)leslie n (chief complaint)b12 (chief complaint)tob acco1 (chief complaint) Chronic pain syndromeGenerali zed Anxiety DisorderTobacco useDeficiency of other specified B group vitamins 1 Jason Juarez [address], [place], [place], [address] , [place]. tel:[phone] OFFICE/OUTPA TIENT VISIT, [facility], [place], [facility], [address] [place], [place], [address], tel:[phone] [facility] anxiety1 (chief complaint)leslie n (chief complaint)HLP (chief complaint)HTN (chief complaint)KILN FURNITURE SAW TENDER D1 (chief complaint) Chronic pain syndromeGenerali zed Anxiety DisorderEmphysem aHyperlipidemiaE ssential (primary) hypertension 1 Jason Juarez [address], [place], [place], [address] , [place]. tel:[phone] OFFICE/OUTPA TIENT VISIT, [facility], [place], [address] [place], [place], [address], tel:[phone] [facility] anxiety1 (chief complaint)leslie n (chief complaint)b12 (chief complaint)ost eoporosis1 (chief complaint) Chronic pain syndromeGenerali zed Anxiety DisorderOsteopor osisVitamin B deficiencyTobacc o use 1 Jason Juarez [address] [place], [address] , [place]. tel:[phone] OFFICE/OUTPA TIENT VISIT, [facility], [place], [address] [place], [address], [place] tel:[phone] [facility] anxiety1 (chief complaint)leslie n (chief complaint)KILN FURNITURE SAW TENDER D1 (chief complaint)ins omnia1 (chief complaint)ost eoporosis1 (chief complaint) Chronic pain syndromeOsteopor osisGeneralized Anxiety DisorderEmphysem aInsomnia 1 Jason Juarez [address] [place], [place], [address] , [place]. tel:[phone] OFFICE/OUTPA TIENT VISIT, [facility] [place], [address] [place], [address], [place] tel:[phone] [facility] hip fx1 (chief complaint)anx iety1 (chief complaint)HLP (chief complaint)HTN (chief complaint)ost eoporosis1 (chief complaint) Abnormal weight lossChronic pain syndromeGenerali zed Anxiety DisorderOsteopor osisEssential (primary) hypertensionHype rlipidemiaPresen ce of left artificial hip joint December-0 1 Jason Juarez [address], [place], [place], [address] , [place]. tel:[phone] OFFICE/OUTPA TIENT VISIT, [facility], [place], [address] [place], [address], [place] tel:[phone] [facility] anxiety1 (chief complaint)leslie n (chief complaint)ins omnia1 (chief complaint)rachna ght loss1 (chief complaint) Abnormal weight lossChronic pain syndromeGenerali zed Anxiety DisorderInsomnia Vitamin B deficiency Nov-0 1 Jason Juarez [address], [address], [place], [place], [address] , [place]. tel:[phone] OFFICE/OUTPA TIENT VISIT, EST [facility], [address] [place], [address], [place] tel:[phone] [facility] anxiety1 (chief complaint)leslie n (chief complaint)Ane mia1 (chief complaint)mejia al (chief complaint) AnemiaChronic pain syndromeGenerali zed Anxiety DisorderRenal diseaseHyperkale miaAbnormal weight loss Oct-0 1 Jason Juarez [address], [address], [place], [place], [address] , [place]. [phone] OFFICE/OUTPA TIENT VISIT, [facility] [place], [address] [place], [address], [place] tel:[phone] [facility] overactive bladder1 (chief complaint) Overactive bladderMixed incontinence Feb-0 1 Jason Juarez [address], [place], [place], [address] , [place]. tel:[phone] OFFICE/OUTPA TIENT VISIT, [facility] [place], [address] [place], [address], tel:[phone] [facility] anxiety1 (chief complaint)leslie n (chief complaint)ane mia1 (chief complaint)ost eoporosis1 (chief complaint) Chronic pain syndromeGenerali zed Anxiety DisorderAbnormal weight lossAnemiaOsteop orosis Fe 1 Gomez Eb. [address], [address], [place], [place], [address] , [place]. 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 [address], [address], [place], [address] , [place]. tel:[phone] OFFICE/OUTPA TIENT VISIT, [facility] [place], [address] [place], [address], tel:[phone] [facility] anxity1 (chief complaint)leslie n (chief complaint)hem aturia1 (chief complaint)rachna ght loss1 (chief complaint) Abnormal weight lossHematuriaChr onic pain syndromeGenerali zed Anxiety Disorder 0 Jason Parson. [address], [address], [address] , [place]. [phone] OFFICE/OUTPA TIENT VISIT, [facility] [place], [address] [place], [address], tel:[phone] [facility] anxiety1 (chief complaint)leslie n1 (chief complaint)mejia al (chief complaint)b12 (chief complaint)ane mia1 (chief complaint)rachna ght loss1 (chief complaint) HematuriaFolate deficiencyAnemia Renal diseaseAbnormal weight lossGeneralized Anxiety DisorderChronic pain syndrome Nov-0 6-202 0 Jason Juarez [address], [place], [address] , . 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 tel: [phone] OFFICE/OUTPA TIENT VISIT, [facility] [place], [address] [place], [place], [address], [place] tel:[phone] [facility] anxiety1 (chief complaint)leslie n (chief complaint)hem aturia1 (chief complaint)LDC T (chief complaint) Generalized Anxiety DisorderHematuri aChronic pain syndromeTobacco use 0 0 Jason Juarez [address], [address] , [place]. 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 tel:[phone] OFFICE/OUTPA TIENT VISIT, [facility] [place], [address] [place], [address], tel:[phone] [facility] anxiety1 (chief complaint)leslie n (chief complaint)tob acco (chief complaint) Chronic pain syndromeGenerali zed Anxiety DisorderTobacco useHematuria 0 Jason Parson. [address] [facility] [place], [place], [address] , . 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 tel:[phone] OFFICE/OUTPA TIENT VISIT, [facility] [place], [address] [place], [address], [place] tel:[phone] [facility] anxiety1 (chief complaint)leslie n1 (chief complaint)ost eoporosis1 (chief complaint)hem aturia1 (chief complaint)ins omnia1 (chief complaint) HematuriaAnemiaG eneralized Anxiety DisorderChronic pain syndromeInsomnia OsteoporosisEsse ntial (primary) hypertension 0 Jason Juarez [address] [facility] [place], [place], [address] , [place]. 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 [address] [facility] A, [place], [place], [address] , [place]. tel:[phone] OFFICE/OUTPA TIENT VISIT, EST [facility], [address], [place], [place], [address], [place] tel:[phone] [facility] pain (chief complaint) Chronic pain syndromeGenerali zed Anxiety Disorder 0 Jason Parson. [address], [place], [place], [address] , [place]. tel:[phone] Referring Provider: Kristen Fernandez [address], [place], [place], [address]. tel:[phone] OFFICE/OUTPA TIENT VISIT, EST [facility], [address], [place], [place], [address], [place] tel:[phone] [facility] pain (chief complaint)anx iety1 (chief complaint)b12 (chief complaint)ins omnia1 (chief complaint) Generalized Anxiety DisorderInsomnia AnemiaChronic pain syndromeVitamin B deficiency 0 Jason Parson. [address], [place], [place], [address] , [place]. tel:[phone] Referring Provider: Kristen Fernandez [address], [place], [place], [address]. tel:[phone] PREV VISIT, EST, AGE 40-64 [facility], [address], [place], [place], [address], [place] tel:[phone] [facility] Medicine physical (chief complaint) Encntr for general adult medical exam w/o abnormal findings 0 Jason Parson. [address], [place], [place], [address] , [place]. tel:[phone] Referring Provider: Kristen Fernandez [address], [place], [place], [address]. tel:[phone] OFFICE/OUTPA TIENT VISIT, EST [facility], [address], [place], [place], [address], [place] tel:[phone] [facility] insomnia1 (chief complaint)leslie n1 (chief complaint)anx iety1 (chief complaint)hem aturia1 (chief complaint) Chronic pain syndromeGenerali zed Anxiety DisorderInsomnia Hematuria 0 Jason Parson. [address] [facility] [place], [address] , . tel:[phone] Referring Provider: Eb Gomez, [place]en [place], [place], [address]. tel:[phone] OFFICE/OUTPA TIENT VISIT, [facility] [place], [address] [place], [place], [address], [place] tel:[phone] [facility] osteoprosis1 (chief complaint)ins omani1 (chief complaint)anx iety1 (chief complaint)chr onic pain1 (chief complaint)con fusion1 (chief complaint) Generalized Anxiety DisorderChronic pain syndromeInsomnia OsteoporosisAbno rmal involuntary movementHematuri aDeficiency of other specified B group vitamins 9 Jason Parson. [address] [facility] A, [place], [place], [address] , [place]. tel:[phone] Referring Provider: Eb Gomez [address] [place] [address], [address]. tel:[phone] OFFICE/OUTPA TIENT VISIT, [facility] [place], [address] [place], [place], [address], [place] tel:[phone] [facility] anemia1 (chief complaint)mejia al1 (chief complaint)chr onic pain (chief complaint)anx iety1 (chief complaint) AnemiaRenal diseaseHematuria Chronic pain syndromeGenerali zed Anxiety DisorderAbnormal involuntary movement 9 Jason Parson. [address] [place], [place], [address] , [place]. 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 [address] [facility] A, [place], [place], [address] , [place]. tel:[phone] Referring Provider: Kristen Fernandez [place], [place], [address]. tel:[phone] PREV VISIT, EST, AGE 40-64 [facility], [address] [place], [address], [place] tel:[phone] [facility] anxieyt1 (chief complaint)chr oinc pain1 (chief complaint)PHy sical (chief complaint) Encntr for general adult medical exam w/o abnormal findings 9 Jason Juarez [address] [facility] A, [place], [place], [address] , [place]. tel:[phone] Referring Provider: Kristen Fernandez [facility], [place], [place], [address]. tel:[phone] OFFICE/OUTPA TIENT VISIT, EST [facility], [address] [place], [address], [place] tel:[phone] [facility] COPD1 (chief complaint)chr onic pain (chief complaint)CAD (chief complaint)anx iety1 (chief complaint) Coronary artery disease of [place] coronary artery without angina pectorisEmphysem aChronic pain syndromeGenerali zed Anxiety Disorder 9 Jason Parson. [address] [facility] [place], [address] , [place]. [phone] OFFICE/OUTPA TIENT VISIT, EST [facility], [address] [place], [place], [address], [place] tel:[phone] [facility] COPD1 (chief complaint)CAD (chief complaint)anx iety1 (chief complaint)chr onic pain1 (chief complaint) Solitary lung noduleEmphysemaG eneralized Anxiety DisorderChronic pain syndromeCoronary artery disease of [place] coronary artery without angina pectoris 9 Jason Parson. [address], [place], [place], [address] , [place]. tel:[phone] Referring Provider: Kristen Fernandez [address], [place], [place], [address]. tel:[phone] OFFICE/OUTPA TIENT VISIT, [facility] [place], [address] [place], [address], [place] tel:[phone] [facility] anxiety1 (chief complaint)chr onic pain1 (chief complaint)tob acco1 (chief complaint) Chronic pain syndromeGenerali zed Anxiety DisorderSolitary lung noduleTobacco use 9 Jason Parson. [address], [place], [place], [address] , [place]. tel:[phone] Referring Provider: Kristen Fernandez [facility] A, [place], [place], [address]. 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 [address], [place], [place], [address] , [place]. tel:[phone] OFFICE/OUTPA TIENT VISIT, [facility] [place], [address] [place], [address], [place] tel:[phone] [facility] COPD1 (chief complaint)HTN (chief complaint)chr onic pain1 (chief complaint)anx iety1 (chief complaint) Chronic pain syndromeGenerali zed Anxiety DisorderEssentia l (primary) hypertensionEmph ysema 9 Jason Parson. [address], [place], [place], [address] , [place]. tel:[phone] Referring Provider: Eb Gomez [address], [place], [place], [address]. tel:[phone] OFFICE/OUTPA TIENT VISIT, [facility] [place], [address], [place], [place], [address], [place] tel:[phone] [facility] anemia1 (chief complaint)anx iety1 (chief complaint)brenda k pain1 (chief complaint) Generalized Anxiety DisorderChronic pain syndromeAnemia 9 Jason Parson. [address], [place], [place], [address] , [place]. tel:[phone] OFFICE/OUTPA TIENT VISIT, [facility] [place], [address], [place], [place], [address], [place] tel:[phone] [facility] hlP (chief complaint)chr onic pain (chief complaint)anx iety1 (chief complaint)ane mia1 (chief complaint) AnemiaGeneralize d Anxiety DisorderChronic pain syndromeHyperlip idemiaFolic acid deficiency 9 Jason Parson. [address], [place], [place], [address] , [place]. tel:[phone] Referring Provider: Kristen Fernandez [address], [place], [place], [address]. tel:[phone] OFFICE/OUTPA TIENT VISIT, [facility] [place], [address], [place], [place], [address], [place] tel:[phone] [facility] chronic pain1 (chief complaint)anx iety1 (chief complaint) Chronic pain syndromeGenerali zed Anxiety Disorder 9 Jason Parson. [address], [place], [place], [address] , [place]. 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 [address], [place], [place], [address] , [place]. tel:[phone] Referring Provider: Eb Gomez, [address], [place], [place], [address]. tel:[phone] OFFICE/OUTPA TIENT VISIT, [facility] [place], [address], [place], [place], [address], [place] tel:[phone] [facility] anemia1 (chief complaint)ost eoporosis1 (chief complaint)chr onic pain (chief complaint)anx iety1 (chief complaint)b12 (chief complaint) OsteoporosisAnem iaChronic pain syndromeGenerali zed Anxiety DisorderFolic acid deficiency 8 Jason Parson. [address], [place], [place], [address] , [place]. [phone] Referring Provider: Kristen Fernandez [address], [place], [place], [address]. tel:[phone] OFFICE/OUTPA TIENT VISIT, [facility] [place], [address], [place], [place], [address], [place] tel:[phone] [facility] chronic pain (chief complaint)anx iety1 (chief complaint) Chronic pain syndromeGenerali zed Anxiety Disorder 8 Jason Parsno. [address], [place], [place], [address] , [place]. tel:[phone] Referring Provider: Kristen Fernandez [address], [place], [place], [address]. tel:[phone] OFFICE/OUTPA TIENT VISIT, [facility] [place], [address], [place], [place], [address], [place] tel:[phone] [facility] chronic pain1 (chief complaint)anx iety1 (chief complaint)HTN (chief complaint)col on polyp1 (chief complaint) Chronic pain syndromeGenerali zed Anxiety DisorderPolyp of colonEssential (primary) hypertension 8 aJson Parson. [address], [place], [place], [address] , [place]. tel:[phone] Referring Provider: Kristen Fernandez [address], [place], [place], [address]. tel:[phone] PREV VISIT, EST, AGE 40-64 [facility], [address], [place], [place], [address], [place] tel:[phone] [facility] Physical (chief complaint) Encounter for general adult medical exam w abnormal findingsPolyp of colonChronic pain syndromeGenerali zed Anxiety DisorderOsteopor osis 8 Jason Juarez [address], [place], [place], [address] , [place]. tel:[phone] Referring Provider: Kristen Fernandez [address], [place], [place], [address]. tel:[phone] OFFICE/OUTPA TIENT VISIT, EST [facility], [address], [place], [place], [address], [place] tel:[phone] [facility] lung nodule1 (chief complaint)Chr onic pain1 (chief complaint)anx iety1 (chief complaint)kcl (chief complaint) Solitary lung noduleChronic pain syndromeGenerali zed Anxiety DisorderHyperkal emiaEmphysema 8 Jason Juarez [address], [place], [place], [address] , [place]. tel:[phone] Referring Provider: Kristen [address], [place], [place], [address]. 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 [address], [place], [place], [address] , [place]. tel:[phone] Referring Provider: Kristen Fernandez [address], [place], [place], [address]. tel:[phone] OFFICE/OUTPA TIENT VISIT, [facility] [place], [address], [place], [place], [address], [place] tel:[phone] [facility] chronic pain (chief complaint)anx iety1 (chief complaint)pne umonia1 (chief complaint) COPD w/ acute exacerbationChro sangeetha pain syndromeGenerali zed Anxiety DisorderPneumoni aEssential (primary) hypertension 8 Jason Juarez [address], [place], [place], [address] , [place]. tel:[phone] Referring Provider: Kristen Fernandez [address], [place], [place], [address]. 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 tel:[phone] Referring Provider: Kristen Fernandez [address], [place], [place], [address]. tel:[phone] OFFICE/OUTPA TIENT VISIT, [facility] [place], [address], [place], [place], [address], [place] tel:[phone] [facility] HLP (chief complaint)KCL (chief complaint)b12 1 (chief complaint)EN d1 (chief complaint)anx iety1 (chief complaint) GERD without esophagitisHyper lipidemiaHyperka lemiaInsomnia 8 Jason Parson. [address], [place], [place], [address] , [place]. tel:[phone] Referring Provider: Eb Gomez [address], [place], [place], [address]. tel:[phone] OFFICE/OUTPA TIENT VISIT, [facility] [place], [address], [place], [place], [address], [place] tel:[phone] [facility] chronc pain (chief complaint)anx iety1 (chief complaint)tob acoc1 (chief complaint)EN D1 (chief complaint) GERD without esophagitisGener alized Anxiety DisorderChronic pain syndromeScreenin g for lung ca 8 Jason Parson. [address], [place], [place], [address] , [place]. tel:[phone] Referring Provider: Eb Gomez [address], [place], [place], [address]. tel:[phone] OFFICE/OUTPA TIENT VISIT, [facility] [place], [address], [place], [place], [address], [place] tel:[phone] [facility] chronic pain (chief complaint)anx iety1 (chief complaint)HLP (chief complaint)HTN (chief complaint) Chronic pain syndromeGenerali zed Anxiety DisorderHyperlip idemiaEssential (primary) hypertension 8 Jason Parson. [address], [place], [place], [address] , [place]. tel:[phone] OFFICE/OUTPA TIENT VISIT, [facility], [place], [facility], [address], [place], [place], [address], [place] tel:[phone] [facility] COPD1 (chief complaint)chr onic pain1 (chief complaint)anx iety1 (chief complaint) EmphysemaGeneral ized Anxiety DisorderChronic pain syndrome Jul- 7 Jason Parson. [address], [place], [place], [address] , [place]. tel:[phone] Referring Provider: Kristen Fernandez [address], [place], [place], [address]. tel:[phone] OFFICE/OUTPA TIENT VISIT, [facility], [place], [facility], [address], [place], [place], [address], [place] tel:[phone] [facility] chronic pain (chief complaint)anx iety1 (chief complaint) Generalized Anxiety DisorderChronic pain syndrome 7 Jason Parson. [address], [place], [place], [address] , [place]. tel:[phone] Referring Provider: Kristen Fernandez [address], [place], [place], [address]. tel:[phone] OFFICE/OUTPA TIENT VISIT, [facility], [place], [facility], [address], [place], [place], [address], [place] tel:[phone] [facility] Cough1 (chief complaint)chr onic pain1 (chief complaint)anx iety1 (chief complaint)EN D1 (chief complaint) COPD w/ acute exacerbationChro sangeetha pain syndromeGenerali zed Anxiety DisorderGERD without esophagitis 7 Jason Peterson [address], [place], [place], [address] , [place]. tel:[phone] Referring Provider: Kristen Fernandez [address], [place], [place], [address]. tel:[phone] OFFICE/OUTPA TIENT VISIT, [facility], [place], [facility], [address], [place], [place], [address], [place] tel:[phone] [facility] chronic pain (chief complaint)anx iety1 (chief complaint)HTN (chief complaint)HLP (chief complaint) Chronic pain syndromeGenerali zed Anxiety DisorderHyperlip idemiaEssential (primary) hypertension Apr- 7 Gomez Eb. [address], [place], [address] , [place]. tel:[phone] Referring Provider: Kristen Fernandez [address], [place], [address]. 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 tel:[phone] Referring Provider: Kristen Fernandez [address], [place], [address]. tel:[phone] PREV VISIT, EST, AGE 40-64 [facility], [address], [place], [address], [place] tel:[phone] [facility] PHysical (chief complaint) Encntr for general adult medical exam w/o abnormal findings 7 Jason Juarez [address], [place], [place], [address] , [place]. tel:[phone] Referring Provider: Kristen Fernandez [address], [place], [address]. tel:[phone] OFFICE/OUTPA TIENT VISIT, EST [facility], [address], [place], [place], [address], [place] tel:[phone] [facility] HTN (chief complaint)chr onic pain1 (chief complaint)anx iety1 (chief complaint) Essential (primary) hypertensionGene ralized Anxiety DisorderChronic pain syndromeEncounte r for oth screening for malignant neoplasm of breast 7 Jason Juarez [address], [place], [address] , [place]. tel:[phone] Referring Provider: Kristen Fernandez [address], [place], [address]. tel:[phone] OFFICE/OUTPA TIENT VISIT, [facility], [place], [facility], [address], [place], [place], [address], [phone] [facility] chronic pain (chief complaint)anx iety1 (chief complaint)KILN FURNITURE SAW TENDER D1 (chief complaint)rachna ght loss1 (chief complaint) Abnormal weight lossGeneralized Anxiety DisorderChronic pain syndromeCOPD 7 Jason Parson. [address], [place], [address] , [place]. tel:[phone] Referring Provider: Kristen Fernandez [facility], [place], [place], [address]. tel:[phone] OFFICE/OUTPA TIENT VISIT, [facility], [place], [facility], [address], [place], [place], [address], [place] [phone] [facility] anxiety1 (chief complaint)chr onic pain (chief complaint)HLP (chief complaint)EN D1 (chief complaint)hep C (chief complaint) HyperlipidemiaGe neralized Anxiety DisorderChronic pain syndromeHepatiti s C 7 Jason Parson. [address], [place], [place], [address] , [place]. tel:[phone] Referring Provider: Kristen Fernandez [facility], [place], [address]. tel:[phone] OFFICE/OUTPA TIENT VISIT, [facility], [place], [facility], [address], [place], [address], [place] tel:[phone] [facility] OAB1 (chief complaint)chr onic pain (chief complaint)anx iety1 (chief complaint)hep C (chief complaint) Chronic pain syndromeGenerali zed Anxiety DisorderOveracti ve bladderEncounter for screening for other viral diseases 7 Jason Parson. [address], [place], [place], [address] , [place]. tel:[phone] Referring Provider: Kristen Fernandez [address], [place], [address]. tel:[phone] OFFICE/OUTPA TIENT VISIT, [facility], [place], [facility], [address], [place], [address], [place] tel:[phone] [facility] chronic pain1 (chief complaint)anx iety1 (chief complaint)uri nary (chief complaint)EN D1 (chief complaint) GERD with esophagitisInsom niaGeneralized Anxiety DisorderOveracti ve bladder 7 Jason Parson. [address], [place], [address] , [place]. tel:[phone] Referring Provider: Kristen Fernandez [address], [place], [place], [address]. tel:[phone] OFFICE/OUTPA TIENT VISIT, [facility], [place], [facility], [address] [place], [address], [place] tel:[phone] [facility] HLP (chief complaint)chr onic pain (chief complaint)anx iety1 (chief complaint)uri nary urgency1 (chief complaint)Bar rett (chief complaint) Lawrence's esophagusChronic pain syndromeGenerali zed Anxiety DisorderOveracti ve bladder 7 Jason Parson. [address], [place], [place], [address] , [place]. tel:[phone] Referring Provider: Kristen Fernandez [address], [place], [place], [address]. tel:[phone] OFFICE/OUTPA TIENT VISIT, [facility], [place], [facility], [address] [place], [address], [place] tel:[phone] [facility] COPD1 (chief complaint)brenda k pain1 (chief complaint)anx iety1 (chief complaint)tob acco (chief complaint) Chronic obstructive pulmonary disease, unspecifiedGener alized Anxiety DisorderChronic pain syndromeTobacco use 6 Gomez Eb. [address], [place], [address] , [place]. tel:[phone] Referring Provider: Kristen Fernandez [address] [facility] [place], [place], [place], [address]. tel:[phone] OFFICE/OUTPA TIENT VISIT, [facility], [place], [facility], [address], [place], [place], [address], [place] tel:[phone] [facility] COPD1 (chief complaint)chr onic pain1 (chief complaint)anx iety1 (chief complaint) Chronic obstructive pulmonary disease, unspecifiedGener alized Anxiety DisorderChronic pain syndrome 6 Jason Juarez [address], [place], [place], [address] , [place]. tel:[phone] Referring Provider: Kristen Fernandez [facility], [place], [place], [address]. tel:[phone] OFFICE/OUTPA TIENT VISIT, [facility], [place], [facility], [address], [place], [place], [address], [place] tel:[phone] [facility] HLP (chief complaint)anx iety1 (chief complaint)chr onic pain (chief complaint)uri nary frequency1 (chief complaint) Urinary frequencyChronic pain syndromeGenerali zed Anxiety DisorderHyperlip idemia 6 Jason Peterson [address], [place], [address] , [place]. tel:[phone] Referring Provider: Kristen Fernandez [address], [place], [place], [address]. tel:[phone] OFFICE/OUTPA TIENT VISIT, [facility], [place], [facility], [address] [place], [address], [place] tel:[phone] [facility] anxiety1 (chief complaint)chr onic pain1 (chief complaint)KILN FURNITURE SAW TENDER D1 (chief complaint)ost eoporosis1 (chief complaint) OsteoporosisGene ralized Anxiety DisorderCOPDChro sangeetha pain syndrome 6 Gomez Eb. [address], [place], [place], [address] , [place]. tel:[phone] Referring Provider: Kristen Fernandez [address], [place], [place], [address]. tel:[phone] OFFICE/OUTPA TIENT VISIT, [facility], [place], [facility], [address], [place], [place], [address], [place] tel:[phone] [facility] HTN (chief complaint)chr onic pain (chief complaint)anx iety1 (chief complaint)rachna ght gain (chief complaint) Abnormal weight lossGeneralized Anxiety DisorderChronic pain syndromeEssentia l (primary) hypertension 6 Jason Parson. [address], [place], [address] , [place]. tel:[phone] Referring Provider: Kristen Fernandez [address], [place], [place], [address]. tel:[phone] OFFICE/OUTPA TIENT VISIT, [facility], [place], [facility], [address], [place], [place], [address], [place] tel:[phone] [facility] anxiety1 (chief complaint)cho rnic pain1 (chief complaint)ost eoporosis1 (chief complaint) Chronic pain syndromeGenerali zed Anxiety DisorderOsteopor osis 6 Jason Parson. [address], [place], [place], [address] , [place]. tel:[phone] Referring Provider: Kristen Fernandez [address], [place], [place], [address]. tel:[phone] PREV VISIT, EST, AGE 40-64 [facility], [address], [place], [place], [address], [place] tel:[phone] [facility] PHysical (chief complaint) Encntr for general adult medical exam w/o abnormal findings 6 Jason Parson. [address], [place], [place], [address] , [place]. tel:[phone] Referring Provider: Kristen [address], [place], [address]. tel:[phone] OFFICE/OUTPA TIENT VISIT, [facility], [place], [facility], [address], [place], [place], [address], [place] tel:[phone] [facility] osteoporosis (chief complaint)anx itey1 (chief complaint)chr onic pain (chief complaint)bar ret (chief complaint) OsteoporosisGene ralized anxiety disorderChronic pain syndromeBarrett' s esophagus Nov- 6 Jason Parson. [address], [place], [place], [address] , [place]. tel:[phone] Referring Provider: Kristen Fernandez [facility] A, [place], [place], [address]. tel:[phone] OFFICE/OUTPA TIENT VISIT, [facility], [place], [facility], [address], [place], [address], [place] tel:[phone] [facility] chronic pain (chief complaint)anx iety1 (chief complaint)car pal tunnel (chief complaint)HLP (chief complaint) Chronic pain syndromeHyperlip idemiaInsomniaEn counter for screening for osteoporosis 6 Jason Parson. [address], [place], [place], [address] , [place]. tel:[phone] Referring Provider: Kristen Fernandez [address] [facility] A, [place], [place], [address]. tel:[phone] OFFICE/OUTPA TIENT VISIT, [facility], [place], [facility], [address], [place], [place], [address], [place] tel:[phone] [facility] dizziness (chief complaint)anx iety1 (chief complaint)car pal tunnel (chief complaint)chr onic pain (chief complaint) Carpal tunnel syndrome of left armChronic pain syndromeGenerali zed Anxiety DisorderSyncope and collapse Sep- 6 Jason Parson. [address], [place], [place], [address] , [place]. tel:[phone] Referring Provider: Kristen Fernandez [address], [place], [place], [address]. tel:[phone] OFFICE/OUTPA TIENT VISIT, [facility], [place], [facility], [address], [place], [place], [address], [place] tel:[phone] [facility] carpal tunnel (chief complaint)cho rnic pain1 (chief complaint)anx iety1 (chief complaint)diz ziness1 (chief complaint) DizzinessGeneral ized anxiety disorderLow back painCarpal tunnel syndrome, left upper limb 6 Jason Parson. [address], [place], [place], [address] , [place]. tel:[phone] Referring Provider: Kristen Fernandez [facility], [place], [place], [address]. tel:[phone] OFFICE/OUTPA TIENT VISIT, [facility] [place], [address] [facility], [address], [place] tel:[phone] [facility] chornic pain1 (chief complaint)Anx iety1 (chief complaint)HLP 1 (chief complaint) Chronic pain syndromeGenerali zed anxiety disorderMixed hyperlipidemiaGE RD with esophagitis 5 Jason Parson. [address], [place], [place], [address] , [place]. tel:[phone] Referring Provider: Kristen Fernandez [facility] A, [place], [place], [address]. tel:[phone] OFFICE/OUTPA TIENT VISIT, [facility], [place], [facility], [address], [place], [place], [address], [place] tel:[phone] [facility] anxiety1 (chief complaint)nec k pain1 (chief complaint)arm numbness1 (chief complaint)PAD 1 (chief complaint) Lawrence's esophagusOther spondylosis, lumbar regionParesthesi a of skinGeneralized Anxiety Disorder 5 Jason Parson. [address], [place], [place], [address] , [place]. tel:[phone] Referring Provider: Kristen Fernandez [address], [place], [address]. tel:[phone] OFFICE/OUTPA TIENT VISIT, [facility], [place], [facility], [address], [place], [place], [address], [place] tel:[phone] [facility] anxiety1 (chief complaint)EN D1 (chief complaint)brenda k pain1 (chief complaint) Generalized anxiety disorderOther spondylosis, cervical regionGERD without esophagitisPares thesia of skin 5 Jason Parson. [address], [place], [place], [address] , [place]. tel:[phone] Referring Provider: Kristen Fernandez [address], [place], [place], [address]. tel:[phone] OFFICE/OUTPA TIENT VISIT, [facility], [place], [facility], [address], [place], [place], [address], [place] tel:[phone] [facility] neck pain (chief complaint)anx iety (chief complaint)HTN (chief complaint) Unspecified essential hypertensionGene ralized anxiety disorderNeck pain Sep-3 0 5 Jason Parson. [address], [place], [place], [address] , [place]. [phone] Referring Provider: Kristen Fern[address], [place], [place], [address]. tel:[phone] OFFICE/OUTPA TIENT VISIT, [facility], [place], [facility], [address], [place], [place], [address], [place] tel:[phone] [facility] neck pain (chief complaint)anx iety (chief complaint)KILN FURNITURE SAW TENDER D (chief complaint) LumbagoGeneraliz ed anxiety disorderCOPDPare sthesia 5 Jason Parson. [address], [place], [place], [address] , [place]. tel:[phone] Referring Provider: Kristen Fernandez [address], [place], [place], [address]. tel:[phone] OFFICE/OUTPA TIENT VISIT, EST [facility], [address], [place], [place], [address], [place] tel:[phone] [facility] back pain (chief complaint)anx iety (chief complaint)vit oewn D (chief complaint) LumbagoGeneraliz ed anxiety disorderBarrett' s esophagus 5 Jason Parson. [address], [place], [place], [address] , [place]. tel:[phone] Referring Provider: Eb Gomez, Kristen [address], [place], [place], [address]. tel:[phone] OFFICE/OUTPA TIENT VISIT, EST [facility], [address], [place], [place], [address], [place] tel:[phone] [facility] GERD (chief complaint)lum bago (chief complaint)HLP (chief complaint) LumbagoLoss of weightGeneralize d anxiety disorderDyslipid aemia 5 Jason Parson. [address], [place], [place], [address] , [place]. [phone] Referring Provider: Eb Gomez, Krist[address], [place], [place], [address]. tel:[phone] PREV VISIT, EST, AGE 40-64 [facility], [address], [place], [place], [address], [place] tel:[phone] [facility] physical (chief complaint) Routine medical exam 5 Jason Parson. [address], [place], [place], [address] , [place]. [phone] Referring Provider: Kristen Fernandez [address], [place], [place], [address]. tel:[phone] OFFICE/OUTPA TIENT VISIT, EST [facility], [address], [place], [place], [address], [place] tel:[phone] [facility] COPD (chief complaint)brneda k pain (chief complaint)anx iety (chief complaint)bar ett (chief complaint) COPDLumbagoBARRE TT'S ESOPHAGUSGeneral ized anxiety disorder Apr-2 5 Jason Parson. [address], [place], [place], [address] , [place]. tel:[phone] Referring Provider: Eb Gomez, Kristen [facility], [place], [place], [address]. tel:[phone] OFFICE/OUTPA TIENT VISIT, [facility] [place], [facility], [address], [place], [place], [address], [place] tel:[phone] [facility] COPD (chief complaint)brenda k pain (chief complaint)anx iety (chief complaint) COPDGeneralized anxiety disorderLumbagoS edative, hypnotic or anxiolytic dependence, unspecified Apr-0 5 Jason Parson. [address], [place], [place], [address] , [place]. [phone] Referring Provider: Kristen Fernandez [facility], [place], [place], [address]. tel:[phone] OFFICE/OUTPA TIENT VISIT, [facility] [place], [address] [place], [address], [place] tel:[phone] [facility] back pain (chief complaint)anx iety (chief complaint)KILN FURNITURE SAW TENDER D (chief complaint)abd pain (chief complaint) COPDLumbagoGener alized anxiety disorderOpioid type dependence, unspecified use Mar-0 5 Jason Parson. [address], [place], [place], [address] , [place]. tel:[phone] Referring Provider: Kristen Fernandez [facility] [place], [address]. tel:[phone] OFFICE/OUTPA TIENT VISIT, [facility] [place], [facility], [address], [place], [place], [address], [place] tel:[phone] [facility] COPD (chief complaint)vann d nodule (chief complaint)brenda k pain (chief complaint)anx iety (chief complaint) LumbagoGeneraliz ed anxiety disorderOther tenosynovitis of hand and wristCOPD 5 Jason Parson. [address], [place], [place], [address] , [place]. tel:[phone] Referring Provider: Kristen Fernandez [address], [place], [place], [address]. tel:[phone] OFFICE/OUTPA TIENT VISIT, [facility] [place], [facility], [address], [place], [place], [address], [place] tel:[phone] [facility] duodenal ulcer (chief complaint)brenda k pain (chief complaint)anx iety (chief complaint)KILN FURNITURE SAW TENDER D (chief complaint) Acute gastric ulcer without mention of hemorrhage or perforation, with obstructionLumba goGeneralized anxiety disorderCOPD 4 Jason Juarez [address], [place], [place], [address] , [place]. [phone] Referring Provider: Kristen Fernandez [address], [place], [place], [address]. tel:[phone] OFFICE/OUTPA TIENT VISIT, [facility] [place], [address] [place], [address], [place] tel:[phone] [facility] gastric ulcer (chief complaint)brenda k pain (chief complaint)anx iety (chief complaint) Acute gastric ulcer without mention of hemorrhage or perforation, with obstructionLumba goDepression 4 Jason Juarez [address], [place], [place], [address] , [place]. [phone] Referring Provider: Kristen Fernandez [address], [place], [place], [address]. tel:[phone] OFFICE/OUTPA TIENT VISIT, [facility] [place], [facility], [address], [place], [place], [address], [place] tel:[phone] [facility] anxiety (chief complaint)brenda k pain (chief complaint)abd ominal pain (chief complaint) LumbagoAbdominal PainDepressionGa stroparesis May-3 0 4 Jason Parson. [address], [place], [address] , [place]. tel:[phone] Referring Provider: Kristen Fern[address], [place], [place], [address]. tel:[phone] OFFICE/OUTPA TIENT VISIT, [facility] [place], [address], [place], [place], [address], [place] tel:[phone] [facility] back pain (chief complaint)anx iety (chief complaint)abd ominal pain (chief complaint)KILN FURNITURE SAW TENDER D (chief complaint) DepressionLumbag oHypertension, Unspecified Apr-2 4 Jason Parson. [address], [place], [place], [address] , [place]. tel:[phone] Referring Provider: Kristen Fernandez [address] [facility], [place], [place], [address]. tel:[phone] OFFICE/OUTPA TIENT VISIT, [facility] [place], [address], [place], [place], [address], [place] tel:[phone] [facility] abdominal pain (chief complaint)brenda k pain (chief complaint)anx iety (chief complaint) Dietary surveillance and counselingAbdomi nal PainLumbagoGener alized anxiety disorder Sep-0 4 Jason Parson. [address], [place], [place], [address] , [place]. tel:[phone] Referring Provider: Kristen Fernandez [address], [place], [place], [address]. tel:[phone] OFFICE/OUTPA TIENT VISIT, [facility] [place], [address] [place], [address], [place] tel:[phone] [facility] back pain (chief complaint)anx iety (chief complaint)abd ominal pain (chief complaint) Dietary surveillance and counselingLumbag oGeneralized anxiety disorderAbdomina l Pain Mar-0 4 Jason Parson. [address], [place], [place], [address] , [place]. [phone] Referring Provider: Kristen Fernandez [address], [place], [place], [address]. tel:[phone] OFFICE/OUTPA TIENT VISIT, [facility] [place], [address], [place], [place], [address], [place] tel:[phone] [facility] back pain (chief complaint)anx iety (chief complaint)HLP (chief complaint)Vit owen D (chief complaint) Dietary surveillance and counselingLumbag oGeneralized anxiety disorderHyperten brionna, UnspecifiedOther and unspecified hyperlipidemia 4 Jason Parson. [address], [place], [place], [address] , [place]. [phone] Referring Provider: [facility] [place], [place], [address]. tel:[phone] OFFICE/OUTPA TIENT VISIT, [facility] [place], [address], [place], [place], [address], [place] tel:[phone] [facility] back pain (chief complaint)anx iety (chief complaint)HTN (chief complaint) Dietary surveillance and counselingHypert ension, UnspecifiedLumba goGeneralized anxiety disorderDepressi on 4 Jason Parson. [address], [address], [place], [place], [id number] , [place]. [phone] Referring Provider: Kristen Fernandez [address], [place], [place], [id number]. tel:[phone] PREV VISIT, NEW, AGE 40-64 [facility], [address] [place], [place], [id number], [place] tel:[phone] [facility] PHysical (chief complaint) Dietary surveillance and counselingRoutin e Medical ExamRoutine Medical Exam 4 Jason Parson. [address], [address], [place], [place], [id number] , [place]. [phone] Family History Family Member Type Diagnosis Age At Onset Father Problem (finding) Cancer, lung Mother Problem (finding) Hyperlipidemia Brother Problem (finding) Anxiety Mother Problem (finding) Hypertension Payers Payer name Insurance type Covered alliance party ID David lyman(s) [facility] [id number] Social History Type Description Quantity Date Captured Comments Alcohol Use Details No Caffeine Use Details Unknown Tobacco Use Status Heavy cigarette smok er (20-39 cigs/day) Smoking Status Heavy tobacco smoker Sex Female Vital Signs Date / Time: Height Weight BMI Pulse Rate Blood Pressure Temperature Respiratory Rate Body Surface Area Head Circumference BMI percentile Pulse Ox Inhaled Ox 12:34 PM 68.00 in 126.00 lbs 19.1 6 kg/m eter (2) 83 /min 140/60 mm[Hg] 97.9 F 16 /min Chief Complaint And Reason For Visit From encounter dated 04/03/2025 11:47'. pain (chief complaint). Description: Pt has chronic back and neck pain Pt denies any worsening pain. pt denies any loss of bladder control. pt failed NSAID and ultram. Pt takes percocet for pain PRNand doing ok anxiety1 (chief complaint). Description: Pt has chronic anxiety and depression ,Pt takes cymbalta and klonopin and lamictal and zyprexa and her mood is much better. Pt denies any suicidal or homicidal thought Pt denies any crying spells Pt states that she has been having more mood swings lately butis better with the addition of zyprexa nightmares1 (chief complaint). Description: Pt has nightmares with PTSD. Pt doing ok with prazosin Plan Of Treatment Date Type Action Status [...] Goal Tobacco cessation counseling completed Referral Ordered: MOTOR NERVE CONDUCTION TEST ordered Referral Ordered: OPERATIVE UPPER GI ENDOSCOPY ordered Referral Ordered: HOLLY WILLOUGHBY -Allopathic & Osteopathic Physicians : Internal Medicine : Endocrinology, Diabetes & Metabolism (related to Osteoporosis) ordered Referral Referred To: HOLLY WILLOUGHBY [address] [place] [address], [phone] Ordered: Referrals: Allopathic & Osteopathic Physicians : Internal Medicine : Endocrinology, Diabetes & Metabolism. HOLLY WILLOUGHBY. Evaluate and treat ordered Referral Referred To: Dennise SALEEM, Guera Beal [address] [facility]
[address] [place] [address], [phone] Ordered: Referrals: Guera Bowden MD. Evaluate and treat ordered Referral Ordered: US CAROTID ordered Referral Ordered: Jean Pierre Venegas -Allopathic & Osteopathic Physicians : Internal Medicine : Endocrinology, Diabetes & Metabolism (related to Osteoporosis) ordered Referral Referred To: Jean Pierre Venegas [id number] [place] [address]
[address], [place] [id number] Ordered: Referrals: Allopathic & Osteopathic Physicians : Internal Medicine : Endocrinology, Diabetes & Metabolism. Jean Pierre Venegas. Evaluate and treat ordered Referral Ordered: US EXAM, ABDOM, COMPLETE ordered Referral Ordered: Urology (related to Hematuria) ordered Referral Ordered: Urology (related to Anemia) ordered Referral Ordered: Matias Reid -Allopathic & Osteopathic Physicians : Urology (related to Hematuria) ordered Referral Referred To: Matias Reid [address] [facility] [address] [place], [place], [phone] Ordered: Referrals: Allopathic & Osteopathic Physicians : Urology. Matias Reid. Evaluate and treat ordered Referral Ordered: US KIDNEY ordered Referral Ordered: Pulmonology (related to Emphysema) ordered Referral Ordered: Referrals: Pulmonology. Evaluate and treat ordered Referral Ordered: Rafy Wong -Allopathic & Osteopathic Physicians : Internal Medicine : Cardiovascular Disease (related to Coronary artery disease of [place] coronary artery without angina pectoris) ordered Referral Referred To: Rafy Wong [address] [place], [place] [id number] Ordered: Referrals: Allopathic & Osteopathic Physicians : [...] Arevalo [address] [place], [phone] Ordered: Referrals: Roge Arevalo. Evaluate and treat [...] PRN and doing ok nightmares1 Pt has nightmare s with PTSD. Pt doing ok with prazosin anxiety1 Pt has chronic a nxiety and depression ,Pt takes cymbalta and klonopin and lamictal and zyprexa and her mood is much better. Pt denies any suicidal or homicidal thought Pt denies any crying spells Pt states that she has been having more mood swings lately but is better with the addition of zyprexa weight gain1 Pt notices incre asing in appetite and she gained some weight. pain Pt has chronic b ack and neck pain Pt denies any worsening pain . pt denies any loss of bladder control. pt failed NSAID and ultram. Pt takes percocet for pain PRN and doing ok anxiety1 Pt has chronic a nxiety and depression ,Pt takes cymbalta and klonopin and lamictal and she started Zyprexa last month and her mood is much better. Pt denies any suicidal or homicidal thought Pt denies any crying spells Pt states that she has been having more mood swings lately but is better with the addition of zyprexa neuropathy1 Pt has bilateral peripheral neuropathy both feet Pt doing well with neurontin anxiety1 Pt has chronic a nxiety and depression ,Pt takes cymbalta and klonopin and lamictal. Pt denies any suicidal or homicidal thought Pt denies any crying spells Pt states that she has been having more mood swings lately neuropathy1 Pt c/o neuropath y symptoms both feet for several months Pt states that she constantly feels burning feeling on bottom of her feet Pt denies any claudication or any swelling weight loss1 Pt has been losi ng weight. Pt denies any early satiety, nausea, vomiting, loss of appetite. pain1 Pt has chronic b ack and neck pain Pt denies any worsening pain . pt denies any loss of bladder control. pt failed NSAID and ultram. Pt takes percocet for pain PRN and doing ok pain Pt has chronic [...] crying spells Barrett1 Pt has lawrence. Pt is on omeprazole .Pt just had EGD done recently which showed lawrence and she supposes to repeat EGD in 3 years OAB Pt is on gemtesa now by urology and she is doing ok pain Pt has chronic b [...] PRN and doing ok barrett1 Pt has melinda zheng. Pt had EGD 3 years ago .Pt [...] by insurance and she is working with [employer] to find something that will be covered [...] tingling for several months. Pt failed neurontin anxiety Pt has chronic a nxiety and depression ,Pt takes cymbalta and klonopin and lamictal and doing ok Pt denies any suicidal or homicidal thought Pt denies any crying spells osteoporosis1 Pt has osteoporo sis. Pt has not been getting treatment Pt did not get along with her previous endo and we tried to refer her to [facility] but is having some issues with the referral Pt was told by s [facility] that she needs a transfer [...] warmth or swelling Pt denies any fever anxiety1 Pt has chronic a nxiety and [...] Pt denies any dry mouth, daytime fatigue osteoporosis Pt has osteoporo sis. Pt take calcium [...] her GI appointment for EGD and colonoscopy anxiety Pt has anxiety a nd depression [...] hematuria . pt has [facility] pt denies any UTI [...] Pt told me she made indira with [facility] and she needs a referral [...] Pt does not want to go to [facility], which is too far for her. 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 physical [...] needs vitamin D Refilled. 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 Patient denies any [...] Pt denies any acute sob osteoporosis1 Pt jonyer osteoporos is. Pt started fosamax last month. [...] control HLP Pt has HLP Pt ta chuy zocor Pt denies any myalgia GERD1 Pt [...] adult Quit smoking Related to Anemi a Quit smoking Related to Gener alized Anxiety Disorder Special diet education Related t o Body mass index (BMI) 25.0-25.9, adult Perform monthly self breast examinations. Related to [...] Related to Coron m[place] artery disease of [place] coronary artery without angina pectoris Increase physical activity Relat ed to Solitary lung nodule Quit smoking Related to Solit monserrat lung nodule Special diet education Related t o Body [...] Chronic pain syndrome assessment Generalized Anxiety Disorder Mar assessment Nightmare disorder assessment Tobacco use Mental Status Date Cognitive Assessment Orientation - [place] ed to time, place, person, situation.
--- OUTSIDE RECORDS SUMMARY | 2025-04-09 13:45 | XMS_ITS | Clinical Summary ---
Author Organization [address] Address [address] [place] [address] Care Team Providers Care Registered Nurse Teacher Name Role Phone Eb Gomez MD Primary Care Provider [phone] Allergies Active Allergy Reactions Criticality Noted Date [...] 11/11/2021 Assessment & Plan (10/18/2022 2:14 PM PHYSICIAN PRACTICE CONSULTANT): Patient afraid of considering Forteo Will request [...] 11/11/2021 Assessment & Plan (10/18/2022 2:12 PM PHYSICIAN PRACTICE CONSULTANT): Check 25 OH vit D Adjust dose [...] esophagus Gastroparesis COPD (chronic obstructive pulmonary disease) Asthma Emphysema, interstitial OCD (obsessive compulsive disorder) PTSD (post-traumatic stress disorder) Agoraphobia Bipolar disorder Brittle bone disease Bulging lumbar disc Family [...] on file Legal Sex Female 2:17 PM PHYSICIAN PRACTICE CONSULTANT Gender Identity Female 10/18/2022 1:15 PM PHYSICIAN PRACTICE CONSULTANT Sexual Orientation Not on file Obstetrics History Last Filed Vital Signs Vital Sign Reading Time Taken Comments Blood Pressure 124/60 10/18/2022 1:30 PM PHYSICIAN PRACTICE CONSULTANT Pulse 80 10/18/2022 1:30 PM PHYSICIAN PRACTICE CONSULTANT Temperature - - Respiratory Rate 16 10/18/2022 1:30 PM PHYSICIAN PRACTICE CONSULTANT Oxygen Saturation - - Inhaled Oxygen Concentration - - Weight 68.5 kg (151 lb 0.2 oz) 10/18/2022 1:30 P M PHYSICIAN PRACTICE CONSULTANT Height 167.4 cm (5' 5.91) 10/18/2022 1:30 PM CS T Body Mass Index 24.44 10/18/2022 1:30 PM PHYSICIAN PRACTICE CONSULTANT Plan of Treatment Health Maintenance Due Date Last Done Comments Breast Cancer Screening-Mammogram 1965 Colon Cancer Screening-Colonoscopy 1963 Depression Screening 1963 Hepatitis C Screening 1963 DTaP/Tdap/Td Vaccine (1 - Tdap) 1974 Hepatitis B Screening 1981 Regular Well Visit/Exam 18-64 1981 Pneumococcal vaccine <65 (1 of 2 - PCV) 1982 Zoster Vaccine (1 of 2) 2013 Covid-19 Vaccine (2 - 2023- season) 04/28/202402/2021 Influenza Vaccine (#1) 2025 06/23/2015 Insurance [facility] Care Teams Registered Nurse Teacher Relationship Specialty Start Date End Date Eb Gomez MD [address] [place] [address] PCP - General Family Medicine 09/02/21
--- OUTSIDE RECORDS SUMMARY | 2025-04-09 13:45 | XMS_ITS | Encounter Summary ---
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
--- OUTSIDE RECORDS SUMMARY | 2025-04-09 13:45 | XMS_ITS | Clinical Summary ---
Author Organization [facility] Address [facility] [place] [address] Care Team Providers Care Supervisor Mattress And Boxsprings Name Role Phone Eb Gomez MD Primary Care Provider [phone] Allergies Active Allergy Reactions Criticality Noted Date [...] mouth 3 (three) times daily. Active Umeclidinium [place] 62.5 MCG/INH AEROSOL POWDER, BREATH ACTIVATED Inhale [...] 8:34 PM CDT Height 172.7 cm (5' 8) 06/21/2020 8:34 PM CDT Body Mass Index [...] Relevant to Health Maintenance Insurance Care Teams Supervisor Mattress And Boxsprings Relationship Specialty Start Date End Date Eb Gomez MD PCP - General FAMILY PRACTICE 02/25/19
--- NOTE | 2025-04-09 14:15 | NEURO_ITS ---
Impression: # Complains of numbness of lower extremities. History of multiple axial spine problems. ? # Borderline normal Nerve Conduction Study. ? # Normal needle/EMG exam. ? # Clinical correlation recommended. Nerve Conduction Studies ?Stim Site NR Peak (ms) P-T Amp (?V) Site1 Site2 Delta-P (ms) Dist (cm) Sabas (m/s) Left Sup Fibular Anti Sensory (Ant Lat Mall) 14 cm ? 3.3 5.9 14 cm Ant Lat Mall 3.3 16.0 48 Right Sup Fibular Anti Sensory (Ant Lat Mall) 14 cm ? 3.6 5.2 14 cm Ant Lat Mall 3.6 16.0 44 Left Sural Anti Sensory (Lat Mall) Calf ? 3.3 4.0 Calf Lat Mall 3.3 16.0 48 Right Sural Anti Sensory (Lat Mall) Calf ? 3.1 16.2 Calf Lat Mall 3.1 16.0 52 ?Stim Site NR Onset (ms) O-P Amp (mV) Site1 Site2 Delta-0 (ms) Dist (cm) Sabas (m/s) Left Peroneal Motor (Vastus Med) Ankle ? 3.8 2.4 Popit Ankle 8.9 38.0 43 Popit ? 12.7 1.7 Right Peroneal Motor (Vastus Med) Ankle ? 3.8 1.3 Popit Ankle 9.3 41.0 44 Popit ? 13.1 1.1 Left Tibial Motor (Abd Faith Brev) Ankle ? 3.8 4.9 Knee Ankle 9.2 41.0 45 Knee ? 13.0 1.5 Right Tibial Motor (Abd Faith Brev) Ankle ? 4.1 7.0 Knee Ankle 9.6 43.0 45 Knee ? 13.7 4.5 F Wave Studies ?NR F-Lat (ms) L-R F-Lat (ms) Left Peroneal (Mrkrs) (EDB) ? 55.47 0.47 Right Peroneal (Mrkrs) (EDB) ? 55.94 0.47 Left Tibial (Mrkrs) (Abd Hallucis) ? 55.12 0.23 Right Tibial (Mrkrs) (Abd Hallucis) ? 55.36 0.23 Electromyography ?Side Muscle Nerve Root Ins Act Fibs Amp Dur Recrt Comment Right AntTibialis Dp Br Fibular L4-5 Nml Nml Nml Nml Nml Right Gastroc Tibial S1-2 Nml Nml Nml Nml Nml Right Fibularis Long Sup Br Fibular L5-S1 Nml Nml Nml Nml Nml Right Flex Dig Long Tibial L5-S2 Nml Nml Nml Nml Nml Right Ext Dig Brev Dp Br Fibular L5, S1 Nml Nml Nml Nml Nml Right QuadratusFem QuadFemoris L4-5, S1 Nml Nml Nml Nml Nml Left AntTibialis Dp Br Fibular L4-5 Nml Nml Nml Nml Nml Left Gastroc Tibial S1-2 Nml Nml Nml Nml Nml Left Fibularis Long Sup Br Fibular L5-S1 Nml Nml Nml Nml Nml Left Flex Dig Long Tibial L5-S2 Nml Nml Nml Nml Nml Left Ext Dig Brev Dp Br Fibular L5, S1 Nml Nml Nml Nml Nml Left QuadratusFem QuadFemoris L4-5, S1 Nml Nml Nml Nml Nml
== END 2025-04-09 13:40 | disposition home or self-care (01) ==
LOC: ANHNEURO 13:41
PROVIDERS: PCP Emergency Medicine; Visit Provider Emergency Medicine
DX: G60.3 Idiopathic progressive neuropathy (principal)
CPT/HCPCS: 95886; 95910

== ENCOUNTER 2025-06-12 13:53 | Outpatient (CLI) | payer OTHER, SELFPAY ==
--- NOTE | ~2025-06-12 | US_ITS ---
US art doppler w press LE BI INDICATION: Leg pain. Claudication. TECHNIQUE: Segmental pressures and plethysmographic and Doppler waveforms of the brachial and lower extremity arteries were obtained. COMPARISON: None. FINDINGS: Right and left brachial artery pressures of 105 mm Hg and 106 mm Hg, respectively, are concordant (normal difference <= 30 mmHg). There are mixed biphasic and triphasic flow bilaterally, consistent with generally preserved arterial perfusion. The right ankle-brachial index (CARLOS) is 1.13 (normal >= 0.9-1.0). The right great toe-brachial index (TBI) is 0.76 (normal >= 0.60). The left CARLOS is 1.02. The left TBI is 0.84 . IMPRESSION: 1. No evidence of significant peripheral arterial occlusive disease in either lower extremity. Reviewed, dictated and finalized at location O. IMPRESSION: 1. No evidence of significant peripheral arterial occlusive disease in either l ower extremity.
--- OUTSIDE RECORDS SUMMARY | 2025-06-12 15:59 | XMS_ITS | Clinical Summary ---
Author Organization [facility] Address [address] [address] [address] Phone Care Team Providers Care Cylinder Machine Operator Name Role Phone Eb Gomez Primary Care Provider [phone] Allergies Active Allergy Reactions Criticality Noted Date [...] Colorectal Cancer Screening 04/06/2023 Influenza Immunization (#1) 2025 06/23/2015 SARS-COV-2 Immunization ( season) 2025 06/03/2021 Respiratory Syncytial Virus (RSV) Immunization (Adult) [...] this topic Medical Devices Implanted Type Area Dental Assistant Instructor Device Identifier Shelf Expiration Date Model / Serial / Lot Clip 360 Resolution 235cm - [id number] Implanted:Qty: 3 on 04/06/2018 by Puma Medina DO at [facility] IMPLANT [employer] 12/24/2020 [id number] / [id number] / [id number] Description:ASCENDING COLON POLYPECTOMY SITE Insurance MEDICAID [facility] Care Teams Cylinder Machine Operator Relationship Specialty Start Date End Date Jason Eb [address] [place] [address] PCP - General Family Medicine 07/09/16
--- OUTSIDE RECORDS SUMMARY | 2025-06-12 15:59 | XMS_ITS | Clinical Summary ---
Author Organization [address] Address [address] [place] [address] Care Team Providers Care Product Marketing Intern Name Role Phone Eb Gomez MD Primary Care Provider [phone] Allergies Active Allergy Reactions Criticality Noted Date [...] 11/11/2021 Assessment & Plan (10/18/2022 2:14 PM HARBOR BOAT PILOT): Patient afraid of considering Forteo Will request [...] 11/11/2021 Assessment & Plan (10/18/2022 2:12 PM HARBOR BOAT PILOT): Check 25 OH vit D Adjust dose [...] on file Legal Sex Female 2:17 PM HARBOR BOAT PILOT Gender Identity Female 10/18/2022 1:15 PM HARBOR BOAT PILOT Sexual Orientation Not on file Obstetrics History Last Filed Vital Signs Vital Sign Reading Time Taken Comments Blood Pressure 124/60 10/18/2022 1:30 PM HARBOR BOAT PILOT Pulse 80 10/18/2022 1:30 PM HARBOR BOAT PILOT Temperature - - Respiratory Rate 16 10/18/2022 1:30 PM HARBOR BOAT PILOT Oxygen Saturation - - Inhaled Oxygen Concentration - - Weight 68.5 kg (151 lb 0.2 oz) 10/18/2022 1:30 P M HARBOR BOAT PILOT Height 167.4 cm (5' 5.91) 10/18/2022 1:30 PM CS T Body Mass Index 24.44 10/18/2022 1:30 PM HARBOR BOAT PILOT Plan of Treatment Health Maintenance Due Date Last Done Comments Breast Cancer Screening-Mammogram 1963 Colon Cancer Screening-Colonoscopy 1963 Depression Screening 1963 Hepatitis C Screening 1963 DTaP/Tdap/Td Vaccine (1 - Tdap) 1974 Hepatitis B Screening 1981 Regular Well Visit/Exam 18-64 1981 Pneumococcal vaccine <65 (1 of 2 - PCV) 1982 Zoster Vaccine (1 of 2) 2013 Covid-19 Vaccine (2 - 2024- season) 04/28/202502/2021 Influenza Vaccine (#1) 2025 06/23/2015 Insurance [facility] Care Teams Product Marketing Intern Relationship Specialty Start Date End Date Eb Gomez MD [address] [place] [address] PCP - General Family Medicine 09/02/21
--- OUTSIDE RECORDS SUMMARY | 2025-06-12 15:59 | XMS_ITS | Encounter Summary ---
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
--- OUTSIDE RECORDS SUMMARY | 2025-06-12 15:59 | XMS_ITS | Data Portability ---
Author Organization [facility], [address] [place] [address] [place] ([place]) Address [address] [place] [address] Care Team Providers Care Data Integration Analyst Name Role Phone FRANKY CASTELLON Primary Care Provider [phone] Assessment Encounter Date Assessment Date Assessment LastModified by Organization Details LastModified Time 09/10/2024 09/10/2024 We do plan on getting urine to get the KUB done today. I then want to have one of our EDGE BANDER HAND's interrogate the device and see if it is functioning properly I personally spent a total of 22 minutes on this patient on this date of service going both qtwm-vw-wxve and ypb-heto-al-face time Not available 09/12/2024 12:07:42 09/18/2024 09/18/2024 [...] before making changes to the InterStim settings. [email or web address] Not available 09/18/2024 17:10:50 01/01/2025 01/01/2025 Chief Complaint: follow up History of present [...] had a KUB to make sure the wire was not fractured. KUB was normal. I saw the patient on September 18, 2024 to troubleshoot her device however she was complaining of an itching/fiery pain and rash over her right flank consistent with shingles. She was treated with valacyclovir and was told to come back in 3 months. Today, patient states she continues to have pain over her implant. This also itches. Unfortunately, patient forgot her senior mainframe programmer analyst today. She states she has not had any recent urinary tract infections. She is not currently having any dysuria or gross hematuria. No suprapubic discomfort or flank pain. No fevers or chills. She does not believe she is emptying her bladder all the way. She will have to go and then need to go again 5 minutes later. She states she tingles with laughing and coughing. She is having incontinence at night and during the day as well, worse with walking. Patient does mention she is drinking Coke, monster and a gallon of water a day. Postvoid residual 0 mL Review of systems Patient denies nausea, or vomiting, skin or vision changes, shortness of breath, or chest pain. Vitals, medical problems, medications, social histories and allergies are noted below. Physical exam: Patient is alert and oriented. In no acute distress. Skin warm and dry. Respirations deep and regular. No use of accessory muscles. Abdomen is soft without distension. There is no peripheral edema. Gait is normal and without defect. Tenderness with palpation of InterStim. No erythema or visible abnormalities noted. Assessment & Plan: Urgency, frequency, incontinence - Urinalysis with culture today. Patient is emptying her bladder well. We discussed limiting bladder irritants to help with some of her urinary symptoms. We also talked about timed voids and double voiding. We will trial her on Gemtesa 75 mg daily. We will get her rescheduled to come back in and troubleshoot her InterStim device. Will try to set this up when the InterStim rep can be present as well. I will discuss with Dr. Mchugh if he thinks any additional imaging would be necessary. We will call patient with further recommendations. [email or web address] Not available 01/10/2025 10:23:30 05/08/2025 05/08/2025 - Urinary incontinence The patient's current InterStim program appears to be effective in reducing urinary leakage, but adjustments may be needed to address nighttime occasional accidents. We discussed the difference in incontinence due to urgency and stress incontinence with coughing. The patient will continue using Gemtesa, which has shown significant improvement in symptoms. The device battery and program settings were reviewed, and the patient was educated on monitoring for battery warnings and adjusting settings as needed. She is currently on program 6. The intensity was bumped up and she immediately felt less pressure. This was not painful. Itching around the device site was noted, and the patient was reassured that there are no signs of infection. Options for remote assistance with program adjustments were discussed to minimize travel. Follow-up will be scheduled as needed, and the patient was advised to contact the office if symptoms worsen or if further adjustments are required. [email or web address] Not available 05/14/2025 23:33:10 Plan of Treatment Reminders Order Date Submit Date Provider Last Modified By Organization Details Last Modified Time Details Appointments None recorded. Lab culture + sensitivity , urine 2024 025 [facility], [address] [place] [address], [address], 5 15:29:33 urinalysis, complete 2024 025 [email or web address] [facility], [address] [place] [address], [address], 09:23:16 BMP, serum or plasma 2023 025 [facility], [address] [place], [address], 5 21:23:02 vitamin D, 25-hydroxy, total, serum 2023 025 [facility], [address] [place], [address], 5 21:23:02 Referral None recorded. Procedures None recorded. Surgeries None recorded. Imaging bone density 2023 025 [email or web address] [facility] (Imaging), [address] [place] [address], [address], 4 17:31:48 Medication Orders Gemtesa 75 mg tablet 2024 025 [email or web address] 9 [facility] [address] [place], [address], 5 09:23:16 valacyclovi r 1 gram tablet 2024 025 ANDREASMARGARITA [facility] [address] [place], [address], 5 15:32:03 Patient TargetsNo targets recorded. Patient Instructions Encounter Date Encounter Id Patient Instructions Last Modified By Organization Details Last Modified Time 04/15/2024 [id number] patient follow up phone call* cleve Not available 10/04/2024 11:33:49 05/08/2025 [id number] Monitor for battery warnings on the InterStim device and adjust settings as needed. Contact the office if symptoms worsen or further adjustments are required. Consider remote assistance for program adjustments to minimize travel. [email or web address] Not available 05/09/2025 03:07:24 Please note: Parts of this encounter note have been generated by AI based on audio conversation. Patient consent was required prior to utilizing this technology. Content review was required prior to finalizing the note. Not available 05/09/2025 03:07:23 Reason for Referral None Reported. Results Created Date Observation Date Name Description Value Unit Range Abnormal Flag Note LastModifiedBy Organization Detail LastModifiedTime 01/02/2001/01/2025 urina lysis , compl ete urinalysis, complete LOW LEVEL S OF HEMOG LOBIN IN ABSEN CE OF HEMAT URIA MAY NOT BE CLINI MOISES SIGNI FICAN T. Not Available [facility] [address], [address], 01/01/2025 17:43:33 01/02/2001/01/2025 urina lysis , compl ete color DARK YELLOW Dipst ick may be inacc urate due to the color of the urine Not Available [facility] [address] [place] [address], [address], 01/01/2025 17:43:33 01/02/20 25 01/01/2025 urina lysis , compl ete clarity CLEAR Not Available [facility] [address] [place] [address], [address], 01/01/2025 17:43:33 01/02/20 25 01/01/2025 urina lysis , compl ete pH 7.0 5.0-7. 5 Not Available [facility] [address] [place] [address], [address], 01/01/2025 17:43:33 01/02/20 25 01/01/2025 urina lysis , compl ete specific gravity 1.029 1.000- 1.030 Not Available [facility] [address] [place] [address], [address], 01/01/2025 17:43:33 01/02/20 25 01/01/2025 urina lysis , compl ete blood NEGATI VE negati ve Not Available [facility] [address] [place] [address], [address], 01/01/2025 17:43:33 01/02/20 25 01/01/2025 urina lysis , compl ete bilirubin NEGATI VE negati ve Not Available [facility] [address] [place] [address], [address], 01/01/2025 17:43:33 01/02/20 25 01/01/2025 urina lysis , compl ete urobilinogen 1.0 0.2-1. 0 Not Available [facility] [address] [place] [address], [address], 01/01/2025 17:43:33 01/02/20 25 01/01/2025 urina lysis , compl ete ketone TRACE negati ve abnormal Not Available [facility] [address] [place] [address], [address], 01/01/2025 17:43:33 01/02/20 25 01/01/2025 urina lysis , compl ete glucose NEGATI VE negati ve Not Available [facility] [address] [place] [address], [address], 01/01/2025 17:43:33 01/02/20 25 01/01/2025 urina lysis , compl ete protein NEGATI VE negati ve Not Available [facility] [address] [place] [address], [address], 01/01/2025 17:43:33 01/02/20 25 01/01/2025 urina lysis , compl ete nitrite NEGATI VE negati ve Not Available [facility] [address] [place] [address], [address], 01/01/2025 17:43:33 01/02/20 25 01/01/2025 urina lysis , compl ete leukocytes NEGATI VE negati ve Not Available [facility] [address] [place] [address], [address], 01/01/2025 17:43:33 01/02/20 25 01/01/2025 urina lysis , compl ete RBC 0-2 0-2/hp f Not Available [facility] [address] [place] [address], [address], 01/01/2025 17:43:33 01/02/20 25 01/01/2025 urina lysis , compl ete WBC 0-5 0-5/hp f Not Available [facility] [address] [place] [address], [address], 01/01/2025 17:43:33 01/02/20 25 01/01/2025 urina lysis , compl ete squamous epithelial 0-2 0-10/h pf Not Available [facility] [address] [place] [address], [address], 01/01/2025 17:43:33 01/02/20 25 01/01/2025 urina lysis , compl ete bacteria NONE SEEN none Not Available [facility] [address] [place] [address], [address], 01/01/2025 17:43:33 01/02/20 25 01/01/2025 urina lysis , compl ete hyaline cast 0-2 0-2/lp f Not Available [facility] [address] [place] [address], [address], 01/01/2025 17:43:33 01/02/20 25 01/03/2025 cultu re + sensi tivit y, urine urine culture and sens. IVANIA L URINE No growt h after overn ight incub ation After two night s incub ation 40,00 0 CFU/m l Mixed uroge nital fede isola kalia. Not Available [facility] [address] [place] [address], [address], 01/03/2025 09:45:46 01/02/20 25 01/02/2025 cultu re + sensi tivit y, urine urine culture and sens. PREL IM URINE No growt h after overn ight incub ation Not Available [facility] [address] [place] [address], [address], 01/02/2025 15:29:33 09/10/19 25 09/10/2024 XR, abdom en, 1 [place] [address] Teleph one [phone] Name: Bessy Tuttle [id number] am Date: 2024 Age: 59Phys ician: MD Lolita, Xu parham : 1964Ex aminat ion: XR ABDOME N/KUB1 VIEW EXAM: XR ABDOME N/KUB 1 VIEW HISTOR Y: Medtro sangeetha placed in ry of 2020, checki ng placem ent. [...] 11:53 AM cc: Page PAGE 1 of NUMPAG ES 1 [email or web address] [facility] [address] [place] [address], [address], 09/20/2024 17:21:59 03/01/2008/22/2020 imagi ng/di agnos tic resul t No observ ation record ed. [email or web address] Not Available 0 03/01/2025 04:00:33 Result Notes Documentation Provider Name and Address Organization Details Recorded Time Xr, Abdomen, 1 View : [address] [address] Name: Bessy Zavala Date: 09/10/2024 Age: 59Physician: MD Lolita, Joel : 1965Examination: XR ABDOMEN/KUB1 VIEW EXAM: XR ABDOMEN/KUB 1 VIEW HISTORY: Medtronic placed in September of 2020, checking placement. No other abdomen complaints. FINDINGS: Urinary bladder stimulator seen. There is a left hip arthroplasty. The bowel gas pattern appears normal without evidence of obstruction IMPRESSION: Normal bowel gas pattern Electronically signed in [employer] by: JAIMIE MATT on:09/10/2024 11:53 AM cc: Page PAGE 1 of NUMPAGES 1 Ynes Castillo [facility] 09/20/2024 17:21:59 Problems Name Problem SNOMED Code Status Onset Date Resolution Date Notes Provider Name and Address Organization Details Recorded Time Blood in urine 95123540 Active 2019 Sylvia Butler [facility] 09:43:50 Increased frequency of urination 006795747 Active 2022 Sylvia Butler [facility] 4 09:43:07 Dysuria 27949576 Active 2023 Sylvia Butler null, [facility] 4 09:42:33 Urinary incontinence 853440592 Active 2023 Ynes Chong null, [facility] 5 12:23:53 Osteoporosis 74425800 Active 2023 Ga Liu her, FORGE HEATER, DNP, BUSINESS BANKING SALES ASSISTANT [address] [place] [address], [phone], [facility] 5 12:05:38 Overactive urinary bladder 630856453 Active 2024 Joel Mchugh MD [address] [place] [address], [address], [facility] 5 12:07:24 Herpes zoster without complication 612033219 Active 2024 LILA CARNEY, BUSINESS BANKING SALES ASSISTANT [address] [place] [address], [address], [facility] 5 15:29:28 Problem Notes None recorded. Procedures Surgical History [...] Available Health Note 11/27/2023 12:25:49 Imaging Results None recorded. Procedure Notes None recorded. Medical Equipment None Reported. Allergies Allergen ID Allergen Name Allergen Category Reaction Reaction Severity Criticality Documentation Date Start Date Code Code System Note Provider Name and Address Organization Details Recorded Time 661251 ciproflox acin hydrochlo ride medicatio n Not available Not available Not available 09/25/20232012 58004 RxNorm Not Available [facility] 22:28:32 715817 aspirin medicatio n Not available Not available Not available 09/25/20232014 1191 RxNorm Not Available [facility] 22:28:32 Medications Name Sig Start Date Stop [...] Available Not Available Gemtesa 75 mg tablet 2024 active Not Available Not Available Not Avai lable Paxlovid 300 mg (150 mg x 2)-100 mg tablets in a dose pack TAKE 3 TABLETS BY MOUTH TWICE A DAY FOR 5 DAYS 04/15 completed Not Available Not Available Not Available Vitals Date Recorded Body height Provider Name an d Address Organization Details Last Updated DateTime 09/10/2024 167.64 cm Marium Alcocer [facility] 09/10/2024 11:58:09 Date Recorded Body height Body mass index (BMI) Body weight Heart rate Oxygen saturation Oxygen saturation in Arterial blood by Pulse oximetry Provider Name and Address Organization Details Last Updated DateTime 5 167.64 cm 20.7 kg/m2 54853.8 2 g 87 /min 98 % 98 % [facility] 5 14:50:54 Date Recorded Body height Body mass index (BMI) Body weight Heart rate Oxygen saturation Oxygen saturation in Arterial blood by Pulse oximetry Provider Name and Address Organization Details Last Updated DateTime 5 167.64 cm 19.8 kg/m2 87542.4 2 g 90 /min 94 % 94 % [facility] 5 15:48:47 Date Recorded Body height Body mass index (BMI) Body weight Heart rate Systolic And Diastolic Provider Name and Address Organization Details Last Updated DateTime 04/15/2024 167.64 cm 21.6 kg/m2 64385.94 g 68 /min 100/58 mm[Hg] Carmen mayorga [facility] 04/15/2024 14:46:31 Date Recorded Body height Body mass index (BMI) Body weight Heart rate Oxygen saturation Oxygen saturation in Arterial blood by Pulse oximetry Systolic And Diastolic Provider Name and Address Organization Details Last Updated DateTime 5 167.64 cm 20.8 kg/m2 22248.4 2 g 83 /min 94 % 94 % 112/58 mm[Hg] Katelyn Angel [facility] 5 15:44:05 Social History Question Answer Notes LastModified by [email or web address] Details LastModified Time Do You Have An [...] Do You Have A Medical Power Of Event Security Officer? No [email or web address] Information not available 11/27/2023 What Was The Date Of Your Most Recent Tobacco Screening? 11/29/2023 [email or web address] Information not available 11/27/2023 What Is Your Relationship Status? Domestic Partner [email or web address] Information not available 11/27/2023 Sex: Unknown Functional Status Question Answer Note LastModified by [employer] ion Details LastModified Time Do you use [...] available 2023 12:25:48 Medical History Condition Response Diabetes N Anxiety Disorder Y Bleeding Disorder N Attention-deficit Hyperactivity Disorder N High Blood Pressure Y Arthritis Y Hyperlipidemia N Cancer N Thyroid Problems N Stroke N Asthma Y COPD Y Depression Y Anemia N Seizures N Heart Disease N Fibromyalgia N Osteoporosis Y Kidney Disease N Gynecological HistoryNo gynecological history recorded. Obstetrics History GPAL:G 0 P 0 0 0 0 Immunizations Vaccine Type Date Status Note Provider Nam e and Address Organization Details Recorded Time COVID-19, mRNA, LNP-S, PF, 100 mcg/0.5mL dose or 50 mcg/0.25mL dose 06/03/2021 completed Carmen jimenez [facility] 04/15/2024 14:42:09 Influenza, split virus, trivalent, PF 06/23/2015 completed Carmen jimenez [facility] 04/15/2024 14:42:10 Past Encounters Encounter ID Performer Location Encounter Start Date Encounter Closed Date Diagnosis/Indication Diagnosis SNOMED-CT Code Diagnosis ICD10 Code Diagnosis IMO Codes Diagnosis Note [id number] Deanna Rico , FORGE HEATER, BUSINESS BANKING SALES ASSISTANT [address] [facility] ([place] [address] [place] [address] [address] [place] [address] 11/29/2023 11:41:35 11/29/2023 12:42:51 [id number] Ga Greenfield er, FORGE HEATER, DNP, BUSINESS BANKING SALES ASSISTANT [facility] ([place] [address] [place] [address] 04/15/2024 14:27:15 04/15/2024 17:22:56 Osteoporosis 01159032 M81.0 59-year-ol d female with history of [...] after she completes the bone density scan. [id number] Joel Mchugh MD [address] [facility] ([place] [address] [place] [address] 2 [place] [address] 09/10/2024 11:55:24 09/10/2024 13:59:58 Overactive urinary bladder 090011903 N32.81 [id number] LILA CARNEY CNP [address] [facility] [place] [address] [place] [address] [address] [place] [address] 09/18/2024 14:40:57 09/18/2024 16:25:26 Herpes zoster without complication 652203532 B02.9 [id number] LILA CARNEY CNP [address] [facility] [place] [address] [place] [address] 01/01/2025 15:43:20 01/01/2025 16:50:15 Overactive urinary bladder 362119473 N32.81 [id number] LILA CARNEY CNP [address] [place], [place] [address]y ([place]) [address] [place] [address] 05/08/2025 15:35:23 05/08/2025 16:39:40 Health Concerns Section Related Observation LastModified by Organization Detai ls LastModified Time None Recorded Concern Status LastModified by Organization Details LastModified Time None Recorded Advance Directives Directive N: Payers Insurance Date Sequence Insurance Name Policy Number Policy Pepper Covered Member ID Pepper Member ID Guarantor Name 05/16/2025 1 [facility] (MEDICAID HMO) [id number] Bessy Zavala [id number] Bessy Zavala Notes Date Note Type Note Provider Name and Address Organization Details Recorded Time 04/15/2024 text/html Ms. Zavala is a 59-year-old female who presents for management of osteoporosis. C urrent osteoporosis treatment: Reclast (at [facility]) on 10/13/23. She does report some body aches and chills for couple days after the infusion. She does continue to report achy bones but it is not clear if it is related to the Reclast treatment. P ast osteoporosis treatment: None M ost recent DEXA scan: June 2023 T score:AP Spine -2.8 R ight Femoral Neck -2.5Right Total Hip -2.7 Fracture history: Reports left clavicle fracture after falling against a wall many years ago, Left hip fracture in December 2020 after falling in her kitchen, Right wrist fracture in 2022 after she fell in her kitchen. N o history of parathyroid disease N o history of thyroid disease N o history of celiac disease N o history of seizure disorder N o cancer history N o history of radiation therapy N o aromatase inhibitor use P artial hysterectomy N o history of kidney stones G astroesophageal reflux disease B arrett's esophagus U se of PPIs N o history of RA H istory of steroid use for asthma H istory of bladder stimulator for incontinence E stimated dietary calcium intake: 1800mg/day S upplements: No calcium supplement. Vitamin D2 29259NQ weekly [facility] GFR 59Calcium 9.8Intact PTH 33Vitamin D 89Celiac disease panel negativeKappa/lambda serum free light chains 1.35SPEP no abnormalities E xercise: None F alls: Reports 1 fall in the past year H as had all of her teeth extracted in 2015 or 2016. Denies sores in mouth. No plans for implants. F amily History: Report both of her grandmothers broke a hip. S ocial history: Currently smokes less than 1/2PPD, previously smoked over 2 PPD. History of alcohol overuse. No longer consumes alcohol. Ga Newman, FORGE HEATER, DNP, BUSINESS BANKING SALES ASSISTANT [address] [place] [address], [phone], [facility] 04/15/2024 17:40:03 09/10/2024 text/html Patient is coming in today for [...] get moving on this Joel Mchugh MD [facility], [address], [facility] 09/12/2024 12:07:44 05/08/2025 text/html Bessy Zavala is a 60-year-old female who presents for management of her InterStim device and urinary symptoms. She has a history of InterStim. This [...] had a KUB to make sure the wire was not fractured. KUB was normal. I saw the patient on September 18, 2024 to troubleshoot her device however she was complaining of an itching/fiery pain and rash over her right flank consistent with shingles. At her visit in December, she did not bring the InterStim senior mainframe programmer analyst. We attempted to get her scheduled with the [facility] however that appointment was rescheduled. She was started on Gemtesa to see if her symptoms improved. Today, she reports that her current program setting has been effective in reducing urinary leakage, with noticeable improvement since starting Gemtesa. However, she experiences occasional tinkling when coughing and at night, which sometimes leads to accidents approximately three times per week. She denies any symptoms of infection, such as burning or blood in the urine. The patient last adjusted her InterStim program approximately three months ago and notes that lowering the stimulation results in increased urinary frequency. She has been charging the device more frequently, every other day, and reports that it takes all night to charge. The device was placed on 10/13/2020. She also mentions itching around the edges of the device site, which varies in intensity. She has no pain associated with the device and denies any signs of infection at the site. LILA CARNEY, BUSINESS BANKING SALES ASSISTANT [address] [place] [address], [phone], [place] [facility] 05/14/2025 23:33:19 OBGyn Episode No OBEpisode recorded.
--- OUTSIDE RECORDS SUMMARY | 2025-06-12 15:59 | XMS_ITS | Clinical Summary ---
Author Organization [facility] Address [facility] [place] [address] Care Team Providers Care Diamond Mounter Name Role Phone Eb Gomez MD Primary Care Provider [phone] Allergies Active Allergy Reactions Criticality Noted Date [...] mouth 3 (three) times daily. Active Umeclidinium [place] 62.5 MCG/INH AEROSOL POWDER, BREATH ACTIVATED Inhale [...] COVID-19 Vaccine (1 - 2023-2 5 season) 2025 Influenza Adult (#1) 2025 RSV Immunization or 60+ Years (1 - 1-dose 75+ series) 2038 Hepatitis A Vaccines Aged Out No long er eligible based on patient's age to complete this topic Meningococcal B Vaccine Aged Out No l [...] to Health Maintenance Insurance [employer] Care Teams Diamond Mounter Relationship Specialty Start Date End Date Eb Gomez MD PCP - General FAMILY PRACTICE 02/25/19
== END 2025-06-12 13:54 | disposition home or self-care (01) ==
PROVIDERS: PCP Emergency Medicine; Visit Provider Emergency Medicine
DX: I73.9 Peripheral vascular disease, unspecified (principal); M79.669 Pain in unspecified lower leg
CPT/HCPCS: 93923

== ENCOUNTER 2025-06-16 21:34 | Emergency (ER) | payer OTHER, SELFPAY ==
--- NOTE | ~2025-06-16 | XR_ITS ---
XR hip LT 2V w AP pelvis INDICATION: pain COMPARISON: None FINDINGS: AP view the pelvis and 2 views of the left hip demonstrates no acute fracture or dislocation. Left hip arthroplasty and cerclage wires noted. Components are well-seated. There is no evidence of loosening. IMPRESSION: No acute fracture or dislocation. Reviewed, dictated and finalized at location S.
--- NOTE | ~2025-06-16 | XR_ITS ---
XR ankle RT min 3V INDICATION: FALL THIS EVENING. RIGHT ANKLE PAIN. . COMPARISON: None. FINDINGS: Frontal, lateral and oblique views of the right ankle demonstrate no acute fracture or dislocation. The ankle mortise is intact. There is no soft tissue swelling. No radiopaque foreign body is seen. IMPRESSION: No acute fracture or dislocation is noted in the right ankle. Reviewed, dictated and finalized at location S.
[2025-06-16 21:35] VITALS: BP 123/59; PULSE 77; RESP 16; TEMP 36.6; O2SAT 100
--- NOTE | 2025-06-16 21:47 | ED.GENADULT ---
HPI - General Adult General Chief complaint: Extremity Injury, Lower Stated complaint: ankle injury Time Seen by Provider: 06/16/25 21:43 History of Present Illness HPI narrative: Bessy is a 60F with a PMH of Bunch esophagus, left hip fracture, HTN, HLD, tobacco abuse, COPD that presented to the ED after a fall. She stood up from her chair and her slipper was caught and she went down. No LOC, head or neck pain. Related Data Home Medications ?Medication ?Instructions ?Recorded ?Confirmed ?Last Taken ?Type clonazepam 1 mg tablet 1 mg PO TID 10/04/19 02/07/25 01/01/25 History simvastatin 20 mg tablet (Zocor) 20 mg PO DAILY 10/04/19 02/07/25 01/01/25 History lamotrigine 100 mg tablet 100 mg PO DAILY 12/28/20 02/07/25 01/01/25 History lisinopril 20 mg tablet 20 mg PO DAILY 12/28/20 02/07/25 01/02/25 History omeprazole 40 mg capsule,delayed 40 mg PO DAILY 12/24/21 02/07/25 01/01/25 History release duloxetine 60 mg capsule,delayed 60 mg PO DAILY 04/14/22 02/07/25 01/01/25 History release (Cymbalta) ergocalciferol (vitamin D2) 1,250 1,250 mcg PO WEEKLY 11/03/22 02/07/25 12/30/24 History mcg (50,000 unit) capsule prazosin 5 mg capsule 5 mg PO DAILY 05/10/24 02/07/25 01/01/25 History Allergies Allergy/AdvReac Type Severity Reaction Status Date / Time bee venom protein (honey bee) Allergy Intermediate Swelling Verified 06/16/25 21:59 aspirin Allergy Mild Anaphylaxis Verified 06/16/25 21:59 ciprofloxacin Allergy Unknown Anaphylaxis Verified 06/16/25 21:59 Review of Systems Review of Systems: All systems reviewed & are unremarkable except as noted in HPI and below PMFSH Past Medical History Medical History Bunch esophagus Fracture of distal end of right radius Hepatomegaly Tobacco abuse GERD (gastroesophageal reflux disease) Weight loss The patient was evaluated by Dr. Maguire who recommended the patient have EGD and colonoscopy she has not followed up. Her CT scan performed at that time demonstrated hepatomegaly Heart murmur Since Elevated lipids Arthritis Anemia Chronic obstructive pulmonary disease Cubital tunnel syndrome on left Dyslipidemia Essential hypertension Surgical History Surgical History Displaced fracture of left femoral neck Garden type 4 subcapital femoral neck fracture Cemented left bipolar hemiarthroplasty December 30, 2020 S/P implantation of urinary electronic stimulator device (~2016) With battery exchange 2020 History of carpal tunnel release Left S/P cubital tunnel release Left History of esophagogastroduodenoscopy (EGD) (~2016) History of colonoscopy with polypectomy (~2013) History of appendectomy History of hysterectomy Without oophorectomy at age 36 performed due to endometriosis and dysfunctional uterine bleeding History of shoulder surgery History of knee surgery Open meniscus repair left knee History of foot surgery Repair of tendons and ligaments of left ankle after severe laceration Family History Family History Father Lung cancer Sibling Psychiatric illness Mother Hypertension Hyperlipidemia Unknown Asthma Depression Heart disease Lung cancer Arthritis Cerebrovascular accident Other Diabetes mellitus Social History Social History Social History: She lives at home with her fiance and her adult son. She only has the 1 son. She has smoked between 1-2 packs of cigarettes per day since she was in her teens. She continues to smoke 0.5 pack of cigarettes per day. She denies any alcohol use or illicit substance use. 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 Primary care physician: Dr. Eb Gomez Code status: Full code Smoking packs per day: 0.50 Smoking cigarettes per day: 10.0 Years smoked: 40 Smoking pack-years: 20.00 Smoking status: Current every day smoker Tobacco type: cigarettes Second hand tobacco smoke exposure: Yes Alcohol intake: never Substance use: never Substance use type: does not use Living arrangements: with family Occupation/Education: retired Gender identity (if verbalized by the patient): Female Spiritual care concerns: No Exam Const: General: cooperative, healthy appearing, comfortable, no acute distress, well developed, alert, awake and Physically active Orientation/consciousness: oriented to person, oriented to place and oriented to time HENMT: Head: normal to inspection, normocephalic and atraumatic Ears: hearing grossly normal bilaterally and external ears normal Face/Nose/Sinus: Normal external nose present Eyes: General: appearance normal, both eyes and all related structures Periorbital: periorbital findings normal Sclera: sclerae normal Pupils: Equal, round and reactive pupils present Neck: Neck: normal visual inspection Chest: Chest palpation & inspection: normal inspection of the chest Resp: Effort & Inspection: normal respiratory effort, able to speak in complete sentences and no respiratory distress Cardio: Jugular venous distension: no JVD Skin: General skin exam: normal color and no rashes or lesions noted Neuro: General: oriented to person, oriented to place and oriented to time Cranial nerves: Yes Equal, round and reactive pupils present Extrem: General: normal to inspection Course Course Emergency Course: [place] for pain. Ordered radiographs. XR ankle RT min 3V INDICATION: FALL THIS EVENING. RIGHT ANKLE PAIN. . COMPARISON: None. FINDINGS: Frontal, lateral and oblique views of the right ankle demonstrate no acute fracture or dislocation. The ankle mortise is intact. There is no soft tissue swelling. No radiopaque foreign body is seen. IMPRESSION: No acute fracture or dislocation is noted in the right ankle. XR hip LT 2V w AP pelvis INDICATION: pain COMPARISON: None FINDINGS: AP view the pelvis and 2 views of the left hip demonstrates no acute fracture or dislocation. Left hip arthroplasty and cerclage wires noted. Components are well-seated. There is no evidence of loosening. IMPRESSION: No acute fracture or dislocation. Vital Signs Vital signs: Vital Signs Temperature 97.8 F 06/16/25 21:35 Pulse Rate 77 06/16/25 21:35 Respiratory Rate 16 06/16/25 21:35 Blood Pressure 123/59 L 06/16/25 21:35 Pulse Oximetry 100 06/16/25 21:35 Oxygen Delivery Room Air 06/16/25 21:35 Temperature 97.8 F 06/16/25 21:35 Pulse Rate 77 06/16/25 21:35 Respiratory Rate 16 06/16/25 21:35 Blood Pressure 123/59 L 06/16/25 21:35 Pulse Oximetry 100 06/16/25 21:35 Oxygen Delivery Room Air 06/16/25 21:35 Medical Decision Making Vital Signs Vital Signs: Vital Signs Temperature 97.8 F 06/16/25 21:35 Pulse Rate 77 06/16/25 21:35 Respiratory Rate 16 06/16/25 21:35 Blood Pressure 123/59 L 06/16/25 21:35 Pulse Oximetry 100 06/16/25 21:35 Oxygen Delivery Room Air 06/16/25 21:35 Temperature 97.8 F 06/16/25 21:35 Pulse Rate 77 06/16/25 21:35 Respiratory Rate 16 06/16/25 21:35 Blood Pressure 123/59 L 06/16/25 21:35 Pulse Oximetry 100 06/16/25 21:35 Oxygen Delivery Room Air 06/16/25 21:35 Discharge Plan Discharge Clinical Impression: Fall from ground level Patient Disposition: Home Condition: Stable Instructions: Fall Prevention (ED) Patient Language: Albanian Prescriptions: No Action ergocalciferol (vitamin D2) 1,250 mcg (50,000 unit) capsule 1,250 mcg PO WEEKLY lisinopril 20 mg tablet 20 mg PO DAILY lamotrigine 100 mg tablet 100 mg PO DAILY omeprazole 40 mg capsule,delayed release(DR/EC) 40 mg PO DAILY duloxetine [Cymbalta] 60 mg capsule,delayed release(DR/EC) 60 mg PO DAILY oxycodone-acetaminophen [Percocet] 10-325 mg tablet 1 tablet PO Q8H PRN (Reason: pain) Qty: 14 0RF (DME) inhalational spacing device Spacer See Rx Instructions .ROUTE .MEDSUPPLY Qty: 1 0RF Rx Instructions: As directed clonazepam 1 mg tablet 1 mg PO TID simvastatin [Zocor] 20 mg tablet 20 mg PO DAILY prazosin 5 mg capsule 5 mg PO DAILY albuterol sulfate 2.5 mg /3 mL (0.083 %) solution for nebulization 2.5 mg inhalation Q6H PRN (Reason: shortness of breath or wheezing) Qty: 360 2RF montelukast 10 mg tablet 10 mg PO QHS Qty: 30 11RF Breztri Aerosphere 160-9-4.8 mcg/actuation HFA aerosol inhaler See Rx Instructions .ROUTE .COMPLEX Qty: 10.7 11RF Dose Instruction: INHALE TWO PUFFS BY MOUTH EVERY MORNING AND EVERY EVENING. Rx Instructions: INHALE TWO PUFFS BY MOUTH EVERY MORNING AND EVERY EVENING. Rinse and spit. roflumilast [Daliresp] 500 mcg tablet 500 mcg PO DAILY Qty: 30 5RF Rx Instructions: Start this after finishing initial lower dose after 4 weeks benzonatate 200 mg capsule See Rx Instructions .ROUTE .COMPLEX Qty: 90 1RF Dose Instruction: TAKE ONE CAPSULE BY MOUTH THREE TIMES A DAY NEEDED Rx Instructions: TAKE ONE CAPSULE BY MOUTH THREE TIMES A DAY NEEDED albuterol sulfate 90 mcg/actuation HFA aerosol inhaler See Rx Instructions .ROUTE .COMPLEX Qty: 6.7 5RF Dose Instruction: INHALE ONE TO TWO PUFFS EVERY FOUR TO SIX HOURS NEEDED FOR SHORTNESS OF BREATH OR WHEEZING Rx Instructions: INHALE ONE TO TWO PUFFS EVERY FOUR TO SIX HOURS NEEDED FOR SHORTNESS OF BREATH OR WHEEZING Follow-up/Referrals: Eb Gmoez MD [Primary Care Provider, Family Practice]
--- OUTSIDE RECORDS SUMMARY | 2025-06-16 21:52 | XMS_ITS | Clinical Summary ---
Author Organization [address] Address [address] [place] [id number] Care Team Providers Care Airplane Navigator Name Role Phone Eb Gomez MD Primary Care Provider [phone] Allergies Active Allergy Reactions Criticality Noted Date [...] 11/11/2021 Assessment & Plan (10/18/2022 2:[address] REPORTER): Patient afraid of considering Forteo Will request [...] 11/11/2021 Assessment & Plan (10/18/2022 2:[address] REPORTER): Check 25 OH vit D Adjust dose [...] on file Legal Sex Female 2:[address] REPORTER Gender Identity Female 10/18/2022 1:[address] REPORTER Sexual Orientation Not on file Obstetrics History Last Filed Vital Signs Vital Sign Reading Time Taken Comments Blood Pressure 124/60 10/18/2022 1:[address] REPORTER Pulse 80 10/18/2022 1:[address] REPORTER Temperature - - Respiratory Rate 16 10/18/2022 1:[address] REPORTER Oxygen Saturation - - Inhaled Oxygen Concentration - - Weight 68.5 kg (151 lb 0.2 oz) 10/18/2022 1:[address] REPORTER Height 167.4 cm (5' 5.91) 10/18/2022 1:30 PM CS T Body Mass Index 24.44 10/18/2022 1:[address] REPORTER Plan of Treatment Health Maintenance Due Date [...] 04/28/202502/2021 Influenza Vaccine (#1) 2025 06/23/2015 Insurance [facility] Care Teams Airplane Navigator Relationship Specialty Start Date End Date Eb Gomez MD [address] [place] [address] PCP - General Family Medicine 09/02/21
--- OUTSIDE RECORDS SUMMARY | 2025-06-16 21:52 | XMS_ITS | Clinical Summary ---
Author Organization [facility] Address [facility] [place] [address] Care Team Providers Care Hot Box Spotter Name Role Phone Eb Gomez MD Primary Care Provider [phone] Allergies Active Allergy Reactions Criticality Noted Date [...] mouth 3 (three) times daily. Active Umeclidinium [place] 62.5 MCG/INH AEROSOL POWDER, BREATH ACTIVATED Inhale [...] Screening 05/12/2022 05/12/2020 COVID-19 Vaccine ( - 2024-2 6 season) 2025 Influenza Adult (#1) 2025 RSV [...] to Health Maintenance Insurance [employer] Care Teams Hot Box Spotter Relationship Specialty Start Date End Date Eb Gomez MD PCP - General FAMILY PRACTICE 02/25/19
--- OUTSIDE RECORDS SUMMARY | 2025-06-16 21:52 | XMS_ITS | Encounter Summary ---
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
--- NOTE | 2025-06-16 22:04 | PC.NURSE ---
pt returned from imaging at this time, awaiting results.
--- NOTE | 2025-06-16 22:22 | PC.NURSE ---
RN to medicate patient however pt states she takes Percocet 4 x a day 10 mg. Pt offered hydrocodone however states that will not work because the Percocet doesn't work for her pain. Pt states she was hoping for a shot (for pain). RN provided education to patient and ERP did not order pain shot. ERP Dr. Vega to patient bedside to provide education and discharge teaching including results and plan of care.
== END 2025-06-16 22:31 | disposition home or self-care (01) ==
PROVIDERS: Emergency Provider Family Medicine; PCP Emergency Medicine
DX: S99.911A Unspecified injury of right ankle, initial encounter (principal); I10 Essential (primary) hypertension; E78.5 Hyperlipidemia, unspecified; J44.9 Chronic obstructive pulmonary disease, unspecified; F17.210 Nicotine dependence, cigarettes, uncomplicated; W19.XXXA Unspecified fall, initial encounter
CPT/HCPCS: 73502; 73610; 99284

== ENCOUNTER 2025-07-17 12:52 | Outpatient (CLI) | payer OTHER, SELFPAY ==
--- NOTE | ~2025-07-17 | CT_ITS ---
EXAMINATION:CT lung screening DATE: 07/17/2025 13:19 INDICATION: Smoking history. TECHNIQUE: Computed tomography (CT) of the chest was performed without intravenous contrast. Automated exposure control and iterative reconstruction technique were employed. The dose-length product (DLP) was 57.42 mGy-cm. COMPARISON: Lung cancer screening CT dated 04/25/2024. FINDINGS: Mild emphysematous lungs. Stable benign calcified granuloma 10 mm in size in the right lower lobe with calcified lymph nodes in the mediastinum and left hilum. No evidence of solid noncalcified lung nodules are seen. IMPRESSION: 1. Stable and benign findings. Annual follow-up lung cancer screening recommended. Lung RADS category 2 Reviewed, dictated and finalized at location T. OFFICE RECEPTIONIST IMPRESSION: 1. Stable and benign findings. Annual follow-up lung cancer screening recommend ed. Lung RADS category 2
--- NOTE | ~2025-07-17 | DEXA_ITS ---
Bone Density Report Name: LUDIN JAY Age: 60 Sex: Female Ethnicity: White Date of : 1965 Indication: postmenopausal; screening for osteoporosis; parental hip fracture; height loss; prior fracture; asthma or emphysema; hysterectomy; rheumatoid arthritis; secondary osteoporosis; Referring Provider: UNKNOWN, UNKNOWN Study: Bone densitometry was performed. Exam Date: July 17, 2025 Accession number: [id number] Bone Density: Region BMD T-score Z-score Classification AP Spine(L1-L4) 0.803 -2.2 -0.6 Osteopenia Femoral Neck (Right) 0.547 -2.7 -1.3 Osteoporosis Total Hip (Right) 0.607 -2.7 -1.7 Osteoporosis World Health Organization criteria for BMD impression classify patients as: Normal (T-score at or above -1.0), Osteopenia (T-score between -1.0 and -2.5), or Osteoporosis (T-score at or below -2.5). 10-year Fracture Risk: FRAX not reported because: Some T-score for Spine Total or Hip Total or Femoral Neck at or below -2.5 Prior hip or vertebral fracture Treated for osteoporosis Clinical Information Provided by Patient: Have had a previous hip or vertebral fracture Has had a low trauma fracture Parent has had a hip fracture Smokes Has rheumatoid arthritis Has secondary osteoporosis Has 3 or more alcoholic drinks per day Is being treated for osteoporosis Has used the following medications: Reclast (i.e. zoledronate), Vitamin D Has the following medical conditions: Asthma or Emphysema, Hysterectomy Patient maximum height was 68 Menopause Age: 50 Drinks caffeinated beverages Onset of menses at age 9 Number of children 1 Impression: The patient has established osteoporosis, based on the Right Total Hip T-score and the existence of a prior fracture. The patient has risk factors, including: parental hip fracture, smoking, excessive alcohol use, previous fracture. Discussion: It is important to ask patients whether they are taking their medications and to encourage continued and appropriate compliance with their osteoporosis therapies to reduce fracture risk. It is also important to review their risk factors and encourage appropriate calcium and vitamin D intakes, exercise, fall prevention and other lifestyle measures. Follow-Up: Consider a repeat BMD and Vertebral Fracture Assessment (VFA) exam in 2 years or sooner if medically necessary, to reassess this patient's status. Reported by: ENID on 07/17/2025 1:26:00 PM. Reviewed, dictated and finalized at location A.
== END 2025-07-17 12:53 | disposition home or self-care (01) ==
PROVIDERS: PCP Emergency Medicine
DX: Z12.2 Encounter for screening for malignant neoplasm of respiratory organs (principal); Z87.891 Personal history of nicotine dependence; Z78.0 Asymptomatic menopausal state; M85.88 Other specified disorders of bone density and structure, other site; M81.0 Age-related osteoporosis without current pathological fracture
CPT/HCPCS: 71271; 77080